=== PATIENT | female | born 1950 | race Caucasian/White ===

== ENCOUNTER 2022-10-31 12:45 | Outpatient (REF) | payer MEDICARE, SELFPAY ==
[2022-10-31 13:52] LABS: MANUAL DIFF FLAG NO
[2022-10-31 14:31] LABS: Basophils Percent Auto 1.4 % (0-2); Eosinophils Percent Auto 0.4 % (0-4); Hematocrit 42.2 % (37.0-47.0); Hemoglobin 13.9 g/dl (12.0-16.0); Imm Gran Abs Auto 0.02 X10*3/uL (0.00-0.03); Imm Gran Pct Auto 0.7 % (0.0-0.4); Lymphocytes Percent Auto 37.1 % (20-40); Mean Corpuscular HGB Conc 32.9 g/dl (31.0-35.0); Mean Corpuscular Hemoglobin 30.7 pg (27.0-33.0); Mean Corpuscular Volume 93.2 fL (80.0-98.0); Mean Platelet Volume 10.5 fL (9.4-12.3); Monocytes Absolute Auto 0.3 X10*3/uL (0.1-1.2); Monocytes Percent Auto 11.8 % (2-11); Neutrophils Absolute Auto 1.4 x10*3/uL (2.0-8.3); Neutrophils Percent Auto 48.6 % (45-73); Platelet Count 131 X10*3/uL (160-400); Red Blood Count 4.53 X10*6/uL (4.20-5.50); Red Cell Distribution Width 13.6 % (11.0-16.0); White Blood Count 2.8 X10*3/uL (4.8-10.8)
[2022-10-31 15:13] LABS: Erythrocyte Sedimentation Rate 7 MM/HR (0-20)
[2022-11-02 06:13] LABS: Immunoglobulin E <2 kU/L (<OR=114)
[2022-11-04 11:39] LABS: IgA 256 mg/dL (70-320); IgG 1055 mg/dL (600-1540); IgM 104 mg/dL (50-300)
[2022-11-04 12:58] LABS: Immunoglobulin G Subclass 1 560 mg/dL (382-929); Immunoglobulin G Subclass 2 279 mg/dL (241-700); Immunoglobulin G Subclass 3 73 mg/dL (22-178); Immunoglobulin G Subclass 4 11.7 mg/dL (4-86); Immunoglobulin G Total 1014 mg/dL (600-1540)
[2022-11-04 16:18] LABS: Cyclic Citrullinated Peptide <16 UNITS
[2022-11-05 07:43] LABS: Anti Nuclear Antibody Screen NEGATIVE (NEGATIVE)
[2022-11-07 13:53] LABS: Myeloperoxidase Antibody <1.0 AI; Proteinase 3 PR3 Antibodies <1.0 AI
[2022-11-08 14:12] LABS: Asperg fumigatus Precip Abs NEGATIVE (NEGATIVE); Micropoly faeni Abs NEGATIVE (NEGATIVE); Pigeon serum Abs NEGATIVE (NEGATIVE); Saccharo pora viridis Abs NEGATIVE (NEGATIVE); Thermo candidus Abs NEGATIVE (NEGATIVE); Thermoa vulgaris #1 NEGATIVE (NEGATIVE)
== END 2022-10-31 12:46 | disposition home or self-care (01) ==
LOC: HO.LAB 12:45
PROVIDERS: PCP Registered Nurse; Visit Provider Hospitalist
DX: R91.8 Other nonspecific abnormal finding of lung field (principal); J18.9 Pneumonia, unspecified organism; J40 Bronchitis, not specified as acute or chronic; J21.9 Acute bronchiolitis, unspecified
CPT/HCPCS: 36415; 82784; 82785; 85025; 85652; 86021; 86038; 86039; 86200; 86331; 86606; 86609; 99202

== ENCOUNTER 2022-11-22 14:42 | Outpatient (REF) | payer MEDICARE, SELFPAY ==
[2022-11-22 14:54] LABS: MANUAL DIFF FLAG NO
[2022-11-22 15:22] LABS: Eosinophils Percent Auto 0.6 % (0-4); Hematocrit 38.4 % (37.0-47.0); Hemoglobin 12.6 g/dl (12.0-16.0); Imm Gran Abs Auto 0.01 X10*3/uL (0.00-0.03); Imm Gran Pct Auto 0.3 % (0.0-0.4); Lymphocytes Absolute Auto 1.1 X10*3/uL (1.2-4.9); Lymphocytes Percent Auto 36.2 % (20-40); Mean Corpuscular HGB Conc 32.8 g/dl (31.0-35.0); Mean Corpuscular Hemoglobin 30.4 pg (27.0-33.0); Mean Corpuscular Volume 92.5 fL (80.0-98.0); Mean Platelet Volume 10.4 fL (9.4-12.3); Monocytes Absolute Auto 0.4 X10*3/uL (0.1-1.2); Monocytes Percent Auto 12.6 % (2-11); Neutrophils Absolute Auto 1.5 x10*3/uL (2.0-8.3); Neutrophils Percent Auto 49.3 % (45-73); Platelet Count 132 X10*3/uL (160-400); Red Blood Count 4.15 X10*6/uL (4.20-5.50); Red Cell Distribution Width 13.5 % (11.0-16.0); White Blood Count 3.1 X10*3/uL (4.8-10.8)
[2022-11-22 15:25] LABS: D Dimer High Sensitivity 291 NG/ML
[2022-11-22 15:45] LABS: Anion Gap 11 (12-20); Blood Urea Nitrogen 23 mg/dL (9-16); Calcium 9.7 mg/dL (8.4-10.2); Carbon Dioxide 28 mmol/L (22-29); Chloride 110 mmol/L (96-108); Estimated Glomerular Filt Rate 45; Glucose Random 84 mg/dL (60-115); Potassium 4.8 mmol/L (3.3-5.1); Sodium 144 mmol/L (135-145)
[2022-11-22 15:57] LABS: Erythrocyte Sedimentation Rate 9 MM/HR (0-20)
[2022-11-22 16:01] LABS: Troponin-I High Sensitivity < 2.7 ng/L (<3.5-17.0)
== END 2022-11-22 14:43 | disposition home or self-care (01) ==
LOC: HO.LAB 14:42
PROVIDERS: PCP Registered Nurse; Visit Provider Hospitalist
DX: R07.9 Chest pain, unspecified (principal)
CPT/HCPCS: 36415; 80048; 84484; 85025; 85379; 85652

== ENCOUNTER 2022-11-26 12:49 | Outpatient (REF) | payer MEDICARE, SELFPAY ==
--- NOTE | ~2022-11-26 | CT_ITS ---
EXAMINATION: CT ANGIOGRAM OF THE CHEST WITH AND WITHOUT CONTRAST (CT PULMONARY ANGIOGRAM FOR PE) CLINICAL INFORMATION: Reason for Exam R07.9 - Chest pain, unspecified COMPARISON: None available. TECHNIQUE: Prior to contrast administration, noncontrast localization images were obtained. Subsequently, multidetector volumetric imaging was performed from the thoracic inlet to below the diaphragms following the administration of 80 mL Omnipaque 350 intravenous contrast. No contrast reaction reported Sagittal, coronal, and MIP oblique sagittal reformatted images were obtained on the CT workstation, uploaded to PACS, and reviewed. This CT examination was performed using dose optimization techniques as appropriate, variously including the following: *Automated exposure control *Adjustment of mA and/or kV according to patient size (this includes techniques or standardized protocols for targeted exams where dose is matched to indication/reason for exam; i.e. extremities or head) *Use of iterative reconstruction technique Total exam dose-length product 117 mGy-cm FINDINGS: QUALITY OF STUDY/CONTRAST BOLUS: Satisfactory. PULMONARY ARTERIES: No pulmonary emboli. THORACIC AORTA: No aneurysm. LUNG: The lungs are well-expanded and clear of acute pneumonic process. There is right lower lobe and lingular atelectasis. PLEURA: No pleural effusion or pneumothorax. MEDIASTINUM: Heart size and great vessels are normal caliber. No evidence of septal bowing or right heart strain. CORONARY ARTERY CALCIFICATION: None visualized on this study. CHEST WALL/AXILLA: No axillary or internal mammary lymphadenopathy. OSSEOUS STRUCTURES: No acute or suspicious osseous abnormality. UPPER ABDOMEN: Visualized liver, spleen, pancreas and bilateral adrenal glands unremarkable. No reflux of contrast into the hepatic veins to suggest elevated right heart pressures. CT/CT angio chest PE protocol IMPRESSION: No evidence of PE. No evidence of aortic aneurysm or dissection. Right lower lobe and lingular atelectasis. VTE: negative
[2022-11-26] MEDS: iohexoL 350 MG/ML 100 ML INFUS..BTL IV (14:22)
== END 2022-11-26 12:50 | disposition home or self-care (01) ==
LOC: HO.CT 12:49
PROVIDERS: PCP Registered Nurse; Visit Provider Hospitalist
DX: R07.9 Chest pain, unspecified (principal); R79.89 Other specified abnormal findings of blood chemistry
CPT/HCPCS: 71275; Q9967

== ENCOUNTER 2022-12-05 07:36 | Day surgery (SDC) | payer MEDICARE, SELFPAY ==
--- NOTE | 2022-12-04 08:43 | P.CONAN_ITS ---
Documented by User: China Leon NP 12/04/22 08:47 HPI - Anesthesia Eval Consult details Narrative: 72yo F for Bronchoscopy Fiberoptic PMFSH Active Problems Active Problems: All Active Problems (Updated 11/19/22 @ 15:19 by Wayne Ng MD) Chest pain (Acute) Bronchiolitis (Acute) Bronchitis (Acute) Pneumonia (Acute) Past Medical History Medical History Anxiety Bronchiolitis Bronchitis Chest pain HLD (hyperlipidemia) HTN (hypertension) Hypothyroid Mitral valve prolapse Pneumonia Surgical History Surgical History H/O colonoscopy H/O endoscopy History of hysterectomy S/P transposition of nerve Social History Social History Patient Tobacco Use Status: Never used Tobacco Meds Allergies Allergy/AdvReac Type Severity Reaction Status Date / Time tetracycline Allergy Unknown Hives Verified 12/05/22 08:03 Erythromycin Allergy Unknown Hives Uncoded 12/05/22 08:03 msg AdvReac Severe Hives Uncoded 12/05/22 08:03 bee stings AdvReac Hives Uncoded 12/05/22 08:03 Home Medications Medication Instructions Recorded Confirmed Last Taken Type clobetasol 0.05 % topical foam 1 appl topical BID PRN SKIN 10/31/22 12/05/22 Unknown History furosemide 20 mg tablet 20 mg PO DAILY 10/31/22 12/05/22 12/04/22 History levothyroxine 112 mcg tablet 112 mcg PO QAM 10/31/22 12/05/22 12/04/22 History metoprolol succinate 100 mg 100 mg PO DAILY 10/31/22 12/05/22 12/04/22 History tablet,extended release 24 hr valacyclovir 1 gram tablet 2,000 mg PO Q12H PRN Breakthrough 10/31/22 12/05/22 Unknown History Pain Exam Exam Date and Time: December 04, 2022 0843 Pertinent Lab Results Pertinent Lab Results: Laboratory Tests 11/22/22 11/22/22 14:53 14:53 WBC 3.1 L Hgb 12.6 Hct 38.4 Plt Count 132 L Sodium 144 Potassium 4.8 Chloride 110 H Carbon Dioxide 28 BUN 23 H Creatinine 1.18 Assessment and Plan Assessment Anesthesia Assessment: Chart Reviewed Documented by User: Caesar Trejo MD 12/05/22 17:19 [facility] Past Medical History Medical History Anxiety Bronchiolitis Bronchitis Chest pain HLD (hyperlipidemia) HTN (hypertension) Hypothyroid Mitral valve prolapse Pneumonia Family History Family history of problems with anesthesia: No Surgical History Surgical History H/O colonoscopy H/O endoscopy History of hysterectomy S/P transposition of nerve History of Problems with Anesthesia: No Social History Social History Patient Tobacco Use Status: Never used Tobacco Meds Allergies Allergy/AdvReac Type Severity Reaction Status Date / Time tetracycline Allergy Unknown Hives Verified 12/05/22 08:03 Erythromycin Allergy Unknown Hives Uncoded 12/05/22 08:03 msg AdvReac Severe Hives Uncoded 12/05/22 08:03 bee stings AdvReac Hives Uncoded 12/05/22 08:03 Home Medications Medication Instructions Recorded Confirmed Last Taken Type clobetasol 0.05 % topical foam 1 appl topical BID PRN SKIN 10/31/22 12/05/22 Unknown History furosemide 20 mg tablet 20 mg PO DAILY 10/31/22 12/05/22 12/04/22 History levothyroxine 112 mcg tablet 112 mcg PO QAM 10/31/22 12/05/22 12/04/22 History metoprolol succinate 100 mg 100 mg PO DAILY 10/31/22 12/05/22 12/04/22 History tablet,extended release 24 hr valacyclovir 1 gram tablet 2,000 mg PO Q12H PRN Breakthrough 10/31/22 12/05/22 Unknown History Pain Exam Airway Mallampati Class: II TM Dist: >3cm Neck ROM: Full Assessment and Plan Assessment Anesthesia Assessment: Anesthesia Plan Discussed Final Anesthetic Review Family History of Problems with Anesthesia: No History of Problems with Anesthesia: No NPO: Yes ASA Class: III Final Preanesthetic Review: No Changes in Pt Med Stat, Meds/Allgs Chart Reviewed, Consent Obtained/Reviewed and Anes Risks/Benef Reviewed Patient Risk: Intermediate Procedure Risk: Low Anesthetic Plan Anesthetic Plan: MAC: Disposition: Standard PACU
--- NOTE | 2022-12-05 07:58 | MHC.SHP ---
Pre-Procedural Eval Section A Date of Service: 12/05/22 The patient is an INPATIENT: No Changes since office visit: No Cold of Flu in the past 2 weeks, No New Medical Problems, No Changes in Medication and No Patient answered all questions The History & Physical has been completed within 30 days and I have reviewed it.: Yes Section B Chief Complaint: Acute bronchiolitis, unspecified Allergies: Allergies Allergy/AdvReac Type Severity Reaction Status Date / Time tetracycline Allergy Unknown Hives Verified 10/31/22 13:01 Erythromycin Allergy Unknown Hives Uncoded 10/31/22 13:01 msg AdvReac Severe Hives Uncoded 10/31/22 13:01 bee stings AdvReac Hives Uncoded 10/31/22 13:01 Plan Diagnosis/Plan: Change (recurrent pneumonia and chest pain, plan for bronchoscopy) I have reviewed the history and physical and performed a pertinent physical examination on my patient. No changes have occurred unless specified. Time Spent With Patient Time: Total time managing care of this patient today ____ minutes.
[2022-12-05 08:06] VITALS: BMI 33.7
--- NOTE | 2022-12-05 08:14 | PC.NURSE ---
PATIENT STATES HER HEALTH CARE PROXY IS FOLLOWS- HER CHANDNI BOZENA [phone] AND SON BOOM BOZENA [phone].
[2022-12-05 08:16] VITALS: BP 131/66; PULSE 56; RESP 16; TEMP 36.6; O2SAT 96
[2022-12-05] MEDS: Lactated Ringers 1,000 ML 100 ML IVCONT (08:32)
--- NOTE | 2022-12-05 09:22 | PC.NURSE ---
PATIENT IN PREOP MENTIONED THAT SHE HAS RECENTLY STARTED TO SEE CARDIOLOGY, DR. RICHARDS [phone]. NO RECORDS ON FILE. RECORDS OBTAINED VIA FAX AND SHARED WITH ANESTHESIA DR. SIMS AND DR. GRANADO.
[2022-12-05 10:10] VITALS: BP 101/41; PULSE 64; RESP 18; TEMP 36.1; O2SAT 98
--- NOTE | 2022-12-05 10:10 | PM.OP ---
Brief Operative Note Date of Service: 12/05/22 Pre-op diagnosis: recurrent pneumonia Post-op diagnosis: other (errosive bronchitis, RUL endobronchial lesion, tracheal polyp) Procedure: bronchoscopy with biopsies, washings, brushings Implants: Surgeon: Wayne Ng MD Anesthesia: MAC Was an Russian Language Professor used for this Procedure?: No Estimated blood loss (mL): 3 Pathology: other (RUL, tracheal biopsies) Condition: stable Disposition: same day
[2022-12-05 10:25] VITALS: BP 96/56; PULSE 55; RESP 16; O2SAT 98
[2022-12-05 10:40] VITALS: BP 109/56; PULSE 51; RESP 18; TEMP 36.4; O2SAT 98
--- NOTE | 2022-12-05 13:11 | OP_ITS ---
DATE OF SERVICE: 12/05/2022 SURGEON: Wayne Ng MD PREOPERATIVE DIAGNOSIS: Recurrent pneumonia. POSTOPERATIVE DIAGNOSIS: PROCEDURE PERFORMED: ESTIMATED BLOOD LOSS: COMPLICATIONS: ANESTHESIA: MAC. ASSISTANTS: SPECIMENS: INDICATION: Recurrent pneumonia and chest discomfort. POSTOPERATIVE DIAGNOSES: Erosive bronchitis, right upper lobe endobronchial lesion and tracheal polyp. PASTE WORKER: None. DESCRIPTION OF PROCEDURE: After the patient was adequately sedated, the flexible digital bronchoscope was inserted in the oral airway to the level of the larynx and vocal cords symmetrically to the midline without any lesions or masses. After instilling lidocaine, the bronchoscope was then passed to vocal cords to the level of trachea. Tracheal mucosa appeared to be erosive, erythematous without any significant secretions. After instilling additional lidocaine, the bronchoscope was then navigated to entire tracheobronchial tree, it was noted that there was remarkable mild amount of erythema and friability to the mucosa throughout. The mucosa would bleed just with minimal manipulation. There was noted to be polypoid lesion in the distal trachea, in addition to that the patient also had an irregularity in the posterior segment of the right upper lobe and also the apical. It appeared to be more the same degree of inflammation, but was more demarcated. No other lesions noted. Bronchoscope navigated to the left lower lobe where she had the pneumonia before and micro brushes into that area that was sent for microbiology. Bronchial washings were collected bilaterally after that using forceps, we collected endobronchial biopsies of the right below the area of the apical and posterior segment, sent to pathology and also a biopsy of the polypoid area on the trachea also sent to pathology. The patient did have some minimal bleeding, although just lost of oozing just from the friability of the mucosa. Iced saline was used with good hemostasis. No evidence of any active bleeding at the end of the procedure. The total endoscopic time was approximately 12 minutes. The patient tolerated the procedure well with MAC. No apparent complications. No x-ray needed. INTERPRETATION: Successful brushings and washings and endobronchial biopsies of the right upper lobe and also distal trachea. MD NARENDRA Samuel/GLENNY / [phone]
== END 2022-12-05 11:28 | disposition home or self-care (01) ==
PROVIDERS: PCP Registered Nurse; Visit Provider Hospitalist
PROC: 0BJ08ZZ Inspection of Tracheobronchial Tree, Via Natural or Artificial Opening Endoscopic (ICD-10-PCS; CPT 31622; principal; 2022-12-05 09:00)
DX: J40 Bronchitis, not specified as acute or chronic (principal); J18.9 Pneumonia, unspecified organism; J38.1 Polyp of vocal cord and larynx; I10 Essential (primary) hypertension; E78.5 Hyperlipidemia, unspecified; E03.9 Hypothyroidism, unspecified; I34.1 Nonrheumatic mitral (valve) prolapse; F41.9 Anxiety disorder, unspecified; Z79.899 Other long term (current) drug therapy; Z88.1 Allergy status to other antibiotic agents
CPT/HCPCS: 31628; 31623; 36415; 87070; 87102; 87116; 87205; 87206; 87254; 88112; 88305; J0171; J2370; J3010

== ENCOUNTER → 2023-01-09 14:02 | Outpatient (BNVA) | payer MEDICARE, SELFPAY | PROVIDERS: PCP Registered Nurse; Visit Provider Hospitalist | DX: A31.0 Pulmonary mycobacterial infection (principal); J21.9 Acute bronchiolitis, unspecified; J40 Bronchitis, not specified as acute or chronic | CPT/HCPCS: 94640; 99212 ==

== ENCOUNTER 2023-02-24 14:43 | Outpatient (REF) | payer MEDICARE, SELFPAY ==
[2023-02-24 15:58] LABS: MANUAL DIFF FLAG NO
[2023-02-24 17:56] LABS: Basophils Percent Auto 1.3 % (0-2); Eosinophils Percent Auto 0.7 % (0-4); Hematocrit 44.7 % (37.0-47.0); Hemoglobin 14.6 g/dl (12.0-16.0); Imm Gran Abs Auto 0.01 X10*3/uL (0.00-0.03); Imm Gran Pct Auto 0.3 % (0.0-0.4); Lymphocytes Absolute Auto 1.6 X10*3/uL (1.2-4.9); Lymphocytes Percent Auto 51.1 % (20-40); Mean Corpuscular HGB Conc 32.7 g/dl (31.0-35.0); Mean Corpuscular Hemoglobin 29.4 pg (27.0-33.0); Mean Corpuscular Volume 89.9 fL (80.0-98.0); Mean Platelet Volume 11.3 fL (9.4-12.3); Monocytes Absolute Auto 0.4 X10*3/uL (0.1-1.2); Monocytes Percent Auto 12.1 % (2-11); Neutrophils Absolute Auto 1.1 x10*3/uL (2.0-8.3); Neutrophils Percent Auto 34.5 % (45-73); Platelet Count 167 X10*3/uL (160-400); Red Blood Count 4.97 X10*6/uL (4.20-5.50); Red Cell Distribution Width 12.1 % (11.0-16.0); White Blood Count 3.1 X10*3/uL (4.8-10.8)
[2023-02-24 18:29] LABS: Erythrocyte Sedimentation Rate 8 MM/HR (0-20)
[2023-02-24 18:38] LABS: Anion Gap 16 (12-20); Blood Urea Nitrogen 20 mg/dL (9-16); Calcium 10.5 mg/dL (8.4-10.2); Carbon Dioxide 26 mmol/L (22-29); Chloride 102 mmol/L (96-108); Estimated Glomerular Filt Rate > 60; Glucose Random 79 mg/dL (60-115); Potassium 3.5 mmol/L (3.3-5.1); Sodium 140 mmol/L (135-145)
[2023-02-27 12:03] LABS: Immunoglobulin E <2 kU/L (<OR=114)
[2023-03-03 12:08] LABS: Anti Nuclear Antibody Screen NEGATIVE (NEGATIVE)
[2023-03-04 07:00] LABS: IgA 217 mg/dL (70-320); IgG 992 mg/dL (600-1540); IgM 88 mg/dL (50-300)
== END 2023-02-24 14:44 | disposition home or self-care (01) ==
LOC: HO.LAB 14:43
PROVIDERS: PCP Registered Nurse; Visit Provider Hospitalist
DX: A31.0 Pulmonary mycobacterial infection (principal); I95.9 Hypotension, unspecified; R07.9 Chest pain, unspecified; J21.9 Acute bronchiolitis, unspecified; J40 Bronchitis, not specified as acute or chronic; U09.9 Post COVID-19 condition, unspecified
CPT/HCPCS: 36415; 80048; 82533; 82784; 82785; 85025; 85652; 86038; 99212

== ENCOUNTER 2023-02-24 14:43 | Outpatient (AMB) | payer MEDICARE, SELFPAY ==
[2023-02-24 14:48] VITALS: BP 130/78; PULSE 80; O2SAT 96; BMI 33.0
--- NOTE | 2023-02-24 14:48 | MHC.OFFVIS ---
Intake Vital Signs 02/24/23 14:48 Height 5 ft 7 in Weight 211 lb BMI 33.0 BP 130/78 Blood Pressure Location Lt brachial Position Standing Pulse 80 Pulse Source Pulse Oximeter Pulse Oximetry (%) 96 Oxygen Delivery Method Room Air Intake Visit Reasons: Pneumonia Follow Up Intake Note: pt is here for follow up and states she does have shortness of breath, coughing at night, feels like throat is closing in more and hoarseness, and extreme fatigue. Ore Puncher Required: No Allergies tetracycline Allergy (Unknown, Verified 01/09/23 14:15) Hives msg Adverse Reaction (Severe, Uncoded 01/09/23 14:15) Hives bee stings Adverse Reaction (Uncoded 01/09/23 14:15) Hives HPI HPI Comments History of Present Illness Details The patient is a 72 year woman who was in her usual state health until sometime in July when she started developing worsening cough. She was given a course of antibiotics. Ultimately her symptoms persisted. Moderate severity. Also complaining of shortness of breath. She had a chest x-ray demonstrating airspace disease Consistent with pneumonia. She was given another course of antibiotics. The patient continues to be symptomatic however. She had a repeat chest x-ray demonstrating interval worsening symptoms. Therefore she was referred for a CT scan of the chest which was personally by me. The patient had evidence of significant bronchitis in addition to evidence of bronchiolitis with tree-in-bud and some areas of alveolitis or pneumonia. She was then switched to Vantin for antibiotic. Seems to be responding a little better. in view of the findings on the CT scan will go ahead and request additional blood work. The patient also is to continue the Ventolin start small dose of prednisone. Hopefully with see improvements on her repeat chest x-ray in the coming weeks. However, the patient is no better she is to call the office for an earlier re-evaluation. 01/09/2023 the patient is here for a pulmonary follow-up visit. She is status post bronchoscopy. The bronchoscopy demonstrated significant erosive bronchitis very friable mucosa. 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 The patient continues to be symptomatic with cough dyspnea chest tightness. [id number]-[id number] severity. Explained to the patient that ideally more than 1 culture should be requested in order to make sure that we are dealing with a rate pathogenic infection versus colonization. In the office we did try to do is sputum culture after a hypertonic nebulized solution the therapy. However, the patient was not able to produce 1. She will try to produce 1 the coming days. She understand the treatment for mycobacterial disease can be pretty prolonged and difficult to tolerate at times. Required multiple antibiotics. The we will request sensitivities from her mycobacterial culture. The meantime will go ahead and try to start a partial treatment with azithromycin 3 times a week to see if her symptoms improve. I am hopeful that we can get another sputum culture. Depending on her response in the sensitivities and the repeat culture will decide on other additional antimicrobial therapies and also duration of therapy. Also to note, the patient did have a CTA after having a positive D-dimer. Ruled out for pulmonary emboli. She did have some degree of atelectasis. No evidence of any bronchiectasis or pulmonary nodules which is more of a typical presentation mycobacterial disease. [facility] Medical History (Updated 02/25/23 @ 00:20 by Wayne Ng MD) Anxiety Bronchiolitis Bronchitis Chest pain HLD (hyperlipidemia) HTN (hypertension) Hypotension Hypothyroid Mitral valve prolapse Mycobacterium avium complex Pneumonia Surgical History H/O colonoscopy H/O endoscopy History of hysterectomy S/P transposition of nerve Social History Patient Tobacco Use Status: Never used Tobacco Review of Systems Const Reports fatigue and Denies fever(s) Eyes Denies change in vision ENT Denies change in voice Card Denies chest pain and Reports dyspnea on exertion Resp Reports cough, Reports dyspnea on exertion and Reports wheezing GI Reports no additional complaints Musc Reports no additional complaints Skin/Breast Denies rash Neuro Reports no additional complaints Endo Reports fatigue Matty/Lymph Denies easy bleeding and Denies easy bruising Aller/Immun Reports wheezing Physical Exam Vital Signs: Last Vital Signs Pulse 80 02/24/23 14:48 BP 130/78 02/24/23 14:48 Pulse Ox 96 02/24/23 14:48 Oxygen Delivery Method Room Air 02/24/23 14:48 BMI result Body Mass Index 33.0 Const General: comfortable HEENT Head: Yes normocephalic Neck Neck: Yes supple Chest Chest palpation & inspection: normal inspection of the chest Resp Effort & Inspection: normal respiratory effort Auscultation: wheezes and diminished lung sounds Cardio Rate: regular rate Rhythm: regular rhythm Heart sounds: S1 normal heart sound present and S2 normal heart sound present GI Palpation (GI): Soft to palpation Skin General skin exam: no rashes or lesions noted Extrem General: Yes no clubbing, cyanosis or edema Assessment & Plan Assessment & Plan (1) Mycobacterium avium complex: Code(s): A31.0 - Pulmonary mycobacterial infection (2) Bronchiolitis: Code(s): J21.9 - Acute bronchiolitis, unspecified (3) Bronchitis: Code(s): J40 - Bronchitis, not specified as acute or chronic (4) 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, unspecified Plan stop Azithromycin after complete 8 weeks start pulmonary rehab start Symbicort Benzonates as needed for cough bloodwork additional imaging study in the near future Consider repeating bronchoscopy F/U 2-3 months Orders: Orders Cortisol Random 02/24/23 A31.0 - Pulmonary mycobacterial infection, I95.9 - Hypotension, unspecified, R07.9 - Chest pain, unspecified Complete Blood Count Auto Diff 02/24/23 A31.0 - Pulmonary mycobacterial infection, I95.9 - Hypotension, unspecified, R07.9 - Chest pain, unspecified Basic Metabolic Panel 02/24/23 A31.0 - Pulmonary mycobacterial infection, I95.9 - Hypotension, unspecified, R07.9 - Chest pain, unspecified LUIGI Reflex Titer and Pattern 02/24/23 A31.0 - Pulmonary mycobacterial infection, I95.9 - Hypotension, unspecified, R07.9 - Chest pain, unspecified Erythrocyte Sedimentation Rate 02/24/23 A31.0 - Pulmonary mycobacterial infection, I95.9 - Hypotension, unspecified, R07.9 - Chest pain, unspecified Immunoglobulin E 02/24/23 A31.0 - Pulmonary mycobacterial infection, I95.9 - Hypotension, unspecified, R07.9 - Chest pain, unspecified Immunoglobulins,IgG IgA IgM 02/24/23 A31.0 - Pulmonary mycobacterial infection, I95.9 - Hypotension, unspecified, R07.9 - Chest pain, unspecified Pulmonary Rehab Today U09.9 - Post COVID-19 condition, unspecified Medications: New benzonatate 200 mg PO BID 30 days PRN 60 caps 0RF cough budesonide-formoterol 160-4.5 mcg/actuation (Symbicort) 2 puffs inhalation BID 30 days 10.2 grams 11RF J44.9 - Chronic obstructive pulmonary disease, unspecified benzonatate 200 mg PO BID 30 days PRN 60 caps 0RF cough Coding Level of Care Code Est Pt Level 5 (41854) Diagnoses Mycobacterium avium complex A31.0 Bronchiolitis J21.9 Bronchitis J40 [id number] syndrome U09.9 Time Spent (min) 50
== END 2023-02-24 15:33 | disposition home or self-care (01) ==
PROVIDERS: PCP Registered Nurse; Visit Provider Hospitalist
DX: A31.0 Pulmonary mycobacterial infection (principal); J21.9 Acute bronchiolitis, unspecified; J40 Bronchitis, not specified as acute or chronic; U09.9 Post COVID-19 condition, unspecified
CPT/HCPCS: 99215

== ENCOUNTER 2023-03-10 10:02 | Outpatient (RCR) | payer MEDICARE, SELFPAY ==
[2023-03-10 10:20] VITALS: PULSE 63
--- NOTE | 2023-03-10 12:14 | MHC.PR.IN ---
[address] [phone] F: [phone] Pulmonary Rehabilitation Individual Treatment Plan Naomie Saba is a 72 year old (F) who was referred to the Pulmonary Rehabilitation program by Wayne Ng. This patient who has a primary diagnosis of Post Covid will begin pulmonary rehabilitation with monitored exercise and education to optimize both physical and social performance, autonomy, increase strength and endurance, and control dypsnea. The following information was gathered from the patient: Smoking History Current smoking status: Never Smoked Years smoked: Last time smoked: Quit Date: Assistance with quitting needed: Past Medical History Medical History: Cardiac Disorders Hypertension Chest Pain Pneumonia Bronchitis Depression Anxiety Vision Problems Hearing Problems Surgeries: Cataract surgery Past Pulmonary Hospitalizations # of hospitalizations in the past year: # of ER vists due to breathing troubles in the past year: Current Pulmonary Medications Symbacort inhaler 160/4.5 Metrprolol succ 100 mg daily Levethyroxine 112 mg daily Furosemide 20mg daily Benzonatate 200 mg daily Valacyclov-IR 1 gram Clobetasol Propianate 0.5 Diphenhydramine 25mg daily Allergy History Allergies: tetracycline/MSG/Bees Current Oxygen Use Supplemental Oxygen Device Used: Liter flow: How often: Pulmonary History Cough: Yes: at night mostly Sputum: No Sleep device: No Other pulmonary devices: Peak flow meter: Nebulizer: No Suction: Ventilator: Secretion clearance: PEP: Influenza vaccine: Yes Pneumonia vaccine: Yes Patient Questionaire Scores MRC Dyspnea Scale (mRC): 4 CAT Score: PHQ-9 Score: 13 Pulmonary Function Test and Vital Signs Pulmonary Function Test Date of PFT FVC Actual % FVC Predicted % FEV1 Actual % FEV1 Predicted % FEV1/FVC Actual % FEV1/FVC Predicted % DLCO Vital Signs Heart Rate 63 Blood Pressure SpO2 97% Respiratory Rate 18 Six Minute Walk Test Supplemental Oxygen O2 L/min: Room Air FiO2: Resting Vitals SpO2: 97% BP: 112/68mmHg HR: 67 bpm Total Distance 550 Number/ Time of Rests (sec) 0 ANGEL 2 METS 1.80 SpO2 94 HR (bpm) 78 MPH 1.04 Meters/Minute 28 Post-walk Vitals SpO2: 94 BP: 110/72 HR: 72 Performance Observations Pt walked slow pace unassisted for 6 minutes. NO breaks. Pt denies dizziness /chest pain. Pulmonary Rehabilitation Plan Topic Problem Goal Plan Comment Education Knowledge deficit of disease self management strategies Verbalize adequate disease self-management skills Effective control of dyspnea Advanced directives Exacerbation prevention and management Panic Control Respiratory medication Pt is DNR. Anatomy and Physiology of good lung vs bad lung discussed. Panic control and breathing techniques reviewed. Hypoxia No home oxygen SpO2 >90 Pt educated on using a pulse oximeter, and taught how to check spo2 and heart rate on own. Psychosocial Anxiety Depression Adequate treatment of depression Referral to MD for counseling Verbalizes improved psychosocial coping strategies & mechanisms Review screening results Benefits of exercise Relaxation techniques Coping techniques Stress management Discussed coping techniques and breathing techniques to help panic when short of breath. Activities of Daily Living Impaired ADL management Fear of severe dyspnea ADL management and control of dyspnea ADL performance with pacing and pursed lip breathing Educate on pursed lip breathing and pacing with stairs and activity Reviewed pursed lip and diaphragmatic breathing techniques. Will continue to educate throughout sessions. Nutrition & Weight Management Overweight Prevent further weight gain Education classes Education re ongoing weight monitoring Pt to fill out Rate my plate and discuss nutrition throughout program. Tobacco Managment NA Medication Patient has never smoked. Inhaled Medication Purpose, side effects and technique needs review Correct technique/timing and care of inhaled medications Demo of MDI with spacer device MDI with spacer device Review of medications, proper techniques, cleaning. Secretion Management Ineffective airway clearance Patient demonstrates effective cough and airway clearance Patient demonstrates effective cough and airway clearance patient to learn airway clearance techniques. Exercise & Fitness Decreased strength & endurance Knowledge deficit of exercise guidelines & safety No regular exercise Pulmonary Rehab 2-3x/week Weight or resistance training 2-3x/week Aerobic Exercise: 30-60mins x 9 weeks Review benefits & core components of exercise program Review how to measure and monitor dyspnea level Review exercise safety guidelines Review frequency and duration of exercise Review exercise intensity ANGEL RPD 3-4/10 Review home exercise guidelines Pt to participate in pulmonary rehab 2X weekly with 31 minutes total exercise to begin. Nustep 2X RPD 3-4/ UBE 2X weekly RPD 3-4/ Recumbent bike 2X weekly RPD 3-4 Diabetes Management Does patient have DM?: No Diabetes Type: Current Blood Glucose Level: Current A1C Level: Self Check: PT is not a diabetic Patient's Goals and Concerns In patients own words she would love to be able to go out with her friends on and enjoy a night out. She would like to breathe better and feel better and become more active. . Medical Insurance Clerk Review I have reviewed the outcome assessment, treatment plan, goals, and problem list. The treatment plan and goals support the patient's needs and abilities, and thereby recommend that the exercise plan be completed as documented. Special precautions or modifications to the treatment plan include:
--- NOTE | 2023-03-18 09:12 | MHC.PR.DC ---
[address] [phone] F: [phone] Pulmonary Rehabilitation Discharge Naomie Saba is a 72 year old (F) who was referred to the Pulmonary Rehabilitation program by Wyane Ng. This patient who has a primary diagnosis of Post Covid has completed sessions of the pulmonary rehabilitation program with monitored exercise and education to optimize both physical and social performance, autonomy, increase strength and endurance, and control dypsnea. They were evaluated on . Discharge summary and tests are below. Initial MRC Score: 4 Discharge MRC Score: Six Minute Walk Test Initial 6MWT Discharge 6MWT Supplemental Oxygen O2 L/min: Room Air FiO2: O2 L/min: FiO2: Resting Vitals SpO2: 97% BP: 112/68mmHg HR: 67 bpm SpO2: % BP: mmHg HR: bpm Total Distance (ft) 550 Number/ Time of Rests (sec) 0 ANGEL 2 Walk Vitals SpO2: 94 HR: 78 SpO2: HR: Post-Walk Vitals SpO2: 94 BP: 110/72 HR: 72 SpO2: BP: HR: Performance Observations Pt walked slow pace unassisted for 6 minutes. NO breaks. Pt denies dizziness /chest pain. Exercise Assessment on : Pre-exercise Post-exercise SpO2 Heart Rate ANGEL METS Exercise Assessment on : Pre-exercise Post-exercise SpO2 Heart Rate ANGEL METS Exercise Assessment on : Pre-exercise Post-exercise SpO2 Heart Rate ANGEL METS Topic Education/Progress Progress Comments Education Hypoxia Current oxygen Use: Psychosocial PHQ-9 Score: 13 Activities of Daily Living Nutrition and Weight Managment Current weight: 212 BMI: Weight change: Tobacco Stages of Change: Tobacco Use: Cigerettes/Day: Any nicotine replacement: Any cessation medication: Smoking quit date: Smokeless tobacco use and amount: Medications Inhaled Medications Patient verbalizes correct technique of: MDI: DPI: SMI: NEBULIZER: Secretion Management Patient provides adequate return demonstration of: Controlled cough: Santos cough: Acapella/ PEP Device: CPT: Sputum management: Exercise and Fitness Aerobic Exercise Frequency: Target heart range: Heart rate range: SpO2 Range: ANGEL RPD: Time (minutes): O2 use with exercise: Current HEP: Discharge Assessment: Discharge Reason: Pt had fallen prior to intake and has been recently seen by PT. Pt should not exercise until cleared. Pt would like to start program at a later time. Discharge Recommendation: :
== END 2023-03-18 09:13 | disposition home or self-care (01) ==
LOC: HO.PR 10:02
PROVIDERS: PCP Registered Nurse; Visit Provider Hospitalist
DX: U09.9 Post COVID-19 condition, unspecified (principal)
CPT/HCPCS: 94625

== ENCOUNTER 2023-04-29 14:18 | Outpatient (AMB) | payer MEDICARE, SELFPAY ==
[2023-04-29 14:32] VITALS: PULSE 68; O2SAT 95; BMI 28.6
--- NOTE | 2023-04-29 14:32 | MHC.OFFVIS ---
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 She was given a course of antibiotics. Ultimately her symptoms persisted. Moderate severity. Also complaining of shortness of breath. She had a chest x-ray demonstrating airspace disease Consistent with pneumonia. She was given another course of antibiotics. The patient continues to be symptomatic however. She had a repeat chest x-ray demonstrating interval worsening symptoms. Therefore she was referred for a CT scan of the chest which was personally by me. The patient had evidence of significant bronchitis in addition to evidence of bronchiolitis with tree-in-bud and some areas of alveolitis or pneumonia. She was then switched to Vantin for antibiotic. Seems to be responding a little better. in view of the findings on the CT scan will go ahead and request additional blood work. The patient also is to continue the Ventolin start small dose of prednisone. Hopefully with see improvements on her repeat chest x-ray in the coming weeks. However, the patient is no better she is to call the office for an earlier re-evaluation. 01/09/2023 the patient is here for a pulmonary follow-up visit. She is status post bronchoscopy. The bronchoscopy demonstrated significant erosive bronchitis very friable mucosa. 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 The patient continues to be symptomatic with cough dyspnea chest tightness. Rlsp-wg-evtjoxaz severity. Explained to the patient that ideally more than 1 culture should be requested in order to make sure that we are dealing with a rate pathogenic infection versus colonization. In the office we did try to do is sputum culture after a hypertonic nebulized solution the therapy. However, the patient was not able to produce 1. She will try to produce 1 the coming days. She understand the treatment for mycobacterial disease can be pretty prolonged and difficult to tolerate at times. Required multiple antibiotics. The we will request sensitivities from her mycobacterial culture. The meantime will go ahead and try to start a partial treatment with azithromycin 3 times a week to see if her symptoms improve. I am hopeful that we can get another sputum culture. Depending on her response in the sensitivities and the repeat culture will decide on other additional antimicrobial therapies and also duration of therapy. Also to note, the patient did have a CTA after having a positive D-dimer. Ruled out for pulmonary emboli. She did have some degree of atelectasis. No evidence of any bronchiectasis or pulmonary nodules which is more of a typical presentation mycobacterial disease. 04/28/2023 the patient is here for a pulmonary follow-up visit. Overall she is feeling better. The cough overall is better and her shortness of breath also has improved. Still intermittent cough though. Unfortunately does while she was started pulmonary rehabilitation the patient had a fall resulting in injury to both her knees and also her left shoulder. She has not been evaluated by orthopedic surgery. She is looking at nonsurgical approaches and therefore stem cell and also plasma therapy. The patient still waiting for MRI for her right shoulder. We did review her last CT scan demonstrating some changes primarily to the lingula and some bronchiectatic looking airways. She has completed a 2 month course of azithromycin and now the hope is that she maintains stable. She does have to work on chest PT. We do need to request an Acapella valve for her. I also provide her incentive spirometer since she is not able to move around as much. She should be using the incentive spirometer followed by the Acapella valve least twice a day. Will plan to repeat her CT scan in 2 months and then follow-up to see if there is any evolution of the lower respiratory infection. Overall currently the patient is doing a lot better from a respiratory status. therefore, if the patient does need to undergo any semi invasive or invasive procedures such as surgery with anesthesia the patient can proceed from a pulmonary standpoint. She does have mild risk for perioperative pulmonary complications which includes atelectasis, hypoxia, prolonged mechanical ventilation and pneumonia. [facility] Medical History (Updated 04/29/23 @ 23:33 by Wayne Ng MD) Atelectasis Hypotension Mycobacterium avium complex Mitral valve prolapse Hypothyroid Anxiety HLD (hyperlipidemia) HTN (hypertension) Chest pain Bronchiolitis Bronchitis Pneumonia Surgical History History of hysterectomy H/O endoscopy S/P transposition of nerve H/O colonoscopy Social History Household Members: Spouse Patient Tobacco Use Status: Never used Tobacco Review of Systems Const Reports fatigue and Denies fever(s) Eyes Denies change in vision ENT Denies change in voice Card Denies chest pain and Reports dyspnea on exertion Resp Reports cough, Reports dyspnea on exertion and Denies wheezing GI Reports no additional complaints Musc Reports as per HPI, Reports abnormal gait, Reports arthralgias, Reports joint swelling, Reports limited range of motion and Reports stiffness Skin/Breast Denies rash Neuro Reports no additional complaints and Reports abnormal gait Endo Reports fatigue Matty/Lymph Denies easy bleeding and Denies easy bruising Aller/Immun Denies wheezing Physical Exam Vital Signs: Last Vital Signs Pulse 68 04/29/23 14:32 Pulse Ox 95 04/29/23 14:32 Oxygen Delivery Method Room Air 04/29/23 14:32 BMI result Body Mass Index 28.6 Const General: comfortable HEENT Head: Yes normocephalic Neck Neck: Yes supple Chest Chest palpation & inspection: normal inspection of the chest Resp Effort & Inspection: normal respiratory effort Auscultation: no wheezes and diminished lung sounds Cardio Rate: regular rate Rhythm: regular rhythm Heart sounds: S1 normal heart sound present and S2 normal heart sound present GI Palpation (GI): Soft to palpation Skin General skin exam: no rashes or lesions noted Extrem General: Yes no clubbing, cyanosis or edema Assessment & Plan Assessment & Plan (1) Mycobacterium avium complex: Code(s): A31.0 - Pulmonary mycobacterial infection (2) [id number] syndrome: Code(s): U09.9 - Post COVID-19 condition, unspecified (3) Pre-op chest exam: Code(s): Z01.811 - Encounter for preprocedural respiratory examination (4) Atelectasis: Code(s): J98.11 - Atelectasis Plan stopped Azithromycin stop pulmonary rehab CPT with incentive spirometry and the acapella valve continue Symbicort Benzonates as needed for cough CT chest in 2 months F/U [address]: [address] chest wo IV con 10 Weeks J98.11 - Atelectasis Coding Level of Care Code Est Pt Level 4 (49247) Diagnoses Mycobacterium avium complex A31.0 [id number] syndrome U09.9 Pre-op chest exam Z01.811 Atelectasis J98.11 Time Spent (min) 18
== END 2023-04-29 15:03 | disposition home or self-care (01) ==
PROVIDERS: PCP Registered Nurse; Visit Provider Hospitalist
DX: A31.0 Pulmonary mycobacterial infection (principal); U09.9 Post COVID-19 condition, unspecified; Z01.811 Encounter for preprocedural respiratory examination; J98.11 Atelectasis
CPT/HCPCS: 99214

== ENCOUNTER → 2023-04-29 14:18 | Outpatient (BNVA) | payer MEDICARE, SELFPAY | PROVIDERS: PCP Registered Nurse; Visit Provider Hospitalist | DX: Z01.811 Encounter for preprocedural respiratory examination (principal); J98.11 Atelectasis; A31.0 Pulmonary mycobacterial infection; U09.9 Post COVID-19 condition, unspecified | CPT/HCPCS: 99212 ==

== ENCOUNTER 2023-07-14 16:02 | Outpatient (REF) | payer MEDICARE, SELFPAY ==
--- NOTE | ~2023-07-14 | CT_ITS ---
EXAMINATION: CT CHEST WITHOUT CONTRAST CLINICAL INFORMATION: Atelectasis COMPARISON: Previous chest CTA November 2022 TECHNIQUE: Multidetector volumetric CT imaging of the chest was done. Axial MIP volume rendering provided. Sagittal and coronal reformatted images were obtained. This CT examination was performed using dose optimization techniques as appropriate, variously including the following: *Automated exposure control *Adjustment of mA and/or kV according to patient size (this includes techniques or standardized protocols for targeted exams where dose is matched to indication/reason for exam; i.e. extremities or head) *Use of iterative reconstruction technique DLP: 164 mGy-cm FINDINGS: TAPE WEAVER: Slight elevation of the right hemidiaphragm LUNGS: There is borderline bilateral lower lobe bronchiectasis. There is chronic scarring or subsegmental atelectasis in the inferior segment of the lingula similar to November 2022. There is scarring or chronic subsegmental atelectasis in the right lower lobe adjacent to the diaphragm. This is minimally improved from November 2022. New 4 mm semisolid or heterogeneous right lower lobe nodule axial image 210 series 8. No endobronchial or endotracheal lesion. MEDIASTINUM: There are is increasing mediastinal lymphadenopathy compared to November 2022 exam. Largest lymph node is a subcarinal lymph node that is slightly enlarged measuring 1.3 cm in short axis. Other smaller mediastinal lymph nodes are normal in size. Normal heart size. No pericardial effusion. Normal caliber thoracic aorta. CORONARY ARTERY CALCIFICATION: None visualized on this study. PLEURA: There is no pleural effusion. No pleural mass or thickening. AXILLA: No lymphadenopathy. UPPER ABDOMEN: Partially visualized linear radiopaque density adjacent to the common bile duct. This is not appreciated on previous exam. OSSEOUS STRUCTURES: Unremarkable. CT/CT chest wo IV con IMPRESSION: New 4 mm semisolid right lower lobe nodule. Improving scarring or subsegmental atelectasis in the right lower lobe. Stable scarring or chronic subsegmental atelectasis in the lingula. Slightly elevated right hemidiaphragm and overlying bilateral lower lobe bronchiectasis, stable. Increasing mediastinal lymphadenopathy. Linear radiopaque density adjacent to the common bile duct uncertain etiology. Correlation with surgical history recommended. Fleischner guidelines were followed.
== END 2023-07-14 16:03 | disposition home or self-care (01) ==
LOC: HO.CT 16:02
PROVIDERS: PCP Registered Nurse; Visit Provider Hospitalist
DX: J98.11 Atelectasis (principal)
CPT/HCPCS: 71250

== ENCOUNTER 2023-07-22 14:04 | Outpatient (AMB) | payer MEDICARE, SELFPAY ==
[2023-07-22 14:31] VITALS: PULSE 72; O2SAT 98; BMI 33.0
--- NOTE | 2023-07-22 14:31 | MHC.OFFVIS ---
Intake Vital Signs 07/22/23 14:31 Height 5 ft 7 in Weight 210 lb 15.718 oz BMI 33.0 Pulse 72 Pulse Source Pulse Oximeter Pulse Oximetry (%) 98 Oxygen Delivery Method Room Air Intake Visit Reasons: Pneumonia Follow Up Allergies tetracycline Allergy (Unknown, Verified 04/29/23 14:33) Hives msg Adverse Reaction (Severe, Uncoded 04/29/23 14:33) Hives bee stings Adverse Reaction (Uncoded 04/29/23 14:33) Hives HPI HPI Comments History of Present Illness Details The patient is a 73 year woman who was in her usual state health until sometime in July when she started developing worsening cough. She was given a course of antibiotics. Ultimately her symptoms persisted. Moderate severity. Also complaining of shortness of breath. She had a chest x-ray demonstrating airspace disease Consistent with pneumonia. She was given another course of antibiotics. The patient continues to be symptomatic however. She had a repeat chest x-ray demonstrating interval worsening symptoms. Therefore she was referred for a CT scan of the chest which was personally by me. The patient had evidence of significant bronchitis in addition to evidence of bronchiolitis with tree-in-bud and some areas of alveolitis or pneumonia. She was then switched to Vantin for antibiotic. Seems to be responding a little better. in view of the findings on the CT scan will go ahead and request additional blood work. The patient also is to continue the Ventolin start small dose of prednisone. Hopefully with see improvements on her repeat chest x-ray in the coming weeks. However, the patient is no better she is to call the office for an earlier re-evaluation. 01/09/2023 the patient is here for a pulmonary follow-up visit. She is status post bronchoscopy. The bronchoscopy demonstrated significant erosive bronchitis very friable mucosa. 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 The patient continues to be symptomatic with cough dyspnea chest tightness. Eogm-xm-nqbxbcip severity. Explained to the patient that ideally more than 1 culture should be requested in order to make sure that we are dealing with a rate pathogenic infection versus colonization. In the office we did try to do is sputum culture after a hypertonic nebulized solution the therapy. However, the patient was not able to produce 1. She will try to produce 1 the coming days. She understand the treatment for mycobacterial disease can be pretty prolonged and difficult to tolerate at times. Required multiple antibiotics. The we will request sensitivities from her mycobacterial culture. The meantime will go ahead and try to start a partial treatment with azithromycin 3 times a week to see if her symptoms improve. I am hopeful that we can get another sputum culture. Depending on her response in the sensitivities and the repeat culture will decide on other additional antimicrobial therapies and also duration of therapy. Also to note, the patient did have a CTA after having a positive D-dimer. Ruled out for pulmonary emboli. She did have some degree of atelectasis. No evidence of any bronchiectasis or pulmonary nodules which is more of a typical presentation mycobacterial disease. 04/28/2023 the patient is here for a pulmonary follow-up visit. Overall she is feeling better. The cough overall is better and her shortness of breath also has improved. Still intermittent cough though. Unfortunately does while she was started pulmonary rehabilitation the patient had a fall resulting in injury to both her knees and also her left shoulder. She has not been evaluated by orthopedic surgery. She is looking at nonsurgical approaches and therefore stem cell and also plasma therapy. The patient still waiting for MRI for her right shoulder. We did review her last CT scan demonstrating some changes primarily to the lingula and some bronchiectatic looking airways. She has completed a 2 month course of azithromycin and now the hope is that she maintains stable. She does have to work on chest PT. We do need to request an Acapella valve for her. I also provide her incentive spirometer since she is not able to move around as much. She should be using the incentive spirometer followed by the Acapella valve least twice a day. Will plan to repeat her CT scan in 2 months and then follow-up to see if there is any evolution of the lower respiratory infection. Overall currently the patient is doing a lot better from a respiratory status. therefore, if the patient does need to undergo any semi invasive or invasive procedures such as surgery with anesthesia the patient can proceed from a pulmonary standpoint. She does have mild risk for perioperative pulmonary complications which includes atelectasis, hypoxia, prolonged mechanical ventilation and pneumonia. 07/22/2023 the patient is here for a pulmonary follow-up visit. The patient still complaining of multiple complaints including shortness of breath and chest tightness. Moderate severity. She also has significant musculoskeletal discomfort. This makes it very hard for her to function. She has a hard time sleeping because she is coughing so much. She has been getting increasing lower extremity edema so she has been sleeping with the head of bed down and her legs elevated to try to help with that swelling but this only making her cough worse. She has a hard time sleeping because of it. The patient is willing to try some cough syrup at nighttime possibly some codeine can help. In the office we also gave her a treatment with albuterol which seemed to help and take away some of that chest tightness feeling that she had. We did provide her with a nebulizer in order for her to use albuterol at home. She will continue using the nebulizer once or twice a day. The patient will follow-up it in the springtime. If she has any worsening symptoms she was will call for earlier assessment. [facility] Medical History (Updated 07/22/23 @ 19:20 by Wayne Ng MD) Chronic cough Asthma Atelectasis Hypotension Mycobacterium avium complex Mitral valve prolapse Hypothyroid Anxiety HLD (hyperlipidemia) HTN (hypertension) Chest pain Bronchiolitis Bronchitis Pneumonia Surgical History History of hysterectomy H/O endoscopy S/P transposition of nerve H/O colonoscopy Social History Household Members: Spouse Patient Tobacco Use Status: Never used Tobacco Review of Systems Const Reports daytime sleepiness, Reports fatigue and Denies fever(s) Eyes Denies change in vision ENT Denies change in voice Card Denies chest pain, Reports leg edema and Reports dyspnea on exertion Resp Reports chest congestion, Reports cough, Reports dyspnea on exertion and Denies wheezing GI Reports no additional complaints Musc Reports as per HPI, Reports abnormal gait, Reports myalgias, Reports arthralgias, Reports joint swelling, Reports limited range of motion and Reports stiffness Skin/Breast Denies rash Neuro Reports no additional complaints and Reports abnormal gait Endo Reports fatigue Matty/Lymph Denies easy bleeding and Denies easy bruising Aller/Immun Denies wheezing Physical Exam Vital Signs: Last Vital Signs Pulse 72 07/22/23 14:31 Pulse Ox 98 07/22/23 14:31 Oxygen Delivery Method Room Air 07/22/23 14:31 BMI result Body Mass Index 33.0 Const General: comfortable HEENT Head: Yes normocephalic Neck Neck: Yes supple Chest Chest palpation & inspection: normal inspection of the chest Resp Effort & Inspection: normal respiratory effort and prolonged expiratory phase Auscultation: no wheezes and diminished lung sounds Cardio Rate: regular rate Rhythm: regular rhythm Heart sounds: S1 normal heart sound present and S2 normal heart sound present GI Palpation (GI): Soft to palpation Skin General skin exam: no rashes or lesions noted Extrem General: Yes no clubbing, cyanosis or edema Office Procedures Nebulizer Treatment Nebulizer Treatment [id number]/MDI RX initial, or Nebulizer Subsequent Treatment Office Meds albuterol sulfate 2.5 mg/3 mL (0.083 %) solution for nebulization Performing Provider: Wayne Ng MD Performing Location: [facility] Administered by: Flores Bush LPN on 07/22/23 15:07 Dose Route Admin Location Dispensed Lot Number Expiration Date NDC Deputy Program Manager 2.5 mg inhalation 3 mL [id number] 07/10/24 5082-6704-41 [facility] Assessment & Plan Assessment & Plan (1) Mycobacterium avium complex: Code(s): A31.0 - Pulmonary mycobacterial infection (2) Szaa-[id number]-92 syndrome: Code(s): U09.9 - Post COVID-19 condition, unspecified (3) Atelectasis: Code(s): J98.11 - Atelectasis (4) Asthma: Code(s): J45.909 - Unspecified asthma, uncomplicated Qualifiers: Asthma severity: moderate Asthma persistence: persistent Asthma complication type: uncomplicated Qualified Code(s): J45.40 - Moderate persistent asthma, uncomplicated (5) Chronic cough: Code(s): R05.3 - Chronic cough Plan start Nebulizer with albuterol BID (Nebulizer provided) CPT with incentive spirometry and the acapella valve continue Symbicort Benzonates as needed for cough start Robitussin AC for cough F/U 3 months Orders: Orders AMB Nebulizer Treatment Today U09.9 - Post COVID-19 condition, unspecified Medications: New albuterol sulfate 2.5 mg (3 mL) inhalation BID 30 days 180 mL 11RF J45.909 - Unspecified asthma, uncomplicated codeine-guaifenesin 10-100 mg/5 mL 10 mL PO Q6H 10 days PRN 300 mL 0RF cough Coding Level of Care Code Est Pt Level 5 (21144) Diagnoses Mycobacterium avium complex A31.0 Togr-EULAK-88 syndrome U09.9 Atelectasis J98.11 Moderate persistent asthma without complication J45.40 Asthma severity: moderate Asthma persistence: persistent Asthma complication type: uncomplicated Chronic cough R05.3 CPT Codes Nebulizer Treatment - Nebulizer Treatment, initial or subsequent: [id number]-Rigvtdoxk/MDI RX initial, or Nebulizer Subsequent Treatment ([id number]) Time Spent (min) 35
== END 2023-07-22 15:26 | disposition home or self-care (01) ==
PROVIDERS: PCP Registered Nurse; Visit Provider Hospitalist
DX: A31.0 Pulmonary mycobacterial infection (principal); U09.9 Post COVID-19 condition, unspecified; J98.11 Atelectasis; J45.40 Moderate persistent asthma, uncomplicated; R05.3 Chronic cough
CPT/HCPCS: 99215

== ENCOUNTER → 2023-07-22 14:04 | Outpatient (BNVA) | payer MEDICARE, SELFPAY | PROVIDERS: PCP Registered Nurse; Visit Provider Hospitalist | DX: J45.40 Moderate persistent asthma, uncomplicated (principal); J98.11 Atelectasis; A31.0 Pulmonary mycobacterial infection; U09.9 Post COVID-19 condition, unspecified; R05.3 Chronic cough | CPT/HCPCS: 94640; 99212 ==

== ENCOUNTER 2023-10-16 10:41 | Outpatient (AMB) | payer MEDICARE, SELFPAY ==
--- NOTE | 2023-10-16 10:51 | MHC.OFFVIS ---
Intake Intake Visit Reasons: urinary incontinence N39.498 Intake Note: New Patient presents for initial visit for incontinence Urology Medications: none Blood Thinner: none PVR: 24ml's [facility] Psychiatrist Required: No Accompanied by: Self / Same As Patient Allergies tetracycline Allergy (Unknown, Verified 10/16/23 11:17) Hives msg Adverse Reaction (Severe, Uncoded 10/16/23 11:17) Hives bee stings Adverse Reaction (Uncoded 10/16/23 11:17) Hives Medication List - Last Reconciled 10/16/23 by FABIANA Hui- albuterol sulfate 2.5 mg (3 mL) inhalation BID 30 days azithromycin 500 mg PO 3XW 28 days benzonatate 200 mg PO BID PRN 30 days budesonide-formoterol 160-4.5 mcg/actuation (Symbicort) 2 puffs inhalation BID 30 days clobetasol 0.05% 1 appl topical BID PRN codeine-guaifenesin 10-100 mg/5 mL 10 mL PO Q6H PRN 10 days furosemide 20 mg PO DAILY levothyroxine 112 mcg PO QAM metoprolol succinate ER 100 mg PO DAILY valacyclovir 2,000 mg PO Q12H PRN HPI HPI Comments History of Present Illness Details Naomie is a very pleasant 73-year-old female patient of Dr. Ortiz. She has a past medical history of asthma, hypotension, mitral valve prolapse, hypothyroidism, anxiety, hyperlipidemia, hypertension, bronchitis, and pneumonia. She presents to the office today as a new patient for ongoing lower urinary tract symptoms. In discussion with the patient today she reports having had pneumonia in 2021 and again in 2022 at which time she noted progressive issues with her urination. She reports she had been experiencing urinary frequency with episodes of incontinence however the last 2 months she has been doing and feeling well. She reports having [place] up with [place] [facility] [place] and discussing these issues with him at which time recommendations were made for urology referral. She currently denies any bothersome urinary issues or concerns. In office urinalysis results reviewed with the patient today. PVR24 mL. When asked she denies urinary urgency, urinary frequency, incontinence, nocturia, hematuria, dysuria, foul smelling urine, changes to urinary stream, flank pain, fever, and or chills. She is happy with her current voiding parameters. [facility] Medical History Chronic cough Asthma Atelectasis Hypotension Mycobacterium avium complex Mitral valve prolapse Hypothyroid Anxiety HLD (hyperlipidemia) HTN (hypertension) Chest pain Bronchiolitis Bronchitis Pneumonia Surgical History History of hysterectomy H/O endoscopy S/P transposition of nerve H/O colonoscopy Social History Household Members: Spouse Patient Tobacco Use Status: Never used Tobacco Review of Systems Eyes Reports no additional complaints ENT Reports no additional complaints Card Reports as per HPI Resp Reports as per HPI GI Reports no additional complaints Reports as per HPI Musc Details: She discusses having 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 and her right shoulder in this has been helpful for her Neuro Reports no additional complaints Psych Reports no additional complaints Endo Reports no additional complaints Matty/Lymph Reports no additional complaints Aller/Immun Reports no additional complaints Physical Exam Const General: cooperative, healthy appearing, comfortable, no acute distress, well developed, alert and awake Nutritional Appearance: overweight Orientation/consciousness: patient oriented x3 Limitations: no limitations HEENT Head: Yes normal to inspection, Yes normocephalic and Yes atraumatic Ears: hearing grossly normal bilaterally Eyes General: appearance normal, both eyes and all related structures Neck Neck: Yes normal visual inspection and Yes trachea midline Chest Chest palpation & inspection: normal inspection of the chest Resp Effort & Inspection: normal respiratory effort and able to speak in complete sentences Cardio Rate: regular rate GI Inspection: Yes normal to inspection General: Yes no CVA tenderness Back/Spine/Pelvis Back: no CVA tenderness Skin General skin exam: no rashes or lesions noted Neuro General: patient oriented x3 Extrem General: Yes normal to inspection Psych Appearance: grossly normal and well kempt Mental Status: mental status grossly normal Speech and movement: Normal speech and movement present and Clear speech present Affect: normal affect Attitude: cooperative Thought process: Normal thought process present Thought content: Normal thought content present Insight: Fair insight present (Psych) Judgement: Fair judgement present (Psych) Office Procedures Post Void Residual Post Residual Void Post Void Residual (PVR): 24 [id number] Void Residual by ultrasound Results AMB Urinalysis, Automated UA Leukoctes 15 Javier/uL Last Edit by Rossy Bress on 10/16/23 11:40 UA Nitrite Negative Last Edit by [employer] on 10/16/23 11:40 UA Urobilinogen 0.2 mg/dL Last Edit by Brandyce [employer] on 10/16/23 11:40 UA Protein 30 mg/dL Last Edit by Brandyce Buz on 10/16/23 11:40 UA pH 5.5 Last Edit by [employer] on 10/16/23 11:40 UA Blood 0 Noel/uL Last Edit by [employer] on 10/16/23 11:40 UA Specific [place] 1.030 Last Edit by [employer] on 10/16/23 11:40 UA Ketone Positive Last Edit by [employer] on 10/16/23 11:40 UA Bilirubin 1 mg/dL Last Edit by [employer] on 10/16/23 11:40 UA Glucose 0 mg/dL Last Edit by [employer] on 10/16/23 11:40 Results Reviewed Results Reviewed: Laboratory Last Values Urine pH (Auto) 5.5 10/16/23 11:39 Specific [place] (Auto) 1.030 10/16/23 11:39 Urine Protein (Auto) 30 mg/dL 10/16/23 11:39 Glucose (UA)(Auto) 0 mg/dL 10/16/23 11:39 Urine Ketones (Auto) Positive 10/16/23 11:39 Urine Blood (Auto) 0 Noel/uL 10/16/23 11:39 Urine Nitrite (Auto) Negative 10/16/23 11:39 Urine Bilirubin (Auto) 1 mg/dL 10/16/23 11:39 Urine Urobilinogen (Auto) 0.2 mg/dL 10/16/23 11:39 Leukocyte Esterase (Auto) 15 Javier/uL 10/16/23 11:39 Assessment & Plan Assessment & Plan (1) Lower urinary tract symptoms: Code(s): R39.9 - Unspecified symptoms and signs involving the genitourinary system Plan In office urinalysis results reviewed with the patient today; as noted above. PVR 24 mL. Discussed at length potential causes for lower urinary tract symptoms patient had been experiencing. Patient reports symptoms have since subsided will continue with surveillance monitoring. She is currently happy with her current voiding parameters. Discussed bladder triggers/irritants. Discussed obtaining retroperitoneal ultrasound in the near future if symptoms reoccur. Follow-up in 3 months with PVR; or sooner with any issues, concerns, and or questions. Orders: Orders AMB Urinalysis Automated Today Z13.9 - Encounter for screening, unspecified AMB Post Void Residual by ultrasound Today Z13.9 - Encounter for screening, unspecified Patient Instructions: The patient had an opportunity to ask questions regarding the treatment plan. All questions were answered. Physical exam, labs, and imaging were discussed and reviewed in detail. As well as risks, benefits, and discussion of treatment choices. No major barriers to understanding were identified. The patient expressed understanding and agreement with the above treatment plan. The patient was made aware they should contact our office by phone for worsening of their current condition, the appearance of new symptoms, or with any questions or concerns. Compliance is encouraged with any medications and follow up testing that is ordered. It is a privilege to be allowed the opportunity to participate in? your urological care.? Again, if you have any questions or concerns If you have any questions or concerns please do not hesitate to contact me. The office is [phone]. This note is constructed using voice recognition software. While every effort has been made to ensure accuracy map drafter errors may have been included. Yours sincerely, MAYTE Hui Coding Level of Care Code New Pt Level 3 (29808) Diagnoses Lower urinary tract symptoms R39.9 CPT Codes Post Residual Void - PVR CPT Code: 90757-Qfia Void Residual by ultrasound ([id number])
== END 2023-10-16 11:20 | disposition home or self-care (01) ==
PROVIDERS: PCP Registered Nurse; Visit Provider Nurse Practitioner Family
DX: Z13.9 Encounter for screening, unspecified (principal); R39.9 Unspecified symptoms and signs involving the genitourinary system
CPT/HCPCS: 99203

== ENCOUNTER → 2023-10-16 10:41 | Outpatient (BNVA) | payer MEDICARE, SELFPAY | PROVIDERS: PCP Registered Nurse; Visit Provider Nurse Practitioner Family | DX: R39.9 Unspecified symptoms and signs involving the genitourinary system (principal) | CPT/HCPCS: 51798; 81003; 99202 ==

== ENCOUNTER 2023-10-23 14:27 | Outpatient (AMB) | payer MEDICARE, SELFPAY ==
[2023-10-23 14:33] VITALS: BP 110/70; PULSE 83; O2SAT 98; BMI 33.0
--- NOTE | 2023-10-23 14:33 | MHC.OFFVIS ---
Intake Vital Signs 10/23/23 14:33 Height 5 ft 7 in Weight 210 lb 15.718 oz BMI 33.0 BP 110/70 Blood Pressure Location Lt brachial Position Sitting Pulse 83 Pulse Source Pulse Oximeter Pulse Oximetry (%) 98 Oxygen Delivery Method Room Air Intake Visit Reasons: Pneumonia Follow Up Allergies tetracycline Allergy (Unknown, Verified 10/23/23 14:36) Hives msg Adverse Reaction (Severe, Uncoded 10/23/23 14:36) Hives bee stings Adverse Reaction (Uncoded 10/23/23 14:36) Hives HPI HPI Comments History of Present Illness Details The patient is a 73 year woman who was in her usual state health until sometime in July when she started developing worsening cough. She was given a course of antibiotics. Ultimately her symptoms persisted. Moderate severity. Also complaining of shortness of breath. She had a chest x-ray demonstrating airspace disease Consistent with pneumonia. She was given another course of antibiotics. The patient continues to be symptomatic however. She had a repeat chest x-ray demonstrating interval worsening symptoms. Therefore she was referred for a CT scan of the chest which was personally by me. The patient had evidence of significant bronchitis in addition to evidence of bronchiolitis with tree-in-bud and some areas of alveolitis or pneumonia. She was then switched to Vantin for antibiotic. Seems to be responding a little better. in view of the findings on the CT scan will go ahead and request additional blood work. The patient also is to continue the Ventolin start small dose of prednisone. Hopefully with see improvements on her repeat chest x-ray in the coming weeks. However, the patient is no better she is to call the office for an earlier re-evaluation. 01/09/2023 the patient is here for a pulmonary follow-up visit. She is status post bronchoscopy. The bronchoscopy demonstrated significant erosive bronchitis very friable mucosa. 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 The patient continues to be symptomatic with cough dyspnea chest tightness. Srac-bh-pxsacoiv severity. Explained to the patient that ideally more than 1 culture should be requested in order to make sure that we are dealing with a rate pathogenic infection versus colonization. In the office we did try to do is sputum culture after a hypertonic nebulized solution the therapy. However, the patient was not able to produce 1. She will try to produce 1 the coming days. She understand the treatment for mycobacterial disease can be pretty prolonged and difficult to tolerate at times. Required multiple antibiotics. The we will request sensitivities from her mycobacterial culture. The meantime will go ahead and try to start a partial treatment with azithromycin 3 times a week to see if her symptoms improve. I am hopeful that we can get another sputum culture. Depending on her response in the sensitivities and the repeat culture will decide on other additional antimicrobial therapies and also duration of therapy. Also to note, the patient did have a CTA after having a positive D-dimer. Ruled out for pulmonary emboli. She did have some degree of atelectasis. No evidence of any bronchiectasis or pulmonary nodules which is more of a typical presentation mycobacterial disease. 04/28/2023 the patient is here for a pulmonary follow-up visit. Overall she is feeling better. The cough overall is better and her shortness of breath also has improved. Still intermittent cough though. Unfortunately does while she was started pulmonary rehabilitation the patient had a fall resulting in injury to both her knees and also her left shoulder. She has not been evaluated by orthopedic surgery. She is looking at nonsurgical approaches and therefore stem cell and also plasma therapy. The patient still waiting for MRI for her right shoulder. We did review her last CT scan demonstrating some changes primarily to the lingula and some bronchiectatic looking airways. She has completed a 2 month course of azithromycin and now the hope is that she maintains stable. She does have to work on chest PT. We do need to request an Acapella valve for her. I also provide her incentive spirometer since she is not able to move around as much. She should be using the incentive spirometer followed by the Acapella valve least twice a day. Will plan to repeat her CT scan in 2 months and then follow-up to see if there is any evolution of the lower respiratory infection. Overall currently the patient is doing a lot better from a respiratory status. therefore, if the patient does need to undergo any semi invasive or invasive procedures such as surgery with anesthesia the patient can proceed from a pulmonary standpoint. She does have mild risk for perioperative pulmonary complications which includes atelectasis, hypoxia, prolonged mechanical ventilation and pneumonia. 07/22/2023 the patient is here for a pulmonary follow-up visit. The patient still complaining of multiple complaints including shortness of breath and chest tightness. Moderate severity. She also has significant musculoskeletal discomfort. This makes it very hard for her to function. She has a hard time sleeping because she is coughing so much. She has been getting increasing lower extremity edema so she has been sleeping with the head of bed down and her legs elevated to try to help with that swelling but this only making her cough worse. She has a hard time sleeping because of it. The patient is willing to try some cough syrup at nighttime possibly some codeine can help. In the office we also gave her a treatment with albuterol which seemed to help and take away some of that chest tightness feeling that she had. We did provide her with a nebulizer in order for her to use albuterol at home. She will continue using the nebulizer once or twice a day. The patient will follow-up it in the springtime. If she has any worsening symptoms she was will call for earlier assessment. 10/23/2023 the patient is here for a pulmonary follow-up visit. The patient has been doing a lot better. Her respiratory symptoms have improved. She has no longer requiring her Symbicort or rescue inhaler. Denies any significant shortness of breath. She still has musculoskeletal issues but also improved. The patient did have a CT scan of the chest that we personally reviewed. It was done back in July 2023. appears that she does have a new pulmonary nodule measuring 4 mm in size. Also has some areas of atelectasis likely from a previous infection. Based on the fact that the new pulmonary nodule she will need a repeat CT scan in a year's time. the patient does still have a intermittent cough. It is a lot better. Nonproductive in nature. Sometimes she does get of component of a postnasal drip primarily going to the allergy season spring. I did recommend she can start taking benzodiazepines. She is already using nasal sprays. She can also use antihistamine [id number] as needed. Will follow-up after her CT scan. [facility] Medical History (Updated 10/26/23 @ 22:24 by Wayne Ng MD) Pulmonary nodule Chronic cough Asthma Atelectasis Hypotension Mycobacterium avium complex Mitral valve prolapse Hypothyroid Anxiety HLD (hyperlipidemia) HTN (hypertension) Chest pain Bronchiolitis Bronchitis Pneumonia Surgical History History of hysterectomy H/O endoscopy S/P transposition of nerve H/O colonoscopy Social History Household Members: Spouse Patient Tobacco Use Status: Never used Tobacco Review of Systems Const Denies daytime sleepiness, Denies fatigue and Denies fever(s) Eyes Denies change in vision ENT Denies change in voice Card Denies chest pain, Reports leg edema and Denies dyspnea on exertion Resp Denies chest congestion, Reports cough, Denies dyspnea on exertion and Denies wheezing GI Reports no additional complaints Musc Reports as per HPI, Reports myalgias, Reports arthralgias and Reports limited range of motion Skin/Breast Denies rash Neuro Reports no additional complaints Endo Denies fatigue Matty/Lymph Denies easy bleeding and Denies easy bruising Aller/Immun Denies wheezing Physical Exam Vital Signs: Last Vital Signs Pulse 83 10/23/23 14:33 BP 110/70 10/23/23 14:33 Pulse Ox 98 10/23/23 14:33 Oxygen Delivery Method Room Air 10/23/23 14:33 BMI result Body Mass Index 33.0 Const General: comfortable HEENT Head: Yes normocephalic Neck Neck: Yes supple Chest Chest palpation & inspection: normal inspection of the chest Resp Effort & Inspection: normal respiratory effort and No prolonged expiratory phase Auscultation: clear to auscultation bilaterally and no wheezes Cardio Rate: regular rate Rhythm: regular rhythm Heart sounds: S1 normal heart sound present and S2 normal heart sound present GI Palpation (GI): Soft to palpation Skin General skin exam: no rashes or lesions noted Extrem General: Yes no clubbing, cyanosis or edema Results Reviewed Results Reviewed: [address] [address] [address] Scan Report Signed Patient: Naomie Saba MR#: [id number] : 1950 Acct:[id number] Age/Sex: 73 / F ADM Date: 07/14/23 Loc: HO.CT Attending Dr: Wayne Ng MD Ordering Physician: Wayne Ng MD Date of Service: 07/14/23 Procedure(s): CT chest wo IV con Accession Number(s): [id number] cc: Wayne Ng MD; TRINI CALI PA-C~ EXAMINATION: CT CHEST WITHOUT CONTRAST CLINICAL INFORMATION: Atelectasis COMPARISON: Previous chest CTA November 2022 TECHNIQUE: Multidetector volumetric CT imaging of the chest was done. Axial MIP volume rendering provided. Sagittal and coronal reformatted images were obtained. This CT examination was performed using dose optimization techniques as appropriate, variously including the following: *Automated exposure control *Adjustment of mA and/or kV according to patient size (this includes techniques or standardized protocols for targeted exams where dose is matched to indication/reason for exam; i.e. extremities or head) *Use of iterative reconstruction technique DLP: 164 mGy-cm FINDINGS: [employer]KER: Slight elevation of the right hemidiaphragm LUNGS: There is borderline bilateral lower lobe bronchiectasis. There is chronic scarring or subsegmental atelectasis in the inferior segment of the lingula similar to November 2022. There is scarring or chronic subsegmental atelectasis in the right lower lobe adjacent to the diaphragm. This is minimally improved from November 2022. New 4 mm semisolid or heterogeneous right lower lobe nodule axial image 210 series 8. No endobronchial or endotracheal lesion. MEDIASTINUM: There are is increasing mediastinal lymphadenopathy compared to November 2022 exam. Largest lymph node is a subcarinal lymph node that is slightly enlarged measuring 1.3 cm in short axis. Other smaller mediastinal lymph nodes are normal in size. Normal heart size. No pericardial effusion. Normal caliber thoracic aorta. CORONARY ARTERY CALCIFICATION: None visualized on this study. PLEURA: There is no pleural effusion. No pleural mass or thickening. AXILLA: No lymphadenopathy. UPPER ABDOMEN: Partially visualized linear radiopaque density adjacent to the common bile duct. This is not appreciated on previous exam. OSSEOUS STRUCTURES: Unremarkable. CT/CT chest wo IV con IMPRESSION: New 4 mm semisolid right lower lobe nodule. Improving scarring or subsegmental atelectasis in the right lower lobe. Stable scarring or chronic subsegmental atelectasis in the lingula. Slightly elevated right hemidiaphragm and overlying bilateral lower lobe bronchiectasis, stable. Increasing mediastinal lymphadenopathy. Linear radiopaque density adjacent to the common bile duct uncertain etiology. Correlation with surgical history recommended. Fleischner guidelines were followed. 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, unspecified (2) Atelectasis: Code(s): J98.11 - Atelectasis (3) Asthma: Code(s): J45.909 - Unspecified asthma, uncomplicated Qualifiers: Asthma complication type: uncomplicated Asthma persistence: persistent Asthma severity: moderate Qualified Code(s): J45.40 - Moderate persistent asthma, uncomplicated (4) Chronic cough: Code(s): R05.3 - Chronic cough (5) Pulmonary nodule: Code(s): R91.1 - Solitary pulmonary nodule Plan continue Nebulizer with albuterol BID (Nebulizer provided) as needed CPT with incentive spirometry and the acapella valve continue Symbicort as needed Benzonates as needed for cough repeat CT chest 08/2024 F/U August 2024 Orders: Orders CT chest wo IV con 08/16/24 R91.1 - Solitary pulmonary nodule Medications: Refilled benzonatate 200 mg PO BID 30 days PRN 60 caps 3RF cough Coding Level of Care Code Est Pt Level 4 (09546) Diagnoses 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
== END 2023-10-23 14:51 | disposition home or self-care (01) ==
PROVIDERS: PCP Registered Nurse; Visit Provider Hospitalist
DX: U09.9 Post COVID-19 condition, unspecified (principal); J98.11 Atelectasis; J45.40 Moderate persistent asthma, uncomplicated; R05.3 Chronic cough; R91.1 Solitary pulmonary nodule
CPT/HCPCS: 99214

== ENCOUNTER → 2023-10-23 14:27 | Outpatient (BNVA) | payer MEDICARE, SELFPAY | PROVIDERS: PCP Registered Nurse; Visit Provider Hospitalist | DX: J44.9 Chronic obstructive pulmonary disease, unspecified (principal); J45.40 Moderate persistent asthma, uncomplicated; J98.11 Atelectasis; R06.02 Shortness of breath; R91.1 Solitary pulmonary nodule; U09.9 Post COVID-19 condition, unspecified; R05.3 Chronic cough | CPT/HCPCS: 99212 ==

== ENCOUNTER 2024-03-04 15:24 | Outpatient (AMB) | payer MEDICARE, SELFPAY ==
--- NOTE | 2024-03-04 15:44 | MHC.OFFVIS ---
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 Allergies tetracycline Allergy (Unknown, Verified 03/04/24 20:16) Hives msg Adverse Reaction (Severe, Uncoded 03/04/24 20:16) Hives bee stings Adverse Reaction (Uncoded 03/04/24 20:16) Hives Medication List - Last Reconciled 03/04/24 by FABIANA Hui-EMILIE albuterol sulfate 2.5 mg (3 mL) inhalation BID 30 days azithromycin 500 mg PO 3XW 28 days benzonatate 200 mg PO BID PRN 30 days budesonide-formoterol 160-4.5 mcg/actuation (Symbicort) 2 puffs inhalation BID 30 days clobetasol 0.05% 1 appl topical BID PRN codeine-guaifenesin 10-100 mg/5 mL 10 mL PO Q6H PRN 10 days furosemide 20 mg PO DAILY levothyroxine 112 mcg PO QAM metoprolol succinate ER 100 mg PO DAILY nebulizers As directed valacyclovir 2,000 mg PO Q12H PRN HPI Comments Details: Naomie is a very pleasant 73-year-old female patient of Dr. Ortiz. She has a past medical history of asthma, hypotension, mitral valve prolapse, hypothyroidism, anxiety, hyperlipidemia, hypertension, bronchitis, and pneumonia. She presents to the office today for follow-up of her lower urinary tract symptoms. In discussion with the patient today she reports to be doing and feeling well. She reports since her last office visit here approximately 3 months ago she has had no bothersome urinary issues or concerns. She reports lower urinary tract symptoms she had been experiencing had since subsided these include urinary frequency with episodes of incontinence. She does report continuing to wear incontinent pads for urinary leakage at times however she does not find this bothersome. She reports recently following up with pulmonology here at [facility] for ongoing Mycobaterium avium complex. She currently denies any bothersome urinary issues or concerns. In office urinalysis results reviewed with the patient today. PVR 0 mL. When asked she denies urinary urgency, urinary frequency, nocturia, hematuria, dysuria, foul smelling urine, changes to urinary stream, flank pain, fever, and or chills. She is happy with her current voiding parameters. [facility] Medical History Pulmonary nodule Chronic cough Asthma Atelectasis Hypotension Mycobacterium avium complex Mitral valve prolapse Hypothyroid Anxiety HLD (hyperlipidemia) HTN (hypertension) Chest pain Bronchiolitis Bronchitis Pneumonia Surgical History History of hysterectomy H/O endoscopy S/P transposition of nerve H/O colonoscopy Social History Household Members: Spouse Patient Tobacco Use Status: Never used Tobacco Review of Systems Eyes Reports no additional complaints ENT Reports no additional complaints Card Reports as per HPI Resp Reports as per HPI GI Reports no additional complaints Reports as per HPI Musc Details: She discusses having 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 and her right shoulder in this has been helpful for her Neuro Reports no additional complaints Psych Reports no additional complaints Endo Reports no additional complaints Matty/Lymph Reports no additional complaints Aller/Immun Reports no additional complaints Physical Exam Const General: cooperative, healthy appearing, comfortable, no acute distress, well developed, alert and awake Nutritional Appearance: overweight Orientation/consciousness: patient oriented x3 Limitations: no limitations HEENT Head: Yes normal to inspection, Yes normocephalic and Yes atraumatic Ears: hearing grossly normal bilaterally Eyes General: appearance normal, both eyes and all related structures Neck Neck: Yes normal visual inspection and Yes trachea midline Chest Chest palpation & inspection: normal inspection of the chest Resp Effort & Inspection: normal respiratory effort and able to speak in complete sentences Cardio Rate: regular rate GI Inspection: Yes normal to inspection General: Yes no CVA tenderness Back/Spine/Pelvis Back: no CVA tenderness Skin General skin exam: no rashes or lesions noted Neuro General: patient oriented x3 Extrem General: Yes normal to inspection Psych Appearance: grossly normal and well kempt Mental Status: mental status grossly normal Speech and movement: Normal speech and movement present and Clear speech present Affect: normal affect Attitude: cooperative Thought process: Normal thought process present Thought content: Normal thought content present Insight: Fair insight present (Psych) Judgement: Fair judgement present (Psych) Office Procedures Post Void Residual Post Residual Void Post Void Residual (PVR): 0 [id number] Void Residual by ultrasound Results AMB Urinalysis, Automated UA Leukoctes 0 Javier/uL Last Edit by May Em, A on 03/04/24 16:06 UA Nitrite Negative Last Edit by May Em, A on 03/04/24 16:06 UA Urobilinogen 0.2 mg/dL Last Edit by May Em, RMA on 03/04/24 16:06 UA Protein 0 mg/dL Last Edit by May Em, RMA on 03/04/24 16:06 UA pH 6.0 Last Edit by May Em, RMA on 03/04/24 16:06 UA Blood 0 Noel/uL Last Edit by May Em, A on 03/04/24 16:06 UA Specific Morrison 1.010 Last Edit by Mya Em, A on 03/04/24 16:06 UA Ketone Negative Last Edit by May Em, A on 03/04/24 16:06 UA Bilirubin 0 mg/dL Last Edit by May Em, A on 03/04/24 16:06 UA Glucose 0 mg/dL Last Edit by May Em, A on 03/04/24 16:06 Results Reviewed Results Reviewed: Laboratory Last Values Urine pH (Auto) 6.0 03/04/24 15:55 Specific Morrison (Auto) 1.010 03/04/24 15:55 Urine Protein (Auto) 0 mg/dL 03/04/24 15:55 Glucose (UA)(Auto) 0 mg/dL 03/04/24 15:55 Urine Ketones (Auto) Negative 03/04/24 15:55 Urine Blood (Auto) 0 Noel/uL 03/04/24 15:55 Urine Nitrite (Auto) Negative 03/04/24 15:55 Urine Bilirubin (Auto) 0 mg/dL 03/04/24 15:55 Urine Urobilinogen (Auto) 0.2 mg/dL 03/04/24 15:55 Leukocyte Esterase (Auto) 0 Javier/uL 03/04/24 15:55 Assessment & Plan Assessment & Plan (1) Lower urinary tract symptoms: Code(s): R39.9 - Unspecified symptoms and signs involving the genitourinary system Category: Medical Plan In office urinalysis results reviewed with the patient today; as noted above. PVR 0 mL. Discussed at length potential causes for lower urinary tract symptoms patient had been experiencing. Patient reports symptoms have since subsided will continue with surveillance monitoring. She is currently happy with her current voiding parameters. Discussed bladder triggers/irritants. Discussed obtaining retroperitoneal ultrasound in the near future if symptoms reoccur. Follow-up in 6 months with PVR; or sooner with any issues, concerns, and or questions. Orders: Orders AMB Urinalysis Automated Today Z13.9 - Encounter for screening, unspecified AMB Post Void Residual by ultrasound Today R39.9 - Unspecified symptoms and signs involving the genitourinary system Coding Level of Care Code Est Pt Level 3 (05167) Diagnoses Lower urinary tract symptoms R39.9 CPT Codes Post Residual Void - PVR CPT Code: 34489-Nfav Void Residual by ultrasound ([id number])
== END 2024-03-04 16:20 | disposition home or self-care (01) ==
PROVIDERS: PCP Registered Nurse; Visit Provider Nurse Practitioner Family
DX: R39.9 Unspecified symptoms and signs involving the genitourinary system (principal); Z13.9 Encounter for screening, unspecified
CPT/HCPCS: 99213

== ENCOUNTER → 2024-03-04 15:24 | Outpatient (BNVA) | payer MEDICARE, SELFPAY | PROVIDERS: PCP Registered Nurse; Visit Provider Nurse Practitioner Family | DX: R39.9 Unspecified symptoms and signs involving the genitourinary system (principal) | CPT/HCPCS: 51798; 81003; 99212 ==

== ENCOUNTER 2024-08-06 16:25 | Outpatient (REF) | payer MEDICARE, SELFPAY ==
--- NOTE | ~2024-08-06 | CT_ITS ---
CLINICAL HISTORY: R91.1 - Solitary pulmonary nodule CT chest without IV contrast. COMPARISON: CT chest dated 07/14/23 at 16:16 EST FINDINGS: No supraclavicular or axillary lymphadenopathy. Normal chest wall. Ascending aorta and main pulmonary artery are normal in caliber. No pericardial effusion. Normal esophagus. No mediastinal lymphadenopathy. Previously seen prominent mediastinal lymph nodes have resolved. Linear radiopaque opacity along the expected course of the common bile duct, similar to prior imaging. No pleural effusion. Minimal linear atelectasis versus scarring within the lingula, stable. Minimal secretions present within the distal trachea. Central airways are clear. No significant bronchial wall thickening. No bronchiectasis. Interval resolution of previously seen right lower lobe pulmonary nodule. Right middle lobe fissural 3 mm pulmonary nodule (series 5, image 409), stable. Right upper lobe 2 mm pulmonary micronodule (series 5, image 185), stable. Left upper lobe 2 mm pulmonary micronodule (series 5, image 183), stable. Left upper lobe 3 mm pulmonary nodule (series 5, image 125), new from prior imaging. Left upper lobe fissural 2 mm pulmonary micronodule (series 5, image 37), stable. No acute fracture or suspicious osseous abnormality. Mild spondylosis. IMPRESSION: 1. Small bilateral 2-3 mm pulmonary nodules. Majority of these appear stable. There is a new 3 mm pulmonary nodule within the left upper lobe. Consider follow-up imaging in 12 months if patient has risk factors for malignancy. 2. Stable appearance of linear radiopaque opacity along the expected course of the common bile duct. This is of unclear etiology. Recommend correlation with clinical/surgical history. This document has been electronically signed by: Marco Zacarias MD on 08/09/2024 15:35:21
--- OUTSIDE RECORDS SUMMARY | 2024-08-06 16:28 | XMS_ITS | Data Portability ---
Author Organization [facility] Office Address [address] [place] [address] Care Team Providers Care Industrial Pharmacist Name Role Phone JAMESTRINI ROLDAN Primary Care Provider [phone] Assessment Encounter Date Assessment Date Assessment LastModified by Organization Details LastModified Time 03/26/2022 03/26/2022 Independent interpretation of the xrays from today and the clinical exam of the right knee shows some mild OA but reasonably well maintained joint spaces -- but on the left she has bone on bone OA in the left knee. We? ve discussed the many forms of conservative care for the treatment of the pain and the disability of knee arthritis. Prescription or over the counter NSAIDs have been discussed. These are offered to patients to be taken as directed only in those patients who can tolerate the medications and have no contraindication. She is failing the diclofenac . Next, we have discussed injection in the knee and the many types of injection techniques. We have discussed cortisone, hyaluronic or gel injections, plasma rich protein ( PRP) and even stem cell. These can be made available here in the office. Pros and the cons discussed and if these are helpful they can even be repeated. She is failing the cortisone and the gel injections. Moderation of activities and even the use of bracing for the knee was discussed. For more extensive pain and disability possibly cane, crutch or walker. Physical therapy was discussed and can be prescribed in the more disabled patients. Finally, we have discussed the potential for total knee arthroplasty for the treatment of intractable knee arthritis. She is very frustrated with the left knee and the pain and the limitations. We have now discussed the potential for a left TKA. We talked about the pros and cons of left TKA potential complications. These complications include, but are not limited to, infection, bleeding, stiffness, limitation of motion, limitation of recovery, the risks of limited knee motion, the need for closed manipulation in the short term. I talked about the extraordinary difficulty of gaining back the ROM, including the need for use of physical therapy modalities and even the need for extensive therapeutic modalities, maybe even bracing and potentially long rehab that could last even up to one year. We have discussed the potential for closed manipulation at the end of the initial rehabilitation if the flexion has not been gained adequately. We discussed the use of a splint or DynaSplint if flexion and extension, or if extension is the primary issue. We also talked about the potential for ligamentous injury, fracture of the femur, tibia or patella. We talked about the risks of problems with malalignment and persistent pain and swelling and the need for further operation or surgery. We also discussed the potential for wear, wear of the plastic and potential osteolysis. We talked about potential loosening of the components and the potential need for further surgical intervention over time. We have discussed the potential for loosening of the interfaces. We talked about the risks of potential peroneal nerve injury in those valgus patients with the need for realignment and the potential for ligamentous injury to the varus patients that are in need of realignment. We discussed the pros, cons, indications, risks, benefits and potential complications in a lengthy detailed discussion. The patient appears to understand and would like to consider that left TKA surgery. Patient has end stage OA, and over the past year has failed conservative treatments including activity modification, NSAIDS, and physical therapy. She will move ahead with the left TKA . [email or web address] Not available 03/26/2022 17:56:37 Plan of Treatment Reminders Order Date Submit Date Provider Last Modified By Organization Details Last Modified Time Details Appointments None recorded. Lab None recorded. Referral None recorded. Procedures None recorded. Surgeries orthopaedic surgery (SURG) 2021 022 [email or web address] Not available 18:40:39 Imaging None recorded. Medication Orders None recorded. Patient TargetsNo targets recorded. Patient InstructionsNo instructions recorded. Reason for Referral None Reported. Results Created Date Observation Date Name Description Value Unit Range Abnormal Flag Note LastModifiedBy Organization Detail LastModifiedTime 03/26/20 22 03/26/2022 XR, knee http:/ /[email or web address]. 44/opa lweb/I ntegra tionPr ocesso r.aspx ?CMD=O CHRISTIChris HENAO&ACC ESSION [id number] [facility] [address], [address], 04/04/2022 14:54:12 Result Notes None recorded. Procedures Surgical History Date Name Laterality Status Provider Name and Address Organization Details Recorded Time 2 Orthopaedic Surgery completed Jose Angel Abdul MA [facility] 03/26/2022 17:23:01 0 Other completed Jose Angel Abdul MA [facility] 03/26/2022 17:23:15 Imaging Results Imaging Date Name Status LastModified by Organiz ation Details LastModified Time 03/26/2022 XR, knee completed [address], [address], 04/04/2022 14:54:12 Procedure Notes None recorded. Medical Equipment None Reported. Allergies Allergen ID Allergen Name Allergen Category Reaction Reaction Severity Criticality Documentation Date Start Date Code Code System Note Provider Name and Address Organization Details Recorded Time 312804 tetracycl ine medicatio n Not available Not available Not available 03/26/2022 97298 RxNorm Jose Angel fraser, [facility] 2 17:21:15 159781 pholcodin e Not available Not available Not available Not available 03/26/2022 34055 RxNorm Jose Angel fraser, [facility] 2 17:21:19 317773 bee pollen environme nt,medica tion Not available Not available Not available 03/26/2022 91542 7 RxNorm Jose Angel fraser, [facility] 2 17:21:22 [id number] ethamsyla te Not available Not available Not available Not available 03/26/2022 4112 RxNorm Jose Angel fraser, [facility] 2 17:21:43 Medications Name Sig Start Date Stop Date Status Note LastModified by Organization Details LastModified Time cyclobenzap rine 10 mg tablet TAKE 1 TABLET BY MOUTH THREE TIMES A DAY NEEDED FOR 10 DAYS 03/25 completed Not Available Not Available Not Available clotrimazol e 10 mg laurita DISSOLVE 1 TABLET BY MOUTH 3 TIMES A DAY 03/25 completed Not Available Not Available Not Available valacyclovi r 1 gram tablet TAKE 2 TABLETS BY MOUTH EVERY 12 HRS FOR 1 DAY NEEDED FOR COLD SORE active Not Available Not Available No t Available metoprolol succinate ER 100 mg tablet,exte nded release 24 hr TAKE 1 TABLET BY MOUTH EVERY DAY DIRECTED active Not Available Not Available No t Available tramadol 50 mg tablet TAKE 1 TABLET BY MOUTH EVERY 6 HOURS NEEDED 03/25 completed Not Available Not Available Not Available hydromorpho ne 2 mg tablet TAKE 1-2 TABLETS EVERY 4-6 HOURS NEEDED FOR [address] WHILE TAKING THIS MEDICATIO N 03/25 completed Not Available Not Available Not Available amitriptyli ne 25 mg tablet TAKE 1 TABLET BY MOUTH EVERY DAY DIRECTED active Not Available Not Available No t Available levothyroxi ne 125 mcg tablet TAKE 1 TABLET BY MOUTH EVERY DAY 03/25 completed Not Available Not Available Not Available clobetasol 0.05 % topical foam APPLY TOPICALLY TWICE A DAY TO SCALP NEEDED FOR PSORIASIS active Not Available Not Available No t Available diclofenac sodium 75 mg tablet,keeley yed release TAKE 1 TABLET BY MOUTH EVERY DAY NEEDED active Not Available Not Available No t Available naproxen 500 mg tablet TAKE 1 TABLET BY MOUTH TWICE A DAY WITH FOOD 03/25 completed Not Available Not Available Not Available levothyroxi ne 112 mcg tablet TAKE 1 TABLET BY MOUTH EVERY DAY IN THE MORNING, 30 MINUTES BEFORE MEAL active Not Available Not Available No t Available bupropion HCl XL 300 mg 24 hr tablet, extended release TAKE 1 TABLET BY MOUTH EVERY DAY 03/25 completed Not Available Not Available Not Available diclofenac 1 % topical gel APPLY TO AFFECTED AREA TWICE DAILY TOPICALLY . active Not Available Not Available No t Available Myrbetriq 25 mg tablet,exte nded release TAKE 1 TABLET BY MOUTH EVERY DAY DO NOT CRUSH OR CHEW 03/25 completed Not Available Not Available Not Available ID NOW COVID-19 Test Kit TEST DIRECTED TODAY 08/15 /2022 completed Not Available Not Available Not Available Paxlovid 300 mg (150 mg x 2)-100 mg tablets in a dose pack TAKE 3 TABLETS BY MOUTH TWICE A DAY FOR 5 DAYS DO NOT TAKE TRAMADOL* * 03/25 completed Not Available Not Available Not Available Vitals Date Recorded Body height Body mass index (BMI) Body weight Provider Name and Address Organization Details Last Updated DateTime 03/26/2022 168.91 cm 31.8 kg/m2 33442.47 g Jose Angel Abelus [facility] 03/26/2022 17:20:38 Social History Question Answer Notes LastModified by Organizat ion Details LastModified Time Tobacco Smoking Status Never Smoker Jose Angel Franko fraser [facility] 03/26/2022 17:20:50 What Is Your Level Of Alcohol Consumption? Occasional Information not available 03/26/2022 What Is Your Level Of Caffeine Consumption? None Information not available 03/26/2022 Do You Or Have You Ever Used E-cigarettes Or Vape? 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 Yes Information not available 03/26/2022 Do You Or Have You Ever Used Smokeless Tobacco? Never Used Smokeless Tobacco Information not available 03/26/2022 How Much Tobacco Do You Smoke? No Information not available 03/26/2022 What Types Of Sporting Activities Do You Participate In? NONE Information not available 03/26/2022 Sex: Unknown Functional Status Question Answer Note LastModified by Organization D etails LastModified Time What is your exercise level? None Information not available 03/26/2022 Mental Status None recorded. Family History Relationship Description Onset Age of this Age Resolved Age Notes LastModified by Organization Details LastModified Time Paternal Aunt Acute stroke No t available 03/26/2022 17:22:15 Father Myocardial infarction Not available 03/26 17:22:33 Medical History Condition Response Blood Clots / Phlebitis N Heart Problems N HIV or AIDS N Depression or Anxiety N High Blood Pressure N Irregular Heartbeat N MRSA N Emphysema / Chronic Bronchitis N Any Other Significant Medical Issues N Reaction to General/Local Anesthesia N Weight Gain / Loss Y Hepatitis / Jaundice N Kidney / Bladder Infections N Diabetes N Bleeding Disorder N Hearing Loss N Angina, Heart Failure or Attack N Night Sweats Y Seizures / Epilepsy N Osteoarthritis / Rheumatoid arthritis / Other N Cancer N Stroke N Chemical Dependency / Alcoholism N Ulcer / Stomach Bleeding / Indigestion N Visual Loss or Glaucoma N Psoriasis / Skin Rash Y Thyroid Disorder Y Heart Disease N Asthma / Shortness of Breath / 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 Obstetrics History GPAL:G 0 P 0 0 0 0 Past Encounters Encounter ID Performer Location Encounter Start Date Encounter Closed Date Diagnosis/Indication Diagnosis SNOMED-CT Code Diagnosis ICD10 Code [id number] SHANELL SCHAFFER MD [address] [address] 03/26/2022 15:02:44 03/26/2022 18:11:46 Osteoarthritis of left knee joint 9904065633 33866 M17.12 Health Concerns Section Related Observation LastModified by Organization Detai ls LastModified Time None Recorded Concern Status LastModified by Organization Details LastModified Time None Recorded Advance Directives Directive None Recorded Payers Encounter Date Sequence Insurance Name Policy Number Policy Carbajal Covered Member ID Carbajal Member ID Guarantor Name 03/26/2022 1 MEDICARE [place]: [employer] Naomie Hernandez Disanti [id number] Naomie Cullenanti 03/26/2022 2 [facility] [id number] Naomie Hernandez Disanti [id number] Naomie Saba Notes Date Note Type Note Provider Name and Address Organization Details Recorded Time 03/26/2022 text/html Left knee pain - increasing over the last several months. She has had an injury to the right knee and a meniscus tear. She was due to have the scope on the right knee - and then she injured the left knee as well.She has been told that the left knee is bone on bone - and now the left knee is very limiting and painful. She has had the right knee arthroscopy 4 weeks ago. She is doing fine on the right. NO fevers or chills - no falls or trauma.The left knee is still very very painful. She has had a left knee scope a number of years ago. She is taking the diclofenac for the knee. She has had cortisone and then gel and then a cortisone 2 weeks ago. She is limping on the left knee and feeling very limited. SHANELL SCHAFFER MD [address] [place] [address], [id number], [facility] 03/26/2022 17:58:01 OBGyn Episode No OBEpisode recorded.
--- OUTSIDE RECORDS SUMMARY | 2024-08-06 16:28 | XMS_ITS | Continuity of Care Document ---
Author Organization [facility], Main Office Address [address] [place] [address] Care Team Providers Care Chief Deputy Name Role Phone FADI MALLOY Java Technical Architect GARRET BAKER Iron Pellet Tester DUY LOFTON Mortgage Loan Computation Clerk TRINI ORTIZ Primary Care Provider JR TOBAR Orthopedic Surgeon TAE BERMUDEZ Assistant Controller LUÍS OLSON Metal Dealer Assessment No assessment recorded. Plan of Treatment Reminders Order Date Submit Date Provider Last Modified By Organization Details Last Modified Time Details Appointments None recorde d. Lab None recorde d. Referral None recorde d. Procedures None recorde d. Surgeries None recorde d. Imaging US, elbow - left medial elbow palpabl e lump, tender to palpati on, r/o lipoma vs joint effusio n 2023 024 [email or web address] [facility], [address] , [place], [address], 4 11:58:29 MAMMO, diagnos tic, digital , bilater al - 3 weeks ago develop ed pea sized lump right breast6 o'clock positio n and lump under axilla, left breast pain/ tendern ess, lump upper outer quadran t, left axillar y tendern ess and lump. 2023 024 [email or web address] [facility] Orders, [address], [address], [place], [address], 4 10:20:59 US, breast, unilate ral - 3 weeks ago develop ed pea sized lump right breast6 o'clock positio n and lump under axilla, left breast pain/ tendern ess, lump upper outer quadran t, left axillar y tendern ess and lump. 2023 024 [email or web address] [facility] Orders, [address], [address], [place], [address], 4 10:20:59 Medication Orders None recorde d. Patient TargetsNo targets recorded. Patient Instructions Encounter Date Encounter Id Patient Instructions Last Modified By Organization Details Last Modified Time 05/07/2024 [id number] elbow: exercises [email or web address] Not availabl e 05/07/2024 15:06:31 breast lumps (noncancerous): care instructions [email or web address] Not available 05/07/2024 15:06:31 To call or retur n for worsening or concerns [email or web address] Not available 05/07/2024 12:36:37 Reason for Referral None Reported. Results Created Date Observation Date Name Description Value Unit Range Abnormal Flag Note LastModifiedBy Organization Detail LastModifiedTime 05/28/20 24 05/28/2024 US, breas t, limit ed PROCED URE: MM Digita l Mammo Bilate ral, US Breast Bilate ral Limite d INDICA TION: Palpab le lumps in bilate ral breast s and bilate ral axilla COMPAR ROMEL: Multip le prior screen ing mammog justine, most recent 2022 TECHNI QUE: Digita l diagno stic mammog freddy consis ting of CC and MLO tomogr aphic views of bilate ral breast s. Comput er-aid ed detect ion (CAD) was utiliz ed in the interp retati on of this study. In additi on, target ed high-r esolut ion ultras ound of areas of palpab le concer n in bilate ral breast s. DENSIT Y: There are scatte red areas of fibrog landul ar densit y. FINDIN GS: No suspic ious masses , suspic ious microc alcifi cation s, or areas of oriana ectura l distor tion seen in either breast to sugges t malign montse on mammog freddy. Target ed ultras ound was perfor med in the right axilla . No abnorm ality seen. Target ed ultras ound was perfor med in the left axilla . No abnorm ality seen. Target ed ultras ound was perfor med in the right breast at the area of the patien t's palpab le concer n, at the 5 to 8:00 positi on 3 to 9 cm from the nipple . No abnorm ality seen. Target ed ultras ound was perfor med in the left breast at the area of the patien t's palpab le concer n, at the 12 to 3:00 positi on 1 to 6 cm from the nipple . No abnorm ality seen. IMPRES JANET: No mammog raphic or sonogr aphic eviden ce of malign montse. RECOMM ENDATI ON: Annual mammog raphic screen ing BI-RAD S: 1 (Negat napoleon) Lay letter mailed to frankie t I have person ally review ed the images and I agree with this report . WSN: [id number] Orderi ng Physic kenny: Diana CHRISTIAN, Timbo Crocker Dictat ed By: Juanita Ramirez DO Dictat ed Date/T tom: 12:03 p Review ed By: Jamie Heaton MD Signed By: Jamie Heaton MD Signed Date/T tom: 12:08 pm Transc ribed By: VENUSB Transc ribed Date/T tom: 11:44 am Frankie t Class: Outpat ient [facility] (Outpt Imaging) [address] , [place], [address], 05/28/2024 12:19:12 05/28/20 24 05/28/2024 mm digit al mammo bilat eral PROCED URE: MM Digita l Mammo Bilate ral, US Breast Bilate ral Limite d INDICA TION: Palpab le lumps in bilate ral breast s and bilate ral axilla COMPAR ROMEL: Multip le prior screen ing mammog justine, most recent 2022 TECHNI QUE: Digita l diagno stic mammog freddy consis ting of CC and MLO tomogr aphic views of bilate ral breast s. Comput er-aid ed detect ion (CAD) was utiliz ed in the interp retati on of this study. In additi on, target ed high-r esolut ion ultras ound of areas of palpab le concer n in bilate ral breast s. DENSIT Y: There are scatte red areas of fibrog landul ar densit y. FINDIN GS: No suspic ious masses , suspic ious microc alcifi cation s, or areas of oriana ectura l distor tion seen in either breast to sugges t malign montse on mammog freddy. Target ed ultras ound was perfor med in the right axilla . No abnorm ality seen. Target ed ultras ound was perfor med in the left axilla . No abnorm ality seen. Target ed ultras ound was perfor med in the right breast at the area of the patien t's palpab le concer n, at the 5 to 8:00 positi on 3 to 9 cm from the nipple . No abnorm ality seen. Target ed ultras ound was perfor med in the left breast at the area of the patien t's palpab le concer n, at the 12 to 3:00 positi on 1 to 6 cm from the nipple . No abnorm ality seen. IMPRES JANET: No mammog raphic or sonogr aphic eviden ce of malign montse. RECOMM ENDATI ON: Annual mammog raphic screen ing BI-RAD S: 1 (Negat napoleon) Lay letter mailed to patijose m t I have person ally review ed the images and I agree with this report . WSN: [id number] Orderi ng Physic kenny: Timbo Mae Dictat ed By: Juanita Ramirez DO Dictat ed Date/T tom: 12:03 pm Review ed By: Jamie Heaton MD Signed By: Jamie Heaton MD Signed Date/T tom: 12:08 pm Transc ribed By: CSDebbie Transc riptio n Date/T tom: 11:44 am Birads : Patien t Class: Outpat ient [email or web address] [facility] (Outpt Imaging) [address] [place], [address], 05/28/2024 12:19:12 07/14/20 24 07/13/2024 XR, hip + pelvi s, bilat eral AP pelvis and bilate ral hips 5 views total dated Dece er 2023. Compar romel films are from December 21, 2021 and Januar y 2016. HISTOR Y: Pain. FINDIN GS: This examin ation shows no eviden ce of fractu re or disloc ation. Joint spaces are fairly well-p reserv ed. There is some hetero topic new bone associ ated with superi or aspect of the right hip joint. IMPRES JANET: No eviden ce of acute osseou s abnorm ality. Minima l hetero topic new bone format ion in the right hip. Thank you for audi mann me to partic ipate in the care of this patien t. WSN: [id number] Orderi ng Physic kenny: Timbo Ortiz Dictat ed By: Jamie Heaton MD Dictat ed Date/T tom: 9:55 am Review ed By: Jamie Heaton MD Signed By: Jamie Heaton MD Signed Date/T tom: 9:55 am Transc ribed By: ISAURA Transc ribed Date/T tom: 9:55 am Patien t Class: Outpat ient ALEXIA [facility] (Outpt Imaging) [address] [place], [address], 07/14/2024 10:22:01 07/29/20 24 07/29/2024 US msk extre mity left US MSK Extrem ity Left Reason : M25.52 2 M25.82 2 PAIN LEFT ELBOW MASS LEFT ELBOW COMPAR ROMEL: None. FINDIN GS: High-r esolut ion, linear array imagin g of the superf icial soft tissue s of the left elbow was perfor med with attent ion to the area of the patien t's sympto ms, MUSCUL OSKELE TIERRA PROTOC OL. Real-t tom scanni ng was also perfor med by the interp reting radiol ogist. There is no sonogr aphica lly appare nt mass or fluid collec tion. ANTERI OR: The distal biceps brachi i tendon appear s intact and is visual ized to the radial tubero sity insert ion. The anteri or aspect s of the radioc apitel lar and ulnotr ochlea r joints appear normal . No anteri or elbow joint effusi on identi fied at the annula r fossa, radial fossa and corono id fossa. No anteri or joint synovi al hypert rophy or intra- articu lar bodies . MEDIAL : The common flexor tendon at the medial epicon dyle is intact . The anteri or band of the ulnar collat eral ligame nt is intact and mainta ins integr ity with dynami c valgus stress imagin g. The ulnar nerve is visual ized within the cubita l tunnel and appear s bifid but otherw ise normal . The ulnar nerve area proxim al to the cubita l tunnel is 11 mm2, with the combin ed ulnar nerve area 6-8 mm2 at the medial epicon dyle. There is no sublux ation or disloc ation of the ulnar nerve with dynami c elbow flexio n and extens ion imagin g. LATERA L: The visual ized aspect of the radioc apitel lar joint and latera l synovi al fringe appear normal . The common extens or tendon attach ment at the latera l epicon dyle is intact . The radial collat eral ligame nt is intact . The radial nerve betwee n the brachi oradia lis and brachi annemarie muscle s appear s normal , includ ing its deep branch enteri ng the supina tor muscle and contin uing as the partia lly-vi sualiz ed hospice aide ior intero sseous nerve. SITE OPERATIONS MANAGER IOR: There is no hospice aide ior elbow joint effusi on or intra- articu lar body. No olecra non bursal fluid collec tion is identi fied. The tricep s brachi i combin ed latera l and long head tendon , as well as the medial head tendon are intact at the olecra non insert ion. The olecra non demons trates normal hospice aide ior contou r. IMPRES JANET: 1. No elbow mass or fluid collec tion. 2. Incide ntal bifid ulnar nerve, otherw ise normal in appear ance. WSN: [id number] Orderi ng Physic kenny: Diana CHRISTIAN, Timbo Crocker Dictat ed By: Colin Jaquez MD Dictat ed Date/T tom: 4:06 pm Review ed By: Colin Jaquez MD Signed By: Colin Jaquez MD Signed Date/T tom: 4:06 pm Transc ribed By: CSB Transc ribed Date/T tom: 1:32 pm Patien t Class: Outpat ient [facility] (Outpt Imaging) [address] [place] [address], [address], 07/29/2024 17:55:12 Result Notes None recorded. Problems Name Problem SNOMED Code Status Onset Date Resolution Date Notes Provider Name and Address Organization Details Recorded Time Abdomina l pain 12838408 Completed 201303/17/2014 RECORDED 02/02/20 14 8:32AM BY HELEN GRAYSON I, EDOUARDATI ON/ADDEN DUM Trini Ortiz, [facility] [address], [facility] [place], [address] , [facility] 3 14:37:10 Acute sinusiti s [id number] Completed 201103/17/2014 RECORDED 02/20/20 12 2:39PM BY MIRIAM HENDRIX MA, EDOUARDATI ON/ADDEN DUM Not Available [facility] 4 12:45:23 Acute upper respirat ory infectio n of multiple sites Completed 201103/17/2014 RECORDED 02/20/20 12 2:41PM BY MIRIAM HENDRIX MA, ANNOTATI ON/ADDEN DUM Not Available [facility] 4 12:45:23 Patient status finding [id number] Completed 201103/17/2014 RECORDED 08/05/20 12 11:47AM BY MIRIAM HENDRIX MA, ANNOTATI ON/ADDEN DUM Yumiko Smith MA null, [facility] 7 12:54:17 Chest pain 42558044 Completed 201303/17/2014 STORY: [place] RULED OUT / / CONT CURRENT RISK REDUCTIO N PLAN.; RECORDED 01/27/20 14 7:39AM BY HELEN GRAYSON I, ANNOTATI ON/ADDEN DUM Trini Ortiz, [facility] [address], [place], [address] , [facility] 2 09:23:46 Screenin g for malignan t neoplasm of breast Completed 201103/17/2014 RECORDED 02/20/20 12 2:38PM BY MIRIAM HENDRIX MA, ANNOTATI ON/ADDEN DUM Not Available [facility] 4 12:45:23 Disorder of breast 27954880 Completed 201103/17/2014 RECORDED 02/20/20 12 2:41PM BY MIRIAM HENDRIX MA, ANNOTATI ON/ADDEN DUM Not Available [facility] 4 12:45:23 Screenin g for malignan t neoplasm of cervix Completed 201103/17/2014 RECORDED 02/20/20 12 2:39PM BY MIRIAM HENDRIX MA, ANNOTATI ON/ADDEN DUM Not Available [facility] 4 12:45:23 Chronic sinusiti s 06993746 Completed 201103/17/2014 RECORDED 02/20/20 12 2:39PM BY MIRIAM HENDRIX MA, ANNOTATI ON/ADDEN DUM Not Available [facility] 4 12:45:24 Herpes simplex 40345016 Completed 201103/17/2014 RECORDED 07/23/20 12 10:39AM BY MIRIAM HENDRIX MA, ANNOTATI ON/ADDEN DUM Not Available [facility] 4 12:45:24 Cough 14053992 Completed 201103/17/2014 RECORDED 02/20/20 12 2:37PM BY MIRIAM HENDRIX MA, ANNOTATI ON/ADDEN DUM Trini Ortiz, [facility] [address], [place], [address] , [facility] 3 14:41:04 Divertic ulitis of colon 192362034 Active 2013 Not Available [facility] 3 09:20:30 Divertic ulitis of colon 782954809 Completed 201303/17/2014 RECORDED 02/02/20 14 8:32AM BY HELEN GRAYSON I, ANNOTATI ON/ADDEN DUM Yumiko fraser, [facility] 7 12:54:25 Dysfunct ion of eustachi an tube 41918496 Completed 201303/17/2014 RECORDED 02/02/20 14 8:31AM BY EDOUARD CLEMENTEATI ON/ADDEN DUM Yumiko fraser, [facility] 7 12:56:38 Dysphagi a 60326360 Completed 201103/17/2014 RECORDED 02/20/20 12 2:39PM BY MIRIAM HENDRIX MA, ANNOTATI ON/ADDEN DUM Not Available [facility] 4 12:45:24 Enthesop athy of knee 20874166 Completed 201103/17/2014 RECORDED 02/20/20 12 2:39PM BY MIRIAM HENDRIX MA, ANNOTATI ON/ADDEN DUM Not Available [facility] 4 12:45:24 Follow-u p encounte r Completed 201303/17/2014 RECORDED 01/27/20 14 7:39AM BY EDOUARD CLEMENTEATI ON/ADDEN DUM Not Available [facility] 4 12:45:24 Ill-defi inez disorder of eye Completed 201203/17/2014 RECORDED 06/14/20 13 11:23AM BY MIRIAM HENDRIX MA, ANNOTATI ON/ADDEN DUM Not Available [facility] 4 12:45:24 Influenz a vaccine needed [id number] 06 Completed 200903/17/2014 RECORDED 08/14/19 10 1:37PM BY CONNIE HENRIQUEZ MD, OFFICE VISIT Not Available [facility] 4 12:45:24 Adult health examinat ion Completed 201203/17/2014 RECORDED 06/14/20 13 11:24AM BY MIRIAM HENDRIX MA, ANNOTATI ON/ADDEN DUM Not Available [facility] 4 12:45:24 Disorder of skin pigmenta tion 89235268 Completed 201103/17/2014 RECORDED 02/20/20 12 2:42PM BY MIRIAM HENDRIX MA, ANNOTATI ON/ADDEN DUM Not Available [facility] 4 12:45:24 Insomnia 549744698 Completed 201103/17/2014 RECORDED 02/20/20 12 2:38PM BY MIRIAM HENDRIX MA, ANNOTATI ON/ADDEN DUM Trini Ortiz, [facility] [address] [place] [address], [place], [address] , [facility] 3 11:10:55 Laborato ry procedur e performe d 859284378 Completed 201203/17/2014 RECORDED 01/16/20 13 8:19AM BY VIVIEN AREVALO MA, ANNOTATI ON/ADDEN DUM Not Available [facility] 4 12:45:25 Low back pain 843074510 Completed 201303/17/2014 RECORDED 02/02/20 14 8:31AM BY EDOUARD CLEMENTEATI ON/ADDEN DUM Yumiko fraser, [facility] 7 12:54:53 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 24877829 Completed 201303/17/2014 RECORDED 01/27/20 14 7:39AM BY EDOUARD CLEMENTEATI ON/ADDEN DUM Yumiko fraser, [facility] 7 12:54:39 Mitral valve disorder 45113158 Completed 201103/17/2014 RECORDED 02/20/20 12 2:39PM BY MIRIAM HENDRIX MA, ANNOTATI ON/ADDEN DUM Yumiko fraser [facility] 7 12:54:29 Neck pain 00177968 Completed 201103/17/2014 RECORDED 07/23/20 12 10:39AM BY MIRIAM HENDRIX MA, ANNOTATI ON/ADDEN DUM Not Available [facility] 4 12:45:25 Active or passive immuniza tion Completed 200703/17/2014 RECORDED 11/16/19 08 3:08PM BY CONNIE HENRIQUEZ MD, OFFICE VISIT Not Available [facility] 4 12:45:25 Administ ration of viral vaccine Completed 200803/17/2014 RECORDED 02/14/20 09 11:55AM BY ALEXANDRIA AREVALO, OFFICE VISIT Not Available [facility] 4 12:45:25 Administ ration of bacteria l and viral vaccine Completed 200703/17/2014 RECORDED 11/16/19 08 3:18PM BY CONNIE HENRIQUEZ MD, OFFICE VISIT Not Available [facility] 4 12:45:25 Degenera tive joint disease of hand 18521981 Completed 201103/17/2014 RECORDED 02/20/20 12 2:41PM BY MIRIAM HENDRIX MA, ANNOTATI ON/ADDEN DUM Not Available [facility] 4 12:45:25 Infectiv e otitis externa 65113797 Completed 201103/17/2014 RECORDED 02/20/20 12 2:36PM BY MIRIAM HENDRIX MA, ANNOTATI ON/ADDEN DUM Not Available [facility] 4 12:45:26 Shoulder joint pain 117712563 Completed 201303/17/2014 RECORDED 02/02/20 14 8:31AM BY HELEN GRAYSON I, ANNOTATI ON/ADDEN DUM Yumiko fraser [facility] 7 12:54:49 Eruption 121509809 Completed 201103/17/2014 RECORDED 02/20/20 12 2:37PM BY MIRIAM HENDRIX MA, ANNOTATI ON/ADDEN DUM Not Available [facility] 4 12:45:26 Chronic rhinitis 90309001 Completed 201303/17/2014 RECORDED 01/27/20 14 10:30AM BY VIVIEN AREVALO MA, ANNOTATI ON/ADDEN DUM Yumkio fraser, [facility] 7 12:56:09 Herpes zoster 6196757 Completed 201303/17/2014 RECORDED 01/27/20 14 7:39AM BY HELEN GRAYSON I ANNOTATI ON/ADDEN DUM Not Available [facility] 4 12:45:26 Screenin g for malignan t neoplasm of colon Completed 201103/17/2014 RECORDED 02/20/20 12 2:36PM BY MIRIAM HENDRIX MA, ANNOTATI ON/ADDEN DUM Not Available [facility] 4 12:45:26 Stress 13864252 Completed 201311/26/2016 Yumiko fraser, [facility] 7 12:55:57 Spasm 35648849 Completed 201103/17/2014 RECORDED 07/23/20 12 10:38AM BY MIRIAM HENDRIX MA, EDOUARDATI ON/ADDEN DUM Not Available [facility] 4 12:45:26 Abdomina l pain 03183306 Completed 201303/18/2014 RECORDED 02/02/20 14 8:32AM BY HELEN GRAYSON I ANNOTATI ON/ADDEN DUM Trini Ortiz, [facility] [address] [place] [address], [place], [address] , [facility] 3 14:37:10 Acute sinusiti s 03772424 Completed 201103/18/2014 RECORDED 02/20/20 12 2:39PM BY MIRIAM HENDRIX MA, ANNOTATI ON/ADDEN DUM Not Available [facility] 4 03:45:38 Acute upper respirat ory infectio n of multiple sites Completed 201103/18/2014 RECORDED 02/20/20 12 2:41PM BY MIRIAM HENDRIX MA, ANNOTATI ON/ADDEN DUM Not Available [facility] 4 03:45:38 Patient status finding [id number] Completed 201103/18/2014 RECORDED 08/05/20 12 11:47AM BY MIRIAM HENDRIX MA, ANNOTATI ON/ADDEN DUM Yumiko fraser, [facility] 7 12:54:17 Chest pain 01885609 Completed 201303/18/2014 STORY: [place] RULED OUT / / CONT CURRENT RISK REDUCTIO N PLAN.; RECORDED 01/27/20 14 7:39AM BY HELEN GRAYSON I, ANNOTATI ON/ADDEN DUM [address] [address], [place], [address] , [facility] 2 09:23:46 Screenin g for malignan t neoplasm of breast Completed 201103/18/2014 RECORDED 02/20/20 12 2:38PM BY MIRIAM HENDRIX MA, ANNOTATI ON/ADDEN DUM Not Available [facility] 4 03:45:38 Disorder of breast 63437172 Completed 201103/18/2014 RECORDED 02/20/20 12 2:41PM BY MIRIAM HENDRIX MA, ANNOTATI ON/ADDEN DUM Not Available [facility] 4 03:45:38 Screenin g for malignan t neoplasm of cervix Completed 201103/18/2014 RECORDED 02/20/20 12 2:39PM BY MIRIAM HENDRIX MA, ANNOTATI ON/ADDEN DUM Not Available [facility] 4 03:45:38 Chronic sinusiti s 86119483 Completed 201103/18/2014 RECORDED 02/20/20 12 2:39PM BY MIRIAM HENDRIX MA, ANNOTATI ON/ADDEN DUM Not Available [facility] 4 03:45:38 Herpes simplex 67453125 Completed 201103/18/2014 RECORDED 07/23/20 12 10:39AM BY MIRIAM HENDRIX MA, ANNOTATI ON/ADDEN DUM Not Available [facility] 4 03:45:38 Cough 71239337 Completed 201103/18/2014 RECORDED 02/20/20 12 2:37PM BY MIRIAM HENDRIX MA, ANNOTATI ON/ADDEN DUM Trini Ortiz, [facility] [address], [place], [address] , [facility] 3 14:41:04 Divertic ulitis of colon 737085023 Completed 201303/18/2014 RECORDED 02/02/20 14 8:32AM BY EDOUARD CLEMENTEATI ON/ADDEN DUM Yumiko fraser, [facility] 7 12:54:25 Dysfunct ion of eustachi an tube 44395134 Completed 201303/18/2014 RECORDED 02/02/20 14 8:31AM BY EDOUARD CLEMENTEATI ON/ADDEN DUM Yumiko fraser, [facility] 7 12:56:38 Dysphagi a 40053477 Completed 201103/18/2014 RECORDED 02/20/20 12 2:39PM BY IMRIAM HENDRIX MA, NEDA ON/ADDEN DUM Not Available [facility] 4 03:45:38 Enthesop athy of knee 38799683 Completed 201103/18/2014 RECORDED 02/20/20 12 2:39PM BY MIRIAM HENDRIX MA, NEDA ON/ADDEN DUM Not Available [facility] 4 03:45:38 Follow-u p encounte r Completed 201303/18/2014 RECORDED 01/27/20 14 7:39AM BY NEDA CLEMENTE ON/ADDEN DUM Not Available [facility] 4 03:45:38 Ill-defi inez disorder of eye Completed 201203/18/2014 RECORDED 06/14/20 13 11:23AM BY MIRIAM HENDRIX MA, ANNOTATI ON/ADDEN DUM Not Available [facility] 4 03:45:38 Influenz a vaccine needed 91367263450 06 Completed 200903/18/2014 RECORDED 08/14/19 10 1:37PM BY CONNIE HENRIQUEZ MD, OFFICE VISIT Not Available [facility] 4 03:45:38 Adult health examinat ion Completed 201203/18/2014 RECORDED 06/14/20 13 11:24AM BY MIRIAM HENDRIX MA, EDOUARDATI ON/ADDEN DUM Not Available [facility] 4 03:45:38 Disorder of skin pigmenta tion 18950413 Completed 201103/18/2014 RECORDED 02/20/20 12 2:42PM BY MIRIAM HENDRIX MA, ANNOTATI ON/ADDEN DUM Not Available [facility] 4 03:45:38 Insomnia 529878161 Completed 201103/18/2014 RECORDED 02/20/20 12 2:38PM BY MIRIAM HENDRIX MA, ANNOTATI ON/ADDEN DUM [facility] [address] [place] [address], [place], [address] , [facility] 3 11:10:55 Laborato ry procedur e performe d 151927800 Completed 201203/18/2014 RECORDED 01/16/20 13 8:19AM BY VIVIEN AREVALO MA, ANNOTATI ON/ADDEN DUM Not Available [facility] 4 03:45:39 Low back pain 475456869 Completed 201303/18/2014 RECORDED 02/02/20 14 8:31AM BY HELEN GRAYSON I, ANNOTATI ON/ADDEN DUM Yumiko fraser [facility] 7 12:54:53 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 40800806 Completed 201303/18/2014 RECORDED 01/27/20 14 7:39AM BY HELEN GRAYSON I ANNOTATI ON/ADDEN DUM Yumiko fraser, [facility] 7 12:54:39 Mitral valve disorder 61443071 Completed 201103/18/2014 RECORDED 02/20/20 12 2:39PM BY MIRIAM HENDRIX MA, ANNOTATI ON/ADDEN DUM Yumiko Smith MA null, [facility] 7 12:54:29 Neck pain 16386968 Completed 201103/18/2014 RECORDED 07/23/20 12 10:39AM BY MIRIAM HENDRIX MA, ANNOTATI ON/ADDEN DUM Not Available [facility] 4 03:45:39 Active or passive immuniza tion Completed 200703/18/2014 RECORDED 11/16/19 08 3:08PM BY CONNIE HENRIQUEZ MD, OFFICE VISIT Not Available [facility] 4 03:45:39 Administ ration of viral vaccine Completed 200803/18/2014 RECORDED 02/14/20 09 11:55AM BY ALEXANDRIA AREVALO, OFFICE VISIT Not Available [facility] 4 03:45:39 Administ ration of bacteria l and viral vaccine Completed 200703/18/2014 RECORDED 11/16/19 08 3:18PM BY CONNIE HENRIQUEZ MD, OFFICE VISIT Not Available [facility] 4 03:45:39 Degenera tive joint disease of hand 38664596 Completed 201103/18/2014 RECORDED 02/20/20 12 2:41PM BY MIRIAM HENDRIX MA, EDOUARDATI ON/ADDEN DUM Not Available [facility] 4 03:45:39 Infectiv e otitis externa 59367402 Completed 201103/18/2014 RECORDED 02/20/20 12 2:36PM BY MIRIAM HENDRIX MA, EDOUARDATI ON/ADDEN DUM Not Available [facility] 4 03:45:39 Shoulder joint pain 762113252 Completed 201303/18/2014 RECORDED 02/02/20 14 8:31AM BY HELEN GRAYSON I, ANNOTATI ON/ADDEN DUM Yumiko fraser, [facility] 7 12:54:49 Eruption 673704839 Completed 201103/18/2014 RECORDED 02/20/20 12 2:37PM BY MIRIAM HENDRIX MA, ANNOTATI ON/ADDEN DUM Not Available [facility] 4 03:45:39 Chronic rhinitis 13570168 Completed 201303/18/2014 RECORDED 01/27/20 14 10:30AM BY VIVIEN AREVALO MA, ANNOTATI ON/ADDEN DUM Yumiko fraser, [facility] 7 12:56:09 Herpes zoster 8517174 Completed 201303/18/2014 RECORDED 01/27/20 14 7:39AM BY HELEN GRAYSON I, ANNOTATI ON/ADDEN DUM Not Available [facility] 4 03:45:39 Screenin g for malignan t neoplasm of colon Completed 201103/18/2014 RECORDED 02/20/20 12 2:36PM BY MIRIAM HENDRIX MA, ANNOTATI ON/ADDEN DUM Not Available [facility] 4 03:45:39 Spasm 72489303 Completed 201103/18/2014 RECORDED 07/23/20 12 10:38AM BY MIRIAM HENDRIX MA, ANNOTATI ON/ADDEN DUM Not Available [facility] 4 03:45:39 Hyperlip idemia 68002656 Active Not Available [facility] 3 09:20:31 Anxiety 35322681 Active Not Available [facility] 3 09:20:30 Abdomina l pain 22489270 Completed 11/26/2016 Trini Ortiz, [facility] [address] [address], [place], [address] , [facility] 3 14:37:10 Liver enzymes outside referenc e range 666103134 Completed 11/26/2016 Yumiko fraser, [facility] 7 12:54:35 Knee pain Completed 11/26/2016 Yumiko fraser, [facility] 8 14:02:45 Herpes labialis 8902529 Completed 11/26/2016 Yumiko frasre, [facility] 7 12:54:31 Seasonal allergic conjunct ivitis 113926562 Active Not Available [facility] 3 09:20:30 Carotid bruit 663513533 Active Not Available [facility] 3 09:20:30 Allergic conjunct ivitis 231807765 Completed 11/26/2016 Yumiko fraser, [facility] 7 12:58:12 Sciatica 02915865 Completed 11/26/2016 Yumiko fraser, [facility] 7 12:54:46 Knee pain Active 2017 Not Available [facility] 3 09:20:30 Major depressi on single episode, in partial remissio n 83364525 Active 2018 Not Available [facility] 3 09:20:31 Hyperten sive disorder 05982622 Completed 201601/13/2020 JESSENIA Gómez, [facility] 0 13:46:29 Total hysterec hector Active Not Available [facility] 3 09:20:30 COVID-19 492975994 Completed 202011/15/2020 Removal Reason: Problem marked historic al by user pmadden from the COVID-19 watch flag Jewel Gilbert PA-C [address] [facility] [address], [place], [address] , [facility] 1 12:39:42 Total hysterec hector with removal of both tubes and ovaries Active around age 30 Not Available [facility] 3 09:20:31 Pain of right knee joint 40847322180 4100 Active 2021 Not Available [facility] 3 09:20:30 Neutrope ayesha 032429152 Active 2021 Not Available [facility] 3 09:20:30 Tear of meniscus of knee 362730377 Active 2021 Not Available [facility] 3 09:20:30 Pain in coccyx 80591732 Active 2021 Not Available [facility] 3 09:20:30 Pain of left hip joint 12511782594 9100 Active 2021 Not Available [facility] 3 09:20:30 Pain of left knee joint 73430667351 4107 Active 2021 Not Available [facility] 3 09:20:30 Hyperten janet monitori ng declined 698265314 Active 2021 accuheal th Not Available [facility] 3 09:20:31 Fracture of femoral condyle 341457691 Active 2021 Not Available [facility] 3 09:20:30 Nocturia 979860115 Active 2021 Not Available [facility] 3 09:20:30 Hearing loss 64389013 Active 2021 Not Available [facility] 3 09:20:30 Leukopen ia 91618738 Active 2021 Not Available [facility] 3 09:20:31 Thromboc ytopenic disorder 939040866 Active 2021 Not Available [facility] 3 09:20:30 Chest pain 85512314 Active 2021 STORY: [place] RULED [place] / / CONT CURRENT RISK REDUCTIO N PLAN.; RECORDED 01/27/20 14 7:39AM BY NEDA CLEMENTE ON/KARISHMA DUM Not Available [facility] 3 09:20:30 Serum creatini ne above referenc e range 380200367 Active 2021 Not Available [facility] 3 09:20:30 Pneumoni a 832870206 Active 2021 Not Available [facility] 3 09:20:30 Cough 54970282 Active 2022 RECORDED 02/20/20 12 2:37PM BY MIRIAM HENDRIX MA, NEDA ON/ADDEN DUM Not Available [facility] 3 09:20:30 Edema of lower extremit y 401889616 Active 2022 Not Available [facility] 3 09:20:29 Serum thyroid stimulat ing hormone level outside referenc e range 042025391 Active 2022 Not Available [facility] 3 09:20:30 Edema 517826444 Active 2022 Not Available [facility] 3 09:20:30 Nausea 855830264 Active 2022 Not Available [facility] 3 09:20:30 Posterio r rhinorrh ea 56263588 Active 2022 Not Available [facility] 3 09:20:31 Chronic pneumoni a 10756137052 9104 Active 2022 Not Available [facility] 3 09:20:29 Pain of left shoulder joint 99035138512 385598 Active 2022 Not Available [facility] 3 09:20:30 Insomnia 022162704 Active 2022 RECORDED 02/20/20 12 2:38PM BY MIRIAM HENDRIX MA, NEDA ON/ADDEN DUM Not Available [facility] 3 09:20:30 Muscle spasm of cervical muscle of neck 44444232506 4 Active 2022 Not Available [facility] 3 09:20:30 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 446734397 Active 2022 Not Available [facility] 3 09:20:30 Urinary incontin ence 228681212 Active 2022 Trini Ortiz, [facility] [address] [address], [place], [address] , [facility] 3 14:32:14 Abdomina l pain 27340241 Active 2022 EDGAR James [facility] [address], [place], [address] , [facility] 3 14:37:10 Body mass index 30+ - obesity 612671294 Active 2022 EDGAR James [address] [place] [address], [place], [address] , [facility] 3 14:54:16 Excessiv e thirst 03890253 Active 2022 EDGAR James [address] [place] [address], [place], [address] , [facility] 3 14:57:02 Multiple joint pain 09124704 Active 2022 EDGAR James [address] [place] [address], [place], [address] , [facility] 3 14:59:45 Moderate persiste nt asthma 630038920 Active 2022 EDGAR James [address] [place] [address], [place], [address] , [facility] 3 15:04:00 Obesity 638600984 Active 2022 EGDAR James [address] [place] [address], [place], [address] , [facility] 3 14:47:34 Lump in upper outer quadrant of left breast 13538184972 4103 Active 2023 EDGAR James [address] [place] [address], [place], [address] , [facility] 4 15:01:52 Mass of joint of left elbow 76690961559 991337 Active 2023 Janitza C. Thabet, [facility] [address], [place], [address] , [facility] 4 15:04:08 Bone density finding 472062121 Active 2023 Trini Ortiz, [facility] [address], [place], [address] , [facility] 4 09:57:53 Inguinal pain 747532389 Active 2023 Trini Ortiz, [facility] [address], [place], [address] , [facility] 4 10:10:41 Strain of muscle of right groin region 13519408608 038697 Active 2023 Trini Ortiz, [facility] [address], [place], [address] , [facility] 4 10:11:20 Acute sinusiti s 92960001 Completed 201102/22/2014 RECORDED 02/20/20 12 2:39PM BY MIRIAM HENDRIX MA, ANNOTATI ON/ADDEN DUM Not Available [facility] 4 14:27:37 Acute upper respirat ory infectio n of multiple sites Completed 201102/22/2014 RECORDED 02/20/20 12 2:41PM BY MIRIAM HENDRIX MA, ANNOTATI ON/ADDEN DUM Not Available [facility] 4 14:27:37 Allergic rhinitis 96939299 Completed 201311/26/2016 RECORDED 02/22/20 14 8:27AM BY MALIK VARGAS, [facility] 12[facility] Anemia 610524201 Active 2013 Not Available [facility] 3 09:20:30 Patient status finding 263489116 Completed 201102/22/2014 RECORDED 08/05/20 12 11:47AM BY MIRIAM HENDRIX MA, ANNOTATI ON/ADDEN DUM Yumiko Smith MA null, [facility] 7 12:54:17 Chest pain 88421177 Completed 201202/22/2014 STORY: [place] RUL[place] / / CONT CURRENT RISK REDUCTIO N PLAN.; RECORDED 01/16/20 13 8:19AM BY VIVIEN AREVALO MA, ANNOTATI ON/ADDEN DUM Trini Ortiz, [facility] [address] [facility] [address], [facility] [place], [address] , [facility] 2 09:23:46 Screenin g for malignan t neoplasm of breast Completed 201102/22/2014 RECORDED 02/20/20 12 2:38PM BY MIRIAM HENDRIX MA, ANNOTATI ON/ADDEN DUM Not Available [facility] 4 14:27:37 Disorder of breast 05910943 Completed 201102/22/2014 RECORDED 02/20/20 12 2:41PM BY MIRIAM HENDRIX MA, ANNOTATI ON/ADDEN DUM Not Available [facility] 4 14:27:37 Cardiova scular system problem 934881983 Active 2013 Not Available [facility] 3 09:20:30 Screenin g for malignan t neoplasm of cervix Completed 201102/22/2014 RECORDED 02/20/20 12 2:39PM BY MIRIAM HENDRIX MA, ANNOTATI ON/ADDEN DUM Not Available [facility] 4 14:27:38 Brachial neuritis 31243346 Active 2013 Not Available [facility] 3 09:20:31 Chronic sinusiti s 13640702 Completed 201102/22/2014 RECORDED 02/20/20 12 2:39PM BY MIRIAM HENDRIX MA, ANNOTATI ON/ADDEN DUM Not Available [facility] 4 14:27:38 Herpes simplex 88956899 Completed 201102/22/2014 RECORDED 07/23/20 12 10:39AM BY MIRIAM HENDRIX MA, ANNOTATI ON/ADDEN DUM Not Available [facility] 4 14:27:38 Cough 02651127 Completed 201102/22/2014 RECORDED 02/20/20 12 2:37PM BY MIRIAM HENDRIX MA, ANNOTATI ON/ADDEN DUM [facility] Ortiz, [facility] [address] [facility] [address], [place], [address] , [facility] 3 14:41:04 Dysfunct ion of eustachi an tube 32492525 Active 2012 Not Available [facility] 3 09:20:31 Dysphagi a 30674554 Completed 201102/22/2014 RECORDED 02/20/20 12 2:39PM BY MIRIAM HENDRIX MA, ANNOTATI ON/ADDEN DUM Not Available [facility] 4 14:27:38 Enthesop athy of knee 77441463 Completed 201102/22/2014 RECORDED 02/20/20 12 2:39PM BY MIRIAM HENDRIX MA, ANNOTATI ON/ADDEN DUM Not Available [facility] 4 14:27:38 Ill-defi inez disorder of eye Completed 201202/22/2014 RECORDED 06/14/20 13 11:23AM BY MIRIAM HENDRIX MA, ANNOTATI ON/ADDEN DUM Not Available [facility] 4 14:27:38 Influenz a vaccine needed 12078860544 06 Completed 200902/22/2014 RECORDED 08/14/19 10 1:37PM BY CONNIE HENRIQUEZ MD, OFFICE VISIT Not Available [facility] 4 14:27:38 Adult health examinat ion Completed 201202/22/2014 RECORDED 06/14/20 13 11:24AM BY MIRIAM HENDRIX MA, ANNOTATI ON/ADDEN DUM Not Available [facility] 4 14:27:38 Gastroes ophageal reflux disease 522678416 Active 2013 Not Available [facility] 3 09:20:30 Follow-u p encounte r Completed 201102/22/2014 RECORDED 08/05/20 12 11:47AM BY MIRIAM HENDRIX MA, ANNOTATI ON/ADDEN DUM Not Available [facility] 4 14:27:38 Essentia l hyperten janet 42795511 Active 2013 Not Available [facility] 3 09:20:31 Thyrotox icosis 27350744 Active 2013 Not Available [facility] 3 09:20:31 Disorder of skin pigmenta tion 65316494 Completed 201102/22/2014 RECORDED 02/20/20 12 2:42PM BY MIRIAM HENDRIX MA, ANNOTATI ON/ADDEN DUM Not Available [facility] 4 14:27:39 Hypothyr oidism 89166937 Active 2016 Not Available [facility] 3 09:20:30 Insomnia 301025083 Completed 201102/22/2014 RECORDED 02/20/20 12 2:38PM BY MIRIAM HENDRIX MA, ANNOTATI ON/ADDEN DUM [facility] Ortiz, [facility] [address] [facility] [address], [place], [address] , [facility] 3 11:10:55 Irritabl e bowel syndrome 10758244 Active 2013 Not Available [facility] 3 09:20:30 Laborato ry procedur e performe d 198396514 Completed 201202/22/2014 RECORDED 01/16/20 13 8:19AM BY VIVIEN AREVALO MA, ANNOTATI ON/ADDEN DUM Not Available [facility] 4 14:27:39 Low back pain 822347285 Completed 201211/26/2016 RECORDED 06/14/20 13 11:24AM BY MIRIAM HENDRIX MA, OFFICE VISIT Yumiko fraser, [facility] 7 12:54:53 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 50690962 Active 2012 Not Available [facility] 3 09:20:30 Mitral valve disorder 93530513 Completed 201102/22/2014 RECORDED 02/20/20 12 2:39PM BY MIRIAM HENDRIX MA, ANNOTATI ON/ADDEN DUM Yumiko fraser, [facility] 7 12:54:29 Mitral valve disorder 94906074 Active 2013 Not Available [facility] 3 09:20:30 Neck pain 06992514 Completed 201102/22/2014 RECORDED 07/23/20 12 10:39AM BY MIRIAM HENDRIX MA, ANNOTATI ON/ADDEN DUM Not Available [facility] 4 14:27:39 Active or passive immuniza tion Completed 200702/22/2014 RECORDED 11/16/19 08 3:08PM BY CONNIE HENRIQUEZ MD, OFFICE VISIT Not Available [facility] 4 14:27:39 Administ ration of viral vaccine Completed 200802/22/2014 RECORDED 02/14/20 09 11:55AM BY ALEXANDRIA AREVALO, OFFICE VISIT Not Available [facility] 4 14:27:39 Administ ration of bacteria l and viral vaccine Completed 200702/22/2014 RECORDED 11/16/19 08 3:18PM BY CONNIE HENRIQUEZ MD, OFFICE VISIT Not Available [facility] 4 14:27:40 Neutrope nathen disorder 026683291 Active 2013 Not Available [facility] 3 09:20:30 Patient status finding 366713960 Completed 201311/26/2016 RECORDED 02/22/20 14 8:39AM BY MALIK VARGAS, OFFICE VISIT Yumiko farser, [facility] 7 12:54:17 Degenera tive joint disease of hand 17424847 Completed 201102/22/2014 RECORDED 02/20/20 12 2:41PM BY MIRIAM HENDRIX MA, ANNOTATI ON/ADDEN DUM Not Available [facility] 4 14:27:40 Disorder of bone and articula r cartilag e 760368508 Active 2013 Not Available [facility] 3 09:20:30 Infectiv e otitis externa 13004838 Completed 201102/22/2014 RECORDED 02/20/20 12 2:36PM BY MIRIAM HENDRIX MA, ANNOTATI ON/ADDEN DUM Not Available [facility] 4 14:27:40 Shoulder joint pain 036949346 Completed 201211/26/2016 RECORDED 06/14/20 13 11:24AM BY MIRIAM HENDRIX MA, OFFICE VISIT Yumiko fraser [facility] 7 12:54:49 Palpitat ions 54753506 Completed 201311/26/2016 Yumiko fraser [facility] 7 12:57:10 Eruption 893717266 Completed 201102/22/2014 RECORDED 02/20/20 12 2:37PM BY MIRIAM HENDRIX MA, NEDA ON/ADDEN DUM Not Available [facility] 4 14:27:40 Chronic rhinitis 93113707 Completed 201211/26/2016 Yumiko fraser, [facility] 7 12:56:09 Herpes zoster 7431631 Completed 201202/22/2014 RECORDED 01/16/20 13 8:19AM BY VIVIEN AREVALO MA, NEDA ON/ADDEN DUM Not Available [facility] 4 14:27:40 Screenin g for malignan t neoplasm of colon Completed 201102/22/2014 RECORDED 02/20/20 12 2:36PM BY MIRIAM HENDRIX MA, NEDA ON/ADDEN DUM Not Available [facility] 4 14:27:40 Spasm 40083925 Completed 201102/22/2014 RECORDED 07/23/20 12 10:38AM BY MIRIAM HENDRIX MA, ANNOTATI ON/ADDEN DUM Not Available [facility] 4 14:27:41 Vitamin D deficien 96100523 Active 2013 Not Available [facility] 3 09:20:30 Problem Notes None recorded. Procedures Surgical History Date Name Laterality Status Provider Name and Address Organization Details Recorded Time 06/20/20 23 Most Recent Mammogram completed Suzie Jaffe [facility] 06/20/2023 14:17:00 12/06/19 23 Bronchoscopy completed Suzie Jaffe [facility] 12/11/2022 09:47:35 06/19/20 22 Mammogram screening completed Vivien singh MA [facility] 10/03/2022 09:31:00 02/26/20 22 repair of meniscus completed Connie Miller MA [facility] 04/02/2022 08:44:31 01/13/20 20 Six-Item Cognitive Test completed Vivien singh MA [facility] 01/13/2020 14:08:24 12/28/19 20 Endoscopic us exam esoph completed Qiana Vieyra [facility] 12/28/2019 10:57:24 12/28/19 20 balloon dilation of esophagus completed Vivien singh MA [facility] 01/13/2020 14:02:40 11/28/19 19 Mini-Cog Test completed Yumiko Smith MA [facility] 11/27/2018 11:12:43 10/07/19 18 Mini-Cog Test completed Yumiko Smith MA [facility] 10/07/2017 13:56:19 04/11/20 17 Mammogram one breast completed Vivien singh MA [facility] 04/30/2017 16:04:21 05/23/20 16 Fall Risk Assessment completed Yumiko Smith MA [facility] 05/23/2016 13:03:08 05/23/20 16 Mini-Cog Test completed Yumiko Smith MA [facility] 05/23/2016 13:04:33 05/04/20 14 Date of Last Colonoscopy completed Swapna Brigido [facility] 06/06/2016 11:19:53 05/04/20 14 Colonoscopy completed Swapna Fofana [facility] 06/06/2016 11:19:39 04/21/20 12 Most Recent Bone Density completed Yumiko Smith MA [facility] 10/07/2017 14:02:13 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 [facility] 03/30/2015 08:46:47 Appendectomy completed [facility] 03/30/2015 08:46:47 Breast Biopsy completed [facility] 03/30/2015 08:46:47 Dilation and Curettage completed [facility] 03/30/2015 08:46:47 Tonsillectomy completed [facility] 03/30/2015 08:46:47 Endometrial Biopsy completed [facility] 03/30/2015 08:46:47 Neurosurgery completed [facility] 03/30/2015 08:46:47 Total hysterectomy completed Vivien singh MA [facility] 01/13/2020 13:47:09 Hysterectomy completed Vivien singh MA [facility] 05/07/2024 14:35:12 Imaging Results None recorded. Procedure Notes None recorded. Medical Equipment None Reported. Allergies Allergen ID Allergen Name Allergen Category Reaction Reaction Severity Criticality Documentation Date Start Date Code Code System Note Provider Name and Address Organization Details Recorded Time 2330 honey bee venom medicatio n Not available Not available Not available 02/22/20142013 78983 7 RxNorm Yumiko fraser [facility] 7 12:53:58 41440 tetracycl ine medicatio n hives Not available Not available 01/13/20202021 58074 RxNorm JESSENIA Franklin [facility] 2 14:23:43 65837 erythromy ivan medicatio n hives Not available Not available 02/15/20222021 4053 RxNorm Kathy Serrano MA null, [facility] 2 14:23:43 66782 codeine medicatio n hives Not available Not available 07/31/20232021 [address] [facility] [address] [facility] [address], [facility] [address], [facility] 4 09:26:07 Medications Name Sig Start Date Stop Date Status Note LastModified by Organization Details LastModified Time estradiol 1 mg tabs 05/23 completed Not Available Not Available Not Available levothyro xine sodium 112 mcg tabs active Not Available Not Available Not Available afluria pf 8565-5700 .5 ml gracie 05/23 completed Not Available Not Available Not Available cyclobenz aprine hcl 10 mg tabs 05/23 completed Not Available Not Available Not Available premarin 0.625 mg tabs 1 tablet dialy by mouth 03/31 completed Not Available Not Available Not Available ketotifen fumarate 0.025 % soln 11/26 completed Not Available Not Available Not Available sertralin e hcl 50 mg tabs 05/23 completed Not Available Not Available Not Available metoprolo l succinate er 100 mg tb24 05/23 completed Not Available Not Available Not Available valacyclo vir hcl 1 gm tabs active Not Available Not Available Not Available multivita min tablet Take 1 tablet every day by oral route. 09/28 completed Not Available Not Available Not Available cyclobenz aprine 10 mg tablet Take 1 tablet every day by oral route for 10 days. 04/02 completed Not Available Not Available Not Available clotrimaz ole 10 mg laurita DISSOLVE 1 TABLET BY MOUTH 3 TIMES A DAY 09/28 completed Not Available Not Available Not Available Aspirin Child 81 mg chewable tablet QD active RECORDED 06/14/20 13 11:25AM BY MIRIAM HENDRIX MA, OFFICE VISIT; Not Available Not Available Not Available levothyro xine 137 mcg tablet TAKE 1 TABLET BY MOUTH EVERY DAY active Not Available Not Available No t Available diclofena c 3 % topical gel APPLY TO LESION AREAS BY TOPICAL ROUTE 2 TIMES PER DAY 2021 active Not Available Not Available Not Avai lable potassium chloride ER 10 mEq capsule,e xtended release DAILY 03/05 completed RECORDED 03/05/20 13 10:15AM BY MIRIAM HENDRIX MA, OFFICE VISIT; Not Available Not Available Not Available prednison e 10 mg tablet TAKE 22 TABS DAILY X 7 DAYS, THEN 1 TAB DAILY X 7 DAYS 04/04 completed Not Available Not Available Not Available Saline Mist 0.65 % nasal spray aerosol SPRAY 1 SPRAY EVERY DAY BY NASAL ROUTE FOR 30 DAYS. 10/30 completed Not Available Not Available Not Available albuterol sulfate 2.5 mg/3 mL (0.083 %) solution for nebulizat ion INHALE 1 AMP VIA NEBULIZE R 3 TIMES A DAY DIRECTED FOR 10 DAYS. active Not Available Not Available No t Available cefpodoxi me 200 mg tablet Take 1 tablet every 12 hours by oral route as directed for 3 days. 04/04 completed Not Available Not Available Not Available azithromy ivan 250 mg tablet TAKE 2 TABLETS BY MOUTH TODAY, THEN TAKE 1 TABLET DAILY FOR 4 DAYS 04/04 completed Not Available Not Available Not Available ibuprofen 800 mg tablet THREE TIMES DAILY, NEEDED/ W/ FOOD 11/27 completed Not Available Not Available Not Available benzonata te 200 mg capsule TAKE 1 CAPSULE BY MOUTH TWICE A DAY NEEDED FOR COUGH X 30 DAYS 05/07 completed Not Available Not Available Not Available valacyclo vir 1 gram tablet TAKE 2 TABLETS BY MOUTH EVERY 12 HRS FOR 1 DAY NEEDED FOR COLD SORE active Not Available Not Available No t Available hydrocodo ne 5 mg-acetam inophen 325 mg tablet 10/07 completed Not Available Not Available Not Available tretinoin 0.025 % topical cream APPLY A PEA-SIZE AMOUNT DAILY AT BEDTIME, THEN MOISTURI ZE active Not Available Not Available No t Available sucralfat e 100 mg/mL oral suspensio n FOUR TIMES DAILY 11/03 completed RECORDED 11/04/19 13 8:33AM BY MALIK VARGAS, OFFICE VISIT; Not Available Not Available Not Available meloxicam 15 mg tablet Take every day by oral route for 30 days. 10/07 completed Not Available Not Available Not Available ondansetr on HCl 4 mg tablet Take 1 tablet 3 times a day by oral route as needed for 5 days. 11/08 completed Not Available Not Available Not Available prednison e 20 mg tablet TAKE 2 TABLETS BY MOUTH EVERY DAY DIRECTED FOR 5 DAYS 05/07 completed Not Available Not Available Not Available dexametha sone 6 mg tablet Take 1 tablet every day by oral route as directed for 7 days. 11/08 completed Not Available Not Available Not Available metoprolo l succinate ER 100 mg tablet,ex tended release 24 hr TAKE 1 TABLET BY MOUTH EVERY DAY DIRECTED active Not Available Not Available No t Available metronida zole 500 mg tablet THREE TIMES DAILY 02/11 completed RECORDED 02/18/20 14 1:43PM BY HELEN GRAYSON I, MEDICATI ON AUTO-NAVARRO CTIVATIO N; Not Available Not Available Not Available acetamino phen 300 mg-codein e 30 mg tablet TAKE 1 TABLET BY MOUTH EVERY 6 HOURS DIRECTED FOR 5 DAYS 10/30 completed Not Available Not Available Not Available ciproflox acin 500 mg tablet TWO TIMES DAILY 02/11 completed RECORDED 02/18/20 14 1:43PM BY HELEN GRAYSON I, MEDICATI ON AUTO-NAVARRO CTIVATIO N; Not Available Not Available Not Available omeprazol e 40 mg capsule,d elayed release Take 1 capsule every day by oral route for 90 days. 01/12 completed Not Available Not Available Not Available tramadol 50 mg tablet Take 1 tablet every 6 hours by oral route. 04/02 completed Not Available Not Available Not Available levothyro xine 25 mcg tablet take 125mcg (one 100mcg, one 25mcg tab) by mouth daily as directed x 30 days. 07/08 completed Not Available Not Available Not Available levothyro xine 100 mcg tablet TAKE 1 TABLET BY MOUTH EVERY DAY 12/04 completed reduced to 88 mch for low TSH Not Available Not Available Not Available oxycodone -acetamin ophen 5 mg-325 mg tablet EVERY FOUR HOURS 07/08 completed Not Available Not Available Not Available levothyro xine 88 mcg tablet TAKE 1 TABLET BY MOUTH EVERY DAY BEFORE A MEAL active Not Available Not Available No t Available Fluticaso ne Propionat e (Inhal) 50 mcg/BLIST inhl powd DAILY 02/15 completed RECORDED 02/16/20 10 1:10PM BY VIVIEN AREVALO MA, OFFICE VISIT; Not Available Not Available Not Available amoxicill in 875 mg tablet TWO TIMES DAILY 07/28 completed RECORDED 07/28/20 09 8:15AM BY JESSENIA HUTCHINS, OFFICE VISIT; Not Available Not Available Not Available hydromorp sherita 2 mg tablet 02/15 completed Not Available Not Available Not Available amitripty line 25 mg tablet TAKE 1 TABLET BY MOUTH EVERY DAY DIRECTED 06/14 completed Not Available Not Available Not Available lorazepam 0.5 mg tablet TAKE 1 TABLET BY MOUTH TWICE A DAY 08/31 completed Not Available Not Available Not Available estradiol 1 mg tablet Take by oral route for 30 days. 05/23 completed Not Available Not Available Not Available benzonata te 100 mg capsule TAKE 1 CAPSULE BY MOUTH THREE TIMES A DAY FOR 5 DAYS 07/02 completed Not Available Not Available Not Available levothyro xine 50 mcg tablet TAKE 2 TABLETS BY MOUTH DAILY. TAKE WITH 25MCG FOR TOTAL OF 125MCG DAILY. 04/16 completed Not Available Not Available Not Available levothyro xine 125 mcg tablet TAKE 1 TABLET BY MOUTH EVERY DAY active Not Available Not Available No t Available triamcino lone acetonide 55 mcg nasal spray aerosol USE 2 SPRAYS IN EACH NOSTRIL DAILY DIRECTED 04/04 completed Not Available Not Available Not Available clobetaso l 0.05 % topical foam APPLY TWICE DAILY TO SCALP NEEDED FOR PSORIASI S active Not Available Not Available No t Available oxycodone 5 mg capsule THREE TIMES DAILY, NEEDED 02/11 completed RECORDED 02/18/20 13 10:43AM BY CONNIE HENRIQUEZ MD, MEDICATI ON AUTO-NAVARRO CTIVATIO N; Not Available Not Available Not Available gabapenti n 300 mg capsule Take 1 capsule 3 times a day by oral route. 11/27 completed Not Available Not Available Not Available sertralin e 25 mg tablet take 25mg daily for 1 week, then take 12.5mg daily for 1 week, then 12.5 mg every other day for 7 days then stop med. 04/16 completed Not Available Not Available Not Available omeprazol e 20 mg capsule,d elayed release TAKE 1 CAPSULE BY MOUTH EVERY DAY DIRECTED 06/14 completed Not Available Not Available Not Available diclofena c sodium 75 mg tablet,de layed release Take 1 tablet twice a day by oral route. 06/14 completed Not Available Not Available Not Available codeine 10 mg-guaife nesin 100 mg/5 mL oral liquid TAKE 2 TEASPOON SFUL (10 ML) BY MOUTH EVERY 4 HOURS DIRECTED FOR 7 DAYS. NOT COVERED* * 05/07 completed Not Available Not Available Not Available furosemid e 20 mg tablet TAKE 1 TABLET BY MOUTH EVERY DAY DIRECTED active Not Available Not Available No t Available levofloxa ivan 500 mg tablet TAKE 1 TABLET EVERY 24 HOURS BY ORAL ROUTE DIRECTED FOR 7 DAYS. 10/04 completed Not Available Not Available Not Available estradiol 0.01% (0.1 mg/gram) vaginal cream INSERT 1 GRAM VAGINALL Y EVERY FRIDAY AND 09/28 completed Not Available Not Available Not Available methylpre dnisolone 4 mg tablets in a dose pack Take 1 package by oral route. 10/07 completed Not Available Not Available Not Available albuterol sulfate HFA 90 mcg/actua tion aerosol inhaler INHALE 2 PUFFS BY MOUTH EVERY 4 HOURS DIRECTED FOR 30 DAYS 04/04 completed Not Available Not Available Not Available Cortispor in-TC 3.3 mg-3 mg-10 mg-0.5 mg/mL ear drops,donita pension FOUR TIMES DAILY 11/03 completed RECORDED 11/04/19 13 8:33AM BY MALIK VARGAS, OFFICE VISIT; Not Available Not Available Not Available hydroxyzi ne HCl 10 mg tablet TAKE 1 TABLET BY MOUTH EVERYDAY AT BEDTIME 09/28 completed Not Available Not Available Not Available clobetaso l 0.05 % scalp solution APPLY TO SCALP 2-3X/WK NEEDED FOR MAINTENA NCE active Not Available Not Available No t Available ondansetr on 4 mg disintegr ating tablet PLACE 1 TABLET BY TRANSLIN GUAL ROUTE 3 TIMES A DAY NEEDED FOR 5 DAYS 11/06 completed Not Available Not Available Not Available sertralin e 50 mg tablet TAKE 1 TABLET BY MOUTH EVERY DAY 06/17 completed Not Available Not Available Not Available doxycycli ne hyclate 100 mg tablet TAKE 1 TABLET BY MOUTH TWICE A DAY DIRECTED FOR 7 DAYS 11/06 completed Not Available Not Available Not Available naproxen 500 mg tablet TAKE 1 TABLET BY MOUTH 2 TIMES A DAY FOR 7 DAYS NEEDED FOR PAIN 04/02 completed Not Available Not Available Not Available diazepam 5 mg tablet TAKE 1 TABLET BY MOUTH EVERYDAY AT BEDTIME active Not Available Not Available No t Available levothyro xine 112 mcg tablet Take 112 ugs by oral route. 08/06 completed Not Available Not Available Not Available amoxicill in 875 mg-potass ium clavulana te 125 mg tablet BID 08/11 completed RECORDED 08/14/19 10 8:08AM BY CONNIE HENRIQUEZ MD, MEDICATI ON AUTO-NAVARRO CTIVATIO N; Not Available Not Available Not Available tobramyci n 0.3 %-dexamet hasone 0.1 % [facility] drops[facility] 10/07 completed Not Available Not Available Not Available prednisol one sodium phosphate 5 mg base/5 mL (6.7 mg/5 mL) oral soln 01/12 completed Not Available Not Available Not Available azithromy ivan 500 mg tablet TAKE 1 TABLET BY MOUTH EVERY DAY DIRECTED FOR 10 DAYS 05/07 completed Not Available Not Available Not Available Vitamin D3 25 mcg (1,000 unit) capsule Take 1 capsule every day by oral route. 11/27 completed Not Available Not Available Not Available codeine-g uaifenesi n oral syrup Q 4 HOURS PRN 08/05 completed RECORDED 08/07/20 09 1:46PM BY CONNIE HENRIQUEZ MD, MEDICATI ON AUTO-NAVARRO CTIVATIO N; Not Available Not Available Not Available Premarin 0.625 mg tablet QD 10/07 completed Not Available Not Available Not Available clobetaso l 0.05 % lotion twice a day by topical route. active Not Available Not Available No t Available bupropion HCl XL 300 mg 24 hr tablet, extended release TAKE 1 TABLET BY MOUTH EVERY DAY 07/25 completed Not Available Not Available Not Available bupropion HCl XL 150 mg 24 hr tablet, extended release TAKE 1 TABLET BY MOUTH EVERY DAY 07/25 completed Not Available Not Available Not Available Flovent HFA 220 mcg/actua tion aerosol inhaler Inhale 1 puff twice a day by inhalati on route as directed for 30 days. 2022 active Not Available Not Available Not Avai lable cod liver oil TWO TIMES DAILY 02/26 completed RECORDED 02/27/20 13 12:13PM BY CONNIE HENRIQUEZ MD, ANNOTATI ON/ADDEN DUM;IN PLACE OF FISH OIL Not Available Not Available Not Available Fish Oil DAILY 04/21 completed RECORDED 04/21/20 12 3:39PM BY MALIK VARGAS, OFFICE VISIT; Not Available Not Available Not Available omega-3 fatty acids QD 04/21 completed RECORDED 04/21/20 12 3:38PM BY MALIK VARGAS, OFFICE VISIT; Not Available Not Available Not Available naproxen TWO TIMES DAILY 05/26 completed RECORDED 05/27/20 12 2:45PM BY CONNIE HENRIQUEZ MD, MEDICATI ON AUTO-NAVARRO CTIVATIO N; Not Available Not Available Not Available Zostavax (PF) 19,400 unit/0.65 mL subcutane ous suspensio n ONE TIME DOSE 12/10 completed RECORDED 12/16/19 09 10:16AM BY CONNIE HENRIQUEZ MD, MEDICATI ON AUTO-NAVARRO CTIVATIO N; Not Available Not Available Not Available calcium 600 mg (as carbonate )-vitamin D3 10 mcg (400 unit) tablet DAILY 11/27 completed Not Available Not Available Not Available Symbicort 160 mcg-4.5 mcg/actua tion HFA aerosol inhaler INHALE 2 PUFFS BY MOUTH TWICE A DAY 07/31 completed Not Available Not Available Not Available diclofena c 1 % topical gel Apply 1 g twice a day by topical route for 30 days. 06/14 completed Not Available Not Available Not Available Gavilyte- C 240 gram-22.7 2 gram-6.72 gram-5.84 gram oral solution active Not Available Not Available Not Available alpha lipoic acid 600 mg capsule Take 1 capsule twice a day by oral route as directed for 30 days. 03/31 completed Not Available Not Available Not Available Allergy Eye (ketotife n) 0.025 % (0.035 %) drops INSTILL 1 DROP INTO AFFECTED EYE(S) BY OPHTHALM IC ROUTE 2 TIMES PER DAY 10/07 completed Not Available Not Available Not Available Myrbetriq 25 mg tablet,ex tended release TAKE 1 TABLET BY MOUTH EVERY DAY DO NOT CRUSH OR CHEW 09/28 completed Not Available Not Available Not Available bupropion HCl XL 450 mg 24 hr tablet, extended release Take 1 tablet every day by oral route as directed for 30 days. 08/31 completed Not Available Not Available Not Available Garcinia Cambogia TWO TIMES DAILY 03/05 completed RECORDED 03/05/20 13 10:15AM BY MIRIAM HENDRIX MA, OFFICE VISIT; Not Available Not Available Not Available Arnuity Ellipta 200 mcg/actua tion powder for inhalatio n 1 puff inhaled daily 07/13 completed Not Available Not Available Not Available Breo Ellipta 200 mcg-25 mcg/dose powder for inhalatio n active Not Available Not Available Not Available Flonase Sensimist 27.5 mcg/actua tion nasal spray,donita pension SPRAY 2 SPRAYS EVERY DAY BY NASAL ROUTE FOR 30 DAYS. 07/02 completed Not Available Not Available Not Available Dialyvite Chewable Probiotic 1 gummypo daily 09/28 completed Not Available Not Available Not Available Shingrix (PF) 50 mcg/0.5 mL intramusc ular suspensio n, kit 07/13 completed Not Available Not Available Not Available ID NOW COVID-19 Test Kit TEST DIRECTED TODAY 02/15 completed Not Available Not Available Not Available clobetaso l 0.05 % topical lotion in pump Apply 1 applicat ion twice a day by topical route. 04/02 completed Not Available Not Available Not Available Fluad Quad (65yr up)(PF) 60 mcg (15 mcg x 4)/0.5mL IM syringe PHARMACY ADMINIST ERED 07/13 completed Not Available Not Available Not Available Wegovy 0.25 mg/0.5 mL subcutane ous pen injector Inject 0.5 mL every week by subcutan eous route as directed for 30 days. 07/13 completed Not Available Not Available Not Available semagluti de (weight loss) weekly- compound ed active Not Available Not Available No t Available Paxlovid 300 mg (150 mg x 2)-100 mg tablets in a dose pack TAKE 3 TABLETS BY MOUTH TWICE A DAY FOR 5 DAYS DO NOT TAKE TRAMADOL 04/02 completed Not Available Not Available Not Available Alive Calcium-V itamin D3 active Not Available Not Available No t Available Vitals Date Recorded Body height Body mass index (BMI) Body weight Heart rate Oxygen saturation Oxygen saturation in Arterial blood by Pulse oximetry Body temperature Systolic blood pressure Diastolic blood pressure Provider Name and Address Organization Details Last Updated DateTime 4 170.18 cm 29.3 kg/m2 39121.7 7 g 75 /min 100 % 100 % 97.2 [degF] 155 mm[Hg] 75 mm[Hg] Vivien lao MA [facility] 4 14:43:29 Social History Question Answer Notes LastModified by Organizat ion Details LastModified Time Tobacco Smoking Status [facility] 10:[facility] Do You Have An Advance Directive? Yes Information not available 07/02/2022 What Is Your Level Of Alcohol Consumption? None Information not available 05/07/2024 Is Blood Transfusion Acceptable In An Emergency? Yes Information not available 03/30/2015 What Is Your Level Of Caffeine Consumption? None Information not available 04/02/2022 How Much Tobacco Do You Chew? None Information not available 03/30/2015 Are You Currently Employed? Yes [email or web address] Information not available 03/21/2014 What Type Of Diet Are You Following? REGULAR Information not available 02/15/2021 Do You Or Have You Ever Used E-cigarettes Or Vape? 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 No Information not available 07/02/2022 Hard Of Hearing Or Deaf In One Or Both Ears? No Information not available 07/02/2022 Legally Blind In One Or Both Eyes? No Information not available 07/02/2022 Live Alone Or With Others? With Others (Antonino); Has Prostate Cancer Information not available 07/02/2022 Do You Take Precautions To Prevent Distracted Driving? Yes Information not available 03/30/2015 How Often Do You Need To Have Someone Help You When You Read Instructions, Pamphlets, Or Other Written Material From Your Doctor Or Pharmacy? Never Information not available 03/30/2015 Have You Served In The ? No [email or web address] Information not available 05/23/2016 Have You Or Anyone In Your Household Had Any Of The Following Symptoms In The Last 14 Days: Sore Throat, Cough, Chills, Body Aches For Unknown Reasons, Shortness Of Breath For Unknown Reasons, Loss Of Smell, Loss Of Taste, Fever At Or Greater Than 100 Degrees Fahrenheit? No Information not available 07/13/2020 Are You Or Anyone In Your Household A Health Care Provider Or Emergency Responder? No Information not available 07/13/2020 To The Best Of Your Knowledge Have You Been In Close Proximity To Any Individual Who Tested Positive For COVID-19? No Information not available 07/13/2020 *AWV ONLY* Are You Presently Prescribed Opioid Medication By PCP Or Specialist? If YES -Provider Assess The Benefit For Other, Non-opioid Pain Therapies Instead, Even If The Patient Does Not Have OUD But Is Possibly At Risk. No Information not available 02/15/2021 Have You Recently Traveled To A COVID-19 High Risk Area Or Gathering In The Last 10 Days? No [email or web address] Information not available 12/26/2020 What Was The Date Of Your Most Recent Tobacco Screening? 07/13/2024 [email or web address] Information not available 07/13/2024 How Many Children Do You Have? 1 Sanket [email or web address] Information not available 03/21/2014 Do You Use Your Seat Belt Or Car Seat Routinely? Yes Information not available 04/02/2022 Seat Belts Used Routinely Yes Information not available 07/02/2022 Are You Sexually Active? No Information not available 04/02/2022 Smoke Alarm In Home Yes Information not available 07/02/2022 Do You Have Smoke And Carbon Monoxide Detectors In Your Home? Yes Information not available 04/02/2022 At What Age Did You Start Smoking Tobacco? 0 Information not available 03/30/2015 Are You Passively Exposed To Smoke? No Information not available 03/30/2015 Do You Or Have You Ever Used Smokeless Tobacco? Never Used Smokeless Tobacco Information not available 04/16/2019 How Much Tobacco Do You Smoke? No Information not available 03/21/2014 General Stress Level High Information not available 07/02/2022 Do You Use Any Illicit Or Recreational Drugs? No Information not available 07/02/2022 Do You Use Sunscreen Routinely? Yes Information not available 03/21/2014 How Many Years Have You Smoked Tobacco? 0 Information not available 03/30/2015 Do You Or Have You Ever Used Any Other Forms Of Tobacco Or Nicotine? No Information not available 07/02/2022 Sex: Unknown Functional Status Question Answer Note LastModified by Organizat ion Details LastModified Time Are you able to walk? YESWOREST Information not available 07/02/2022 Are you able to care for yourself? Yes [email or web address] Information not available 03/21/2014 What is your exercise level? Occasional Exercise bike Information not available 04/02/2022 Mental Status None recorded. Family History Relationship Description Onset Age of this Age Resolved Age Notes LastModified by Organization Details LastModified Time Mother Malignant neoplasm of skin [email or web address] Not available 10/2023 09:29:18 Father Heart disease [email or web address] Not available 09:44:07 Father Diabetes mellitus [email or web address] Not available 09:44:07 Father Hypertensive disorder [email or web address] Not available 09:44:07 Father Obesity 40 62 Not available 03/30/2015 08:45:34 Father Sleep disorder 40 62 Not available 2014 08:45:34 Unspecified Relation Disorder of thyroid gland [email or web address] Not available 09:44:07 Sister Asthma 20 [email or web address] Not available 08:30:07 Sister Anxiety disorder 63 [email or web address] Not available 2021 08:30:07 Sister Disorder of thyroid gland [email or web address] Not available 2021 08:30:07 Sister Sleep disorder 45 [email or web address] Not available 2021 08:30:07 Notes:no FH of colon cancer Medical History Condition Response Coronary Artery Disease N Gout N Other N Blood Diseases Y Kidney Stones N Hyperthyroidism N COPD N Depression N Headaches/Migraines N Anxiety Disorder Y Muscle, Joint, or Bone Problems N Obesity Y Vision or Eye Problems Y Arthritis N Polyps N Infertility N Mental Disorder N Acid Reflux (GERD) Y Cancer N Stroke N Fibromyalgia N Headaches N Kidney Disease N Heart Problems Y Ear or Hearing Problems N Hospitalizations Y Acne N Eating Disorder N Skin Problems Y Constipation N Bladder Problems N Tuberculosis N AIDS/HIV N Asthma N Allergies Y Hepatitis N Pulmonary Embolism N Chicken Pox N Autism Spectrum Disorder (ASD) N Breast Cancer N mrsa exposure N Lung Disease N Hypothyroidism Y Defects or Inherited Disease N Developmental or Behavioral Disorders N Breast Problem N Anesthesia Complications N Varicose Veins N Head Injury/Concussion N Congenital Anomalies N ADHD N Endometriosis N High Cholesterol N Liver Disease N Thyroid Problems Y GI Problems Y Developmental Delay N Anemia N Mental Illness N Diabetes N Ovarian Cancer N Bedwetting N Blood Transfusions N Heart Problems/Murmur N Seizures/Epilepsy N Congestive Heart Failure (CHF) N Eczema N Abuse/Domestic Violence N Diverticulitis Y Reflux/GERD N Heart Disease N Hypertension N Osteoporosis N Gynecological History Statement/Question Response STIs/STDs N HPV Vaccine N Age at Menarche 17 Current Control Method None Most Recent Mammogram 06/20/2023 Age at First Child 23 If Post Menopausal, Age at Menopause 30 Date of Last Colonoscopy 05/04/2014 Most Recent Bone Density 04/21/2012 Sexually Active? N Date of Last Pap Smear Sexual Problems? N Desired Control Method Hysterectom y Y Obstetrics History GPAL:G 0 P 0 0 0 0 Immunizations Vaccine Type Date Status Note Provider Nam e and Address Organization Details Recorded Time Influenza, split virus, trivalent, preservative 4 completed Not Available [facility] 07/01/2023 09:20:32 Pneumococcal conjugate PCV 13 5 completed Not Available [facility] 07/01/2023 09:20:32 Influenza, high-dose, trivalent, PF 7 completed Not Available [facility] 07/01/2023 09:20:32 pneumococcal polysaccharide PPV23 7 completed Not Available [facility] 07/01/2023 09:20:31 Pneumococcal conjugate PCV 13 9 completed Not Available [facility] 07/01/2023 09:20:32 Influenza, high-dose, trivalent, PF 9 completed Not Available [facility] 07/01/2023 09:20:32 zoster live 9 completed Not Available [facility] 07/01/2023 09:20:32 Tdap 3 completed Not Available [facility] 07/01/2023 09:20:31 Influenza, high-dose, trivalent, PF 6 completed Not Available [facility] 07/01/2023 09:20:32 zoster recombinant 0 completed JESSENIA Espana, [facility] 07/31/2023 14:12:32 Influenza, high-dose, trivalent, PF 0 completed JESSENIA Espana, [facility] 07/31/2023 14:12:32 zoster recombinant 0 completed Not Available [facility] 07/01/2023 09:20:31 Influenza, adjuvanted, quadrivalent, PF 0 completed Not Available [facility] 07/01/2023 09:20:31 Influenza, high-dose, quadrivalent, PF 1 completed Not Available [facility] 07/01/2023 09:20:31 Influenza, split virus, quadrivalent, PF 5 completed Not Available [facility] 07/01/2023 09:20:32 COVID-19, mRNA, LNP-S, PF, 30 mcg/0.3 mL dose 2 completed Not Available [facility] 07/01/2023 09:20:31 COVID-19, mRNA, LNP-S, PF, 30 mcg/0.3 mL dose 1 completed Not Available [facility] 07/01/2023 09:20:31 COVID-19, mRNA, LNP-S, PF, 30 mcg/0.3 mL dose 1 completed Not Available [facility] 07/01/2023 09:20:31 Influenza, split virus, trivalent, preservative 0 completed Not Available [facility] 07/01/2023 09:20:32 Influenza, high-dose, trivalent, PF 6 completed Not Available [facility] 07/01/2023 09:20:32 Tdap 8 completed Not Available [facility] 07/01/2023 09:20:31 Influenza, high-dose, trivalent, PF 8 completed Not Available [facility] 07/01/2023 09:20:32 Influenza, high-dose, quadrivalent, PF 2 completed Not Available [facility] 07/01/2023 09:20:31 Pneumococcal conjugate PCV20, polysaccharide [id number] conjugate, adjuvant, PF 2 completed Not Available [facility] 07/01/2023 09:20:31 Influenza, high-dose, quadrivalent, PF 3 completed JESSENIA Espana, [facility] 07/31/2023 14:12:32 COVID-19, mRNA, LNP-S, PF, jeremi-sucrose, 30 mcg/0.3 mL 3 completed JESSENIA Espana, [facility] 07/31/2023 14:12:32 RSV, recombinant, protein subunit RSVpreF, adjuvant reconstituted, 0.5 mL, PF 4 completed JESSENIA Springer, [facility] 07/13/2024 09:31:47 COVID-19, mRNA, LNP-S, PF, jeremi-sucrose, 30 mcg/0.3 mL 4 completed JESSENIA Springer, [facility] 07/13/2024 09:31:47 Influenza, high-dose, trivalent, PF 4 completed Swapna fraser [facility] 05/18/2024 08:54:12 pneumococcal polysaccharide PPV23 8 completed Not Available [facility] 07/01/2023 09:20:31 Tdap 8 completed Not Available [facility] 07/01/2023 09:20:31 Novel [id number], all formulations 0 completed Not Available [facility] 07/01/2023 09:20:31 Influenza, split virus, trivalent, preservative 1 completed Not Available [facility] 07/01/2023 09:20:32 Influenza, split virus, trivalent, preservative 2 completed Not Available [facility] 07/01/2023 09:20:32 Influenza, split virus, trivalent, preservative 3 completed Not Available [facility] 07/01/2023 09:20:32 pneumococcal polysaccharide PPV23 3 completed Not Available [facility] 07/01/2023 09:20:31 Past Encounters Encounter ID Performer Location Encounter Start Date Encounter Closed Date Diagnosis/Indication Diagnosis SNOMED-CT Code Diagnosis ICD10 Code [id number] EDGAR [facility] [address] [facility] [address] [place] [address] 05/07/2024 14:21:54 05/07/2024 15:09:53 Lump in upper outer quadrant of left breast [id number] 64968 N63.21 Mass of frank int of left elbow [id number] 1150966 M25.822 M25.422 Health Concerns Section Related Observation LastModified by Organization Detai ls LastModified Time None Recorded Concern Status LastModified by Organization Details LastModified Time None Recorded Payers Encounter Date Sequence Insurance Name Policy Number Policy Carbajal Covered Member ID Carbajal Member ID Guarantor Name 05/07/2024 1 [place] [employer] Naomie Hernandez Disanti [id number] Naomie David Disanti 05/07/2024 2 [place] [id number] Naomie Hernandez Wandy [id number] Naomie Saba Notes Date Note Type Note Provider Name and Address Organization Details Recorded Time 05/07/2024 text/html Generic HPI TemplateReported bypatient.Notes:3 weeks ago noticed lumps under both axilla at the same time as a lump to medial left elbow.Also noticed a pea sized lump to right breast, axillary and lump to breast have resolved but elbow persists and is tender. Last mammo in June- normal, has had normal exams since 2017 The only change is weight loss recently 34lbs due to wegovy. Trini Ortiz, [facility] [address] [facility] [address], [place], [address], [facility] 05/07/2024 15:13:14 OBGyn Episode No OBEpisode recorded.
--- OUTSIDE RECORDS SUMMARY | 2024-08-06 16:28 | XMS_ITS | Continuity of Care Document ---
Author Organization [facility], Main Office Address [address] [place] [address] Care Team Providers Care Plastic Card Grader Cardroom Name Role Phone FADI MALLOY Kennel Helper [phone] GARRET BAKER Head Holder DUY LOFTON Materials Management Supervisor TRINI ORTIZ Primary Care Provider JR TOBAR Orthopedic Surgeon TAE BERMUDEZ Box Car Bracer LUÍS OLSON Dog Beautician Assessment No assessment recorded. Plan of Treatment Reminders Order Date Submit Date Provider Last Modified By Organization Details Last Modified Time Details Appointments None recorded. Lab None recorded. Referral None recorded. Procedures None recorded. Surgeries None recorded. Imaging bone density - due for bine density- hx osteopenia 2023 024 [facility], [address], [address], [place], [address], 4 10:17:14 XR, hip + pelvis, bilateral - right groin pain, r/o fracture 2023 024 [facility], [address], [place], [address], 4 10:02:35 Medication Orders None recorded. Patient TargetsNo targets recorded. Patient Instructions Encounter Date Encounter Id Patient Instructions Last Modified By Organization Details Last Modified Time 07/13/2024 [id number] hip flexor strain: rehab exercises [email or web address] Not available 07/13/2024 10:11:35 groin strain: care instructions [email or web address] Not available 07/13/2024 10:11:49 high cholesterol : care instructions [email or web address] Not available 07/13/2024 10:02:54 preventing falls : care instructions [email or web address] Not available 07/13/2024 09:58:13 well visit, over 65: care instructions jthabet Not available 07/13/2024 09:58:13 medicare preventive services guide (female 74yrs and under) [email or web address] Not available 07/13/2024 10:02:54 To call or retur n for worsening or concerns [email or web address] Not available 07/13/2024 10:12:04 Reason for Referral None Reported. Results Created Date Observation Date Name Description Value Unit Range Abnormal Flag Note LastModifiedBy Organization Detail LastModifiedTime 07/14/20 24 07/13/2024 XR, hip + pelvi s, bilat eral AP pelvis and bilate ral hips 5 views total dated [facility] er 2023. Compar mala films are from December 21, 2021 and Januar y 2016. HISTOR Y: Pain. FINDIN GS: This examin ation shows no eviden ce of fractu re or disloc ation. Joint spaces are fairly well-p reserv ed. There is some hetero topic new bone associ ated with superi or aspect of the right hip joint. IMPRES CARLOS: No eviden ce of acute osseou s abnorm ality. Minima l hetero topic new bone format ion in the right hip. Thank you for allowi ng me to partic ipate in the care of this sumi koenig. WSN: [id number] Orderi ng Physic kenny: Timbo Ortiz Dictat ed By: Jamie Heaton MD Dictat ed Date/T tom: 9:55 am Review ed By: Jamie Heaton MD Signed By: Jamie Heaton MD Signed Date/T tom: 9:55 am Transc ribed By: ISAURA Transc ribed Date/T tom: 9:55 am Patijose m t Class: Outpat ient [facility] (Outpt Imaging) [address], [place], [address], 07/14/2024 10:22:01 07/29/20 24 07/29/2024 US msk extre mity left US MSK Extrem ity Left Reason : M25.52 2 M25.82 2 PAIN LEFT ELBOW MASS LEFT ELBOW COMPAR MALA: None. FINDIN GS: High-r esolut ion, linear [...] uing as the partia lly-vi sualiz ed tracing lathe set up operator ior intero sseous nerve. GRIDCAP MACHINE OPERATOR IOR: There is no tracing lathe set up operator ior elbow joint effusi on or intra- articu lar body. No olecra non bursal fluid collec tion is identi fied. The tricep s brachi i combin ed latera l and long head tendon , as well as the medial head tendon are intact at the olecra non insert ion. The olecra non demons trates normal tracing lathe set up operator ior contou r. IMPRES CARLOS: 1. No elbow mass or fluid collec tion. 2. Incide ntal bifid ulnar nerve, otherw ise normal in appear ance. WSN: [id number] Orderi ng Physic kenny: iDana CHRISTIAN, Timbo Crocker Dictat ed By: Colin Jaquez MD Dictat ed Date/T tom: 4:06 pm Review ed By: Colin Jaquez MD Signed By: Colin Jaquez MD Signed Date/T tom: 4:06 pm Transc ribed By: ISAURA Transc ribed Date/T tom: 1:32 pm Patien t Class: Outpat ient [facility] (Outpt Imaging) [address] [place], [address], 07/29/2024 17:55:12 Result Notes None recorded. Problems Name Problem SNOMED Code Status Onset Date Resolution Date Notes Provider Name and Address Organization Details Recorded Time Abdomina l pain 61825512 Completed 201303/17/2014 RECORDED 02/02/20 14 8:32AM BY HELEN GRAYSON I ANNOTATI ON/ADDEN DUM EDGAR James [address], [facility] [place], [address] , [facility] 3 14:37:10 Acute sinusiti s 58016303 Completed 201103/17/2014 RECORDED 02/20/20 12 2:39PM BY MIRIAM HENDRIX MA, ANNOTATI ON/ADDEN DUM Not Available [facility] 4 12:45:23 Acute upper respirat ory infectio n of multiple sites Completed 201103/17/2014 RECORDED 02/20/20 12 2:41PM BY MIRIAM HENDRIX MA, ANNOTATI ON/ADDEN DUM Not Available [facility] 4 12:45:23 Patient status finding [id number] Completed 201103/17/2014 RECORDED 08/05/20 12 11:47AM BY MIRIAM HENDRIX MA, ANNOTATI ON/ADDEN DUM Yumiko fraser, [facility] 7 12:54:17 Chest pain 03906739 Completed 201303/17/2014 STORY: AL RULED OUT / / CONT CURRENT RISK REDUCTIO N PLAN.; RECORDED 01/27/20 14 7:39AM BY HELEN GRAYSON I, ANNOTATI ON/ADDEN DUM [facility] [address], [facility] [place], [address] , [facility] 2 09:23:46 Screenin g for malignan t neoplasm of breast Completed 201103/17/2014 RECORDED 02/20/20 12 2:38PM BY MIRIAM HENDRIX MA, ANNOTATI ON/ADDEN DUM Not Available [facility] 4 12:45:23 Disorder of breast 70035225 Completed 201103/17/2014 RECORDED 02/20/20 12 2:41PM BY MIRIAM HENDRIX MA, ANNOTATI ON/ADDEN DUM Not Available [facility] 4 12:45:23 Screenin g for malignan t neoplasm of cervix Completed 201103/17/2014 RECORDED 02/20/20 12 2:39PM BY MIRIAM HENDRIX MA, ANNOTATI ON/ADDEN DUM Not Available [facility] 4 12:45:23 Chronic sinusiti s 70721591 Completed 201103/17/2014 RECORDED 02/20/20 12 2:39PM BY MIRIAM HENDRIX MA, ANNOTATI ON/ADDEN DUM Not Available [facility] 4 12:45:24 Herpes simplex 55996234 Completed 201103/17/2014 RECORDED 07/23/20 12 10:39AM BY MIRIAM HENDRIX MA, ANNOTATI ON/ADDEN DUM Not Available [facility] 4 12:45:24 Cough 31742415 Completed 201103/17/2014 RECORDED 02/20/20 12 2:37PM BY MIRIAM HENDRIX MA, ANNOTATI ON/ADDEN DUM Trini Ortiz, [facility] [address], [place], [address] , [facility] 3 14:41:04 Divertic ulitis of colon 958036927 Active 2013 Not Available [facility] 3 09:20:30 Divertic ulitis of colon 945994947 Completed 201303/17/2014 RECORDED 02/02/20 14 8:32AM BY NEDA CLEMENTE ON/ADDEN DUM Yumiko fraser [facility] 7 12:54:25 Dysfunct ion of eustachi an tube 84634386 Completed 201303/17/2014 RECORDED 02/02/20 14 8:31AM BY EDOUARD CLEMENTEATI ON/ADDEN DUM Yumiko fraser [facility] 7 12:56:38 Dysphagi a 32366869 Completed 201103/17/2014 RECORDED 02/20/20 12 2:39PM BY MIRIAM HENDRIX MA, ANNOTATI ON/ADDEN DUM Not Available [facility] 4 12:45:24 Enthesop athy of knee 75145115 Completed 201103/17/2014 RECORDED 02/20/20 12 2:39PM BY MIRIAM HENDRIX MA, ANNOTATI ON/ADDEN DUM Not Available [facility] 4 12:45:24 Follow-u p encounte r Completed 201303/17/2014 RECORDED 01/27/20 14 7:39AM BY HELEN GRAYSON I, ANNOTATI ON/ADDEN DUM Not Available [facility] 4 12:45:24 Ill-defi inez disorder of eye Completed 201203/17/2014 RECORDED 06/14/20 13 11:23AM BY MIRIAM HENDRIX MA, ANNOTATI ON/ADDEN DUM Not Available [facility] 4 12:45:24 Influenz a vaccine needed 15931650606 06 Completed 200903/17/2014 RECORDED 08/14/19 10 1:37PM BY CONNIE HENRIQUEZ MD, OFFICE VISIT Not Available [facility] 4 12:45:24 Adult health examinat ion Completed 201203/17/2014 RECORDED 06/14/20 13 11:24AM BY MIRIAM HENDRIX MA, ANNOTATI ON/ADDEN DUM Not Available [facility] 4 12:45:24 Disorder of skin pigmenta tion 39293106 Completed 201103/17/2014 RECORDED 02/20/20 12 2:42PM BY MIRIAM HENDRIX MA, ANNOTATI ON/ADDEN DUM Not Available [facility] 4 12:45:24 Insomnia 952292486 Completed 201103/17/2014 RECORDED 02/20/20 12 2:38PM BY MIRIAM HENDRIX MA, ANNOTATI ON/ADDEN DUM Trini Ortiz, [facility] [address], [place], [address] , [facility] 3 11:10:55 Laborato ry procedur e performe d 965137087 Completed 201203/17/2014 RECORDED 01/16/20 13 8:19AM BY ALESHA AREVALO MA, ANNOTATI ON/ADDEN DUM Not Available [facility] 4 12:45:25 Low back pain 637134066 Completed 201303/17/2014 RECORDED 02/02/20 14 8:31AM BY HELEN GRAYSON I, ANNOTATI ON/ADDEN DUM Yumiko Smith MA null, [facility] 7 12:54:53 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 45203494 Completed 201303/17/2014 RECORDED 01/27/20 14 7:39AM BY HELEN GRAYSON I ANNOTATI ON/ADDEN DUM Yumiko Smith MA null, [facility] 7 12:54:39 Mitral valve disorder 55733682 Completed 201103/17/2014 RECORDED 02/20/20 12 2:39PM BY MIRIAM HENDRIX MA, ANNOTATI ON/ADDEN DUM Yumiko Romerobraydon [place] null, [facility] 7 12:54:29 Neck pain 10620297 Completed 201103/17/2014 RECORDED 07/23/20 12 10:39AM BY MIRIAM HENDRIX MA, ANNOTATI ON/ADDEN DUM Not Available [facility] 4 12:45:25 Active or passive immuniza tion Completed 200703/17/2014 RECORDED 11/16/19 08 3:08PM BY CONNIE HENRIQUEZ MD, OFFICE VISIT Not Available [facility] 4 12:45:25 Administ ration of viral vaccine Completed 200803/17/2014 RECORDED 02/14/20 09 11:55AM BY ALEXANDRIA AREVALO, OFFICE VISIT Not Available [facility] 4 12:45:25 Administ ration of bacteria l and viral vaccine Completed 200703/17/2014 RECORDED 11/16/19 08 3:18PM BY CONNIE HENRIQUEZ MD, OFFICE VISIT Not Available [facility] 4 12:45:25 Degenera tive joint disease of hand 46801703 Completed 201103/17/2014 RECORDED 02/20/20 12 2:41PM BY MIRIAM HENDRIX MA, ANNOTATI ON/ADDEN DUM Not Available [facility] 4 12:45:25 Infectiv e otitis externa 13968266 Completed 201103/17/2014 RECORDED 02/20/20 12 2:36PM BY MIRIAM HENDRIX MA, ANNOTATI ON/ADDEN DUM Not Available [facility] 4 12:45:26 Shoulder joint pain 607281336 Completed 201303/17/2014 RECORDED 02/02/20 14 8:31AM BY HELEN GRAYSON I, ANNOTATI ON/ADDEN DUM Yumiko fraser, [facility] 7 12:54:49 Eruption 130168167 Completed 201103/17/2014 RECORDED 02/20/20 12 2:37PM BY MIRIAM HENDRIX MA, ANNOTATI ON/ADDEN DUM Not Available [facility] 4 12:45:26 Chronic rhinitis 40719490 Completed 201303/17/2014 RECORDED 01/27/20 14 10:30AM BY ALESHA AREVALO MA, EDOUARDATI ON/ADDEN DUM Yumiko fraser, [facility] 7 12:56:09 Herpes zoster 8567023 Completed 201303/17/2014 RECORDED 01/27/20 14 7:39AM BY HELEN GRAYSON I, ANNOTATI ON/ADDEN DUM Not Available [facility] 4 12:45:26 Screenin g for malignan t neoplasm of colon Completed 201103/17/2014 RECORDED 02/20/20 12 2:36PM BY MIRIAM HENDRIX MA, NEDA ON/ADDEN DUM Not Available [facility] 4 12:45:26 Stress 53765457 Completed 201311/26/2016 Yumiko fraser [facility] 7 12:55:57 Spasm 16651722 Completed 201103/17/2014 RECORDED 07/23/20 12 10:38AM BY MIRIAM HENDRIX MA, ANNOTATI ON/ADDEN DUM Not Available [facility] 4 12:45:26 Abdomina l pain 27346406 Completed 201303/18/2014 RECORDED 02/02/20 14 8:32AM BY HELEN GRAYSON I ANNOTATI ON/ADDEN DUM Trini Ortiz, [facility] [address], [place], [address] , [facility] 3 14:37:10 Acute sinusiti s 22075652 Completed 201103/18/2014 RECORDED 02/20/20 12 2:39PM BY MIRIAM HENDRIX MA, ANNOTATI ON/ADDEN DUM Not Available [facility] 4 03:45:38 Acute upper respirat ory infectio n of multiple sites Completed 201103/18/2014 RECORDED 02/20/20 12 2:41PM BY MIRIAM HENDRIX MA, ANNOTATI ON/ADDEN DUM Not Available [facility] 4 03:45:38 Patient status finding [id number] Completed 201103/18/2014 RECORDED 08/05/20 12 11:47AM BY MIRIAM HENDRIX MA, ANNOTATI ON/ADDEN DUM Yumiko Smith MA [facility] 7 12:54:17 Chest pain 67677961 Completed 201303/18/2014 STORY: AL RULED OUT / / CONT CURRENT RISK REDUCTIO N PLAN.; RECORDED 01/27/20 14 7:39AM BY EDOUARD CLEMENTEATI ON/ADDEN DUM Trini Ortiz, [facility] [address], [place], [address] , [facility] 2 09:23:46 Screenin g for malignan t neoplasm of breast Completed 201103/18/2014 RECORDED 02/20/20 12 2:38PM BY MIRIAM HENDRIX MA, ANNOTATI ON/ADDEN DUM Not Available [facility] 4 03:45:38 Disorder of breast 60621088 Completed 201103/18/2014 RECORDED 02/20/20 12 2:41PM BY MIRIAM HENDRIX MA, ANNOTATI ON/ADDEN DUM Not Available [facility] 4 03:45:38 Screenin g for malignan t neoplasm of cervix Completed 201103/18/2014 RECORDED 02/20/20 12 2:39PM BY MIRIAM HENDRIX MA, ANNOTATI ON/ADDEN DUM Not Available [facility] 4 03:45:38 Chronic sinusiti s 86355607 Completed 201103/18/2014 RECORDED 02/20/20 12 2:39PM BY MIRIAM HENDRIX MA, ANNOTATI ON/ADDEN DUM Not Available [facility] 4 03:45:38 Herpes simplex 88254173 Completed 201103/18/2014 RECORDED 07/23/20 12 10:39AM BY MIRIAM HENDRIX MA, ANNOTATI ON/ADDEN DUM Not Available [facility] 4 03:45:38 Cough 05343585 Completed 201103/18/2014 RECORDED 02/20/20 12 2:37PM BY MIRIAM HENDRIX MA, ANNOTATI ON/ADDEN DUM Trini Ortiz, [facility] [address] [address], [place], [address] , [facility] 3 14:41:04 Divertic ulitis of colon 414711116 Completed 201303/18/2014 RECORDED 02/02/20 14 8:32AM BY NEDA CLEMENTE ON/ADDEN DUM Yumiko fraser [facility] 7 12:54:25 Dysfunct ion of eustachi an tube 51287159 Completed 201303/18/2014 RECORDED 02/02/20 14 8:31AM BY EDOUARD CLEMENTEATI ON/ADDEN DUM Yumiko fraser [facility] 7 12:56:38 Dysphagi a 74490589 Completed 201103/18/2014 RECORDED 02/20/20 12 2:39PM BY MIRIAM HENDRIX MA, ANNOTATI ON/ADDEN DUM Not Available [facility] 4 03:45:38 Enthesop athy of knee 61069867 Completed 201103/18/2014 RECORDED 02/20/20 12 2:39PM BY MIRIAM HENDRIX MA, ANNOTATI ON/ADDEN DUM Not Available [facility] 4 03:45:38 Follow-u p encounte r Completed 201303/18/2014 RECORDED 01/27/20 14 7:39AM BY HELEN GRAYSON I, ANNOTATI ON/ADDEN DUM Not Available [facility] 4 03:45:38 Ill-defi inez disorder of eye Completed 201203/18/2014 RECORDED 06/14/20 13 11:23AM BY MIRIAM HENDRIX MA, ANNOTATI ON/ADDEN DUM Not Available [facility] 4 03:45:38 Influenz a vaccine needed 50387247764 06 Completed 200903/18/2014 RECORDED 08/14/19 10 1:37PM BY CONNIE HENRIQUEZ MD, OFFICE VISIT Not Available [facility] 4 03:45:38 Adult health examinat ion Completed 201203/18/2014 RECORDED 06/14/20 13 11:24AM BY MIRIAM HENDRIX MA, ANNOTATI ON/ADDEN DUM Not Available [facility] 4 03:45:38 Disorder of skin pigmenta tion 35298635 Completed 201103/18/2014 RECORDED 02/20/20 12 2:42PM BY MIRIAM HENDRIX MA, ANNOTATI ON/ADDEN DUM Not Available [facility] 4 03:45:38 Insomnia 451360667 Completed 201103/18/2014 RECORDED 02/20/20 12 2:38PM BY MIRIAM HENDRIX MA, EDOUARDATI ON/ADDEN DUM Trini Ortiz, [facility] [address] [address], [place], [address] , [facility] 3 11:10:55 Laborato ry procedur e performe d 359686196 Completed 201203/18/2014 RECORDED 01/16/20 13 8:19AM BY ALESHA AREVALO MA, ANNOTATI ON/ADDEN DUM Not Available [facility] 4 03:45:39 Low back pain 802209526 Completed 201303/18/2014 RECORDED 02/02/20 14 8:31AM BY HELEN GRAYSON I, ANNOTATI ON/ADDEN DUM Yumiko Smith MA null, [facility] 7 12:54:53 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 77281116 Completed 201303/18/2014 RECORDED 01/27/20 14 7:39AM BY HELEN GRAYSON I, ANNOTATI ON/ADDEN DUM Yumiko Smith MA null, [facility] 7 12:54:39 Mitral valve disorder 66274521 Completed 201103/18/2014 RECORDED 02/20/20 12 2:39PM BY MIRIAM HENDRIX MA, ANNOTATI ON/ADDEN DUM Yumiko Smith MA null, [facility] 7 12:54:29 Neck pain 52414997 Completed 201103/18/2014 RECORDED 07/23/20 12 10:39AM BY MIRIAM HENDRIX MA, ANNOTATI ON/ADDEN DUM Not Available [facility] 4 03:45:39 Active or passive immuniza tion Completed 200703/18/2014 RECORDED 11/16/19 08 3:08PM BY CONNIE HENRIQUEZ MD, OFFICE VISIT Not Available [facility] 4 03:45:39 Administ ration of viral vaccine Completed 200803/18/2014 RECORDED 02/14/20 09 11:55AM BY ALEXANDRIA ARVEALO, OFFICE VISIT Not Available [facility] 4 03:45:39 Administ ration of bacteria l and viral vaccine Completed 200703/18/2014 RECORDED 11/16/19 08 3:18PM BY CONNIE HENRIQUEZ MD, OFFICE VISIT Not Available [facility] 4 03:45:39 Degenera tive joint disease of hand 96395245 Completed 201103/18/2014 RECORDED 02/20/20 12 2:41PM BY MIRIAM HENDRIX MA, ANNOTATI ON/ADDEN DUM Not Available [facility] 4 03:45:39 Infectiv e otitis externa 64748514 Completed 201103/18/2014 RECORDED 02/20/20 12 2:36PM BY MIRIAM HENDRIX MA, EDOUARDATI ON/ADDEN DUM Not Available [facility] 4 03:45:39 Shoulder joint pain 525531082 Completed 201303/18/2014 RECORDED 02/02/20 14 8:31AM BY EDOUARD CLEMENTEATI ON/ADDEN DUM Yumiko fraser [facility] 7 12:54:49 Eruption 504082322 Completed 201103/18/2014 RECORDED 02/20/20 12 2:37PM BY MIRIAM HENDRIX MA, NEDA ON/ADDEN DUM Not Available [facility] 4 03:45:39 Chronic rhinitis 36987280 Completed 201303/18/2014 RECORDED 01/27/20 14 10:30AM BY ALESHA AREVALO MA, EDOUARDATI ON/ADDEN DUM Yumiko fraser [facility] 7 12:56:09 Herpes zoster 0553024 Completed 201303/18/2014 RECORDED 01/27/20 14 7:39AM BY EDOUARD CLEMENTEATI ON/ADDEN DUM Not Available [facility] 4 03:45:39 Screenin g for malignan t neoplasm of colon Completed 201103/18/2014 RECORDED 02/20/20 12 2:36PM BY MIRIAM HENDRIX MA, ANNOTATI ON/ADDEN DUM Not Available [facility] 4 03:45:39 Spasm 72251139 Completed 201103/18/2014 RECORDED 07/23/20 12 10:38AM BY MIRIAM HENDRIX MA, ANNOTATI ON/ADDEN DUM Not Available [facility] 4 03:45:39 Hyperlip idemia 19768102 Active Not Available [facility] 3 09:20:31 Anxiety 40113188 Active Not Available [facility] 3 09:20:30 Abdomina l pain 00003087 Completed 11/26/2016 Trini Ortiz, [facility] [address], [place], [address] , [facility] 3 14:37:10 Liver enzymes outside referenc e range 677098715 Completed 11/26/2016 Yumiko fraser, [facility] 7 12:54:35 Knee pain Completed 11/26/2016 Yumiko fraser, [facility] 8 14:02:45 Herpes labialis 9012225 Completed 11/26/2016 Yumiko fraser, [facility] 7 12:54:31 Seasonal allergic conjunct ivitis 130315670 Active Not Available [facility] 3 09:20:30 Carotid bruit 651137758 Active Not Available [facility] 3 09:20:30 Allergic conjunct ivitis 469177273 Completed 11/26/2016 Yuimko fraser, [facility] 7 12:58:12 Sciatica 49630777 Completed 11/26/2016 Yumiko fraser, [facility] 7 12:54:46 Knee pain Active 2017 Not Available [facility] 3 09:20:30 Major depressi on single episode, in partial remissio n 99419395 Active 2018 Not Available [facility] 3 09:20:31 Hyperten sive disorder 16362032 Completed 201601/13/2020 JESSENIA Gómez, [facility] 0 13:46:29 Total hysterec hector Active Not Available [facility] 3 09:20:30 COVID-19 838904721 Completed 202011/15/2020 Removal Reason: Problem marked historic al by user pmadden from the COVID-19 watch flag Jewel Gilbert PA-C [address], [place], [address] , [facility] 1 12:39:42 Total hysterec hector with removal of both tubes and ovaries Active around age 30 Not Available [facility] 3 09:20:31 Pain of right knee joint 52301295019 4100 Active 2021 Not Available [facility] 3 09:20:30 Neutrope ayesha 419292402 Active 2021 Not Available [facility] 3 09:20:30 Tear of meniscus of knee 784831573 Active 2021 Not Available [facility] 3 09:20:30 Pain in coccyx 85631925 Active 2021 Not Available [facility] 3 09:20:30 Pain of left hip joint 34442726269 9100 Active 2021 Not Available [facility] 3 09:20:30 Pain of left knee joint 47736319567 4107 Active 2021 Not Available [facility] 3 09:20:30 Hyperten carlos monitori ng declined 088464380 Active 2021 accuheal th Not Available [facility] 3 09:20:31 Fracture of femoral condyle 381668918 Active 2021 Not Available [facility] 3 09:20:30 Nocturia 895447104 Active 2021 Not Available [facility] 3 09:20:30 Hearing loss 98015191 Active 2021 Not Available [facility] 3 09:20:30 Leukopen ia 57307418 Active 2021 Not Available [facility] 3 09:20:31 Thromboc ytopenic disorder 951150174 Active 2021 Not Available [facility] 3 09:20:30 Chest pain 51405525 Active 2021 STORY: AL RULED OUT / / CONT CURRENT RISK REDUCTIO N PLAN.; RECORDED 01/27/20 14 7:39AM BY HELEN GRAYSON I ANNOTATI ON/ADDEN DUM Not Available [facility] 3 09:20:30 Serum creatini ne above referenc e range 229751672 Active 2021 Not Available [facility] 3 09:20:30 Pneumoni a 619025801 Active 2021 Not Available [facility] 3 09:20:30 Cough 42210491 Active 2022 RECORDED 02/20/20 12 2:37PM BY MIRIAM HENDRIX MA, ANNOTHALEY ON/ADDEN DUM Not Available [facility] 3 09:20:30 Edema of lower extremit y 195761002 Active 2022 Not Available [facility] 3 09:20:29 Serum thyroid stimulat ing hormone level outside referenc e range 163716865 Active 2022 Not Available [facility] 3 09:20:30 Edema 644820767 Active 2022 Not Available [facility] 3 09:20:30 Nausea 567733009 Active 2022 Not Available [facility] 3 09:20:30 Posterio r rhinorrh ea 81313240 Active 2022 Not Available [facility] 3 09:20:31 Chronic pneumoni a 98866776899 9104 Active 2022 Not Available [facility] 3 09:20:29 Pain of left shoulder joint 13985996511 965491 Active 2022 Not Available [facility] 3 09:20:30 Insomnia 469940448 Active 2022 RECORDED 02/20/20 12 2:38PM BY MIRIAM HENDRIX MA, ANNOTATI ON/ADDEN DUM Not Available [facility] 3 09:20:30 Muscle spasm of cervical muscle of neck 29430117896 4 Active 2022 Not Available [facility] 3 09:20:30 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 2022 Not Available [facility] 3 09:20:30 Urinary incontin ence 187435156 Active 2022 EDGAR James [address] [address], [place], [address] , [facility] 3 14:32:14 Abdomina l pain 49689259 Active 2022 EDGAR James [address] [place] [address], [place], [address] , [facility] 3 14:37:10 Body mass index 30+ - obesity 308467642 Active 2022 EDGAR James [address] [place] [address], [place], [address] , [facility] 3 14:54:16 Excessiv e thirst 62807121 Active 2022 EDGAR James [address] [place] [address], [place], [address] , [facility] 3 14:57:02 Multiple joint pain 19410179 Active 2022 [facility] [place] [address], [place], [address] , [facility] 3 14:59:45 Moderate persiste nt asthma 233045530 Active 2022 EDGAR James [address] [address], [place], [address] , [facility] 3 15:04:00 Obesity 202560435 Active 2022 EDGAR James [address] [address], [place], [address] , [facility] 3 14:47:34 Lump in upper outer quadrant of left breast 45358054869 4103 Active 2023 Trini Ortiz, [facility] [address] [facility] [address], [place], [address] , [facility] 4 15:01:52 Mass of joint of left elbow 48038315431 078391 Active 2023 Trini Ortiz, [facility] [address] [facility] [address], [place], [address] , [facility] 4 15:04:08 Bone density finding 225748639 Active 2023 Trini Ortiz, [facility] [address] [facility] [address], [place], [address] , [facility] 4 09:57:53 Inguinal pain 809148469 Active 2023 Trini Ortiz, [facility] [address] [facility] [address], [place], [address] , [facility] 4 10:10:41 Strain of muscle of right groin region 22775588513 119243 Active 2023 Trini Ortiz, [facility] [address] [facility] [address], [place], [address] , [facility] 4 10:11:20 Acute sinusiti s 71932303 Completed 201102/22/2014 RECORDED 02/20/20 12 2:39PM BY MIRIAM HENDRIX MA, NEDA ON/ADDEN DUM Not Available [facility] 4 14:27:37 Acute upper respirat ory infectio n of multiple sites Completed 201102/22/2014 RECORDED 02/20/20 12 2:41PM BY MIRIAM HENDRIX MA, NEDA ON/ADDEN DUM Not Available [facility] 4 14:27:37 Allergic rhinitis 77072619 Completed 201311/26/2016 RECORDED 02/22/20 14 8:27AM BY MALIK VARGAS, OFFICE VISIT Yumiko fraser, [facility] 7 12:55:38 Anemia 919300914 Active 2013 Not Available [facility] 3 09:20:30 Patient status finding 774077987 Completed 201102/22/2014 RECORDED 08/05/20 12 11:47AM BY MIRIAM HENDRIX MA, ANNOTATI ON/ADDEN DUM Yumiko fraser, [facility] 7 12:54:17 Chest pain 23808991 Completed 201202/22/2014 STORY: AL RULED OUT / / CONT CURRENT RISK REDUCTIO N PLAN.; RECORDED 01/16/20 13 8:19AM BY ALESHA AREVALO MA, ANNOTATI ON/ADDEN DUM Trini Ortiz, [address], [place], [address] , [facility] 2 09:23:46 Screenin g for malignan t neoplasm of breast Completed 201102/22/2014 RECORDED 02/20/20 12 2:38PM BY MIRIAM HENDRIX MA, ANNOTATI ON/ADDEN DUM Not Available [facility] 4 14:27:37 Disorder of breast 61930138 Completed 201102/22/2014 RECORDED 02/20/20 12 2:41PM BY MIRIAM HENDRIX MA, ANNOTATI ON/ADDEN DUM Not Available [facility] 4 14:27:37 Cardiova scular system problem 172638207 Active 2013 Not Available [facility] 3 09:20:30 Screenin g for malignan t neoplasm of cervix Completed 201102/22/2014 RECORDED 02/20/20 12 2:39PM BY MIRIAM HENDRIX MA, ANNOTATI ON/ADDEN DUM Not Available [facility] 4 14:27:38 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 Not Available [facility] 3 09:20:31 Chronic sinusiti s 78783849 Completed 201102/22/2014 RECORDED 02/20/20 12 2:39PM BY MIRIAM HENDRIX MA, ANNOTATI ON/ADDEN DUM Not Available [facility] 4 14:27:38 Herpes simplex 10893527 Completed 201102/22/2014 RECORDED 07/23/20 12 10:39AM BY MIRIAM HENDRIX MA, ANNOTATI ON/ADDEN DUM Not Available [facility] 4 14:27:38 Cough 51160080 Completed 201102/22/2014 RECORDED 02/20/20 12 2:37PM BY MIRIAM HENDRIX MA, ANNOTATI ON/ADDEN DUM Trini Ortiz, [facility] [address] [address], [facility] [place], [address] , [facility] 3 14:41:04 Dysfunct ion of eustachi an tube 22431762 Active 2012 Not Available [facility] 3 09:20:31 Dysphagi a 43930178 Completed 201102/22/2014 RECORDED 02/20/20 12 2:39PM BY MIRIAM HENDRIX MA, ANNOTATI ON/ADDEN DUM Not Available [facility] 4 14:27:38 Enthesop athy of knee 65728649 Completed 201102/22/2014 RECORDED 02/20/20 12 2:39PM BY MIRIAM HENDRIX MA, ANNOTATI ON/ADDEN DUM Not Available [facility] 4 14:27:38 Ill-defi inez disorder of eye Completed 201202/22/2014 RECORDED 06/14/20 13 11:23AM BY MIRIAM HENDRIX MA, ANNOTATI ON/ADDEN DUM Not Available [facility] 4 14:27:38 Influenz a vaccine needed 34095466116 06 Completed 200902/22/2014 RECORDED 08/14/19 10 1:37PM BY CONNIE HENRIQUEZ MD, OFFICE VISIT Not Available [facility] 4 14:27:38 Adult health examinat ion Completed 201202/22/2014 RECORDED 06/14/20 13 11:24AM BY MIRIAM HENDRIX MA, ANNOTATI ON/ADDEN DUM Not Available [facility] 4 14:27:38 Gastroes ophageal reflux disease 899714024 Active 2013 Not Available [facility] 3 09:20:30 Follow-u p encounte r Completed 201102/22/2014 RECORDED 08/05/20 12 11:47AM BY MIRIAM HENDRIX MA, EDOUARDATI ON/ADDEN DUM Not Available [facility] 4 14:27:38 Essentia l hyperten carols 64555142 Active 2013 Not Available [facility] 3 09:20:31 Thyrotox icosis 70482337 Active 2013 Not Available [facility] 3 09:20:31 Disorder of skin pigmenta tion 01726486 Completed 201102/22/2014 RECORDED 02/20/20 12 2:42PM BY MIRIAM HENDRIX MA, ANNOTATI ON/ADDEN DUM Not Available [facility] 4 14:27:39 Hypothyr oidism 81927237 Active 2016 Not Available [facility] 3 09:20:30 Insomnia 191339345 Completed 201102/22/2014 RECORDED 02/20/20 12 2:38PM BY MIRIAM HENDRIX MA, ANNOTATI ON/ADDEN DUM Trini Ortiz, [facility] [address] [facility] [address], [place], [address] , [facility] 3 11:10:55 Irritabl e bowel syndrome 00700060 Active 2013 Not Available [facility] 3 09:20:30 Laborato ry procedur e performe d 964462929 Completed 201202/22/2014 RECORDED 01/16/20 13 8:19AM BY ALESHA AREVALO MA, ANNOTATI ON/ADDEN DUM Not Available [facility] 4 14:27:39 Low back pain 904569023 Completed 201211/26/2016 RECORDED 06/14/20 13 11:24AM BY MIRIAM HENDRIX MA, OFFICE VISIT Yumiko fraser, [facility] 7 12:54:53 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 96895779 Active 2012 Not Available [facility] 3 09:20:30 Mitral valve disorder 91263836 Completed 201102/22/2014 RECORDED 02/20/20 12 2:39PM BY MIRIAM HENDRIX MA, ANNOTATI ON/ADDEN DUM Yumiko fraser, [facility] 7 12:54:29 Mitral valve disorder 17415773 Active 2013 Not Available [facility] 3 09:20:30 Neck pain 72803607 Completed 201102/22/2014 RECORDED 07/23/20 12 10:39AM BY MIRIAM HENDRIX MA, ANNOTATI ON/ADDEN DUM Not Available [facility] 4 14:27:39 Active or passive immuniza tion Completed 200702/22/2014 RECORDED 11/16/19 08 3:08PM BY CONNIE HENRIQUEZ MD, OFFICE VISIT Not Available [facility] 4 14:27:39 Administ ration of viral vaccine Completed 200802/22/2014 RECORDED 02/14/20 09 11:55AM BY ALEXANDRIA AREVALO, OFFICE VISIT Not Available [facility] 4 14:27:39 Administ ration of bacteria l and viral vaccine Completed 200702/22/2014 RECORDED 11/16/19 08 3:18PM BY CONNIE HENRIQUEZ MD, OFFICE VISIT Not Available [facility] 4 14:27:40 Neutrope nathen disorder 610088256 Active 2013 Not Available [facility] 3 09:20:30 Patient status finding 980623150 Completed 201311/26/2016 RECORDED 02/22/20 14 8:39AM BY MALIK VARGAS, OFFICE VISIT Yumiko fraser, [facility] 7 12:54:17 Degenera tive joint disease of hand 23738220 Completed 201102/22/2014 RECORDED 02/20/20 12 2:41PM BY MIRIAM HENDRIX MA, ANNOTATI ON/ADDEN DUM Not Available [facility] 4 14:27:40 Disorder of bone and articula r cartilag e 155552696 Active 2013 Not Available [facility] 3 09:20:30 Infectiv e otitis externa 04635111 Completed 201102/22/2014 RECORDED 02/20/20 12 2:36PM BY MIRIAM HENDRIX MA, ANNOTATI ON/ADDEN DUM Not Available [facility] 4 14:27:40 Shoulder joint pain 911474222 Completed 201211/26/2016 RECORDED 06/14/20 13 11:24AM BY MIRIAM HENDRIX MA, OFFICE VISIT Yumiko fraser [facility] 7 12:54:49 Palpitat ions 44161435 Completed 201311/26/2016 Yumiko fraser [facility] 7 12:57:10 Eruption 021995084 Completed 201102/22/2014 RECORDED 02/20/20 12 2:37PM BY MIRIAM HENDRIX MA, ANNOTATI ON/ADDEN DUM Not Available [facility] 4 14:27:40 Chronic rhinitis 85315043 Completed 201211/26/2016 Yumiko fraser [facility] 7 12:56:09 Herpes zoster 5201899 Completed 201202/22/2014 RECORDED 01/16/20 13 8:19AM BY ALESHA AREVALO MA, EDOUARDATI ON/ADDEN DUM Not Available [facility] 4 14:27:40 Screenin g for malignan t neoplasm of colon Completed 201102/22/2014 RECORDED 02/20/20 12 2:36PM BY MIRAIM HENDRIX MA, ANNOTATI ON/ADDEN DUM Not Available [facility] 4 14:27:40 Spasm 18880378 Completed 201102/22/2014 RECORDED 07/23/20 12 10:38AM BY MIRIAM HENDRIX MA, NEDA ON/ADDEN DUM Not Available [facility] 4 14:27:41 Vitamin D deficien cy 75761300 Active 2013 Not Available [facility] 3 09:20:30 Problem Notes None recorded. Procedures Surgical History Date Name Laterality Status Provider Name and Address Organization Details Recorded Time 06/20/20 23 Most Recent Mammogram completed Suzie Jaffe [facility] 06/20/2023 14:17:00 12/06/19 23 Bronchoscopy completed Suzie Jaffe [facility] 12/11/2022 09:47:35 06/19/20 22 Mammogram screening completed Alesha singh MA [facility] 10/03/2022 09:31:00 02/26/20 22 repair of meniscus completed Connie Miller MA [facility] 04/02/2022 08:44:31 01/13/20 20 Six-Item Cognitive Test completed Alesha singh MA [facility] 01/13/2020 14:08:24 12/28/19 20 Endoscopic us exam esoph completed Qiana Vieyra [facility] 12/28/2019 10:57:24 12/28/19 20 balloon dilation of esophagus completed Alesha singh MA [facility] 01/13/2020 14:02:40 11/28/19 19 Mini-Cog Test completed Yumiko Smith MA [facility] 11/27/2018 11:12:43 10/07/19 18 Mini-Cog Test completed Yumikosharla Smith [facility] 10/07/2017 13:56:19 04/11/20 17 Mammogram one breast completed Alesha singh MA [facility] 04/30/2017 16:04:21 05/23/20 16 Fall Risk Assessment completed [facility] 05/23/2016 13:03:08 05/23/20 16 [facility] 13:04:33 05/04/20 14 Date of Last Colonoscopy completed Swapna Fofana [facility] 06/06/2016 11:19:53 05/04/20 14 Colonoscopy completed Swapnabird Fofana [facility] 06/06/2016 11:19:39 04/21/20 12 Most Recent [facility] Density [facility]2017 14:02:13 Piano Stringer Surgery completed [facility] 03/30/2015 08:46:47 Appendectomy completed [facility] 03/30/2015 08:46:47 Breast Biopsy completed [facility] 03/30/2015 08:46:47 Dilation and Curettage completed [facility] 03/30/2015 08:46:47 Tonsillectomy completed [facility] 03/30/2015 08:46:47 Endometrial Biopsy completed [facility] 03/30/2015 08:46:47 Neurosurgery completed [facility] 03/30/2015 08:46:47 Total hysterectomy completed Alesha singh MA [facility] 01/13/2020 13:47:09 Hysterectomy completed Alesha singh MA [facility] 05/07/2024 14:35:12 Imaging Results None recorded. Procedure Notes None recorded. Medical Equipment None Reported. Allergies Allergen ID Allergen Name Allergen Category Reaction Reaction Severity Criticality Documentation Date Start Date Code Code System Note Provider Name and Address Organization Details Recorded Time 2330 honey bee venom medicatio n Not available Not available Not available 02/22/20142013 75736 7 RxNorm Yumiko fraser, [facility] 7 12:53:58 70291 tetracycl ine medicatio n hives Not available Not available 01/13/20202021 42589 RxNorm JESSENIA Franklin, [facility] 2 14:23:43 22320 erythromy ivan medicatio n hives Not available Not available 02/15/20222021 4053 RxNorm JESSENIA Franklin, [facility] 2 14:23:43 94912 codeine medicatio n hives Not available Not available 07/31/20232021 2670 RxNorm Trini Ortiz, [facility] [address] [facility] [address], [place], [address] 4 09:26:07 Medications Name Sig Start Date Stop Date Status Note LastModified by Organization Details LastModified Time estradiol 1 mg tabs 05/23 completed Not Available Not Available Not Available levothyro xine sodium 112 mcg tabs active Not Available Not Available [place]f [address] .5 ml gracie 05/23 completed Not Available [...] RECORDED 02/18/20 14 1:43PM BY HELEN GRAYSON I MEDICATI ON AUTO-NAVARRO CTIVATIO N; Not Available [...] 02/15 completed RECORDED 02/16/20 10 1:10PM BY ALESHA AREVALO MA, OFFICE VISIT; Not Available Not Available Not Available amoxicill in 875 mg tablet TWO TIMES DAILY 07/28 completed RECORDED 07/28/20 09 8:15AM BY JESSENIA HUTHCINS, OFFICE VISIT; Not Available Not Available Not [...] n 0.3 %-dexamet hasone 0.1 % eye drops,[facility] 10/07 completed Not Available Not Available Not [...] Available Not Available Not Available Fluad Quad 2436-4884 (65yr up)(PF) 60 mcg (15 mcg x 4)/0.5mL IM syringe PHARMACY ADMINIST ERED 07/13 completed Not Available Not Available Not Available Wegovy 0.25 mg/0.5 mL subcutane ous pen injector Inject 0.5 mL every week by subcutan eous route as directed for 30 days. 07/13 completed Not Available Not Available Not Available semagluti alicia (weight loss) weekly- compound ed active Not [...] Details Last Updated DateTime 4 170.18 cm 28.7 kg/m2 32977.4 g 85 /min 97 % 97 % 97.4 [degF] 104 mm[Hg] 65 mm[Hg] Brittnee Carlson [facility] 4 09:43:12 Social History Question Answer Notes LastModified by Organizat ion Details LastModified Time Tobacco Smoking Status Never Smoker JESSENIA Espana [facility] 03/21/2014 10:43:07 Do You Have An Advance [...] available 03/30/2015 Are You Currently Employed? Yes [email or web address] Information not available 03/21/2014 What Type Of Diet Are You Following? REGULAR Information not available 02/15/2021 Do You Or Have You Ever Used E-cigarettes Or Vape? Never Used Electronic Cigarettes Information not available 07/02/2022 Education 2 Year College Informatio n not available 07/02/2022 What Is Your Occupation? [employer] Information not available 04/02/2022 Are [...] 02/15/2021 Have You Recently Traveled To A [place] [address] High Risk Area Or Gathering In The Last 10 Days? No [email or web address] Information not available 12/26/2020 What Was The Date Of Your Most Recent Tobacco Screening? 07/13/2024 [email or web address] Information not available 07/13/2024 How Many Children Do You Have? 1 Sanket [email or web address] Information not available 03/21/2014 Do You Use [...] How Much Tobacco Do You Smoke? No [email or web address] Information not available 03/21/2014 General Stress Level High Information not available 07/02/2022 Do You Use Any Illicit Or Recreational Drugs? No Information not available 07/02/2022 Do You Use Sunscreen Routinely? Yes [email or web address] Information not available 03/21/2014 How Many Years [...] you able to care for yourself? Yes [email or web address] Information not available 03/21/2014 What is your exercise level? Occasional Exercise bike Information not available 04/02/2022 Mental Status None recorded. Family History Relationship Description Onset Age of this Age Resolved Age Notes LastModified by Organization Details LastModified Time Mother Malignant neoplasm of skin Not available 10/2023 09:29:18 Father Heart disease [...] Diseases Y Kidney Stones N Hyperthyroidism N Breast Cancer N mrsa exposure N Lung Disease N COPD N Depression N Hypothyroidism Y Defects or Inherited Disease N Developmental or Behavioral Disorders N Breast Problem N Anesthesia Complications N Headaches/Migraines N Anxiety Disorder Y Varicose Veins N Muscle, Joint, or Bone Problems N Obesity Y Vision or Eye Problems Y Arthritis N Head Injury/Concussion N Polyps N Infertility N Mental Disorder N Congenital Anomalies N Acid Reflux (GERD) Y Cancer N Stroke N ADHD N Endometriosis N High Cholesterol N Liver Disease N Fibromyalgia N Headaches N Kidney Disease N Heart Problems Y Ear or Hearing Problems N Hospitalizations Y Thyroid Problems Y GI Problems Y Developmental Delay N Acne N Eating Disorder N Skin Problems Y Anemia N Constipation N Bladder Problems N Mental Illness N Diabetes N Ovarian Cancer N Bedwetting N Blood Transfusions N Heart Problems/Murmur N Seizures/Epilepsy N Tuberculosis N AIDS/HIV N Congestive Heart Failure (CHF) N Eczema N Abuse/Domestic Violence N Diverticulitis Y Asthma N Allergies Y Reflux/GERD N Hepatitis N Heart Disease N Pulmonary Embolism N Hypertension N Chicken Pox N Autism Spectrum Disorder (ASD) N Osteoporosis N Gynecological History Statement/Question Response [...] virus, trivalent, preservative 4 completed Not Available [facility] 07/01/2023 09:20:32 Pneumococcal conjugate PCV 13 5 completed Not Available [facility] 07/01/2023 09:20:32 Influenza, high-dose, trivalent, PF 7 completed Not Available [facility] 07/01/2023 09:20:32 pneumococcal polysaccharide PPV23 7 completed Not Available [facility] 07/01/2023 09:20:31 Pneumococcal conjugate PCV 13 9 completed Not Available [facility] 07/01/2023 09:20:32 Influenza, high-dose, trivalent, PF 9 completed Not Available [facility] 07/01/2023 09:20:32 zoster live 9 completed Not Available [facility] 07/01/2023 09:20:32 Tdap 3 completed Not Available [facility] 07/01/2023 09:20:31 Influenza, high-dose, trivalent, PF 6 completed Not Available [facility] 07/01/2023 09:20:32 zoster recombinant 0 completed JESSENIA Espana [facility] 07/31/2023 14:12:32 Influenza, high-dose, trivalent, PF 0 completed JESSENIA Espana [facility] 07/31/2023 14:12:32 zoster recombinant 0 completed Not Available [facility] 07/01/2023 09:20:31 Influenza, adjuvanted, quadrivalent, PF 0 completed Not Available [facility] 07/01/2023 09:20:31 Influenza, high-dose, quadrivalent, PF 1 completed Not Available [facility] 07/01/2023 09:20:31 Influenza, split virus, quadrivalent, PF 5 completed Not Available [facility] 07/01/2023 09:20:32 COVID-19, mRNA, LNP-S, PF, 30 mcg/0.3 mL dose 2 completed Not Available [facility] 07/01/2023 09:20:31 COVID-19, mRNA, LNP-S, PF, 30 mcg/0.3 mL dose 1 completed Not Available [facility] 07/01/2023 09:20:31 COVID-19, mRNA, LNP-S, PF, 30 mcg/0.3 mL dose 1 completed Not Available [facility] 07/01/2023 09:20:31 Influenza, split virus, trivalent, preservative 0 completed Not Available [facility] 07/01/2023 09:20:32 Influenza, high-dose, trivalent, PF 6 completed Not Available [facility] 07/01/2023 09:20:32 Tdap 8 completed Not Available [facility] 07/01/2023 09:20:31 Influenza, high-dose, trivalent, PF 8 completed Not Available [facility] 07/01/2023 09:20:32 Influenza, high-dose, quadrivalent, PF 2 completed Not Available [facility] 07/01/2023 09:20:31 Pneumococcal conjugate PCV20, polysaccharide [id number] conjugate, adjuvant, PF 2 completed Not Available [facility] 07/01/2023 09:20:31 Influenza, high-dose, quadrivalent, PF 3 [facility] 14:12:32 COVID-19, mRNA, LNP-S, PF, jeremi-sucrose, 30 mcg/0.3 mL 3 completed Malik Vargas MA null, [facility] 07/31/2023 14:12:32 RSV, recombinant, protein subunit RSVpreF, adjuvant reconstituted, 0.5 mL, PF 4 completed JESSENIA Springer, [facility] 07/13/2024 09:31:47 COVID-19, mRNA, LNP-S, PF, jeremi-sucrose, 30 mcg/0.3 mL 4 completed JESSENIA Springer, [facility] 07/13/2024 09:31:47 Influenza, high-dose, trivalent, PF 4 completed Swapna fraser, [facility] 05/18/2024 08:54:12 pneumococcal polysaccharide PPV23 8 completed Not Available [facility] 07/01/2023 09:20:31 Tdap 8 completed Not Available [facility] 07/01/2023 09:20:31 Novel [id number], all formulations 0 completed Not Available [facility] 07/01/2023 09:20:31 Influenza, split virus, trivalent, preservative 1 completed Not Available [facility] 07/01/2023 09:20:32 Influenza, split virus, trivalent, preservative 2 completed Not Available [facility] 07/01/2023 09:20:32 Influenza, split virus, trivalent, preservative 3 completed Not Available [facility] 07/01/2023 09:20:32 pneumococcal polysaccharide PPV23 3 completed Not Available [facility] 07/01/2023 09:20:31 Past Encounters Encounter ID Performer Location Encounter Start Date Encounter Closed Date Diagnosis/Indication Diagnosis SNOMED-CT Code Diagnosis ICD10 Code [id number] EDGAR James Main Office [address] 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 819 Thrombocyt openic disorder 485462992 D69.6 Insomnia 421620527 G47.0 0 Strain of muscle of right groin region 5958577147 5231366 S76.011A Inguinal pain 890600780 R10.2 Health Concerns Section Related Observation LastModified by Organization Detai ls LastModified Time None Recorded Concern Status LastModified by Organization Details LastModified Time None Recorded Payers Encounter Date Sequence Insurance Name Policy Number Policy Carbajal Covered Member ID Carbajal Member ID Guarantor Name 07/13/2024 1 [place] [employer] Naomie Hernandez Disanti [id number] Naomie Hernandez Disanti 07/13/2024 2 [place] [id number] Naomie Hernandez Disanti [id number] Naomie Hernandez Disanti Notes Date Note Type Note Provider Name and Address Organization Details Recorded Time 07/13/2024 text/html Medicare Annual Wellness VisitReported bypatient.Diet and Nutrition:healthy diet; discussed vitamin and supplement use Fracture Risk:no history of fractures; no recent explained fracture; no sudden unexplained fractures; knee pain bilateral, right groin pain Physical Activity:discussed weightbearing activities; discussed exercise habits Depression Risk:sleep disturbances or insomnia; anxiety re: grandchildren Orientation:no disorientation to time; no disorientation to date; no disorientation to place Concentration and Memory:no memory lapses or loss; does not forget words Speech/Motor difficulties:no speech difficulties; no difficulty expressing formulated concepts; no difficulty with fine manipulative tasks; no difficulty writing/copying; no slowed reaction time Hearing:loss of hearing: in both ears; My hearing has been tested within the last year and they said that I have problems with very high pitches however in my daily life I have hearing issues with everything so I am a bit surprised with their diagnosis Vision:slow partial vision loss; I have a slow moving cataract that is being watched. I am having more and more trouble driving at night Activities of Daily Living:able to bathe with limited or no assistance; able to contol urination and bowels; able to dress with limited or no assistance; able to feed self with limited or no assistance; able to get out of chair or bed with limited or no assistance; able to groom with limited or no assistance; able to toilet with limited or no assistance Instrumental Activities of Daily Living:able to do house work with limited or no assistance; able to grocery shop with limited or no assistance; able to manage medications with limited or no assistance; able to manage money with limited or no assistance; able to prepare meals with limited or no assistance; able to use the phone with limited or no assistance Falls Risk Assessment:no frequent falls while walking; no fall in the past year; no fall since last visit; no dizziness/vertigo Home Safety:no unsafe elif hazzards; no unsafe gas appliances; working smoke/CO detectors; use of seatbelts; no fire arms; has hand bars in the bathroom/shower; good lighting in the homeNotes:Had bloodwork for hematology in [place] 2 weeks ago but no results yet. - Had mammo and US of breast and was normal.- Has appt Friday for arm lump US- and had to be sent home as it was not approved by special radiologist, appt in or August. 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 breathing is much better - Started vit D with calcium, due to having right groin pain radiating into the leg. she does note she is walking a bit funny due to pain. No injury or trauma. pain is to right groin and she does notice it is worse with she is crossing that leg over the other leg, worse with getting in her car and when getting in to bed notices she has to physically lift her leg to get in bed. 74yo female presents for Medicare annual wellness exam. Ophthalmology: last visit 2021- normal.[employer]: hysterectomy 40ys ago ; Mammogram- UTDColonoscopy: last colonoscopy in 2019- has appt coming up with endoscopy Trini Ortiz, [facility] [address] [id number], [place], [id number], [place] [facility] 07/13/2024 11:24:25 OBGyn Episode No OBEpisode recorded.
--- OUTSIDE RECORDS SUMMARY | 2024-08-06 16:28 | XMS_ITS | Data Portability ---
Author Organization [facility], Main Office Address [address] [facility] [address] [place] [address] Care Team Providers Care Airbrush Artist Name Role Phone FADI MALLOY Manager Of Financial [phone] GARRET BAKER Profiling Machine Setup Operator DUY LOFTON Campus Recruiter TRINI ORTIZ Primary Care Provider [phone] JR TOBAR Orthopedic Surgeon [phone] TAE BERMUDEZ Screw Cutter LUÍS NG Client Service Supervisor Assessment No assessment recorded. Plan of Treatment Reminders Order Date Submit Date Provider Last Modified By Organization Details Last Modified Time Details Appointments None record ed. Lab CMP, serum or plasma 2022 023 ALEXIA [facility], [address], [address] [address], [place], [address], 3 17:20:12 CMP, serum or plasma 2022 023 [facility], [address], [address], [place], [address], 3 19:08:25 H pylori urea breath test, co2 infrar ed 2022 023 [facility], [address], [address], [place], [address], 3 16:07:17 lipase , serum or plasma 2022 023 [facility], [address], [address], [place], [address], 3 19:08:27 amylas e, serum or plasma 2022 023 [facility], [address], [address], [place], [address], 3 19:08:24 lipid panel, serum 2022 023 [facility], [address], [address], [place], [address], 3 19:08:28 ESR (eryth rocyte sedime ntatio n rate), blood 2022 023 [facility], [address], [address], [place], [address], 3 17:06:17 C-reac tive protei n, quanti tative , serum or plasma 2022 023 [facility], [address], [address], [place], [address], 3 19:08:26 lyme diseas e Ab, total, serum 2022 023 [facility], [address], [address], [place], [address], 3 11:23:05 rf (rheum atoid factor ), serum 2022 023 [facility], [address], [address], [place], [address], 3 19:08:29 LUIGI (antin uclear antibo dies) screen , serum 2022 023 [facility], [address], [address], [place], [address], 3 23:05:56 HbA1c (hemog lobin A1c), blood 2022 023 [facility], [address], [address], [place], [address], 3 18:33:09 CBC w/ auto diff 2022 023 [facility], [address], [address], [place], [address], 3 16:14:49 TSH, serum or plasma 2022 023 [facility], [address], [address], [place], [address], 3 18:56:23 T4, free, serum 2022 023 [facility], [address], [address], [place], [address], 3 18:56:21 Referral urogyn ecolog ist referr reynaldo jones y incont inence , unable to hold her bladde r, someti mes just emptie s comple tely, someti mes she is headed to [place] and her bladde r emptie s on the way. Is wearin g diaper s at this point. 2022 024 jessi Hernandez MD, [address] [place] [address] , [address], [place], [address], 4 09:19:25 Procedures None record ed. Surgeries None record ed. Imaging XR, should er - s/p fall in February, landed on hands and knees, left should er pain 2022 023 [facility], [address] [place], [address], 3 15:02:09 XR, knee, 3 view - s/p fall in february, landed on hands and knees, knee pain. 2022 023 ALEXIA [facility], [address] , [place], [address], 3 16:29:16 US, elbow - left medial elbow palpab le lump, tender to palpat ion, r/o lipoma vs joint effusi on 2023 024 jessi [facility], [address] , [place], [address], 4 11:58:29 MAMMO, diagno stic, digita l, bilate ral - 3 weeks ago develo ped pea sized lump right breast 6 o'cloc k positi on and lump under axilla , left breast pain/ tender ness, lump upper outer quadra nt, left axilla ry tender ness and lump. 2023 024 [email or web address] [facility], [address], [address], [place], [address], 4 10:20:59 US, breast , unilat eral - 3 weeks ago develo ped pea sized lump right breast 6 o'cloc k positi on and lump under axilla , left breast pain/ tender ness, lump upper outer quadra nt, left axilla ry tender ness and lump. 2023 024 [email or web address] [facility], [address], [address], [place], [address], 4 10:20:59 bone densit y - due for bine densit y- hx osteop enia 2023 024 [email or web address] [facility], [address], [address], [place], [address], 4 10:17:14 XR, hip + pelvis , bilate ral - right groin pain, r/o fractu re 2023 024 [facility], [address] [place], [address], 4 10:02:35 Medication Orders diazep am 5 mg tablet 2022 023 [email or web address] [id number], [address] [place], [address], 3 14:15:05 Advair Diskus 500 mcg-50 mcg/do se powder for inhala tion 2022 023 [id number], [address] [place], [address], 3 16:12:18 Bromfe d DM 2 mg-30 mg-10 mg/5 mL oral syrup 2022 024 [id number], [address] [place], [address], 4 15:30:17 Wegovy 0.25 mg/0.5 mL subcut aneous pen inject or 2022 023 [email or web address] [id number] [address] [place], [address], 4 10:01:33 azithr omycin 500 mg tablet 2023 024 [id number] [address] [place], [address], 4 14:36:16 predni sone 20 mg tablet 2023 024 [id number] [address] [place], [address], 4 14:36:35 codein e 10 mg-gua ifenes in 100 mg/5 mL oral liquid 2023 024 [facility] #7639, [address] [place], [address], 14:36:23 albute rol sulfat e 2.5 mg/3 mL (0.083 %) soluti on for nebuli zation 2023 024 [facility] #[id number], [address] [place], [address], 09:30:31 Patient TargetsNo targets recorded. Patient Instructions Encounter Date Encounter Id Patient Instructions Last Modified By Organization Details Last Modified Time 04/04/2023 [id number] high cholesterol : care instructions [email or web address] Not available 04/04/2023 11:10:50 preventing falls : care instructions [email or web address] Not available 04/04/2023 11:10:50 medicare preventive services guide (female 74yrs and under) [email or web address] Not available 04/04/2023 11:10:50 To call or retur n for worsening or concerns [email or web address] Not available 04/04/2023 11:10:29 07/31/2023 [id number] starting a weigh t loss plan: care instructions [email or web address] Not available 07/31/2023 14:55:58 To call or retur n for worsening or concerns [email or web address] Not available 07/31/2023 14:36:48 03/04/2024 [id number] To call or retur n for worsening or concerns [email or web address] Not available 03/04/2024 09:30:36 05/07/2024 [id number] elbow: exercises jthabet Not availabl e 05/07/2024 15:06:31 breast lumps (noncancerous): care instructions [email or web address] Not available 05/07/2024 15:06:31 To call or retur n for worsening or concerns [email or web address] Not available 05/07/2024 12:36:37 07/13/2024 [id number] hip flexor strain: rehab exercises jthabet Not [...] Not available 07/13/2024 10:12:04 Reason for Referral Urogynecologist Referral for Urinary incontinence urinary incontinence, unable to hold her bladder, sometimes just empties completely, sometimes she is headed to [place] and her bladder empties on the way. Is wearing diapers at this point. Referring Physician: Trini Ortiz, Family Medicine, Encounter Date: 07/31/2023 Results Created Date Observation Date Name Description Value Unit Range Abnormal Flag Note LastModifiedBy Organization Detail LastModifiedTime 04/04/20 23 04/04/2023 COMPR EHENS MAY METAB OLIC PANL glucose 98 mg/dL (70-99 ) Not Available [facility] [address] [place], [address], 04/04/2023 17:20:12 04/04/20 23 04/04/2023 COMPR EHENS MAY METAB OLIC PANL BUN 20 mg/dL (8-23) Not Available [facility] [address] [place], [address], 04/04/2023 17:20:12 04/04/20 23 04/04/2023 COMPR EHENS MAY METAB OLIC PANL creatinine 0.9 mg/dL (0.5-1 .0) Not Available [facility] [address] [place], [address], 04/04/2023 17:20:12 04/04/20 23 04/04/2023 COMPR EHENS MAY METAB OLIC PANL sodium 144 mmol/ L (133-1 45) Not Available [facility] [address] [place], [address], 04/04/2023 17:20:12 04/04/20 23 04/04/2023 COMPR EHENS MAY METAB OLIC PANL potassium 4.9 mmol/ L (3.6-5 .2) Not Available [facility] [address] [place], [address], 04/04/2023 17:20:12 04/04/20 23 04/04/2023 COMPR EHENS MAY METAB OLIC PANL chloride 103 mmol/ L (98-10 7) Not Available [facility] [address] [place], [address], 04/04/2023 17:20:12 04/04/20 23 04/04/2023 COMPR EHENS MAY METAB OLIC PANL bicarbonate 27 mmol/ L (22-29 ) Not Available [facility] [address] [place], [address], 04/04/2023 17:20:12 04/04/20 23 04/04/2023 COMPR EHENS MAY METAB OLIC PANL anion gap 14 (4-17) Not Available [facility] [address] [place], [address], 04/04/2023 17:20:12 04/04/20 23 04/04/2023 COMPR EHENS MAY METAB OLIC PANL albumin 4.9 gm/dL (3.4-4 .8) high Not Available [facility] [address] [place], [address], 04/04/2023 17:20:12 04/04/20 23 04/04/2023 COMPR EHENS MAY METAB OLIC PANL calcium 10.6 mg/dL (8.6-1 0.5) high Not Available [facility] [address] [place], [address], 04/04/2023 17:20:12 04/04/20 23 04/04/2023 COMPR EHENS MAY METAB OLIC PANL bilirubin,to tierra 0.6 mg/dL (0-1.2 ) Not Available [facility] [place], [address], 04/04/2023 17:20:12 04/04/20 23 04/04/2023 COMPR EHENS MAY METAB OLIC PANL total protein 7.2 gm/dL (6.2-8 .2) Not Available [facility] [place], [address], 04/04/2023 17:20:12 04/04/20 23 04/04/2023 COMPR EHENS MAY METAB OLIC PANL Ag ratio 2.1 Not Available [facility] [address] [place], [address], 04/04/2023 17:20:12 04/04/20 23 04/04/2023 COMPR EHENS MAY METAB OLIC PANL AST 15 U/L (0-32) Not Available [facility] [address] [place], [address], 04/04/2023 17:20:12 04/04/20 23 04/04/2023 COMPR EHENS MAY METAB OLIC PANL alk phos 112 U/L (35-10 4) high Not Available [facility] [place], [address], 04/04/2023 17:20:12 04/04/20 23 04/04/2023 COMPR EHENS MAY METAB OLIC PANL ALT 12 U/L (0-33) Not Available [facility] [address] [place], [address], 04/04/2023 17:20:12 04/04/20 23 04/04/2023 COMPR EHENS MAY METAB OLIC PANL estimated GFR creatinine 70 mL/mi n/1.7 3_M2 Creat inine based estim ated glome rular filtr ation (eGFR ) in adult s is calcu lated using the Natio nal Kidne y Found ation recom danny d 2020 CKD-E PI equat ion. Estim ates GFR from serum creat inine , age and sex. Not Available [facility] [place], [address], 04/04/2023 17:20:12 08/01/20 23 08/01/2023 COMPL ETE CBC WITH DIFF WBC 3.1 K/mm3 (4.0-1 1.0) low Not Available [facility] [place], [address], 08/01/2023 16:14:49 08/01/20 23 08/01/2023 COMPL ETE CBC WITH DIFF RBC 4.67 M/mm3 (4.20- 5.40) Not Available [facility] [place], [address], 08/01/2023 16:14:49 08/01/20 23 08/01/2023 COMPL ETE CBC WITH DIFF HGB 14.0 gm/dL (11.7- 15.5) Not Available [facility] [address] [place], [address], 08/01/2023 16:14:49 08/01/20 23 08/01/2023 COMPL ETE CBC WITH DIFF HCT 42.7 % (35.7- 45.8) Not Available [facility] [address] [place], [address], 08/01/2023 16:14:49 08/01/20 23 08/01/2023 COMPL ETE CBC WITH DIFF MCV 91.4 fL (80.0- 100.0) Not Available [facility] [address] [place], [address], 08/01/2023 16:14:49 08/01/20 23 08/01/2023 COMPL ETE CBC WITH DIFF MCH 30.0 pg (27.0- 34.0) Not Available [facility] [address] [place], [address], 08/01/2023 16:14:49 08/01/20 23 08/01/2023 COMPL ETE CBC WITH DIFF MCHC 32.8 g/dL (33.0- 37.0) low Not Available [facility] [address] [place], [address], 08/01/2023 16:14:49 08/01/20 23 08/01/2023 COMPL ETE CBC WITH DIFF plt 166 K/mm3 (150-4 60) Not Available [facility] [address] [place], [address], 08/01/2023 16:14:49 08/01/20 23 08/01/2023 COMPL ETE CBC WITH DIFF RDW-SD 42.5 fL (<47.0 ) Not Available [facility] [place], [address], 08/01/2023 16:14:49 08/01/20 23 08/01/2023 COMPL ETE CBC WITH DIFF MPV 11.1 fL (9.4-1 2.4) Not Available [facility] [place], [address], 08/01/2023 16:14:49 08/01/20 23 08/01/2023 COMPL ETE CBC WITH DIFF automated NRBC 0.0 #/100 _WBC' s Not Available [facility] [address] [place], [address], 08/01/2023 16:14:49 08/01/20 23 08/01/2023 COMPL ETE CBC WITH DIFF abs. NRBC 0.0 K/mm3 Not Available [facility] [address] [place], [address], 08/01/2023 16:14:49 08/01/20 23 08/01/2023 COMPL ETE CBC WITH DIFF neut # 1.3 K/mm3 (1.3-7 .0) Not Available [facility] [address] [place], [address], 08/01/2023 16:14:49 08/01/20 23 08/01/2023 COMPL ETE CBC WITH DIFF lymph # 1.2 K/mm3 (0.8-3 .1) Not Available [facility] [address] [place], [address], 08/01/2023 16:14:49 08/01/20 23 08/01/2023 COMPL ETE CBC WITH DIFF mono# 0.5 K/mm3 (0.4-0 .9) Not Available [facility] [address] [place], [address], 08/01/2023 16:14:49 08/01/20 23 08/01/2023 COMPL ETE CBC WITH DIFF eo # 0.1 K/mm3 (0.0-0 .4) Not Available [facility] [address] [place], [address], 08/01/2023 16:14:49 08/01/20 23 08/01/2023 COMPL ETE CBC WITH DIFF baso # 0.0 K/mm3 (0.0-0 .1) Not Available [facility] [address] [place], [address], 08/01/2023 16:14:49 08/01/20 23 08/01/2023 COMPL ETE CBC WITH DIFF abs. imm gran 0.0 K/mm3 Not Available [facility] [address] [place], [address], 08/01/2023 16:14:49 08/01/20 23 08/01/2023 COMPL ETE CBC WITH DIFF neut 42.8 % (44-76 ) low Not Available [facility] [address] [place], [address], 08/01/2023 16:14:49 08/01/20 23 08/01/2023 COMPL ETE CBC WITH DIFF lymph 37.1 % (15-43 ) Not Available [facility] [address] [place], [address], 08/01/2023 16:14:49 08/01/20 23 08/01/2023 COMPL ETE CBC WITH DIFF monocyte 16.6 % (4.5-1 0.5) high Not Available [facility] [address] [place], [address], 08/01/2023 16:14:49 08/01/20 23 08/01/2023 COMPL ETE CBC WITH DIFF eo 2.2 % (0-6) Not Available [facility] [address] [place], [address], 08/01/2023 16:14:49 08/01/20 23 08/01/2023 COMPL ETE CBC WITH DIFF baso 1.3 % (0-2) Not Available [facility] [address] [place], [address], 08/01/2023 16:14:49 08/01/20 23 08/01/2023 COMPL ETE CBC WITH DIFF imm gran 0.0 % Not Available [facility] [address], [place], [address], 08/01/2023 16:14:49 08/01/20 23 08/01/2023 SEDIM ENTAT ION RATE, AUTOM ATED sedimentatio n rate,automat ed 21 mm/HR (0-20) high Not Available [facility] [address] [place], [address], 08/01/2023 17:06:17 08/01/20 23 08/01/2023 HEMOG LOBIN A1C hemoglobin A1C 5.6 % (4.0-5 .6) MONIT ORING : In known diabe tic patie nts, hemog lobin A1c targe ts shoul d be discu ssed with healt h care provi maurice. DIAGN OSTIC USE: The Ameri can Diabe jazmine Assoc iatio n (ADA) and the World Healt h Organ izati on (WHO) recom mend the use of HbA1c to diagn ose diabe jazmine using a thres hold of 6.5%. Patie nts who have an HbA1c betwe en 5.7% and 6.4% are consi dered at incre ased risk for devel oping diabe jazmine in the samantha kianaWill BROWNE ON: False ly low HbA1c resul ts may be obser kelvin in patie nts with hemol ytic anemi a, homoz ygous forms of abnor mal hemog lobin (e.g. SS, CC, SC), pregn montse, recen t blood loss or hemog lobin F great er than 7%. Fruct osami ne may be used as an alter kenna test in these cases . REFER ENCE: ADA: Stand ards of Medic al Care in Diabe jazmine 2019, The Journ al of Clini oskar and Appli ed Resea rch and Educa tion Volum e 43, Suppl ement 1 Not Available [facility] [address] [place], [address], 08/01/2023 18:33:09 08/01/20 23 08/01/2023 FREE T4 free T4 1.69 NG/dL (0.70- 1.80) Not Available [facility] [address] [place], [address], 08/01/2023 18:56:21 08/01/20 23 08/01/2023 TSH TSH 0.18 uIU/m L (0.4-4 .2) low Not Available [facility] [address] [place], [address], 08/01/2023 18:56:23 08/01/20 23 08/01/2023 AMYLA SE amylase 43 U/L (28-10 0) Not Available [facility] [address] [place], [address], 08/01/2023 19:08:23 08/01/20 23 08/01/2023 COMPR EHENS MAY METAB OLIC PANL glucose 106 mg/dL (70-99 ) high Not Available [facility] [address] [place], [address], 08/01/2023 19:08:25 08/01/20 23 08/01/2023 COMPR EHENS MAY METAB OLIC PANL BUN 20 mg/dL (8-23) Not Available [facility] [address] [place], [address], 08/01/2023 19:08:25 08/01/20 23 08/01/2023 COMPR EHENS MAY METAB OLIC PANL creatinine 0.9 mg/dL (0.5-1 .0) Not Available [facility] [address] [place], [address], 08/01/2023 19:08:25 08/01/20 23 08/01/2023 COMPR EHENS MAY METAB OLIC PANL sodium 141 mmol/ L (133-1 45) Not Available [facility] [address] [place], [address], 08/01/2023 19:08:25 08/01/20 23 08/01/2023 COMPR EHENS MAY METAB OLIC PANL potassium 4.7 mmol/ L (3.6-5 .2) Not Available [facility] [address] [place], [address], 08/01/2023 19:08:25 08/01/20 23 08/01/2023 COMPR EHENS MAY METAB OLIC PANL chloride 102 mmol/ L (98-10 7) Not Available [facility] [address] [place], [address], 08/01/2023 19:08:25 08/01/20 23 08/01/2023 COMPR EHENS MAY METAB OLIC PANL bicarbonate 28 mmol/ L (22-29 ) Not Available [facility] [address] [place], [address], 08/01/2023 19:08:25 08/01/20 23 08/01/2023 COMPR EHENS MAY METAB OLIC PANL anion gap 11 (4-17) Not Available [facility] [address] [place], [address], 08/01/2023 19:08:25 08/01/20 23 08/01/2023 COMPR EHENS MAY METAB OLIC PANL albumin 4.6 gm/dL (3.4-4 .8) Not Available [facility] [address] [place], [address], 08/01/2023 19:08:25 08/01/20 23 08/01/2023 COMPR EHENS MAY METAB OLIC PANL calcium 10.4 mg/dL (8.6-1 0.5) Not Available [facility] [address] [place], [address], 08/01/2023 19:08:25 08/01/20 23 08/01/2023 COMPR EHENS MAY METAB OLIC PANL bilirubin,to tierra 0.8 mg/dL (0-1.2 ) Not Available [facility] [address] [place], [address], 08/01/2023 19:08:25 08/01/20 23 08/01/2023 COMPR EHENS MAY METAB OLIC PANL total protein 7.2 gm/dL (6.2-8 .2) Not Available [facility] [address] [place], [address], 08/01/2023 19:08:25 08/01/20 23 08/01/2023 COMPR EHENS MAY METAB OLIC PANL Ag ratio 1.8 Not Available [facility] [address] [place], [address], 08/01/2023 19:08:25 08/01/20 23 08/01/2023 COMPR EHENS MAY METAB OLIC PANL AST 18 U/L (0-32) Not Available [facility] [address] [place], [address], 08/01/2023 19:08:25 08/01/20 23 08/01/2023 COMPR EHENS MAY METAB OLIC PANL alk phos 123 U/L (35-10 4) high Not Available [facility] [address], [address], 08/01/2023 19:08:25 08/01/20 23 08/01/2023 COMPR EHENS MAY METAB OLIC PANL ALT 15 U/L (0-33) Not Available [facility] [address] [place], [address], 08/01/2023 19:08:25 08/01/20 23 08/01/2023 COMPR EHENS MAY METAB OLIC PANL estimated GFR creatinine 65 mL/mi n/1.7 3_M2 Creat inine based estim ated glome rular filtr ation (eGFR ) in adult s is calcu lated using the Natio nal Kidne y Found ation recom danny d 2020 CKD-E PI equat ion. Estim ates GFR from serum creat inine , age and sex. Not Available [facility] [address] [place], [address], 08/01/2023 19:08:25 08/01/20 23 08/01/2023 C-AC CTIVE PROTE IN C-reactive protein <0.3 mg/dL (0-0.5 ) Not Available [facility] [address] [place], [address], 08/01/2023 19:08:26 08/01/20 23 08/01/2023 LIPAS E lipase 18 U/L (13-60 ) Not Available [facility] [address] [place], [address], 08/01/2023 19:08:27 08/01/20 23 08/01/2023 LIPID PANEL cholesterol, total 204 mg/dL (<200) high Not Available [facility] [address] [place], [address], 08/01/2023 19:08:28 08/01/20 23 08/01/2023 LIPID PANEL triglyceride 124 mg/dL (<150) Not Available [facility] [address] [place], [address], 08/01/2023 19:08:28 08/01/20 23 08/01/2023 LIPID PANEL HDL chol 51 mg/dL (>39) Not Available [facility] [address], [place], [address], 08/01/2023 19:08:28 08/01/20 23 08/01/2023 LIPID PANEL LDL cholesterol, calculated 128 mg/dL (0-130 ) Not Available [facility] [address] [place], [address], 08/01/2023 19:08:28 08/01/20 23 08/01/2023 LIPID PANEL non HDL cholesterol (calc) 153 mg/dL (<160) Not Available [facility] [address] [place], [address], 08/01/2023 19:08:28 08/01/20 23 08/01/2023 RHEUM ATOID FACTO R rheumatoid factor <10.0 IU/mL (<14) Not Available [facility] [address], [place], [address], 08/01/2023 19:08:29 08/01/20 23 08/02/2023 LYME AB W/REF SUKHDEEP lyme Ab w/reflex (neg) NEGAT MAY NO ANTIB DOLLY TO BORRE LUIS BURGD ORFER I DETEC JOHANNY. PATIE NTS IN EARLY STAGE S OF INFEC TION OR WHO WERE GIVEN EARLY ANTIB IOTIC TREAT MENT MAY NOT PRODU CE DETEC TABLE LEVEL S OF ANTIB DOLLY. THESE PATIE NTS WOULD BENEF IT FROM REPEA T TESTI NG IN 2 TO 4 WEEKS . Testi ng perfo rmed by the Bio-R ad BioPl ex 2200 multi plex flow immun oassa y syste m Not Available [facility] [address], [place], [address], 08/02/2023 11:23:04 08/01/20 23 08/02/2023 ANTI- NUCLE AR ANTIB DOLLY SCREE N anti-nuclear antibody screen NEGATI VE (NOTE ) Negat may <1:80 Borde rline 1:80 Posit may >1:80 ICAP nomen clatu re: AC-0 For more infor matio n about Hep-2 cell patte rns use ANApa ttern s.org , the offic sidney galdamez for the Inter natio nal Conse nsus on Antin uclea r Antib dolly (LUIGI) Patte rns (ICAP ). Test perfo rmed by [facility], [address], [place] [address] Not Available [facility] [address] [place], [address], 08/02/2023 23:05:56 08/07/20 23 08/07/2023 FREE T4 free T4 1.64 NG/dL (0.70- 1.80) Not Available [facility] [address] [place], [address], 08/07/2023 17:21:19 08/07/20 23 08/07/2023 TSH TSH 0.13 uIU/m L (0.4-4 .2) low Not Available [facility] [address] [place], [address], 08/07/2023 17:21:21 08/07/20 23 08/08/2023 H. PYLOR I UREA BREAT H TEST H. pylori urea breath test NEGATI VE Refer ence range : NEGAT MAY Test perfo rmed by [facility], [address], [place] [address] Not Available [facility] [address] [place], [address], 08/08/2023 16:07:17 09/08/19 24 09/08/2023 FREE T4 free T4 1.64 NG/dL (0.70- 1.80) Not Available [facility] [address] [place], [address], 09/08/2023 22:05:21 09/08/19 24 09/08/2023 TSH TSH 0.60 uIU/m L (0.4-4 .2) Not Available [facility] [address] [place], [address], 09/08/2023 22:05:23 11/18/19 24 11/19/2023 CBC WITH DIFFE RENTI AL/PL ATELE T WBC 3.0 x10e3 /uL 3.4-10 .8 below low normal Not Available [facility] ([facility]) [address] [facility], [place], [address], 11/19/2023 08:08:45 11/18/19 24 11/19/2023 CBC WITH DIFFE RENTI AL/PL ATELE T RBC 4.85 x10e6 /uL 3.77-5 .28 Not Available [facility] ([facility]) [address] [facility], [place], [address], 11/19/2023 08:08:45 11/18/19 24 11/19/2023 CBC WITH DIFFE RENTI AL/PL ATELE T hemoglobin 14.4 g/dL 11.1-1 5.9 Not Available [facility] ([facility]) [address] [facility], [place], [address], 11/19/2023 08:08:45 11/18/19 24 11/19/2023 CBC WITH DIFFE RENTI AL/PL ATELE T hematocrit 44.4 % 34.0-4 6.6 Not Available [facility] ([facility]) [address] [facility], [place], [address], 11/19/2023 08:08:45 11/18/1911/19/2023 CBC WITH DIFFE RENTI AL/PL ATELE T MCV 92 fL 79-97 Not Available [facility] ([facility]) [address] [place], [address], 11/19/2023 08:08:45 11/18/1911/19/2023 CBC WITH DIFFE RENTI AL/PL ATELE T MCH 29.7 pg 26.6-3 3.0 Not Available [facility] ([facility]) [address] [place], [address], 11/19/2023 08:08:45 11/18/19 24 11/19/2023 CBC WITH DIFFE RENTI AL/PL ATELE T MCHC 32.4 g/dL 31.5-3 5.7 Not Available [facility] ([facility]) [address] [facility], [place], [address], 11/19/2023 08:08:45 11/18/19 24 11/19/2023 CBC WITH DIFFE RENTI AL/PL ATELE T RDW 13.7 % 11.7-1 5.4 Not Available [facility] ([facility]) [address] [facility], [place], [address], 11/19/2023 08:08:45 11/18/19 24 11/19/2023 CBC WITH DIFFE RENTI AL/PL ATELE T platelets 152 x10e3 /uL 150-45 0 Not Available [facility] ([facility]) [address] [facility], [place], [address], 11/19/2023 08:08:45 11/18/19 24 11/19/2023 CBC WITH DIFFE RENTI AL/PL ATELE T neutrophils 42 % not estab. Not Available [facility] ([facility]) [address] [facility], [place], [address], 11/19/2023 08:08:45 11/18/19 24 11/19/2023 CBC WITH DIFFE RENTI AL/PL ATELE T lymphs 44 % not estab. Not Available [facility] ([facility]) [address] [facility], [place], [address], 11/19/2023 08:08:45 11/18/19 24 11/19/2023 CBC WITH DIFFE RENTI AL/PL ATELE T monocytes 12 % not estab. Not Available [facility] ([facility]) [address] [facility], [place], [address], 11/19/2023 08:08:45 11/18/19 24 11/19/2023 CBC WITH DIFFE RENTI AL/PL ATELE T eos 1 % not estab. Not Available [facility] ([facility]) [address] [facility], [place], [address], 11/19/2023 08:08:45 11/18/19 24 11/19/2023 CBC WITH DIFFE RENTI AL/PL ATELE T basos 1 % not estab. 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 0 below low normal Not Available [facility] ([facility]) [address] [place], [address], 11/19/2023 08:08:45 11/18/19 24 11/19/2023 CBC WITH DIFFE RENTI AL/PL ATELE T lymphs (absolute) 1.3 x10e3 /uL 0.7-3. 1 Not Available [facility] ([facility]) [address] [place], [address], 11/19/2023 08:08:45 11/18/19 24 11/19/2023 CBC WITH DIFFE RENTI AL/PL ATELE T monocytes(ab solute) 0.4 x10e3 /uL 0.1-0. 9 Not Available [facility] ([facility]) [address] [place], [address], 11/19/2023 08:08:45 11/18/19 24 11/19/2023 CBC WITH DIFFE RENTI AL/PL ATELE T eos (absolute) 0.0 x10e3 /uL 0.0-0. 4 Not Available [facility] ([facility]) [address] [place], [address], 11/19/2023 08:08:45 11/18/19 24 11/19/2023 CBC WITH DIFFE RENTI AL/PL ATELE T baso (absolute) 0.0 x10e3 /uL 0.0-0. 2 Not Available [facility] ([facility]) [address] [facility], [place], [address], 11/19/2023 08:08:45 11/18/19 24 11/19/2023 CBC WITH DIFFE RENTI AL/PL ATELE T immature granulocytes 0 % not estab. Not Available [facility] ([facility]) [address] [facility], [place], [address], 11/19/2023 08:08:45 11/18/19 24 11/19/2023 CBC WITH DIFFE RENTI AL/PL ATELE T immature grans (abs) 0.0 x10e3 /uL 0.0-0. 1 Not Available [facility] ([facility]) [address] [place], [address], 11/19/2023 08:08:45 11/18/19 24 11/19/2023 CBC WITH DIFFE RENTI AL/PL ATELE T NRBC HIDES SOAKER Not Available [facility] ([facility]) [address] [place], [address], 11/19/2023 08:08:45 11/18/19 24 11/19/2023 CBC WITH DIFFE RENTI AL/PL ATELE T hematology comments: HIDES SOAKER Not Available [facility] ([facility]) [address] [place], [address], 11/19/2023 08:08:45 11/18/19 24 11/19/2023 COMP. METAB OLIC PANEL (14) glucose 99 mg/dL 70-99 Not Available [facility] ([facility]) [address] [facility] [place], [address], 11/19/2023 08:08:46 11/18/19 24 11/19/2023 COMP. METAB OLIC PANEL (14) BUN 19 mg/dL 8-27 Not Available [facility] ([facility]) [address] [facility] [place], [address], 11/19/2023 08:08:46 11/18/19 24 11/19/2023 COMP. METAB OLIC PANEL (14) creatinine 0.91 mg/dL 0.57-1 .00 Not Available [facility] ([facility]) [address] [place], [address], 11/19/2023 08:08:46 11/18/19 24 11/19/2023 COMP. METAB OLIC PANEL (14) eGFR 67 mL/mi n/1.7 3 >59 Not Available [facility] ([facility]) [address] [facility] [place], [address], 11/19/2023 08:08:46 11/18/19 24 11/19/2023 COMP. METAB OLIC PANEL (14) BUN/creatini ne ratio 21 12-28 Not Available [facility] ([facility]) [address] [place], [address], 11/19/2023 08:08:46 11/18/19 24 11/19/2023 COMP. METAB OLIC PANEL (14) sodium 141 mmol/ L 134-14 4 Not Available [facility] ([facility]) [address] [place], [address], 11/19/2023 08:08:46 11/18/19 24 11/19/2023 COMP. METAB OLIC PANEL (14) potassium 4.1 mmol/ L 3.5-5. 2 Not Available [facility] ([facility]) [address] [place], [address], 11/19/2023 08:08:46 11/18/19 24 11/19/2023 COMP. METAB OLIC PANEL (14) chloride 100 mmol/ L 96-106 Not Available [facility] ([facility]) [address], [place], [address], 11/19/2023 08:08:46 11/18/19 24 11/19/2023 COMP. METAB OLIC PANEL (14) anion gap 17.0 mmol/ L 10.0-1 8.0 Not Available [facility] ([facility]) [address] [place], [address], 11/19/2023 08:08:46 11/18/19 24 11/19/2023 COMP. METAB OLIC PANEL (14) carbon dioxide, total 24 mmol/ L 20-29 Not Available [facility] ([facility] [address] [facility] [place], [address], 11/19/2023 08:08:46 11/18/19 24 11/19/2023 COMP. METAB OLIC PANEL (14) calcium 10.3 mg/dL 8.7-10 .3 Not Available [facility] ([facility] [address] [facility] [place], [address], 11/19/2023 08:08:46 11/18/19 24 11/19/2023 COMP. METAB OLIC PANEL (14) protein, total 7.2 g/dL 6.0-8. 5 Not Available [facility] ([facility] [address] [facility] [place], [address], 11/19/2023 08:08:46 11/18/19 24 11/19/2023 COMP. METAB OLIC PANEL (14) albumin 4.7 g/dL 3.8-4. 8 Not Available [facility] ([facility] [address] [facility] [place], [address], 11/19/2023 08:08:46 11/18/19 24 11/19/2023 COMP. METAB OLIC PANEL (14) globulin, total 2.5 g/dL 1.5-4. 5 Not Available [facility] ([facility]) [address] [place], [address], 11/19/2023 08:08:46 11/18/19 24 11/19/2023 COMP. METAB OLIC PANEL (14) A/G ratio 1.9 1.2-2. 2 Not Available [facility] ([facility]) [address] [facility], [place], [address], 11/19/2023 08:08:46 11/18/19 24 11/19/2023 COMP. METAB OLIC PANEL (14) bilirubin, total 0.9 mg/dL 0.0-1. 2 Not Available [facility] ([facility]) [address] [place], [address], 11/19/2023 08:08:46 11/18/19 24 11/19/2023 COMP. METAB OLIC PANEL (14) alkaline phosphatase 109 IU/L 44-121 Not Available [facility] ([facility]) [address] [place], [address], 11/19/2023 08:08:46 11/18/19 24 11/19/2023 COMP. METAB OLIC PANEL (14) AST (SGOT) 21 IU/L 0-40 Not Available [facility] ([facility]) [address] [place], [address], 11/19/2023 08:08:46 11/18/19 24 11/19/2023 COMP. METAB OLIC PANEL (14) ALT (SGPT) 15 IU/L 0-32 Not Available [facility] ([facility]) [address] [place], [address], 11/19/2023 08:08:46 11/18/19 24 11/19/2023 THYRO XINE (T4) FREE, DIREC T T4,free(dire ct) 1.98 NG/dL 0.82-1 .77 above high normal Not Available [facility] ([facility]) [address] [place], [address], 11/19/2023 08:08:47 11/18/19 24 11/19/2023 TSH TSH 0.148 uIU/m L 0.450- 4.500 below low normal Not Available [facility] ([facility]) [address] [place], [address], 11/19/2023 08:08:47 11/18/19 24 11/19/2023 AMYLA SE amylase 48 U/L 31-110 Not Available [facility] ([facility]) [address] [place], [address], 11/19/2023 08:08:48 11/18/19 24 11/19/2023 LIPAS E lipase 36 U/L 14-85 Not Available [facility] ([facility]) [address] [place], [address], 11/19/2023 08:08:48 01/20/20 24 01/20/2024 CMP14 (REFL EX HGB A1C) glucose 94 mg/dL 70-99 Not Available [facility] ([facility]) [address] [place], [address], 01/21/2024 06:14:04 01/20/20 24 01/20/2024 CMP14 (REFL EX HGB A1C) BUN 20 mg/dL 8-27 Not Available [facility] ([facility]) [address] [place], [address], 01/21/2024 06:14:04 01/20/20 24 01/20/2024 CMP14 (REFL EX HGB A1C) creatinine 0.91 mg/dL 0.57-1 .00 Not Available [facility] ([facility]) [address] [place], [address], 01/21/2024 06:14:04 01/20/20 24 01/20/2024 CMP14 (REFL EX HGB A1C) eGFR 67 mL/mi n/1.7 3 >59 Not Available [facility] ([facility]) [address] [facility], [place], [address], 01/21/2024 06:14:04 01/20/20 24 01/20/2024 CMP14 (REFL EX HGB A1C) BUN/creatini ne ratio 22 12-28 Not Available [facility] ([facility]) [address] [facility], [place], [address], 01/21/2024 06:14:04 01/20/20 24 01/20/2024 CMP14 (REFL EX HGB A1C) sodium 141 mmol/ L 134-14 4 Not Available [facility] ([facility]) [address] [facility], [place], [address], 01/21/2024 06:14:04 01/20/20 24 01/20/2024 CMP14 (REFL EX HGB A1C) potassium 4.9 mmol/ L 3.5-5. 2 Not Available [facility] ([facility]) [address] [facility], [place], [address], 01/21/2024 06:14:04 01/20/20 24 01/20/2024 CMP14 (REFL EX HGB A1C) chloride 104 mmol/ L 96-106 Not Available [facility] ([facility]) [address] [place], [address], 01/21/2024 06:14:04 01/20/20 24 01/20/2024 CMP14 (REFL EX HGB A1C) carbon dioxide, total 26 mmol/ L 20-29 Not Available [facility] ([facility]) [address] [place], [address], 01/21/2024 06:14:04 01/20/20 24 01/20/2024 CMP14 (REFL EX HGB A1C) calcium 10.2 mg/dL 8.7-10 .3 Not Available [facility] ([facility]) [address] [place], [address], 01/21/2024 06:14:04 01/20/20 24 01/20/2024 CMP14 (REFL EX HGB A1C) protein, total 6.9 g/dL 6.0-8. 5 Not Available [facility] ([facility]) [address] [facility], [place], [address], 01/21/2024 06:14:04 01/20/20 24 01/20/2024 CMP14 (REFL EX HGB A1C) albumin 4.5 g/dL 3.8-4. 8 Not Available [facility] ([facility]) [address] [place], [address], 01/21/2024 06:14:04 01/20/20 24 01/20/2024 CMP14 (REFL EX HGB A1C) globulin, total 2.4 g/dL 1.5-4. 5 Not Available [facility] ([facility]) [address] [place], [address], 01/21/2024 06:14:04 01/20/20 24 01/20/2024 CMP14 (REFL EX HGB A1C) A/G ratio 1.9 Not Available [facility] ([facility]) [address] [place], [address], 01/21/2024 06:14:04 01/20/20 24 01/20/2024 CMP14 (REFL EX HGB A1C) bilirubin, total 0.7 mg/dL 0.0-1. 2 Not Available [facility] ([facility]) [address] [place], [address], 01/21/2024 06:14:04 01/20/20 24 01/20/2024 CMP14 (REFL EX HGB A1C) alkaline phosphatase 107 IU/L 44-121 Not Available [facility] ([facility]) [address] [place], [address], 01/21/2024 06:14:04 01/20/20 24 01/20/2024 CMP14 (REFL EX HGB A1C) AST (SGOT) 15 IU/L 0-40 Not Available [facility] ([facility]) [address] [place], [address], 01/21/2024 06:14:04 01/20/20 24 01/20/2024 CMP14 (REFL EX HGB A1C) ALT (SGPT) 12 IU/L 0-32 Not Available [facility] ([facility]) [address] [place], [address], 01/21/2024 06:14:04 01/20/20 24 01/21/2024 TSH+F REE T4 TSH 0.568 uIU/m L 0.450- 4.500 Not Available [facility] ([facility]) [address] [place], [address], 01/21/2024 06:14:05 01/20/20 24 01/21/2024 TSH+F REE T4 T4,free(dire ct) 1.62 NG/dL 0.82-1 .77 Not Available [facility] ([facility]) [address] [place], [address], 01/21/2024 06:14:05 01/20/20 24 01/21/2024 CBC WITH DIFFE RENTI AL/PL ATELE T WBC 3.0 x10e3 /uL 3.4-10 .8 below low normal Not Available [facility] ([facility]) [address] [place], [address], 01/21/2024 06:14:06 01/20/20 24 01/21/2024 CBC WITH DIFFE RENTI AL/PL ATELE T RBC 4.62 x10e6 /uL 3.77-5 .28 Not Available [facility] ([facility]) [address] [facility], [place], [address], 01/21/2024 06:14:06 01/20/20 24 01/21/2024 CBC WITH DIFFE RENTI AL/PL ATELE T hemoglobin 14.1 g/dL 11.1-1 5.9 Not Available [facility] ([facility]) [address] [facility], [place], [address], 01/21/2024 06:14:06 01/20/20 24 01/21/2024 CBC WITH DIFFE RENTI AL/PL ATELE T hematocrit 43.7 % 34.0-4 6.6 Not Available [facility] ([facility]) [address] [facility], [place], [address], 01/21/2024 06:14:06 01/20/20 24 01/21/2024 CBC WITH DIFFE RENTI AL/PL ATELE T MCV 95 fL 79-97 Not Available [facility] ([facility]) [address] [facility], [place], [address], 01/21/2024 06:14:06 01/20/20 24 01/21/2024 CBC WITH DIFFE RENTI AL/PL ATELE T MCH 30.5 pg 26.6-3 3.0 Not Available [facility] ([facility]) [address] [facility], [place], [address], 01/21/2024 06:14:06 01/20/20 24 01/21/2024 CBC WITH DIFFE RENTI AL/PL ATELE T MCHC 32.3 g/dL 31.5-3 5.7 Not Available [facility] ([facility]) [address] [place], [address], 01/21/2024 06:14:06 01/20/20 24 01/21/2024 CBC WITH DIFFE RENTI AL/PL ATELE T RDW 13.5 % 11.7-1 5.4 Not Available [facility] ([facility]) [address] [facility], [place], [address], 01/21/2024 06:14:06 01/20/20 24 01/21/2024 CBC WITH DIFFE RENTI AL/PL ATELE T platelets 146 x10e3 /uL 150-45 0 below low normal Not Available [facility] ([facility]) [address] [facility], [place], [address], 01/21/2024 06:14:06 01/20/20 24 01/21/2024 CBC WITH DIFFE RENTI AL/PL ATELE T neutrophils 40 % not estab. Not Available [facility] ([facility]) [address] [facility], [place], [address], 01/21/2024 06:14:06 01/20/20 24 01/21/2024 CBC WITH DIFFE RENTI AL/PL ATELE T lymphs 49 % not estab. Not Available [facility] ([facility]) [address] [facility], [place], [address], 01/21/2024 06:14:06 01/20/20 24 01/21/2024 CBC WITH DIFFE RENTI AL/PL ATELE T monocytes 9 % not estab. Not Available [facility] ([facility]) [address] [facility], [place], [address], 01/21/2024 06:14:06 01/20/20 24 01/21/2024 CBC WITH DIFFE RENTI AL/PL ATELE T eos 1 % not estab. Not Available [facility] ([facility]) [address] [facility], [place], [address], 01/21/2024 06:14:06 01/20/20 24 01/21/2024 CBC WITH DIFFE RENTI AL/PL ATELE T basos 1 % not estab. Not Available [facility] ([facility]) [address] [facility], [place], [address], 01/21/2024 06:14:06 01/20/20 24 01/21/2024 CBC WITH DIFFE RENTI AL/PL ATELE T immature cells HIDES SOAKER Not Available [facility] ([facility]) [address] [place], [address], 01/21/2024 06:14:06 01/20/20 24 01/21/2024 CBC WITH DIFFE RENTI AL/PL ATELE T neutrophils (absolute) 1.2 x10e3 /uL 1.4-7. 0 below low normal Not Available [facility] ([facility]) [address] [place], [address], 01/21/2024 06:14:06 01/20/20 24 01/21/2024 CBC WITH DIFFE RENTI AL/PL ATELE T lymphs (absolute) 1.5 x10e3 /uL 0.7-3. 1 Not Available [facility] ([facility]) [address] [place], [address], 01/21/2024 06:14:06 01/20/20 24 01/21/2024 CBC WITH DIFFE RENTI AL/PL ATELE T monocytes(ab solute) 0.3 x10e3 /uL 0.1-0. 9 Not Available [facility] ([facility]) [address] [place], [address], 01/21/2024 06:14:06 01/20/20 24 01/21/2024 CBC WITH DIFFE RENTI AL/PL ATELE T eos (absolute) 0.0 x10e3 /uL 0.0-0. 4 Not Available [facility] ([facility]) [address] [place], [address], 01/21/2024 06:14:06 01/20/20 24 01/21/2024 CBC WITH DIFFE RENTI AL/PL ATELE T baso (absolute) 0.0 x10e3 /uL 0.0-0. 2 Not Available [facility] ([facility]) [address] [facility], [place], [address], 01/21/2024 06:14:06 01/20/20 24 01/21/2024 CBC WITH DIFFE RENTI AL/PL ATELE T immature granulocytes 0 % not estab. Not Available [facility] ([facility]) [address] [facility], [place], [address], 01/21/2024 06:14:06 01/20/20 24 01/21/2024 CBC WITH DIFFE RENTI AL/PL ATELE T immature grans (abs) 0.0 x10e3 /uL 0.0-0. 1 Not Available [facility] ([facility]) [address] [facility], [place], [address], 01/21/2024 06:14:06 01/20/20 24 01/21/2024 CBC WITH DIFFE RENTI AL/PL ATELE T NRBC HIDES SOAKER Not Available [facility] ([facility]) [address] [facility], [place], [address], 01/21/2024 06:14:06 01/20/20 24 01/21/2024 CBC WITH DIFFE RENTI AL/PL ATELE T hematology comments: HIDES SOAKER Not Available [facility] ([facility]) [address] [facility], [place], [address], 01/21/2024 06:14:06 01/20/20 24 01/20/2024 LIPID PANEL cholesterol, total 212 mg/dL 100-19 9 above high normal Not Available [facility] ([facility]) [address] [facility], [place], [address], 01/21/2024 06:14:07 01/20/20 24 01/20/2024 LIPID PANEL triglyceride s 83 mg/dL 0-149 Not Available [facility] ([facility]) [address] [facility], [place], [address], 01/21/2024 06:14:07 01/20/20 24 01/20/2024 LIPID PANEL HDL cholesterol 55 mg/dL >39 Not Available [facility] ([facility]) [address] [place], [address], 01/21/2024 06:14:07 01/20/20 24 01/20/2024 LIPID PANEL VLDL cholesterol oskar 15 mg/dL 5-40 Not Available [facility] ([facility]) [address] [place], [address], 01/21/2024 06:14:07 01/20/20 24 01/20/2024 LIPID PANEL LDL chol calc ([facility]) 142 mg/dL 0-99 above high normal Not Available [facility] ([facility]) [address] [place], [address], 01/21/2024 06:14:07 01/20/20 24 01/20/2024 LIPID PANEL LDL calc comment: HIDES SOAKER Not Available [facility] ([facility]) [address] [place], [address], 01/21/2024 06:14:07 01/20/2001/21/2024 HEMOG LOBIN A1C hemoglobin A1C 5.4 % 4.8-5. 6 Predi abete s: 5.7 - 6.4 Diabe jazmine: >6.4 Glyce cindy contr ol for adult s with diabe jazmine: <7.0 Not Available [facility] ([facility]) [address] [place], [address], 01/21/2024 06:14:08 01/20/2001/21/2024 TRIIO DOTHY JOSE E (T3), FREE triiodothyro nine (T3), free 2.6 pg/mL 2.0-4. 4 Not Available [facility] ([facility]) [address] [place], [address], 01/21/2024 06:14:08 08/25/04/03/2023 US, sandra s No observ ation record ed. [email or web address] [facility] [address] [facility], [place], [address], 04/07/2023 09:36:18 04/07/2004/07/2023 XR, shoul maurice, 2 or more view Should er Min 2 Views Left, 3 views REASON : pain in left should er COMPAR ROMEL: None. FINDIN GS: No fractu re or disloc ation. No arthri tic change of the glenoh umeral joint. Normal AC joint and portio ns of the clavic le includ ed on the exam. Soft tissue calcif icatio ns adjace nt to the rakesh l head. IMPRES JANET: Findin gs are likely due to calcif ic tendin itis of the rotato r cuff. WSN: [id number] Orderi ng Physic kenny: Timbo Ortiz Dictat ed By: Rush Gonzalez MD Dictat ed Date/T tom: 4:25 pm Review ed By: Rush Gonzalez MD Signed By: Rush Gonzalez MD Signed Date/T tom: 4:25 pm Transc ribed By: ISAURA Transc ribed Date/T tom: 4:24 pm Patien t Class: Outpat ient [facility] (Out[facility]) [address] , [place], [address], 04/08/2023 15:23:39 04/07/2004/07/2023 XR, knee, 3 view Knee 3 Views Right REASON : pain in right knee COMPAR ROMEL: None. FINDIN GS: There is no eviden ce of acute or healin g fractu re, disloc ation or bone lesion . Mild medial and patell ofemor al compar tment joint space narrow ing with tiny medial compar tment osteop hyte. Soft tissue calcif icatio n adjace nt to the latera l femora l condyl e. Trace joint effusi on. IMPRES JANET: 1. Mild osteop enia arthri tis. 2. Trace joint effusi on. 3. Findin gs concer sharath for prior latera l collat eral ligame nt injury . WSN: [id number] [facility] Physic kenny: Timbo Ortiz Dictat ed By: Rush Gonzalez MD Dictat ed Date/T tom: 4:26 pm Review ed By: Rush Gonzalez MD Signed By: Rush Gonzalez MD Signed Date/T tom: 4:26 pm Transc ribed By: ISAURA Transc ribed Date/T tom: 4:25 pm Patien t Class: Outpat ient [facility] ([facility]) [address] [place], [address], 04/08/2023 15:22:51 04/08/20 23 04/05/2023 XR, shoul maurice No observ ation record ed. [email or web address] [address] [place], [address], 04/08/2023 15:03:31 04/22/20 23 04/19/2023 MRI, knee, w/o contr ast [facility] Access ion Number : [id number] Frankie koenig Name: Naomie Solitario i Medica l Record Number : [id number] Date of : 1949 Date of Exam: 2022 Referr ing Physic kenny: Timbo Ortiz [employer] [address] [facility] -[address] [place] [id number] Exam: MR Knee (C-) CPT 24423 - Right Room Descri ption: Metter GE Pion 3T Histor y: Pain in the right knee. The patien t report s severe consta nt diffus e right knee pain since January 2023 when there was a fall, instab ility. Techni que: MRI of the right knee was perfor med withou t intrav enous contra st. Compar romel: None. Findin gs: Joint effusi on: No joint effusi on is presen t. Hoffa' s fat pad is unrema rkable . Menisc i: The mobile home laborer ior tibial attach ment of the medial menisc us appear s torn with marked ly diminu tive appear ance of the adjace nt mobile home laborer ior third and medial extrus ion of the body. There is interm ediate signal in the anteri or third of the latera l menisc us extend ing to the superi or articu lar surfac e, concer sharath for a superi mposed degene rative tear. Tendon s and ligame nts: Diffus e thicke sharath of the ACL with tubula r areas of fluid signal within its proxim al aspect , most sugges tive of mucoid degene ration . The collat eral ligame nts are unrema rkable . The ilioti bial band is unrema rkable . The extens or mechan ism appear s normal . Articu lar cartil age and bone: There is chondr al thinni ng in slight surfac e irregu larity in the weight bearin g portio n of the medial compar tment with minima l bony prolif eratio n of the medial joint line. Articu lar cartil age in the latera l compar tment appear s normal in thickn ess. Irregu lar chondr al thinni ng is seen over the medial patell ar facet and patell ar apex with partia l thickn ess chondr al fissur es in the latera l patell ar facet. Trochl ear cartil age appear s normal in thickn ess. Impres janet: 1. Tear of the mobile home laborer ior tibial attach ment of the medial menisc us. 2. Degene ration in the anteri or third of the latera l menisc us with signal extend ing to its superi or articu lar surfac e sugges ting superi mposed degene rative tear. 3. Mild degene rative change of the medial compar tment and patell a.. Electr onical ly Signed By: Catia Norwood ra, MD [facility] ([facility]) [address], [place], [address], 04/23/2023 17:30:30 05/01/20 23 04/30/2023 MRI, shobart maurice, w/o contr ast No observ ation record ed. [facility] ([facility]) [address], [place], [address], 05/01/2023 14:56:50 06/20/2006/20/2023 MAMMO , scree sharath, digit al, bilat eral PROCED URE: MM Digita l Mammo Screen ing INDICA TION: Screen ing. No known palpab le abnorm alitie s. COMPAR ROMEL: Dating back to 020 TECHNI QUE: Full-f ield digita l CC and MLO 3D tomosy nthesi s images of both breast s were acquir ed. Comput er-aid ed detect ion (CAD) was utiliz ed in the interp retati on of this study. DENSIT Y: The breast tissue contai ns scatte red areas of fibrog landul ar densit y. FINDIN GS: No suspic ious masses , suspic ious microc alcifi cation s, or areas of oriana ectura l distor tion are seen in either breast to sugges t malign montse. IMPRES JANET: No mammog raphic eviden ce of malign montse. RECOMM ENDATI ON: Annual mammog raphic screen ing BI-RAD S: 1 (Negat may) Lay letter mailed to frankie koenig WSN: [id number] Orderi ng Physic kenny: Timbo Mae Dictat ed By: Dangelo Del Rosario MD Dictat ed Date/T tom: 2:09 pm Review ed By: Dangelo Del Rosario MD Signed By: Dangelo Del Rosario MD Signed Date/T tom: 2:09 pm Transc ribed By: CSB Transc riptio n Date/T tom: 2:09 pm Birads : Frankie koenig Class: Outpat ient [email or web address] [facility] (Outpt Imaging) [address] [facility], [place], [address], 06/20/2023 14:17:04 07/22/20 23 07/14/2023 CT, chest , w/o contr ast No observ ation record ed. [email or web address] [facility] (Medical Records) [address], [place], [address], 07/22/2023 15:22:36 08/14/19 24 07/14/2023 CT, chest , w/o contr ast No observ ation record ed. [email or web address] Not Available 2023 11:49:56 05/28/20 24 05/28/2024 US, breas t, limit [...] raphic screen ing BI-RAD S: 1 (Negat may) Lay letter mailed to patijose m t I have person ally review ed the images and I agree with this report . WSN: [id number] Orderi ng Physic kenny: Timbo Mae Dictat ed By: Juanita Ramirez DO Dictat ed Date/T tom: 12:03 p Review ed By: Jamie Heaton MD Signed By: Jamie Heaton MD Signed Date/T tom: 12:08 pm Transc ribed By: ISAURA Transc ribed Date/T tom: 11:44 am Frankie koenig Class: Outpat ient [facility] (Outpt Imaging) [address] [place] [address], [place], [address], 05/28/2024 12:19:12 05/28/2005/28/2024 mm digit al mammo bilat eral PROCED [...] right breast at the area of the frankie koenig's palpab le concer n, at the 5 to 8:00 positi on 3 to 9 cm from the nipple . No abnorm ality seen. [employer] ed ultras ound was perfor med in the left breast at the area of the frankie t's palpab le concer n, at the 12 to 3:00 positi on 1 to 6 cm from the nipple . No abnorm ality seen. IMPRES JANET: No mammog raphic or sonogr aphic eviden ce of malign montse. RECOMM ENDATI ON: Annual mammog raphic screen ing BI-RAD S: 1 (Negat may) Lay letter mailed to frankie koenig I have person ally review ed the images and I agree with this report . WSN: [id number] Eugene ng Physic kenny: Timbo Mae Dictat ed By: Juanita Ramirez DO Dictat ed Date/T tom: 12:03 pm Review ed By: Jamie Heaton MD Signed By: Jamie Heaton MD Signed Date/T tom: 12:08 pm Transc ribed By: CSB Transc riptio n Date/T tom: 11:44 am Birads : Frankie koenig Class: Outpat ient [facility] (Outpt Imaging) [address] [place], [address], 05/28/2024 12:19:12 07/14/20 24 07/13/2024 XR, hip + pelvi s, bilat eral AP pelvis and bilate ral hips 5 views total dated Dece er 2023. Compar romel films are from December 21, 2021 and 2016. HISTOR Y: Pain. FINDIN GS: This [...] the care of this patien t. WSN: [id number] Orderi ng Physic kenny: Timbo Ortiz Dictat ed By: Jamie Heaton MD Dictat ed Date/T tom: 9:55 am Review ed By: Jamie Heaton MD Signed By: Jamie Heaton MD Signed Date/T tom: 9:55 am Transc ribed By: ISAURA Transc ribed Date/T tom: 9:55 am Patien t Class: Outpat ient [facility] (Outpt Imaging) [address] , [place], [address], 07/14/2024 10:22:01 07/29/20 24 07/29/2024 US msk [...] ng was also perfor med by the inter reting radiol ogist. There is no sonogr [...] uing as the partia lly-vi sualiz ed mobile home laborer ior intero sseous nerve. 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 No olecra non bursal fluid collec tion is identi fied. The tricep s brachi i combin ed latera l and long head tendon , as well as the medial head tendon are intact at the olecra non insert ion. The olecra non demons trates normal mobile home laborer ior contou r. IMPRES JANET: 1. No elbow mass or fluid collec tion. 2. Incide ntal bifid ulnar nerve, otherw ise normal in appear ance. WSN: [id number] Orderi ng Physic kenny: Timbo Mae Dictat ed By: Colin Jaquez MD Dictat ed Date/T tom: 4:06 pm Review ed By: Colin Jaquez MD Signed By: Colin Jaquez MD Signed Date/T tom: 4:06 pm Transc ribed By: ISAURA Transc ribed Date/T tom: 1:32 pm Patien t Class: Outpat ient [facility] (Outpt Imaging) [address] [facility], [place], [address], 07/29/2024 17:55:12 Result Notes None recorded. Problems Name Problem SNOMED Code Status Onset Date Resolution Date Notes Provider Name and Address Organization Details Recorded Time Abdomina l pain 96168296 Completed 201303/17/2014 RECORDED 02/02/20 14 8:32AM BY HELEN GRAYSON I ANNOTATI ON/ADDEN DUM Trini Ortiz, [place] [address], [place], [address] , [facility] 3 14:37:10 Acute sinusiti s 83160654 Completed 201103/17/2014 RECORDED 02/20/20 12 2:39PM BY MIRIAM HENDRIX MA, EDOUARDATI ON/ADDEN DUM Not Available [facility] 4 12:45:23 Acute upper respirat ory infectio n of multiple sites Completed 201103/17/2014 RECORDED 02/20/20 12 2:41PM BY MIRIAM HENDRIX MA, ANNOTATI ON/ADDEN DUM Not Available [facility] 4 12:45:23 Patient status finding [id number] Completed 201103/17/2014 RECORDED 08/05/20 12 11:47AM BY MIRIAM HENDRIX MA, ANNOTATI ON/ADDEN DUM [facility] 7 12:54:17 Chest pain 34330600 Completed 201303/17/2014 STORY: NE RULED OUT / / CONT CURRENT RISK REDUCTIO N PLAN.; RECORDED 01/27/20 14 7:39AM BY EDOUARD CLEMENTEATI ON/ADDEN DUM Trini Ortiz, [place] [address], [place], [address] , [facility] 2 09:23:46 Screenin g for malignan t neoplasm of breast Completed 201103/17/2014 RECORDED 02/20/20 12 2:38PM BY MIRIAM HENDRIX MA, EDOUARDATI ON/ADDEN DUM Not Available [facility] 4 12:45:23 Disorder of breast 02062300 Completed 201103/17/2014 RECORDED 02/20/20 12 2:41PM BY MIRIAM HENDRIX MA, ANNOTATI ON/ADDEN DUM Not Available [facility] 4 12:45:23 Screenin g for malignan t neoplasm of cervix Completed 201103/17/2014 RECORDED 02/20/20 12 2:39PM BY MIRIAM HENDRIX MA, ANNOTATI ON/ADDEN DUM Not Available [facility] 4 12:45:23 Chronic sinusiti s 59485226 Completed 201103/17/2014 RECORDED 02/20/20 12 2:39PM BY MIRIAM HENDRIX MA, ANNOTATI ON/ADDEN DUM Not Available [facility] 4 12:45:24 Herpes simplex 48494444 Completed 201103/17/2014 RECORDED 07/23/20 12 10:39AM BY MIRIAM HENDRIX MA, ANNOTATI ON/ADDEN DUM Not Available [facility] 4 12:45:24 Cough 38280346 Completed 201103/17/2014 RECORDED 02/20/20 12 2:37PM BY MIRIAM HENDRIX MA, EDOUARDATI ON/ADDEN DUM rTini Ortiz, [place] [address], [place], [address] , [facility] 3 14:41:04 Divertic ulitis of colon 970874796 Active 2013 Not Available [facility] 3 09:20:30 Divertic ulitis of colon 891965398 Completed 201303/17/2014 RECORDED 02/02/20 14 8:32AM BY NEDA CLEMENTE ON/ADDEN DUM Yumiko fraser [facility] 7 12:54:25 Dysfunct ion of eustachi an tube 79894899 Completed 201303/17/2014 RECORDED 02/02/20 14 8:31AM BY DEOUARD CLEMENTEATI ON/ADDEN DUM Yumiko fraser MA [facility] 7 12:56:38 Dysphagi a 60481070 Completed 201103/17/2014 RECORDED 02/20/20 12 2:39PM BY MIRIAM HENDRIX MA, ANNOTATI ON/ADDEN DUM Not Available [facility] 4 12:45:24 Enthesop athy of knee 94253017 Completed 201103/17/2014 RECORDED 02/20/20 12 2:39PM BY MIRIAM HENDRIX MA, ANNOTATI ON/ADDEN DUM Not Available [facility] 4 12:45:24 Follow-u p encounte r Completed 201303/17/2014 RECORDED 01/27/20 14 7:39AM BY HELEN GRAYSON I, EDOUARDATI ON/ADDEN DUM Not Available [facility] 4 12:45:24 Ill-defi inez disorder of eye Completed 201203/17/2014 RECORDED 06/14/20 13 11:23AM BY MIRIAM HENDRIX MA, ANNOTATI ON/ADDEN DUM Not Available [facility] 4 12:45:24 Influenz a vaccine needed 55787335342 06 Completed 200903/17/2014 RECORDED 08/14/19 10 1:37PM BY CONNIE HENRIQUEZ MD, OFFICE VISIT Not Available [facility] 4 12:45:24 Adult health examinat ion Completed 201203/17/2014 RECORDED 06/14/20 13 11:24AM BY MIRIAM HENDRIX MA, EDOUARDATI ON/ADDEN DUM Not Available [facility] 4 12:45:24 Disorder of skin pigmenta tion 09624718 Completed 201103/17/2014 RECORDED 02/20/20 12 2:42PM BY MIRIAM HENDRIX MA, ANNOTATI ON/ADDEN DUM Not Available [facility] 4 12:45:24 Insomnia 582127310 Completed 201103/17/2014 RECORDED 02/20/20 12 2:38PM BY MIRIAM HENDRIX MA, EDOUARDATI ON/ADDEN DUM Trini Ortiz, [facility] [address], [place], [address] , [facility] 3 11:10:55 Laborato ry procedur e performe d 680588797 Completed 201203/17/2014 RECORDED 01/16/20 13 8:19AM BY VIVIEN AREVALO MA, ANNOTATI ON/ADDEN DUM Not Available [facility] 4 12:45:25 Low back pain 661169122 Completed 201303/17/2014 RECORDED 02/02/20 14 8:31AM BY HELEN GRAYSON I ANNOTATI ON/ADDEN DUM Yumiko fraser, [facility] 7 12:54:53 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 12711690 Completed 201303/17/2014 RECORDED 01/27/20 14 7:39AM BY EDOUARD CLEMENTEATI ON/ADDEN DUM Yumiko fraser, [facility] 7 12:54:39 Mitral valve disorder 89133057 Completed 201103/17/2014 RECORDED 02/20/20 12 2:39PM BY MIRIAM HENDRIX MA, ANNOTATI ON/ADDEN DUM Yumiko fraser, [facility] 7 12:54:29 Neck pain 49371958 Completed 201103/17/2014 RECORDED 07/23/20 12 10:39AM BY MIRIAM HENDRIX MA, ANNOTATI ON/ADDEN DUM Not Available [facility] 4 12:45:25 Active or passive immuniza tion Completed 200703/17/2014 RECORDED 11/16/19 08 3:08PM BY CONNIE HENRIQUEZ MD, OFFICE VISIT Not Available [facility] 4 12:45:25 Administ ration of viral vaccine Completed 200803/17/2014 RECORDED 02/14/20 09 11:55AM BY ALEXANDRIA AREVALO, OFFICE VISIT Not Available [facility] 4 12:45:25 Administ ration of bacteria l and viral vaccine Completed 200703/17/2014 RECORDED 11/16/19 08 3:18PM BY CONNIE HENRIQUEZ MD, OFFICE VISIT Not Available [facility] 4 12:45:25 Degenera tive joint disease of hand 22309922 Completed 201103/17/2014 RECORDED 02/20/20 12 2:41PM BY MIRIAM HENDRIX MA, EDOUARDATI ON/ADDEN DUM Not Available [facility] 4 12:45:25 Infectiv e otitis externa 40580197 Completed 201103/17/2014 RECORDED 02/20/20 12 2:36PM BY MIRIAM HENDRIX MA, EDOUARDATI ON/ADDEN DUM Not Available [facility] 4 12:45:26 Shoulder joint pain 647949527 Completed 201303/17/2014 RECORDED 02/02/20 14 8:31AM BY EDOUARD CLEMENTEATI ON/ADDEN DUM Yumiko fraser MA [facility] 7 12:54:49 Eruption 890482436 Completed 201103/17/2014 RECORDED 02/20/20 12 2:37PM BY MIRIAM HENDRIX MA, ANNOTATI ON/ADDEN DUM Not Available [facility] 4 12:45:26 Chronic rhinitis 80985229 Completed 201303/17/2014 RECORDED 01/27/20 14 10:30AM BY VIVIEN AREVALO MA, ANNOTATI ON/ADDEN DUM Yumiko fraser [facility] 7 12:56:09 Herpes zoster 4287928 Completed 201303/17/2014 RECORDED 01/27/20 14 7:39AM BY EDOUARD CLEMENTEATI ON/ADDEN DUM Not Available [facility] 4 12:45:26 Screenin g for malignan t neoplasm of colon Completed 201103/17/2014 RECORDED 02/20/20 12 2:36PM BY MIRIAM HENDRIX MA, ANNOTATI ON/ADDEN DUM Not Available [facility] 4 12:45:26 Stress 91768100 Completed 201311/26/2016 Yumiko fraser, [facility] 7 12:55:57 Spasm 79681562 Completed 201103/17/2014 RECORDED 07/23/20 12 10:38AM BY MIRIAM HENDRIX MA, ANNOTATI ON/ADDEN DUM Not Available [facility] 4 12:45:26 Abdomina l pain 86183410 Completed 201303/18/2014 RECORDED 02/02/20 14 8:32AM BY NEDA CLEMENTE ON/ADDEN DUM Trini Ortiz [facility] [address] [address], [facility] [address] [facility] 3 14:37:10 Acute sinusiti s 86812945 Completed 201103/18/2014 RECORDED 02/20/20 12 2:39PM BY MIRIAM HENDRIX MA, ANNOTATI ON/ADDEN DUM Not Available [facility] 4 03:45:38 Acute upper respirat ory infectio n of multiple sites Completed 201103/18/2014 RECORDED 02/20/20 12 2:41PM BY MIRIAM HENDRIX MA, ANNOTATI ON/ADDEN DUM Not Available [facility] 4 03:45:38 Patient status finding 801733764 Completed 201103/18/2014 RECORDED 08/05/20 12 11:47AM BY MIRIAM HENDRIX MA, ANNOTATI ON/ADDEN DUM Yumiko fraser, [facility] 7 12:54:17 Chest pain 26680476 Completed 201303/18/2014 STORY: NE RULED OUT / / CONT CURRENT RISK REDUCTIO N PLAN.; RECORDED 01/27/20 14 7:39AM BY NEDA CLEMENTE ON/ADDEN DUM Trini Ortiz [facility] [address], [place], [address] , [facility] 2 09:23:46 Screenin g for malignan t neoplasm of breast Completed 201103/18/2014 RECORDED 02/20/20 12 2:38PM BY MIRIAM HENDRIX MA, ANNOTATI ON/ADDEN DUM Not Available [facility] 4 03:45:38 Disorder of breast 57167429 Completed 201103/18/2014 RECORDED 02/20/20 12 2:41PM BY MIRIAM HENDRIX MA, ANNOTATI ON/ADDEN DUM Not Available [facility] 4 03:45:38 Screenin g for malignan t neoplasm of cervix Completed 201103/18/2014 RECORDED 02/20/20 12 2:39PM BY MIRIAM HENDRIX MA, ANNOTATI ON/ADDEN DUM Not Available [facility] 4 03:45:38 Chronic sinusiti s 00790558 Completed 201103/18/2014 RECORDED 02/20/20 12 2:39PM BY MIRIAM HENDRIX MA, ANNOTATI ON/ADDEN DUM Not Available [facility] 4 03:45:38 Herpes simplex 89443273 Completed 201103/18/2014 RECORDED 07/23/20 12 10:39AM BY MIRIAM HENDRIX MA, ANNOTATI ON/ADDEN DUM Not Available [facility] 4 03:45:38 Cough 52230777 Completed 201103/18/2014 RECORDED 02/20/20 12 2:37PM BY MIRIAM HENDRIX MA, ANNOTATI ON/ADDEN DUM Trini Ortiz, [facility] [address], [place], [address] , [facility] 3 14:41:04 Divertic ulitis of colon 158313165 Completed 201303/18/2014 RECORDED 02/02/20 14 8:32AM BY HELEN GRAYSON I, ANNOTATI ON/ADDEN DUM Yumiko fraser, [facility] 7 12:54:25 Dysfunct ion of eustachi an tube 46188161 Completed 201303/18/2014 RECORDED 02/02/20 14 8:31AM BY NEDA CLEMENTE ON/ADDEN DUM Yumiko Smith MA bria, [facility] 7 12:56:38 Dysphagi a 95251561 Completed 201103/18/2014 RECORDED 02/20/20 12 2:39PM BY MIRIAM HENDRIX MA, EDOUARDATI ON/ADDEN DUM Not Available [facility] 4 03:45:38 Enthesop athy of knee 76015207 Completed 201103/18/2014 RECORDED 02/20/20 12 2:39PM BY MIRIAM HENDRIX MA, EDOUARDATI ON/ADDEN DUM Not Available [facility] 4 03:45:38 Follow-u p encounte r Completed 201303/18/2014 RECORDED 01/27/20 14 7:39AM BY EDOUARD CLEMENTEATI ON/ADDEN DUM Not Available [facility] 4 03:45:38 Ill-defi inez disorder of eye Completed 201203/18/2014 RECORDED 06/14/20 13 11:23AM BY MIRIAM HENDRIX MA, EDOUARDATI ON/ADDEN DUM Not Available [facility] 4 03:45:38 Influenz a vaccine needed 96653056159 06 Completed 200903/18/2014 RECORDED 08/14/19 10 1:37PM BY CONNIE HENRIQUEZ MD, OFFICE VISIT Not Available [facility] 4 03:45:38 Adult health examinat ion Completed 201203/18/2014 RECORDED 06/14/20 13 11:24AM BY MIRIAM HENDRIX MA, ANNOTATI ON/ADDEN DUM Not Available [facility] 4 03:45:38 Disorder of skin pigmenta tion 92414201 Completed 201103/18/2014 RECORDED 02/20/20 12 2:42PM BY MIRIAM HENDRIX MA, ANNOTATI ON/ADDEN DUM Not Available [facility] 4 03:45:38 Insomnia 734031676 Completed 201103/18/2014 RECORDED 02/20/20 12 2:38PM BY MIRIAM HENDRIX MA, ANNOTATI ON/ADDEN DUM Trini Ortiz, [facility] [address], [place], [address] , [facility] 3 11:10:55 Laborato ry procedur e performe d 198027304 Completed 201203/18/2014 RECORDED 01/16/20 13 8:19AM BY VIVIEN AREVALO MA, ANNOTATI ON/ADDEN DUM Not Available [facility] 4 03:45:39 Low back pain 290592936 Completed 201303/18/2014 RECORDED 02/02/20 14 8:31AM BY EDOUARD CLEMENTEATI ON/ADDEN DUM Yumiko fraser, [facility] 7 12:54:53 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 48683535 Completed 201303/18/2014 RECORDED 01/27/20 14 7:39AM BY EDOUARD CLEMENTEATI ON/ADDEN DUM Yumiko fraser, [facility] 7 12:54:39 Mitral valve disorder 22758618 Completed 201103/18/2014 RECORDED 02/20/20 12 2:39PM BY MIRIAM HENDRIX MA, NEDA ON/ADDEN DUM Yumiko fraser, [facility] 7 12:54:29 Neck pain 23597206 Completed 201103/18/2014 RECORDED 07/23/20 12 10:39AM BY MIRIAM HENDRIX MA, ANNOTATI ON/ADDEN DUM Not Available [facility] 4 03:45:39 Active or passive immuniza tion Completed 200703/18/2014 RECORDED 11/16/19 08 3:08PM BY CONNIE HENRIQUEZ MD, OFFICE VISIT Not Available [facility] 4 03:45:39 Administ ration of viral vaccine Completed 200803/18/2014 RECORDED 02/14/20 09 11:55AM BY ALEXANDRIA AREVALO, OFFICE VISIT Not Available [facility] 4 03:45:39 Administ ration of bacteria l and viral vaccine Completed 200703/18/2014 RECORDED 11/16/19 08 3:18PM BY CONNIE HENRIQUEZ MD, OFFICE VISIT Not Available [facility] 4 03:45:39 Degenera tive joint disease of hand 39522485 Completed 201103/18/2014 RECORDED 02/20/20 12 2:41PM BY MIRIAM HENDRIX MA, ANNOTATI ON/ADDEN DUM Not Available [facility] 4 03:45:39 Infectiv e otitis externa 46260067 Completed 201103/18/2014 RECORDED 02/20/20 12 2:36PM BY MIRIAM HENDRIX MA, ANNOTATI ON/ADDEN DUM Not Available [facility] 4 03:45:39 Shoulder joint pain 042936658 Completed 201303/18/2014 RECORDED 02/02/20 14 8:31AM BY HELEN GRAYSON I, ANNOTATI ON/ADDEN DUM Yumiko fraser MA - [facility] 7 12:54:49 Eruption 051764254 Completed 201103/18/2014 RECORDED 02/20/20 12 2:37PM BY MIRIAM HENDRIX MA, ANNOTATI ON/ADDEN DUM Not Available [facility] 4 03:45:39 Chronic rhinitis 93177128 Completed 201303/18/2014 RECORDED 01/27/20 14 10:30AM BY VIVIEN AREVALO MA, ANNOTATI ON/ADDEN DUM Yumiko fraser MA - [facility] 7 12:56:09 Herpes zoster 6255567 Completed 201303/18/2014 RECORDED 01/27/20 14 7:39AM BY HELEN GRAYSON I, ANNOTATI ON/ADDEN DUM Not Available [facility] 4 03:45:39 Screenin g for malignan t neoplasm of colon Completed 201103/18/2014 RECORDED 02/20/20 12 2:36PM BY MIRIAM HENDRIX MA, ANNOTATI ON/ADDEN DUM Not Available [facility] 4 03:45:39 Spasm 64499364 Completed 201103/18/2014 RECORDED 07/23/20 12 10:38AM BY MIRIAM HENDRIX MA, ANNOTATI ON/ADDEN DUM Not Available [facility] 4 03:45:39 Hyperlip idemia 51853352 Active Not Available [facility] 3 09:20:31 Anxiety 57468272 Active Not Available [facility] 3 09:20:30 Abdomina l pain 38444409 Completed 11/26/2016 Trini Ortiz, [facility] [address], [place], [address] , [facility] 3 14:37:10 Liver enzymes outside referenc e range 665309944 Completed 11/26/2016 Yumiko fraser [facility] 7 12:54:35 Knee pain Completed 11/26/2016 Yumiko fraser [facility] 8 14:02:45 Herpes labialis 4755049 Completed 11/26/2016 Yumiko fraser [facility] 7 12:54:31 Seasonal allergic conjunct ivitis 678537929 Active Not Available [facility] 3 09:20:30 Carotid bruit 164965052 Active Not Available [facility] 3 09:20:30 Allergic conjunct ivitis 859101519 Completed 11/26/2016 Yumiko fraser [facility] 7 12:58:12 Sciatica 42351829 Completed 11/26/2016 Yumiko fraser, [facility] 7 12:54:46 Knee pain Active 2017 Not Available [facility] 3 09:20:30 Major depressi on single episode, in partial remissio n 61073047 Active 2018 Not Available [facility] 3 09:20:31 Hyperten sive disorder 33067754 Completed 201601/13/2020 Vivien espinosa, JESSENIA fraser, [facility] 0 13:46:29 Total hysterec hector Active Not Available [facility] 3 09:20:30 COVID-19 192032414 Completed 202011/15/2020 Removal Reason: Problem marked historic al by user pmadden from the COVID-19 watch flag Jewel Gilbert PA-C [address], [place], [address] , [facility] 1 12:39:42 Total hysterec hector with removal of both tubes and ovaries Active around age 30 Not Available [facility] 3 09:20:31 Pain of right knee joint 47494609245 4100 Active 2021 Not Available [facility] 3 09:20:30 Neutrope ayesha 372567162 Active 2021 Not Available [facility] 3 09:20:30 Tear of meniscus of knee 551997890 Active 2021 Not Available [facility] 3 09:20:30 Pain in coccyx 04407132 Active 2021 Not Available [facility] 3 09:20:30 Pain of left hip joint 67553055378 9100 Active 2021 Not Available [facility] 3 09:20:30 Pain of left knee joint 25197721434 4107 Active 2021 Not Available [facility] 3 09:20:30 Hyperten janet monitori ng declined 703801476 Active 2021 accuheal th Not Available [facility] 3 09:20:31 Fracture of femoral condyle 504645374 Active 2021 Not Available [facility] 3 09:20:30 Nocturia 127528981 Active 2021 Not Available [facility] 3 09:20:30 Hearing loss 46956390 Active 2021 Not Available [facility] 3 09:20:30 Leukopen ia 99883938 Active 2021 Not Available [facility] 3 09:20:31 Thromboc ytopenic disorder 882771001 Active 2021 Not Available [facility] 3 09:20:30 Chest pain 68742391 Active 2021 STORY: NE RULED OUT / / CONT CURRENT RISK REDUCTIO N PLAN.; RECORDED 01/27/20 14 7:39AM BY HELEN GRAYSON I, ANNOTATI ON/ADDEN DUM Not Available [facility] 3 09:20:30 Serum creatini ne above referenc e range 155442384 Active 2021 Not Available [facility] 3 09:20:30 Pneumoni a 908190428 Active 2021 Not Available [facility] 3 09:20:30 Cough 57813475 Active 2022 RECORDED 02/20/20 12 2:37PM BY MIRIAM HENDRIX MA, ANNOTATI ON/ADDEN DUM Not Available [facility] 3 09:20:30 Edema of lower extremit y 898176685 Active 2022 Not Available [facility] 3 09:20:29 Serum thyroid stimulat ing hormone level outside referenc e range 179636770 Active 2022 Not Available [facility] 3 09:20:30 Edema 437559398 Active 2022 Not Available [facility] 3 09:20:30 Nausea 531542242 Active 2022 Not Available [facility] 3 09:20:30 Posterio r rhinorrh ea 42701108 Active 2022 Not Available [facility] 3 09:20:31 Chronic pneumoni a 42816435845 9104 Active 2022 Not Available [facility] 3 09:20:29 Pain of left shoulder joint 13610449225 138656 Active 2022 Not Available [facility] 3 09:20:30 Insomnia 493920477 Active 2022 RECORDED 02/20/20 12 2:38PM BY MIRIAM HENDRIX MA, ANNOTATI ON/ADDEN DUM Not Available [facility] 3 09:20:30 Muscle spasm of cervical muscle of neck 51520090394 4 Active 2022 Not Available [facility] 3 09:20:30 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 2022 Not Available [facility] 3 09:20:30 Urinary incontin ence 853362550 Active 2022 Trini Ortiz, [facility] [address], [place], [address] , [facility] 3 14:32:14 Abdomina l pain 82732441 Active 2022 Trini Ortiz, [facility] [address], [place], [address] , [facility] 3 14:37:10 Body mass index 30+ - obesity 574476608 Active 2022 Trini Ortiz, PASUP [address], [place], [address] , [facility] 3 14:54:16 Excessiv e thirst 44280600 Active 2022 Trini Ortiz, PASUP [address], [place], [address] , [facility] 3 14:57:02 Multiple joint pain 74852178 Active 2022 RODNEY JamesUP [address] [address], [place], [address] , [facility] 3 14:59:45 Moderate persiste nt asthma 699070216 Active 2022 Trini Ortiz PASUP [address] [address], [place], [address] , [facility] 3 15:04:00 Obesity 526909780 Active 2022 Trini Ortiz, EDGAR [address] [place] [address], [place], [address] , [facility] 3 14:47:34 Lump in upper outer quadrant of left breast 92952065663 4103 Active 2023 EDGAR James [address] [place] [address], [place], [address] , [facility] 4 15:01:52 Mass of joint of left elbow 83145868816 440065 Active 2023 EDGAR James [address] [place] [address], [place], [address] , [facility] 4 15:04:08 Bone density finding 846929869 Active 2023 EDGAR James [address] [address], [place], [address] , [facility] 4 09:57:53 Inguinal pain 628803532 Active 2023 EDGAR James [address] [address], [place], [address] , [facility] 4 10:10:41 Strain of muscle of right groin region 95753694167 980117 Active 2023 EDGAR James [address] [address], [place], [address] , [facility] 4 10:11:20 Acute sinusiti s 33434374 Completed 201102/22/2014 RECORDED 02/20/20 12 2:39PM BY MIRIAM HENDRIX MA, ANNOTATI ON/ADDEN DUM Not Available [facility] 4 14:27:37 Acute upper respirat ory infectio n of multiple sites Completed 201102/22/2014 RECORDED 02/20/20 12 2:41PM BY MIRIAM HENDRIX MA, ANNOTATI ON/ADDEN DUM Not Available [facility] 4 14:27:37 Allergic rhinitis 67604228 Completed 201311/26/2016 RECORDED 02/22/20 14 8:27AM BY RIMMA VARGAS, OFFICE VISIT [facility] 7 12:55:38 Anemia 353469843 Active 2013 Not Available [facility] 3 09:20:30 Patient status finding 513485175 Completed 201102/22/2014 RECORDED 08/05/20 12 11:47AM BY MIRIAM HENDRIX MA, ANNOTATI ON/ADDEN DUM Yumiko fraser, [facility] 7 12:54:17 Chest pain 52146371 Completed 201202/22/2014 STORY: NE RULED OUT / / CONT CURRENT RISK REDUCTIO N PLAN.; RECORDED 01/16/20 13 8:19AM BY VIVIEN AREVALO MA, ANNOTATI ON/ADDEN DUM Trini Ortiz, PASUP [address], [place], [address] , [facility] 2 09:23:46 Screenin g for malignan t neoplasm of breast Completed 201102/22/2014 RECORDED 02/20/20 12 2:38PM BY MIRIAM HENDRIX MA, ANNOTATI ON/ADDEN DUM Not Available [facility] 4 14:27:37 Disorder of breast 58892830 Completed 201102/22/2014 RECORDED 02/20/20 12 2:41PM BY MIRIAM HENDRIX MA, ANNOTATI ON/ADDEN DUM Not Available [facility] 4 14:27:37 Cardiova scular system problem 007966259 Active 2013 Not Available [facility] 3 09:20:30 Screenin g for malignan t neoplasm of cervix Completed 201102/22/2014 RECORDED 02/20/20 12 2:39PM BY MIRIAM HENDRIX MA, ANNOTATI ON/ADDEN DUM Not Available [facility] 4 14:27:38 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 Not Available [facility] 3 09:20:31 Chronic sinusiti s 80008700 Completed 201102/22/2014 RECORDED 02/20/20 12 2:39PM BY MIRIAM HENDRIX MA, ANNOTATI ON/ADDEN DUM Not Available [facility] 4 14:27:38 Herpes simplex 00103063 Completed 201102/22/2014 RECORDED 07/23/20 12 10:39AM BY MIRIAM HENDRIX MA, ANNOTATI ON/ADDEN DUM Not Available [facility] 4 14:27:38 Cough 40645725 Completed 201102/22/2014 RECORDED 02/20/20 12 2:37PM BY MIRIAM HENDRIX MA, ANNOTATI ON/ADDEN DUM Trini Ortiz, [facility] [address], [place], [address] , [facility] 3 14:41:04 Dysfunct ion of eustachi an tube 53374201 Active 2012 Not Available [facility] 3 09:20:31 Dysphagi a 34424359 Completed 201102/22/2014 RECORDED 02/20/20 12 2:39PM BY MIRIAM HENDRIX MA, ANNOTATI ON/ADDEN DUM Not Available [facility] 4 14:27:38 Enthesop athy of knee 75162258 Completed 201102/22/2014 RECORDED 02/20/20 12 2:39PM BY MIRIAM HENDRIX MA, NEDA ON/ADDEN DUM Not Available [facility] 4 14:27:38 Ill-defi inez disorder of eye Completed 201202/22/2014 RECORDED 06/14/20 13 11:23AM BY MIRIAM HENDRIX MA, NEDA ON/ADDEN DUM Not Available [facility] 4 14:27:38 Influenz a vaccine needed 68009810650 06 Completed 200902/22/2014 RECORDED 08/14/19 10 1:37PM BY CONNIE HENRIQUEZ MD, OFFICE VISIT Not Available [facility] 4 14:27:38 Adult health examinat ion Completed 201202/22/2014 RECORDED 06/14/20 13 11:24AM BY MIRIAM HENDRIX MA, NEDA ON/ADDEN DUM Not Available [facility] 4 14:27:38 Gastroes ophageal reflux disease 484863260 Active 2013 Not Available [facility] 3 09:20:30 Follow-u p encounte r Completed 201102/22/2014 RECORDED 08/05/20 12 11:47AM BY MIRIAM HENDRIX MA, ANNOTATI ON/ADDEN DUM Not Available [facility] 4 14:27:38 Essentia l hyperten janet 01193711 Active 2013 Not Available [facility] 3 09:20:31 Thyrotox icosis 67867197 Active 2013 Not Available [facility] 3 09:20:31 Disorder of skin pigmenta tion 12640094 Completed 201102/22/2014 RECORDED 02/20/20 12 2:42PM BY MIRIAM HENDRIX MA, ANNOTATI ON/ADDEN DUM Not Available [facility] 4 14:27:39 Hypothyr oidism 91006065 Active 2016 Not Available [facility] 3 09:20:30 Insomnia 134808368 Completed 201102/22/2014 RECORDED 02/20/20 12 2:38PM BY MIRIAM HENDRIX MA, ANNOTATI ON/ADDEN DUM Trini Ortiz, [facility] [address], [place], [address] , [facility] 3 11:10:55 Irritabl e bowel syndrome 52474707 Active 2013 Not Available [facility] 3 09:20:30 Laborato ry procedur e performe d 580827187 Completed 201202/22/2014 RECORDED 01/16/20 13 8:19AM BY VIVIEN AREVALO MA, EDOUARDATI ON/ADDEN DUM Not Available [facility] 4 14:27:39 Low back pain 561962930 Completed 201211/26/2016 RECORDED 06/14/20 13 11:24AM BY MIRIAM HENDRIX MA, OFFICE VISIT Yumiko fraser, [facility] 7 12:54:53 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 64928522 Active 2012 Not Available [facility] 3 09:20:30 Mitral valve disorder 60069345 Completed 201102/22/2014 RECORDED 02/20/20 12 2:39PM BY MIRIAM HENDRIX MA, ANNOTATI ON/ADDEN DUM Yumiko fraser, [facility] 7 12:54:29 Mitral valve disorder 96458020 Active 2013 Not Available [facility] 3 09:20:30 Neck pain 07402082 Completed 201102/22/2014 RECORDED 07/23/20 12 10:39AM BY MIRIAM HENDRIX MA, ANNOTATI ON/ADDEN DUM Not Available [facility] 4 14:27:39 Active or passive immuniza tion Completed 200702/22/2014 RECORDED 11/16/19 08 3:08PM BY CONNIE HENRIQUEZ MD, OFFICE VISIT Not Available [facility] 4 14:27:39 Administ ration of viral vaccine Completed 200802/22/2014 RECORDED 02/14/20 09 11:55AM BY ALEXANDRIA AREVALO, OFFICE VISIT Not Available [facility] 4 14:27:39 Administ ration of bacteria l and viral vaccine Completed 200702/22/2014 RECORDED 11/16/19 08 3:18PM BY CONNIE HENRIQUEZ MD, OFFICE VISIT Not Available [facility] 4 14:27:40 Neutrope nathen disorder 231072522 Active 2013 Not Available [facility] 3 09:20:30 Patient status finding 640479203 Completed 201311/26/2016 RECORDED 02/22/20 14 8:39AM BY RIMMA VARGAS, OFFICE VISIT Yumiko fraser, [facility] 7 12:54:17 Degenera tive joint disease of hand 06946003 Completed 201102/22/2014 RECORDED 02/20/20 12 2:41PM BY MIRIAM HENDRIX MA, ANNOTATI ON/ADDEN DUM Not Available [facility] 4 14:27:40 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 Not Available [facility] 3 09:20:30 Infectiv e otitis externa 78148042 Completed 201102/22/2014 RECORDED 02/20/20 12 2:36PM BY MIRIAM HENDRIX MA, ANNOTATI ON/ADDEN DUM Not Available [facility] 4 14:27:40 Shoulder joint pain 629445242 Completed 201211/26/2016 RECORDED 06/14/20 13 11:24AM BY MIRIAM HENDRIX MA, OFFICE VISIT Yumiko fraser, [facility] 7 12:54:49 Palpitat ions 44092701 Completed 201311/26/2016 Yumiko fraser [facility] 7 12:57:10 Eruption 738380550 Completed 201102/22/2014 RECORDED 02/20/20 12 2:37PM BY MIRIAM HENDRIX MA, ANNOTATI ON/ADDEN DUM Not Available [facility] 4 14:27:40 Chronic rhinitis 82217311 Completed 201211/26/2016 Yumiko fraser [facility] 7 12:56:09 Herpes zoster 7201302 Completed 201202/22/2014 RECORDED 01/16/20 13 8:19AM BY VIVIEN AREVALO MA, ANNOTATI ON/ADDEN DUM Not Available [facility] 4 14:27:40 Screenin g for malignan t neoplasm of colon Completed 201102/22/2014 RECORDED 02/20/20 12 2:36PM BY MIRIAM HENDRIX MA, ANNOTATI ON/ADDEN DUM Not Available [facility] 4 14:27:40 Spasm 29898402 Completed 201102/22/2014 RECORDED 07/23/20 12 10:38AM BY MIRIAM HENDRIX MA, ANNOTATI ON/ADDEN DUM Not Available [facility] 4 14:27:41 Vitamin D deficien 85942324 Active 2013 Not Available [facility] 3 09:20:30 Problem Notes None recorded. Procedures Surgical History Date Name Laterality Status Provider Name and Address Organization Details Recorded Time 06/20/20 23 Most Recent Mammogram completed Suzie Jaffe [facility] 06/20/2023 14:17:00 12/06/19 23 Bronchoscopy completed Suzie Jaffe [facility] 12/11/2022 09:47:35 06/19/20 22 Mammogram screening completed Vivien singh MA [facility] 10/03/2022 09:31:00 02/26/20 22 repair of meniscus completed Connie Miller MA [facility] 04/02/2022 08:44:31 01/13/20 20 Six-Item Cognitive Test completed Vivien singh MA [facility] 01/13/2020 14:08:24 12/28/19 20 Endoscopic us exam esoph completed Qiana Money [facility] 12/28/2019 10:57:24 12/28/19 20 balloon dilation of esophagus completed Vivien singh MA [facility] 01/13/2020 14:02:40 11/28/19 19 Mini-Cog Test completed Yumiko Smith MA [facility] 11/27/2018 11:12:43 10/07/19 18 Mini-Cog Test completed Yumikosharla Smith [facility] 10/07/2017 13:56:19 04/11/20 17 Mammogram one breast completed Vivien singh MA [facility] 04/30/2017 16:04:21 05/23/20 16 Fall Risk Assessment completed Yumikosharla Smith [facility] 05/23/2016 13:03:08 05/23/20 16 Mini-Cog Test completed Yumikosharla Smith [facility] 05/23/2016 13:04:33 05/04/20 14 Date of Last Colonoscopy completed Swapna Fofana [facility] 06/06/2016 11:19:53 05/04/20 14 Colonoscopy completed Swapna Fofana [facility] 06/06/2016 11:19:39 04/21/20 12 Most Recent Bone Density completed Yumiko Smith [facility] 10/07/2017 14:02:13 [employer]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 [facility] 03/30/2015 08:46:47 Appendectomy completed [facility] 03/30/2015 08:46:47 Breast Biopsy completed [facility] 03/30/2015 08:46:47 Dilation and Curettage completed [facility] 03/30/2015 08:46:47 Tonsillectomy completed [facility] 03/30/2015 08:46:47 Endometrial Biopsy completed Aspen Adornot [facility] 03/30/2015 08:46:47 Neurosurgery completed Aspen Adornot [facility] 03/30/2015 08:46:47 Total hysterectomy completed Vivien singh MA [facility] 01/13/2020 13:47:09 Hysterectomy completed Vivien singh MA [facility] 05/07/2024 14:35:12 Imaging Results Imaging Date Name Status LastModified by Organiz ation Details LastModified Time 04/03/2023 US, pelvis completed [facility] [address] [place], [address], 04/07/2023 09:36:18 04/07/2023 XR, shoulder, 2 or more view completed [facility] (Outpt Imaging) [address] [place] [address], [address], 04/08/2023 15:23:39 04/07/2023 XR, knee, 3 view completed [facility] (Outpt Imaging) [address] [place] [address], [address], 04/08/2023 15:22:51 04/05/2023 XR, shoulder completed [facility] [address] [place], [address], 04/08/2023 15:03:31 04/19/2023 MRI, knee, w/o contrast completed [facility] ([facility] [address] [place], [address], 04/23/2023 17:30:30 04/30/2023 MRI, shoulder, w/o contrast completed [facility] ([facility] [address] [place], [address], 05/01/2023 14:56:50 06/20/2023 MAMMO, screening, digital, bilateral completed [email or web address] [facility] (Outpt Imaging) [address] [place], [address], 06/20/2023 14:17:04 07/14/2023 CT, chest, w/o contrast completed [email or web address] [facility] (Medical Records) [address] [place], [address], 07/22/2023 15:22:36 07/14/2023 CT, chest, w/o contrast completed [facility] Information not available 08/14/2023 11:49:56 05/28/2024 US, breast, limited completed [facility] (Outpt Imaging) [address] [place], [address], 05/28/2024 12:19:12 05/28/2024 mm digital mammo bilateral completed [facility] (Outpt Imaging) [address] [place], [address], 05/28/2024 12:19:12 07/13/2024 XR, hip + pelvis, bilateral completed [facility] (Outpt Imaging) [address] [place], [address], 07/14/2024 10:22:01 07/29/2024 US msk extremity left completed [facility] (Outpt Imaging) [address] [place], [address], 07/29/2024 17:55:12 Procedure Notes None recorded. Medical Equipment None Reported. Allergies Allergen ID Allergen Name Allergen Category Reaction Reaction Severity Criticality Documentation Date Start Date Code Code System Note Provider Name and Address Organization Details Recorded Time 2330 honey bee venom medicatio n Not available Not available Not available 02/22/20142013 72618 7 RxNorm Yumiko fraser [facility] 7 12:53:58 34870 tetracycl ine medicatio n hives Not available Not available 01/13/20202021 22872 RxNorm JESSENIA Franklin, [facility] 2 14:23:43 65258 erythromy ivan medicatio n hives Not available Not available 02/15/20222021 4053 RxNorm JESSENIA Franklin, [facility] 2 14:23:43 93686 codeine medicatio n hives Not available Not available 07/31/20232021 2670 RxNorm Trini Ortiz, [facility] [address], [place], [address], [facility] 4 09:26:07 Medications Name Sig Start Date Stop Date Status Note LastModified by Organization Details LastModified Time estradiol 1 mg tabs 05/23 completed Not Available Not Available Not Available levothyro xine sodium 112 mcg tabs active Not Available [place] [address] .5 ml gracie 05/23 completed Not Available [...] 11/03 completed RECORDED 11/04/19 13 8:33AM BY RIMMA VARGAS, OFFICE VISIT; Not Available Not Available [...] 11/03 completed RECORDED 11/04/19 13 8:33AM BY RIMMA VARGAS, OFFICE VISIT; Not Available Not Available [...] n 0.3 %-dexamet hasone 0.1 % eye drops,[facility] 10/07 completed Not Available Not Available Not [...] 13 12:13PM BY CONNIE HENRIQUEZ MD, ANNOTATI ON/KARISHMA DUM;IN PLACE OF FISH OIL Not Available Not Available Not Available Fish Oil DAILY 04/21 completed RECORDED 04/21/20 12 3:39PM BY RIMMA VARGAS, OFFICE VISIT; Not Available Not Available Not Available omega-3 fatty acids QD 04/21 completed RECORDED 04/21/20 12 3:38PM BY RIMMA VARGAS, OFFICE VISIT; Not Available Not Available [...] and Address Organization Details Last Updated DateTime 3 170.18 cm 33.5 kg/m2 62400.7 7 g 80 /min 98 % 98 % 97.9 [degF] 133 mm[Hg] 79 mm[Hg] Donna Hutchins MA [facility] 3 10:42:14 Date Recorded Body height Body mass index (BMI) Body weight Oxygen saturation Oxygen saturation in Arterial blood by Pulse oximetry Heart rate Body temperature Systolic blood pressure Diastolic blood pressure Provider Name and Address Organization Details Last Updated DateTime 3 170.18 cm 34.3 kg/m2 73927.7 3 g 98 % 98 % 72 /min 97.7 [degF] 111 mm[Hg] 69 mm[Hg] Rimma Vargas MA [facility] 3 14:09:33 Date Recorded Body height Body mass index (BMI) Body weight Heart rate Oxygen saturation Oxygen saturation in Arterial blood by Pulse oximetry Body temperature Systolic blood pressure Diastolic blood pressure Provider Name and Address Organization Details Last Updated DateTime 4 170.18 cm 29.6 kg/m2 59856.9 6 g 60 /min 98 % 98 % 97.3 [degF] 124 mm[Hg] 83 mm[Hg] Brittnee Carlson MA [facility] 4 09:10:57 Date Recorded Body height Body mass index (BMI) Body weight Heart rate Oxygen saturation Oxygen saturation in Arterial blood by Pulse oximetry Body temperature Systolic blood pressure Diastolic blood pressure Provider Name and Address Organization Details Last Updated DateTime 4 170.18 cm 29.3 kg/m2 28748.7 7 g 75 /min 100 % 100 % 97.2 [degF] 155 mm[Hg] 75 mm[Hg] Vivien lao MA [facility] 4 14:43:29 Date Recorded Body height Body mass index (BMI) Body weight Heart rate Oxygen saturation Oxygen saturation in Arterial blood by Pulse oximetry Body temperature Systolic blood pressure Diastolic blood pressure Provider Name and Address Organization Details Last Updated DateTime 4 170.18 cm 28.7 kg/m2 60464.4 g 85 /min 97 % 97 % 97.4 [degF] 104 mm[Hg] 65 mm[Hg] Brittnee Carlson MA [facility] 4 09:43:12 Social History Question Answer Notes LastModified by Organizat ion Details LastModified Time Tobacco Smoking Status [facility]2014 10:43:07 Do You Have An [...] available 03/30/2015 Are You Currently Employed? Yes [email or web address] Information not available 03/21/2014 What Type Of Diet Are You Following? REGULAR Information not available 02/15/2021 Do You Or Have You Ever Used E-cigarettes Or Vape? 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 No Information not available 12/26/2020 What Was The Date Of Your Most Recent Tobacco Screening? 07/13/2024 [email or web address] Information not available 07/13/2024 How Many Children Do You Have? 1 Sanket [email or web address] Information not available 03/21/2014 Do You Use [...] How Much Tobacco Do You Smoke? No [email or web address] Information not available 03/21/2014 General Stress Level [...] you able to care for yourself? Yes [email or web address] Information not available 03/21/2014 What is your exercise level? Occasional Exercise bike Information not available 04/02/2022 Mental Status None recorded. Family History Relationship Description Onset Age of this Age Resolved Age Notes LastModified by Organization Details LastModified Time Mother Malignant neoplasm of skin [email or web address] Not available 10/2023 09:29:18 Father Heart disease [...] History Condition Response Coronary Artery Disease N Other N Gout N Kidney Stones N Blood Diseases Y Hyperthyroidism N Breast Cancer N mrsa exposure N Hypothyroidism Y Depression N COPD N Lung Disease N Developmental or Behavioral Disorders N Defects or Inherited Disease N Breast Problem N Anesthesia Complications N Headaches/Migraines N Varicose Veins N Anxiety Disorder Y Muscle, Joint, or Bone Problems N Obesity Y Vision or Eye Problems Y Arthritis N Head Injury/Concussion N Polyps N Infertility N Mental Disorder N Congenital Anomalies N Acid Reflux (GERD) Y Cancer N Stroke N ADHD N Endometriosis N High Cholesterol N Liver Disease N Headaches N Fibromyalgia N Kidney Disease N Heart Problems Y Ear or Hearing Problems N Hospitalizations Y Thyroid Problems Y GI Problems Y Developmental Delay N Acne N Skin Problems Y Eating Disorder N Anemia N Constipation N Bladder Problems N Mental Illness N Ovarian Cancer N Diabetes N Bedwetting N Blood Transfusions N Seizures/Epilepsy N Heart Problems/Murmur N Tuberculosis N AIDS/HIV N Congestive Heart Failure (CHF) N Eczema N Diverticulitis Y Abuse/Domestic Violence N Asthma N Allergies Y Reflux/GERD N Hepatitis [...] virus, trivalent, preservative 4 completed Not Available [facility] 07/01/2023 09:20:32 Pneumococcal conjugate PCV 13 5 completed Not Available [facility] 07/01/2023 09:20:32 Influenza, high-dose, trivalent, PF 7 completed Not Available [facility] 07/01/2023 09:20:32 pneumococcal polysaccharide PPV23 7 completed Not Available [facility] 07/01/2023 09:20:31 Pneumococcal conjugate PCV 13 9 completed Not Available [facility] 07/01/2023 09:20:32 Influenza, high-dose, trivalent, PF 9 completed Not Available [facility] 07/01/2023 09:20:32 zoster live 9 completed Not Available [facility] 07/01/2023 09:20:32 Tdap 3 completed Not Available [facility] 07/01/2023 09:20:31 Influenza, high-dose, trivalent, PF 6 completed Not Available [facility] 07/01/2023 09:20:32 zoster recombinant 0 completed JESSENIA Espana, [facility] 07/31/2023 14:12:32 Influenza, high-dose, trivalent, PF 0 completed JESSENIA Espana, [facility] 07/31/2023 14:12:32 zoster recombinant 0 completed Not Available [facility] 07/01/2023 09:20:31 Influenza, adjuvanted, quadrivalent, PF 0 completed Not Available [facility] 07/01/2023 09:20:31 Influenza, high-dose, quadrivalent, PF 1 completed Not Available [facility] 07/01/2023 09:20:31 Influenza, split virus, quadrivalent, PF 5 completed Not Available [facility] 07/01/2023 09:20:32 COVID-19, mRNA, LNP-S, PF, 30 mcg/0.3 mL dose 2 completed Not Available [facility] 07/01/2023 09:20:31 COVID-19, mRNA, LNP-S, PF, 30 mcg/0.3 mL dose 1 completed Not Available [facility] 07/01/2023 09:20:31 COVID-19, mRNA, LNP-S, PF, 30 mcg/0.3 mL dose 1 completed Not Available [facility] 07/01/2023 09:20:31 Influenza, split virus, trivalent, preservative 0 completed Not Available [facility] 07/01/2023 09:20:32 Influenza, high-dose, trivalent, PF 6 completed Not Available [facility] 07/01/2023 09:20:32 Tdap 8 completed Not Available [facility] 07/01/2023 09:20:31 Influenza, high-dose, trivalent, PF 8 completed Not Available [facility] 07/01/2023 09:20:32 Influenza, high-dose, quadrivalent, PF 2 completed Not Available [facility] 07/01/2023 09:20:31 Pneumococcal conjugate PCV20, polysaccharide PHF841 conjugate, adjuvant, PF 2 completed Not Available [facility] 07/01/2023 09:20:31 Influenza, high-dose, quadrivalent, PF 3 completed JESSENIA Espana, [facility] 07/31/2023 14:12:32 COVID-19, mRNA, LNP-S, PF, jeremi-sucrose, 30 mcg/0.3 mL 3 completed JESSENIA Epsana, [facility] 07/31/2023 14:12:32 RSV, recombinant, protein subunit RSVpreF, adjuvant reconstituted, 0.5 mL, PF 4 completed JESSENIA Springer, [facility] 07/13/2024 09:31:47 COVID-19, mRNA, LNP-S, PF, jeremi-sucrose, 30 mcg/0.3 mL 4 completed JESSENIA Springer [facility] 07/13/2024 09:31:47 Influenza, high-dose, trivalent, PF 4 completed Swapna fraser [facility] 05/18/2024 08:54:12 pneumococcal polysaccharide PPV23 8 completed Not Available [facility] 07/01/2023 09:20:31 Tdap 8 completed Not Available [facility] 07/01/2023 09:20:31 Novel Nprfneppa-O8P6-34, all formulations 0 completed Not Available [facility] 07/01/2023 09:20:31 Influenza, split virus, trivalent, preservative 1 completed Not Available [facility] 07/01/2023 09:20:32 Influenza, split virus, trivalent, preservative 2 completed Not Available [facility] 07/01/2023 09:20:32 Influenza, split virus, trivalent, preservative 3 completed Not Available [facility] 07/01/2023 09:20:32 pneumococcal polysaccharide PPV23 3 completed Not Available [facility] 07/01/2023 09:20:31 Past Encounters Encounter ID Performer Location Encounter Start Date Encounter Closed Date Diagnosis/Indication Diagnosis SNOMED-CT Code Diagnosis ICD10 Code [id number] [facility]Comm erce [id number] [facility] [place] [address] 11/16/2007 00:00:00 [id number] auto[facility]Comm erce [address] [facility],[address] [place] [address] 09/06/2008 00:00:00 [id number] auto[facility]Comm erce [address] [facility],[address] [place] [address] 12/09/2008 00:00:00 [id number] auto[facility]Comm erce [address] [facility] [place] [address] 12/21/2008 00:00:00 [id number] auto[facility]Comm erce [address] [facility],[address] [place] [address] 02/13/2009 00:00:00 [id number] [address] [address] [place] [address] 07/21/2009 00:00:00 [id number] autoEComm erce [address] [facility] [address] [place] [address] 07/28/2009 00:00:00 [id number] autoEComm erce [address] [facility],[address] [place] [address] 08/14/2009 00:00:00 [id number] autoEComm erce [address] [facility] [address] [place] [address] 02/15/2010 00:00:00 [id number] auto[facility]Comm erce [address] [facility],[address] [place] [address] 02/18/2011 00:00:00 [id number] auto[facility]Comm erce [address] [facility] [place] [address] 06/28/2011 00:00:00 [id number] autoEComm erce [address] [facility] [place] [address] 02/20/2012 00:00:00 [id number] autoEComm erce [address] [facility] [place] [address] 04/21/2012 00:00:00 [id number] auto[facility]Comm erce [address] [facility],[address] [place] [address] 07/07/2012 00:00:00 [id number] auto[facility]Comm erce [address] [facility] [place] [address] 07/23/2012 00:00:00 [id number] autoEComm erce [address] [facility] [place] [address] 08/05/2012 00:00:00 [id number] autoEComm erce [address] [facility] [address] [place] [address] 11/03/2012 00:00:00 [id number] autoEComm erce [address] [facility] [place] [address] 01/15/2013 00:00:00 [id number] autoEComm erce [address] [facility] [place], [place] [address] 03/05/2013 00:00:00 [id number] autoEComm erce [address] [facility] [place], [place] [address] 06/14/2013 00:00:00 [id number] autoEComm erce [address] [facility] [place], [place] [address] 01/26/2014 00:00:00 [id number] autoEComm erce [address] [facility] [place], [place] [address] 02/01/2014 00:00:00 [id number] autoEComm erce [address] [facility] [place], [place] [address] 02/21/2014 00:00:00 [id number] Aspen Cordovaoit Main Office [address] [facility] [address] [place] [address] 03/21/2014 10:06:16 03/21/2014 11:11:47 Adult health examination 912993792 Hyperlipidemia 94756150 Essential hypertension 92184323 Anxiety 53176137 Abdominal pain 42302884 Hypothyroidism 34008990 520234 Main Office [address] [address] [place] [address] 03/30/2015 08:38:20 03/30/2015 09:44:48 Essential hypertension 09571138 Hypothyroidism 52195737 Adult [facility] th examination 823810880 Carotid bruit 290420451 Anxiety 35342902 Allergic conjunctivitis 815462917 Sciatica 32538247 [id number] Connie royal Main Office [address] [address] [place] [address] 05/23/2016 12:48:24 05/23/2016 13:45:05 Adult health examination 062846960 Z00.00 Influenza vaccine needed 8403294933 106 Z23 Hypothyroidism 60139453 E03.9 Essential hypertension 20933299 I10 Major depr ession single episode, in partial remission 09282791 F32.4 Screening for malignant neoplasm of colon 306367634 Z12.11 [id number] Sol Ritchie Main Office [address] [facility] [address] [place] [address] 08/28/2016 08:41:07 08/28/2016 10:04:38 Bursitis of hip 62545058 M70.72 Lumbago with sciatica 20 9506784 M54.42 [id number] Connie Mitacharles Main Office [address] [address] [place] [address] 11/26/2016 12:38:56 11/26/2016 13:36:20 Hypothyroidism 54774745 E03.9 Essential hypertension 58301714 I10 Major depr ession single episode, in partial remission 68798191 F32.4 Leukopenia 62526243 D72. 819 [id number] [facility] Main Office [address] [address] [place] [address] 10/07/2017 13:42:39 10/07/2017 14:55:35 Adult health examination 836088104 Z00.00 Administra tion of viral vaccine 64465917 Z23 Knee pain 45899180 M25.5 69 Hypothyroidism 10564041 E03.9 Major depr ession single episode, in partial remission 04004538 F32.4 [id number] Lion Caro MD Main Office [address] [address] [place] [address] 03/31/2018 08:20:51 03/31/2018 09:15:47 Hypothyroidism 74097012 E03.9 Influenza vaccine needed 1871369949 106 Z23 Essential hypertension 34174561 I10 Hyperlipidemia 12549359 E78.5 Family his tory of diabetes mellitus 103254986 Z83.3 Screening for malignant neoplasm of cervix 762316315 Z12.4 [id number] Nazario Sullivan MD Main Office [address] [address] [place] [address] 07/08/2018 14:58:38 07/08/2018 15:33:21 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 [id number] EDGAR James Main Office [address] [address] [place] [address] 11/27/2018 10:57:59 11/27/2018 11:39:19 Adult health examination 125553363 Z00.00 Screening for malignant neoplasm of colon 279499244 Z12.11 Hypothyroidism 58979563 E03.9 Hyperlipidemia 55331010 E78.5 Family his tory of diabetes mellitus 743492159 Z83.3 Fatigue 62780974 R53.83 [id number] Brittany Denis Main Office [address] [address] [place] [address] 04/16/2019 10:12:25 04/16/2019 11:02:12 Anxiety 25757822 F41.9 Essential hypertension 64113344 I10 Excessive weight gain 22 2330954 R63.5 Major depr ession single episode, in partial remission 21449181 F32.4 [id number] Trini Ortiz [facility] Main Office [address] [place] [address] [place] [address] 06/17/2019 11:27:58 06/17/2019 12:05:06 Hyperlipidemia 48630180 E78.5 Anxiety 80958626 F41.9 Hypothyroidism 51266402 E03.9 Leukopenia 74351541 D72. 819 [id number] Trini Ortiz [facility] Main Office [address] [place] [address] [place] [address] 07/20/2019 10:12:39 07/20/2019 10:47:02 Major depression single episode, in partial remission 24618711 F32.4 Insomnia 691388868 G47.0 0 [id number] Trini Ortiz [facility] Main Office [address] [place] [address] [place] [address] 08/31/2019 09:47:25 08/31/2019 10:41:59 Insomnia 738334477 G47.00 Anxiety 58286045 F41.9 [id number] Trini Ortiz [address] [address] [place] [address] 01/13/2020 13:25:43 01/13/2020 14:26:28 Adult health examination 185490260 Z00.00 Essential hypertension 95029640 I10 Hyperlipidemia 36846251 E78.5 Hypothyroidism 10304628 E03.9 Anxiety 15234877 F41.9 Stricture of esophagus 95003929 K22.2 [id number] Trini Ortiz [address] [address] [place] [address] 07/13/2020 08:53:26 07/13/2020 09:23:06 Hypothyroidism 84109898 E03.9 Essential hypertension 74191437 I10 Vitamin D deficiency 347 93298 E55.9 Mixed hyperlipidemia 267 372143 E78.2 Anemia 723279171 D64.9 [id number] Jewel Gilbert PA-C Main Office [address] [address] [place] [address] 11/15/2020 09:01:30 11/15/2020 13:25:00 COVID-19 018831183 U07.1 Counseling 584450553 Z71 .9 [id number] EDGAR James Main Office [address] [address] [place] [address] 12/26/2020 10:26:55 12/26/2020 11:22:39 Urinary tract infectious disease 30222418 N39.0 Flank pain 702313280 R10 .9 Urinary incontinence 165 842193 R32 Hypothyroidism 83565436 E03.9 Hyperlipidemia 77156806 E78.5 600057 EDGAR James Main Office [address] [address] [place] [address] 02/15/2021 08:53:19 02/15/2021 09:49:12 Adult health examination 486935502 Z00.00 Anxiety 03697480 F41.9 Essential hypertension 78059800 I10 Hypothyroidism 14282057 E03.9 Major depr ession single episode, in partial remission 59837746 F32.4 Nocturia 430619157 R35.1 Hearing loss 00390710 H9 1.93 Hyperlipidemia 89750818 E78.5 [id number] Donna Hutchins MA Main Office [address] [address] [place] [address] 09/28/2021 10:46:24 09/28/2021 11:37:51 Pre-surgery evaluation 002671737 Z01.818 Hypothyroidism 05419043 E03.9 Essential hypertension 47907643 I10 Carotid bruit 263199541 R09.89 Dyspnea on exertion 6084 5006 R06.09 [id number] EDGAR James Main Office [address] [address] [place] [address] 11/15/2021 08:28:17 11/15/2021 09:21:13 Hypothyroidism 51704438 E03.9 Neutropenic disorder 303 276241 D70.9 Mitral valve disorder 11 644541 I05.8 Tear of me niscus of knee 246249699 S83.206D Essential hypertension 28035901 I10 Hyperlipidemia 90973725 E78.5 Pre-surger y evaluation 637806981 Z01.818 [id number] Will Paredes MD [facility] [address] [address] [place] [address] 02/15/2022 08:44:32 02/15/2022 16:00:44 COVID-19 404687955 U07.1 [id number] Trini Ortiz [facility] Main Office [address] [address] [place] [address] 04/02/2022 08:27:00 04/02/2022 09:48:51 Adult health examination 245496150 Z00.00 Anxiety 32825794 F41.9 Major depr ession single episode, in partial remission 45566952 F32.4 Essential hypertension 39967784 I10 Hypothyroidism 85814048 E03.9 Nocturia 675363249 R35.1 Hearing loss 19587752 H9 1.93 Hyperlipidemia 53914540 E78.5 Leukopenia 43214964 D72. 819 Thrombocyt openic disorder 862538602 D69.6 Menopause present 203238 006 Z78.0 Chest pain 49732205 R07. 9 Gastroesop hageal reflux disease 197808734 K21.9 [id number] Catracho Escalante MD Main Office [address] [address] [place] [address] 06/14/2022 13:22:07 06/14/2022 13:57:27 Cough 44484465 R05.9 [id number] Trini Ortiz [facility] Main Office [address] [address] [place] [address] 07/02/2022 14:03:28 07/02/2022 14:43:26 Pneumonia 605413523 J18.9 Tear of me niscus of knee 400858840 S83.206D [id number] [facility] Main [facility] [address] [address] [facility] [address] 10/10/2022 13:51:37 10/10/2022 15:15:41 Essential hypertension 73788945 I10 Edema of l ower extremity 219892236 R60.0 Hypothyroidism 76033632 E03.9 Hyperlipidemia 09786246 E78.5 Cough 39715860 R05.9 Pneumonia 704403197 J18. 9 [id number] [place]ini [place] [address] [place] [address] 10/30/2022 14:24:09 10/30/2022 16:04:12 Pneumonia 848049285 J18.9 History of SARS-CoV-2 29 11116405 14316169 Z86.16 Essential hypertension 48110357 I10 Edema of l ower extremity 279664863 R60.0 Nausea 587748969 R11.0 [id number] Trini [place] [address] [place] [address] 11/06/2022 13:58:13 11/06/2022 16:17:11 Pneumonia 846373988 J18.9 History of SARS-CoV-2 29 63726688 67897103 Z86.16 Essential hypertension 37750893 I10 Edema of l ower extremity 690222614 R60.0 Nausea 511183313 R11.0 Posterior rhinorrhea 758 51916 R09.82 [id number] [facility] Main Office [facility] [address] [address] 04/04/2023 10:29:50 04/04/2023 11:27:11 Adult health examination 390240571 Z00.00 Anxiety 28866822 F41.9 Major depr ession single episode, 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 819 Thrombocyt openic disorder 402246854 D69.6 Chest pain 44066497 R07. 9 Pain of le ft shoulder joint 0737930797 3453750 M25.512 Pain of ri ght knee joint 5918253377 92122 M25.561 Insomnia 144061470 G47.0 0 Muscle spa sm of cervical muscle of neck 6294149206 04 M62.838 [id number] Trini Ortiz [facility] Main Office [address] [place] [address] 07/31/2023 13:53:43 07/31/2023 15:22:41 Urinary incontinence 060702159 R32 Hypothyroidism 62407430 E03.9 Leukopenia 79319785 D72. 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 Cough 96827887 R05.9 Body mass index 30+ - obesity 381571098 Z68.30 E66.9 Excessive thirst 6221517 7 R63.1 Multiple joint pain 3567 8005 M25.50 Moderate p ersistent asthma 099566417 J45.40 [id number] Trini Ortiz [facility] Main Office [facility] [address] [place] [address] 03/04/2024 09:02:37 03/04/2024 09:34:29 Pulmonary Mycobacterium avium complex infection 858348402 A31.0 Essential hypertension 40272064 I10 Moderate p ersistent asthma 060567936 J45.40 Cough 75219115 R05.9 [id number] Trini Ortiz [facility] Main Office [address] [place] [address] 05/07/2024 14:21:54 05/07/2024 15:09:53 Lump in upper outer quadrant of left breast 4828562447 05589 N63.21 Mass of frank int of left elbow 1836010206 4804176 M25.822 M25.422 [id number] Trini Ortiz [facility] Main Office [address] [address] [facility] [place] [address] 07/13/2024 09:28:20 07/13/2024 10:17:14 Adult health examination 328677932 Z00.00 Bone density finding 385 309440 M85.89 Anxiety 63582983 F41.9 Major depr ession single episode, in partial remission 91636534 F32.4 Essential hypertension 44561071 I10 Hypothyroidism 41342380 E03.9 Nocturia 973787800 R35.1 Hearing loss 29668542 H9 1.93 Hyperlipidemia 96510739 E78.5 Leukopenia 59790209 D72. 819 Thrombocyt openic disorder 057814167 D69.6 Insomnia 090977662 G47.0 0 Strain of muscle of right groin region 5161804412 3185064 S76.011A Inguinal pain 575128244 R10.2 Health Concerns Section Related Observation LastModified by Organization Detai ls LastModified Time None Recorded Concern Status LastModified by Organization Details LastModified Time None Recorded Advance Directives Directive Y: Payers Encounter Date Sequence Insurance Name Policy Number Policy Carbajal Covered Member ID Carbajal Member ID Guarantor Name 04/04/2023 1 MEDICARE B-[place]: [employer] Naomie A Disanti [id number] 5 Naomie A Disanti 04/04/2023 2 [facility]-[place] MED[place] (MEDICARE SUPPLEMENT) [id number] Naomie A Disanti [id number] 25 Naomie A Disanti 07/31/2023 1 MEDICARE B-[place]: [employer] Naomie A Disanti [id number] 5 Naomie A Disanti 07/31/2023 2 [facility]-[place] (MEDICARE SUPPLEMENT) [id number] Naomie A Disanti [id number] Naomie A Disanti 03/04/2024 1 MEDICARE B-[place]: [employer] Naomie A Disanti [id number] 5 Naomie A Disanti 03/04/2024 2 [facility]-[place]MED[place]LEMENT) [id number] Naomie A Disanti [id number] 25 Naomie A Disanti 05/07/2024 1 MEDICARE B-[place]: [employer] Naomie A Disanti [id number] 5 Naomie A Disanti 05/07/2024 2 [facility] [id number] Naomie Hernandez Disanti [id number] 25 Naomie Hernandez Disanti 07/13/2024 1 [place] [facility] SERVICES Naomie Hernandez Disanti [id number] 5 Naomie Hernandez Disanti 07/13/2024 2 [facility] [id number] Naomie Hernandez Disanti [id number] 25 Naomie Hernandez Disanti Notes Date Note Type Note Provider Name and Address Organization Details Recorded Time 04/04/2023 text/html Medicare Annual Wellness VisitReported bypatient.Diet and Nutrition:healthy diet; discussed vitamin and supplement use Fracture Risk:no history of fractures; knee pain bilateral Physical Activity:discussed weightbearing activities; discussed exercise habits; I had been walking for miles a day but I just had knee surgery on the right and I need a total knee replacement on the left so it has inhibited walking. I am starting today back on a stationary bike Depression Risk:sleep disturbances or insomnia; anxiety re: grandchildren Orientation:no disorientation to time; no disorientation to date; no disorientation to place Concentration and Memory:memory lapses or loss;forgetting words; I was OK until I had Covid. I did see a neuropsychologist and went through five hours of testing with poor performance. I have not been able to go back for retesting because of too many other medical issues that needed to be addressed for knee surgery Speech/Motor difficulties:no speech difficulties;difficult y writing/copying; After Covid I have been unable to think of words sometimes and I find that when writing numbers I sometimes transpose them and don?t realize it. This is all since Covid Hearing:loss of hearing: in both ears; My [...] to prepare meals with limited or no assistance Falls Risk Assessment:no frequent falls while walking; no fall in the past year; no dizziness/vertigo Home Safety:no unsafe elif hazzards; no unsafe gas appliances; working smoke/CO detectors; use of seatbelts; no fire armsNotes:Has had resp issues- covid x 3, PNA x 2. On 03/07 she fell onto her hands and knees on wood floor, jammed my left arm and can't do upper body exercises. can move the shoulder but has pain.Has been seeing chiro,light therapy, acupuncture.Right knee pain and left shoulder pain since February. Supposed to start pulm rehab but unable to exercise due to pain. Seeing pulmonology in 2 weeks. Will be getting a new nephro at [facility], had renal US yesterday which was normal. - Not sleeping, thinks its time to start a med for sleep. Combination of things- leg keeps her up, shoulder, coughing, up every 2 hours to pee, some stress. - has cataracts but holding off until her lungs improve. 70yo female presents for Medicare annual wellness exam. Ophthalmology: last visit 2021- normal.ER TECH: hysterectomy 40ys ago ; Mammogram- 06/18/21Colonoscopy: last colonoscopy in 2019- normal. Trini Ortiz [facility] [address] [facility] [address], [place], [address], [facility] [place] 04/04/2023 12:38:24 07/31/2023 text/html Generic HPI TemplateReported bypatient.Notes:Tima ts in f/u chronic problemsSaw pulm 10 [address] had repeat CT for mycobacterium-has new semisolid 4mm nodule, slightly elevated right hemidiaphragm.increasi ng mediastinal lymphadnopathy. Constant weight gain- lack of appetite, nausea, eats healthy foods but she does not want to eat. Drinking ensure in the mornings, does not eat lunch, not eating dinner.-Lethargic, can't exercise due to knees- using a cane due to knee pain, burnign in legs.-Sleep disturbances- using diazepam.-Constant thirst drinks 32oz about 5 times per day.-Having incontintent of her full bladder- this is new for her.Other times drinks and tries to go but nothing comes out.-Epigastric area hardens and distends- gets hard as a a rock anytime she eats. no heartburn. + regurgitation- trying to eat earlier.- Loose stool not always but sometimes can't stop having BMs- certain foods, gravies, chicken, beef, pork chop.- After covid and PNA things have changed.- neutropenia, kidney and liver issues. Not sleeping well. Trini Ortiz, [facility] [address] [address], [place], [address], [facility] 07/31/2023 16:18:44 03/04/2024 text/html Generic HPI TemplateReported bypatient.Notes:Presen ts with chills, cough, nausea and fatigue for the last 2 weeks, no fever, no headache, + sore throat, runny nose, no ear pain, no vomiting or diarrhea.Has tested negative for covid, hx MAC last saw Dr. Ng 4 months ago. Is scheduled for CT scan in July. She stopped inhaler last visit as she was doing great. On wegovy, compounded- paying OOP. Highest dose. Trini Ortiz [facility] [address] [address], [place], [address], [facility] 03/04/2024 09:58:11 05/07/2024 text/html Generic HPI TemplateReported bypatient.Notes:3 weeks [...] loss recently 34lbs due to wegovy. Trini Ortiz [facility] [address] [address], [place], [address], [facility] 05/07/2024 15:13:14 07/13/2024 text/html Medicare Annual Wellness VisitReported bypatient.Diet [...] in the homeNotes:Had bloodwork for hematology in [place] 2 weeks ago but no results yet. [...] annual wellness exam. Ophthalmology: last visit 2021- normal.ER TECH: hysterectomy 40ys ago ; Mammogram- UTDColonoscopy: last colonoscopy in 2019- has appt coming up with endoscopy Trini Ortiz, [facility] [address] [facility] [address], [place], [address], [place] [facility] 07/13/2024 11:24:25 OBGyn Episode No OBEpisode recorded.
== END 2024-08-06 16:26 | disposition home or self-care (01) ==
LOC: HO.CT 16:25
PROVIDERS: PCP Registered Nurse; Visit Provider Hospitalist
DX: R91.1 Solitary pulmonary nodule (principal)
CPT/HCPCS: 71250

== ENCOUNTER → 2024-08-06 16:26 | Outpatient (BNV) | payer MEDICARE, SELFPAY | PROVIDERS: PCP Registered Nurse; Visit Provider Radiology Diagnostic Radiology | DX: R91.1 Solitary pulmonary nodule (principal) | CPT/HCPCS: 71250 ==

== ENCOUNTER 2024-09-02 10:50 | Outpatient (AMB) | payer MEDICARE, SELFPAY ==
[2024-09-02 11:11] VITALS: BP 122/80; PULSE 70; O2SAT 99; BMI 28.7
--- NOTE | 2024-09-02 11:11 | A.OFFVIS_ITS ---
Vital Signs 09/02/24 11:11 Height 5 ft 7 in Weight 182 lb 15.739 oz BMI 28.7 BP 122/80 Blood Pressure Location Rt brachial Position Sitting Pulse 70 Pulse Source Pulse Oximeter Pulse Oximetry (%) 99 Oxygen Delivery Method Room Air Intake Visit Reasons: Pneumonia Allergies tetracycline Allergy (Unknown, Verified 09/02/24 14:17) Hives msg Adverse Reaction (Severe, Uncoded 09/02/24 14:17) Hives bee stings Adverse Reaction (Uncoded 09/02/24 14:17) Hives HPI Comments Details: The patient is a 74 year woman who was in her usual state health until sometime in July when she started developing worsening cough. She was given a course of antibiotics. Ultimately her symptoms persisted. Moderate severity. Also complaining of shortness of breath. She had a chest x-ray demonstrating airspace disease Consistent with pneumonia. She was given another course of antibiotics. The patient continues to be symptomatic however. She had a repeat chest x-ray demonstrating interval worsening symptoms. Therefore she was referred for a CT scan of the chest which was personally by me. The patient had evidence of significant bronchitis in addition to evidence of bronchiolitis with tree-in-bud and some areas of alveolitis or pneumonia. She was then switched to Vantin for antibiotic. Seems to be responding a little better. in view of the findings on the CT scan will go ahead and request additional blood work. The patient also is to continue the Ventolin start small dose of prednisone. Hopefully with see improvements on her repeat chest x-ray in the coming weeks. However, the patient is no better she is to call the office for an earlier re- evaluation. 01/09/2023 the patient is here for a pulmonary follow-up visit. She is status post bronchoscopy. The bronchoscopy demonstrated significant erosive bronchitis very friable mucosa. 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 The patient continues to be symptomatic with cough dyspnea chest tightness. [id number] severity. Explained to the patient that ideally more than 1 culture should be requested in order to make sure that we are dealing with a rate pathogenic infection versus colonization. In the office we did try to do is sputum culture after a hypertonic nebulized solution the therapy. However, the patient was not able to produce 1. She will try to produce 1 the coming days. She understand the treatment for mycobacterial disease can be pretty prolonged and difficult to tolerate at times. Required multiple antibiotics. The we will request sensitivities from her mycobacterial culture. The meantime will go ahead and try to start a partial treatment with azithromycin 3 times a week to see if her symptoms improve. I am hopeful that we can get another sputum culture. Depending on her response in the sensitivities and the repeat culture will decide on other additional antimicrobial therapies and also duration of therapy. Also to note, the patient did have a CTA after having a positive D-dimer. Ruled out for pulmonary emboli. She did have some degree of atelectasis. No evidence of any bronchiectasis or pulmonary nodules which is more of a typical presentation mycobacterial disease. 04/28/2023 the patient is here for a pulmonary follow-up visit. Overall she is feeling better. The cough overall is better and her shortness of breath also has improved. Still intermittent cough though. Unfortunately does while she was started pulmonary rehabilitation the patient had a fall resulting in injury to both her knees and also her left shoulder. She has not been evaluated by orthopedic surgery. She is looking at nonsurgical approaches and therefore stem cell and also plasma therapy. The patient still waiting for MRI for her right shoulder. We did review her last CT scan demonstrating some changes primarily to the lingula and some bronchiectatic looking airways. She has completed a 2 month course of azithromycin and now the hope is that she maintains stable. She does have to work on chest PT. We do need to request an Acapella valve for her. I also provide her incentive spirometer since she is not able to move around as much. She should be using the incentive spirometer followed by the Acapella valve least twice a day. Will plan to repeat her CT scan in 2 months and then follow-up to see if there is any evolution of the lower respiratory infection. Overall currently the patient is doing a lot better from a respiratory status. therefore, if the patient does need to undergo any semi invasive or invasive procedures such as surgery with anesthesia the patient can proceed from a pulmonary standpoint. She does have mild risk for perioperative pulmonary complications which includes atelectasis, hypoxia, prolonged mechanical ventilation and pneumonia. 07/22/2023 the patient is here for a pulmonary follow-up visit. The patient still complaining of multiple complaints including shortness of breath and chest tightness. Moderate severity. She also has significant musculoskeletal discomfort. This makes it very hard for her to function. She has a hard time sleeping because she is coughing so much. She has been getting increasing lower extremity edema so she has been sleeping with the head of bed down and her legs elevated to try to help with that swelling but this only making her cough worse. She has a hard time sleeping because of it. The patient is willing to try some cough syrup at nighttime possibly some codeine can help. In the office we also gave her a treatment with albuterol which seemed to help and take away some of that chest tightness feeling that she had. We did provide her with a nebulizer in order for her to use albuterol at home. She will continue using the nebulizer once or twice a day. The patient will follow-up it in the springtime. If she has any worsening symptoms she was will call for earlier assessment. 10/23/2023 the patient is here for a pulmonary follow-up visit. The patient has been doing a lot better. Her respiratory symptoms have improved. She has no longer requiring her Symbicort or rescue inhaler. Denies any significant shortness of breath. She still has musculoskeletal issues but also improved. The patient did have a CT scan of the chest that we personally reviewed. It was done back in July 2023. appears that she does have a new pulmonary nodule measuring 4 mm in size. Also has some areas of atelectasis likely from a previous infection. Based on the fact that the new pulmonary nodule she will need a repeat CT scan in a year's time. the patient does still have a intermittent cough. It is a lot better. Nonproductive in nature. Sometimes she does get of component of a postnasal drip primarily going to the allergy season spring. I did recommend she can start taking benzodiazepines. She is already using nasal sprays. She can also use antihistamine [id number] as needed. Will follow-up after her CT scan. 09/02/2024 the patient is here for a pulmonary follow-up visit. She continues to do well. She has not required her rescue inhaler. Overall she has been fine. She did have some pain behind her knee and calf on her left lower extremity although she did have a lower extremity Doppler that was negative for any DVT which is reassuring. In the meantime the patient did have a CT scan of the chest that I personally reviewed. She does appear to have a new pulmonary nodule measuring 3 mm and therefore will plan to repeat the CT scan in a year's time. I did reassure her that this is not of any concern but just requires follow-up. Otherwise patient is doing well will follow-up in a year's time. If any issues arise she will call for an earlier assessment. [facility] Medical History Pulmonary nodule Chronic cough Asthma Atelectasis Hypotension Mycobacterium avium complex Mitral valve prolapse Hypothyroid Anxiety HLD (hyperlipidemia) HTN (hypertension) Chest pain Bronchiolitis Bronchitis Pneumonia Surgical History History of hysterectomy H/O endoscopy S/P transposition of nerve H/O colonoscopy Social History Household Members: Spouse Patient Tobacco Use Status: Never used Tobacco Review of Systems Const Denies daytime sleepiness, Denies fatigue and Denies fever(s) Eyes Denies change in vision ENT Denies change in voice Card Denies chest pain, Reports leg edema and Denies dyspnea on exertion Resp Denies chest congestion, Reports cough, Denies dyspnea on exertion and Denies wheezing GI Reports no additional complaints Musc Reports as per HPI, Reports myalgias, Reports arthralgias and Reports limited range of motion Skin/Breast Denies rash Neuro Reports no additional complaints Endo Denies fatigue Matty/Lymph Denies easy bleeding and Denies easy bruising Aller/Immun Denies wheezing Physical Exam Vital Signs: Last Vital Signs Pulse 70 09/02/24 11:11 BP 122/80 09/02/24 11:11 Pulse Ox 99 09/02/24 11:11 Oxygen Delivery Method Room Air 09/02/24 11:11 BMI result Body Mass Index 28.7 Const General: comfortable HEENT Head: Yes normocephalic Neck Neck: Yes supple Chest Chest palpation & inspection: normal inspection of the chest Resp Effort & Inspection: normal respiratory effort and No prolonged expiratory phase Auscultation: clear to auscultation bilaterally and no wheezes Cardio Rate: regular rate Rhythm: regular rhythm Heart sounds: S1 normal heart sound present and S2 normal heart sound present GI Palpation (GI): Soft to palpation Skin General skin exam: no rashes or lesions noted Extrem General: Yes no clubbing, cyanosis or edema Results AMB Urinalysis, Automated UA Leukoctes 0 Javier/uL Last Edit by Rossy Garcia on 09/02/24 14:01 UA Nitrite Last Edit by Rossy Garcia on 09/02/24 14:01 UA Urobilinogen 0.2 mg/dL Last Edit by Rossy Garcia on 09/02/24 14:01 UA Protein 0 mg/dL Last Edit by Rossy Garcia on 09/02/24 14:01 UA pH 6.0 Last Edit by Rossy Garcia on 09/02/24 14:01 UA Blood 0 Noel/uL Last Edit by Rossy Garcia on 09/02/24 14:01 UA Specific [place] 1.015 Last Edit by Rossy Garcia on 09/02/24 14:01 UA Ketone Last Edit by Rossy Garcia on 09/02/24 14:01 UA Bilirubin 0 mg/dL Last Edit by Rossy Garcia on 09/02/24 14:01 UA Glucose 0 mg/dL Last Edit by Rossy Garcia on 09/02/24 14:01 Assessment & Plan Assessment & Plan (1) Atelectasis: Code(s): J98.11 - Atelectasis Category: Medical (2) Asthma: Code(s): J45.909 - Unspecified asthma, uncomplicated Category: Medical Qualifiers: Asthma complication type: uncomplicated Asthma persistence: persistent Asthma severity: moderate Qualified Code(s): J45.40 - Moderate persistent asthma, uncomplicated (3) Chronic cough: Code(s): R05.3 - Chronic cough Category: Medical (4) Pulmonary nodule: Code(s): R91.1 - Solitary pulmonary nodule Category: Medical Plan continue Symbicort as needed Benzonates as needed for cough repeat CT chest 08/2025 F/U August [address]: [address] chest wo IV con 1 Year R91.1 - Solitary pulmonary nodule Coding Level of Care Code Est Pt Level 4 (77864) Diagnoses Atelectasis J98.11 Moderate persistent asthma without complication J45.40 Asthma complication type: uncomplicated Asthma persistence: persistent Asthma severity: moderate Chronic cough R05.3 Pulmonary nodule R91.1 Time Spent (min) 16
== END 2024-09-02 11:33 | disposition home or self-care (01) ==
PROVIDERS: PCP Registered Nurse; Visit Provider Hospitalist
DX: J98.11 Atelectasis (principal); J45.40 Moderate persistent asthma, uncomplicated; R05.3 Chronic cough; R91.1 Solitary pulmonary nodule
CPT/HCPCS: 99214

== ENCOUNTER → 2024-09-02 10:50 | Outpatient (BNVA) | payer MEDICARE, SELFPAY | PROVIDERS: PCP Registered Nurse; Visit Provider Hospitalist | DX: J98.11 Atelectasis (principal); J45.40 Moderate persistent asthma, uncomplicated; R91.1 Solitary pulmonary nodule; R39.9 Unspecified symptoms and signs involving the genitourinary system; R05.3 Chronic cough | CPT/HCPCS: 51798; 81003; 99212 ==

== ENCOUNTER 2024-09-02 12:46 | Outpatient (AMB) | payer MEDICARE, SELFPAY ==
--- NOTE | 2024-09-02 13:29 | A.OFFVIS_ITS ---
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 Ortiz. She has a past medical history of asthma, hypotension, mitral valve prolapse, hypothyroidism, anxiety, hyperlipidemia, hypertension, bronchitis, and pneumonia. She presents to the office today for follow-up of her lower urinary tract symptoms. In discussion with the patient today she reports to be doing and feeling well. She denies having had any bothersome urinary issues or concerns since her last office visit here 6 months ago. She does report episodes of urge/stress incontinence however describes these episodes as infrequent and not bothersome at this time. We did discuss further treatment options and risks and benefits of these treatment options. In office urinalysis results reviewed with the patient today. PVR 0 mL. When asked she denies urinary urgency, urinary frequency, nocturia, hematuria, dysuria, foul smelling urine, changes to urinary stream, flank pain, fever, and or chills. She is happy with her current voiding parameters. [facility] Medical History Pulmonary nodule Chronic cough Asthma Atelectasis Hypotension Mycobacterium avium complex Mitral valve prolapse Hypothyroid Anxiety HLD (hyperlipidemia) HTN (hypertension) Chest pain Bronchiolitis Bronchitis Pneumonia Surgical History History of hysterectomy H/O endoscopy S/P transposition of nerve H/O colonoscopy Social History Household Members: Spouse Patient Tobacco Use Status: Never used Tobacco Review of Systems Eyes Reports no additional complaints ENT Reports no additional complaints Card Reports as per HPI Resp Reports as per HPI GI Reports no additional complaints Reports as per HPI Musc Details: She discusses having 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 and her right shoulder in this has been helpful for her Neuro Reports no additional complaints Psych Reports no additional complaints Endo Reports no additional complaints Matty/Lymph Reports no additional complaints Aller/Immun Reports no additional complaints Physical Exam Const General: cooperative, healthy appearing, comfortable, no acute distress, well developed, alert and awake Nutritional Appearance: overweight Orientation/consciousness: patient oriented x3 Limitations: no limitations HEENT Head: Yes normal to inspection, Yes normocephalic and Yes atraumatic Ears: hearing grossly normal bilaterally Eyes General: appearance normal, both eyes and all related structures Neck Neck: Yes normal visual inspection and Yes trachea midline Chest Chest palpation & inspection: normal inspection of the chest Resp Effort & Inspection: normal respiratory effort and able to speak in complete sentences Cardio Rate: regular rate GI Inspection: Yes normal to inspection General: Yes no CVA tenderness Back/Spine/Pelvis Back: no CVA tenderness Skin General skin exam: no rashes or lesions noted Neuro General: patient oriented x3 Extrem General: Yes normal to inspection Psych Appearance: grossly normal and well kempt Mental Status: mental status grossly normal Speech and movement: Normal speech and movement present and Clear speech present Affect: normal affect Attitude: cooperative Thought process: Normal thought process present Thought content: Normal thought content present Insight: Fair insight present (Psych) Judgement: Fair judgement present (Psych) Office Procedures Post Void Residual Post Residual Void Post Void Residual (PVR): 0 [id number] Void Residual by ultrasound Results AMB Urinalysis, Automated UA Leukoctes 0 Javier/uL Last Edit by Rossy Garcia on 09/02/24 14:01 UA Nitrite Last Edit by Rossy Garcia on 09/02/24 14:01 UA Urobilinogen 0.2 mg/dL Last Edit by Rossy Garcia on 09/02/24 14:01 UA Protein 0 mg/dL Last Edit by Rossy Garcia on 09/02/24 14:01 UA pH 6.0 Last Edit by Rossy Garcia on 09/02/24 14:01 UA Blood 0 Noel/uL Last Edit by Rossy Garcia on 09/02/24 14:01 UA Specific [place] 1.015 Last Edit by Rossy Garcia on 09/02/24 14:01 UA Ketone Last Edit by Rossy Garcia on 09/02/24 14:01 UA Bilirubin 0 mg/dL Last Edit by Rossy Garcia on 09/02/24 14:01 UA Glucose 0 mg/dL Last Edit by Rossy Garcia on 09/02/24 14:01 Results Reviewed Results Reviewed: Laboratory Last Values Urine pH (Auto) 6.0 09/02/24 14:00 Specific [place] (Auto) 1.015 09/02/24 14:00 Urine Protein (Auto) 0 mg/dL 09/02/24 14:00 Glucose (UA)(Auto) 0 mg/dL 09/02/24 14:00 Urine Blood (Auto) 0 Noel/uL 09/02/24 14:00 Urine Bilirubin (Auto) 0 mg/dL 09/02/24 14:00 Urine Urobilinogen (Auto) 0.2 mg/dL 09/02/24 14:00 Leukocyte Esterase (Auto) 0 Javier/uL 09/02/24 14:00 Assessment & Plan Assessment & Plan (1) Lower urinary tract symptoms: Code(s): R39.9 - Unspecified symptoms and signs involving the genitourinary system Category: Medical Plan In office urinalysis results reviewed with the patient today; as noted above. PVR 0 mL. She currently denies any bothersome urinary issues or concerns. She reports be happy with current voiding parameters. Will continue with surveillance monitoring Follow-up in 1 year with PVR; or sooner with any issues, concerns, and or questions. Orders: Orders AMB Urinalysis Automated Today Z13.9 - Encounter for screening, unspecified AMB Post Void Residual by ultrasound Today R39.9 - Unspecified symptoms and signs involving the genitourinary system Patient Instructions: The patient had an opportunity to ask questions regarding the treatment plan. All questions were answered. Physical exam, labs, and imaging were discussed and reviewed in detail. As well as risks, benefits, and discussion of treatment choices. No major barriers to understanding were identified. The patient expressed understanding and agreement with the above treatment plan. The patient was made aware they should contact our office by phone for worsening of their current condition, the appearance of new symptoms, or with any questions or concerns. Compliance is encouraged with any medications and follow up testing that is ordered. It is a privilege to be allowed the opportunity to participate in? your urological care.? Again, if you have any questions or concerns If you have any questions or concerns please do not hesitate to contact me. The office is [phone]. This note is constructed using voice recognition software. While every effort has been made to ensure accuracy cognos analyst errors may have been included. Yours sincerely, MAYTE Hui Coding Level of Care Code Est Pt Level 3 (47089) Diagnoses Lower urinary tract symptoms R39.9 CPT Codes Post Residual Void - PVR CPT Code: 62443-Luta Void Residual by ultrasound ([id number])
--- OUTSIDE RECORDS SUMMARY | 2024-09-02 15:04 | XMS_ITS | Data Portability ---
Author Organization [facility], Main Office Address [address] [facility] [address] [place] [address] Care Team Providers Care Ramp Boss Name Role Phone FADI MALLOY Networking Technology Instructor GARRET BAKER Geomorphologist DUY LOFTON Auto Electrician TRINI ORTIZ Primary Care Provider [phone] JR PHELPS Orthopedic Surgeon [phone] TAE BERMUDEZ Team Automobile Assembler LUÍS NG Right Of Way Supervisor Assessment No assessment recorded. Plan of Treatment Reminders Order Date Submit Date Provider Last Modified By Organization Details Last Modified Time Details Appointments None record ed. Lab CMP, serum or plasma 2022 023 [facility], [address], [address], [place], [address], 3 17:20:12 CMP, serum or plasma 2022 023 [facility], [address], [address], [place], [address], 3 19:08:25 H pylori urea breath test, co2 infrar ed 2022 023 [facility], [address], [address], [place], [address], 3 16:07:17 lipase , serum or plasma 2022 023 [facility], [address], [address], [place], [address], 3 19:08:27 amylas e, serum or plasma 2022 023 [facility], [address], [address], [place], [address], 3 19:08:24 lipid panel, serum 2022 023 [facility], [address], [address], [place], [address], 3 19:08:28 ESR (eryth rocyte sedime ntatio n rate), blood 2022 023 [facility], [address], [address], [place], [address], 3 17:06:17 C-reac tive protei n, quanti tative , serum or plasma 2022 023 [facility], [address], [address], [place], [address], 3 19:08:26 lyme diseas e Ab, total, serum 2022 023 [facility], [address], [address], [place], [address], 3 11:23:05 rf (rheum atoid factor ), serum 2022 023 [facility], [address], [address], [place], [address], 3 19:08:29 LUIGI (antin uclear antibo dies) screen , serum 2022 023 [facility], [address], [address], [place], [address], 3 23:05:56 HbA1c (hemog lobin A1c), blood 2022 023 [facility], [address], [address], [place], [address], 3 18:33:09 CBC w/ auto diff 2022 023 [facility], [address], [address], [place], [address], 3 16:14:49 TSH, serum or plasma 2022 023 [facility], [address], [address], [place], [address], 3 18:56:23 T4, free, serum 2022 023 [facility], [address], [address], [place], [address], 3 18:56:21 Referral urogyn ecolog ist referr reynaldo jones y incont inence , unable to hold her bladde r, someti mes just emptie s comple tely, someti mes she is headed to [place] and her bladde r emptie s on the way. Is wearin g diaper s at this point. 2022 024 jessi Hernandez MD, [address] [place] [address] , [address], [place], [address], 4 09:19:25 Procedures None record ed. Surgeries None record ed. Imaging XR, should er - s/p fall in February, landed on hands and knees, left should er pain 2022 023 [facility], [address] [place], [address], 3 15:02:09 XR, knee, 3 view - s/p fall in february, landed on hands and knees, knee pain. 2022 023 ALEXIA [facility], [address] , [place], [address], 3 16:29:16 US, elbow - left medial elbow palpab le lump, tender to palpat ion, r/o lipoma vs joint effusi on 2023 024 jessi [facility], [address] , [place], [address], 4 11:58:29 MAMMO, diagno stic, digita l, bilate ral - 3 weeks ago develo ped pea sized lump right breast 6 o'cloc k positi on and lump under axilla , left breast pain/ tender ness, lump upper outer quadra nt, left axilla ry tender ness and lump. 2023 024 [email or web address] [facility], [address], [address], [place], [address], 4 10:20:59 US, breast , unilat eral - 3 weeks ago develo ped pea sized lump right breast 6 o'cloc k positi on and lump under axilla , left breast pain/ tender ness, lump upper outer quadra nt, left axilla ry tender ness and lump. 2023 024 [email or web address] [facility], [address], [address], [place], [address], 4 10:20:59 bone densit y - due for bine densit y- hx osteop enia 2023 024 [email or web address] [facility], [address], [address], [place], [address], 4 10:17:14 XR, hip + pelvis , bilate ral - right groin pain, r/o fractu re 2023 024 [facility], [address] [place], [address], 4 10:02:35 Medication Orders diazep am 5 mg tablet 2022 023 [id number] [address] [place], [address], 3 14:15:05 Advair Diskus 500 mcg-50 mcg/do se powder for inhala tion 2022 023 [id number] [address] [place], [address], 3 16:12:18 Bromfe d DM 2 mg-30 mg-10 mg/5 mL oral syrup 2022 024 [id number] [address] [place], [address], 4 15:30:17 Wegovy 0.25 mg/0.5 mL subcut aneous pen inject or 2022 023 [email or web address] [facility] [address] [place], [address], 4 10:01:33 azithr omycin 500 mg tablet 2023 024 [id number] [address] [place], [address], 4 14:36:16 predni sone 20 mg tablet 2023 024 [id number], [address] [place], [address], 4 14:36:35 codein e 10 mg-gua ifenes in 100 mg/5 mL oral liquid 2023 024 [facility]86[facility], [address] [place], [address], 14:36:23 albute rol sulfat e 2.5 mg/3 mL (0.083 %) soluti on for nebuli zation 2023 024 [id number], [address] [place], [address], 09:30:31 Patient TargetsNo targets recorded. Patient Instructions Encounter Date Encounter Id Patient Instructions Last Modified By Organization Details Last Modified Time 04/04/2023 [id number] high cholesterol : care instructions [email or web address] Not available 04/04/2023 11:10:50 preventing falls : care instructions [email or web address] Not available 04/04/2023 11:10:50 medicare preventive services guide (female 74yrs and under) [email or web address] Not available 04/04/2023 11:10:50 To call or retur n for worsening or concerns [email or web address] Not available 04/04/2023 11:10:29 07/31/2023 [id number] starting a weigh t loss plan: care instructions [email or web address] Not available 07/31/2023 14:55:58 To call or retur n for worsening or concerns [email or web address] Not available 07/31/2023 14:36:48 03/04/2024 [id number] To call or retur n for worsening or concerns [email or web address] Not available 03/04/2024 09:30:36 05/07/2024 [id number] elbow: exercises [email or web address] Not availabl e 05/07/2024 15:06:31 breast lumps (noncancerous): care instructions [email or web address] Not available 05/07/2024 15:06:31 To call or retur n for worsening or concerns [email or web address] Not available 05/07/2024 12:36:37 07/13/2024 [id number] hip flexor strain: rehab exercises jthabet Not [...] Available [facility] [address] [place], [address], 04/04/2023 17:20:12 04/04/20 23 04/04/2023 COMPR EHENS MAY METAB OLIC PANL BUN 20 mg/dL (8-23) Not Available [facility] [address] [place], [address], 04/04/2023 17:20:12 04/04/20 23 04/04/2023 COMPR EHENS MAY METAB OLIC PANL creatinine 0.9 mg/dL (0.5-1 .0) Not Available [facility] [place], [address], 04/04/2023 17:20:12 04/04/20 23 04/04/2023 COMPR EHENS MAY METAB OLIC PANL sodium 144 mmol/ L (133-1 45) Not Available [facility] [place], [address], 04/04/2023 17:20:12 04/04/20 23 04/04/2023 COMPR EHENS MAY METAB OLIC PANL potassium 4.9 mmol/ L (3.6-5 .2) Not Available [facility] [place], [address], 04/04/2023 17:20:12 04/04/20 23 04/04/2023 COMPR EHENS MAY METAB OLIC PANL chloride 103 mmol/ L (98-10 7) Not Available [facility] [place], [address], 04/04/2023 17:20:12 04/04/20 23 04/04/2023 COMPR EHENS MAY METAB OLIC PANL bicarbonate 27 mmol/ L (22-29 ) Not Available [facility] [place], [address], 04/04/2023 17:20:12 04/04/20 23 04/04/2023 COMPR EHENS MAY METAB OLIC PANL anion gap 14 (4-17) Not Available [facility] [place], [address], 04/04/2023 17:20:12 04/04/20 23 04/04/2023 COMPR EHENS MAY METAB OLIC PANL albumin 4.9 gm/dL (3.4-4 .8) high Not Available [facility] [place], [address], 04/04/2023 17:20:12 04/04/20 23 04/04/2023 COMPR EHENS MAY METAB OLIC PANL calcium 10.6 mg/dL (8.6-1 0.5) high Not Available [facility] [place], [address], 04/04/2023 17:20:12 04/04/20 23 04/04/2023 COMPR EHENS MAY METAB OLIC PANL bilirubin,to tierra 0.6 mg/dL (0-1.2 ) Not Available [facility] [address] [place], [address], 04/04/2023 17:20:12 04/04/20 23 04/04/2023 COMPR EHENS MAY METAB OLIC PANL total protein 7.2 gm/dL (6.2-8 .2) Not Available [facility] [address] [place], [address], 04/04/2023 17:20:12 04/04/20 23 04/04/2023 COMPR EHENS MAY METAB OLIC PANL Ag ratio 2.1 Not Available [facility] [address] [place], [address], 04/04/2023 17:20:12 04/04/20 23 04/04/2023 COMPR EHENS MAY METAB OLIC PANL AST 15 U/L (0-32) Not Available [facility] [address] [place], [address], 04/04/2023 17:20:12 04/04/20 23 04/04/2023 COMPR EHENS MAY METAB OLIC PANL alk phos 112 U/L (35-10 4) high Not Available [facility] [address] [place], [address], 04/04/2023 17:20:12 04/04/20 23 04/04/2023 COMPR EHENS MAY METAB OLIC PANL ALT 12 U/L (0-33) Not Available [facility] [address] [place], [address], 04/04/2023 17:20:12 04/04/20 23 04/04/2023 COMPR EHENS [...] Available [facility] [address] [place], [address], 04/04/2023 17:20:12 08/01/20 23 08/01/2023 COMPL ETE CBC WITH DIFF WBC 3.1 K/mm3 (4.0-1 1.0) low Not Available [facility] [address] [place], [address], 08/01/2023 16:14:49 08/01/20 23 08/01/2023 COMPL ETE CBC WITH DIFF RBC 4.67 M/mm3 (4.20- 5.40) Not Available [facility] [address] [place], [address], 08/01/2023 16:14:49 08/01/20 23 08/01/2023 COMPL ETE CBC WITH DIFF HGB 14.0 gm/dL (11.7- 15.5) Not Available [facility] [address] [place], [address], 08/01/2023 16:14:49 08/01/20 23 08/01/2023 COMPL ETE CBC WITH DIFF HCT 42.7 % (35.7- 45.8) Not Available [facility] [address] [place], [address], 08/01/2023 16:14:49 08/01/20 23 08/01/2023 COMPL ETE CBC WITH DIFF MCV 91.4 fL (80.0- 100.0) Not Available [facility] [address] [place], [address], 08/01/2023 16:14:49 08/01/20 23 08/01/2023 COMPL ETE CBC WITH DIFF MCH 30.0 pg (27.0- 34.0) Not Available [facility] [address] [place], [address], 08/01/2023 16:14:49 08/01/20 23 08/01/2023 COMPL ETE CBC WITH DIFF MCHC 32.8 g/dL (33.0- 37.0) low Not Available [facility] [address] [place], [address], 08/01/2023 16:14:49 08/01/20 23 08/01/2023 COMPL ETE CBC WITH DIFF plt 166 K/mm3 (150-4 60) Not Available [facility] [address] [place], [address], 08/01/2023 16:14:49 08/01/20 23 08/01/2023 COMPL ETE CBC WITH DIFF RDW-SD 42.5 fL (<47.0 ) Not Available [facility] [address] [place], [address], 08/01/2023 16:14:49 08/01/20 23 08/01/2023 COMPL ETE CBC WITH DIFF MPV 11.1 fL (9.4-1 2.4) Not Available [facility] [address] [place], [address], 08/01/2023 16:14:49 08/01/20 23 08/01/2023 COMPL ETE CBC WITH DIFF automated NRBC 0.0 #/100 _WBC' s Not Available [facility] [address] [place], [address], 08/01/2023 16:14:49 08/01/20 23 08/01/2023 COMPL ETE CBC WITH DIFF abs. NRBC 0.0 K/mm3 Not Available [facility] [address] [place], [address], 08/01/2023 16:14:49 08/01/20 23 08/01/2023 COMPL ETE CBC WITH DIFF neut # 1.3 K/mm3 (1.3-7 .0) Not Available [facility] [address] [place], [address], 08/01/2023 16:14:49 08/01/20 23 08/01/2023 COMPL ETE CBC WITH DIFF lymph # 1.2 K/mm3 (0.8-3 .1) Not Available [facility] [address] [place], [address], 08/01/2023 16:14:49 08/01/20 23 08/01/2023 COMPL ETE CBC WITH DIFF mono# 0.5 K/mm3 (0.4-0 .9) Not Available [facility] [address] [place], [address], 08/01/2023 16:14:49 08/01/20 23 08/01/2023 COMPL ETE CBC WITH DIFF eo # 0.1 K/mm3 (0.0-0 .4) Not Available [facility] [address] [place], [address], 08/01/2023 16:14:49 08/01/20 23 08/01/2023 COMPL ETE CBC WITH DIFF baso # 0.0 K/mm3 (0.0-0 .1) Not Available [facility] [address] [place], [address], 08/01/2023 16:14:49 08/01/20 23 08/01/2023 COMPL ETE CBC WITH DIFF abs. imm gran 0.0 K/mm3 Not Available [facility] [address] [place], [address], 08/01/2023 16:14:49 08/01/20 23 08/01/2023 COMPL ETE CBC WITH DIFF neut 42.8 % (44-76 ) low Not Available [facility] [address] [place], [address], 08/01/2023 16:14:49 08/01/20 23 08/01/2023 COMPL ETE CBC WITH DIFF lymph 37.1 % (15-43 ) Not Available [facility] [address] [place], [address], 08/01/2023 16:14:49 08/01/20 23 08/01/2023 COMPL ETE CBC WITH DIFF monocyte 16.6 % (4.5-1 0.5) high Not Available [facility] [address] [place], [address], 08/01/2023 16:14:49 08/01/20 23 08/01/2023 COMPL ETE CBC WITH DIFF eo 2.2 % (0-6) Not Available [facility] [address] [place], [address], 08/01/2023 16:14:49 08/01/20 23 08/01/2023 COMPL ETE CBC WITH DIFF baso 1.3 % (0-2) Not Available [facility] [address] [place], [address], 08/01/2023 16:14:49 08/01/20 23 08/01/2023 COMPL ETE CBC WITH DIFF imm gran 0.0 % Not Available [facility] [address], [place], [address], 08/01/2023 16:14:49 08/01/20 23 08/01/2023 SEDIM ENTAT ION RATE, AUTOM ATED sedimentatio n rate,automat ed 21 mm/HR (0-20) high Not Available [facility] [address] [place], [address], 08/01/2023 17:06:17 08/01/20 23 08/01/2023 HEMOG LOBIN [...] jazmine 2019, The Journ al of Clini oskra and Appli ed Resea rch and Educa tion Volum e 43, Suppl ement 1 Not Available [facility] [address] [place], [address], 08/01/2023 18:33:09 08/01/20 23 08/01/2023 FREE T4 free T4 1.69 NG/dL (0.70- 1.80) Not Available [facility] [address] [place], [address], 08/01/2023 18:56:21 08/01/20 23 08/01/2023 TSH TSH 0.18 uIU/m L (0.4-4 .2) low Not Available [facility] [address] [place], [address], 08/01/2023 18:56:23 08/01/20 23 08/01/2023 AMYLA SE amylase 43 U/L (28-10 0) Not Available [facility] [address] [place], [address], 08/01/2023 19:08:23 08/01/20 23 08/01/2023 COMPR EHENS MAY METAB OLIC PANL glucose 106 mg/dL (70-99 ) high Not Available [facility] [address] [place], [address], 08/01/2023 19:08:25 08/01/20 23 08/01/2023 COMPR EHENS MAY METAB OLIC PANL BUN 20 mg/dL (8-23) Not Available [facility] [address] [place], [address], 08/01/2023 19:08:25 08/01/20 23 08/01/2023 COMPR EHENS MAY METAB OLIC PANL creatinine 0.9 mg/dL (0.5-1 .0) Not Available [facility] [address] [place], [address], 08/01/2023 19:08:25 08/01/20 23 08/01/2023 COMPR EHENS MAY METAB OLIC PANL sodium 141 mmol/ L (133-1 45) Not Available [facility] [address] [place], [address], 08/01/2023 19:08:25 08/01/20 23 08/01/2023 COMPR EHENS MAY METAB OLIC PANL potassium 4.7 mmol/ L (3.6-5 .2) Not Available [facility] [address] [place], [address], 08/01/2023 19:08:25 08/01/20 23 08/01/2023 COMPR EHENS MAY METAB OLIC PANL chloride 102 mmol/ L (98-10 7) Not Available [facility] [address] [place], [address], 08/01/2023 19:08:25 08/01/20 23 08/01/2023 COMPR EHENS MAY METAB OLIC PANL bicarbonate 28 mmol/ L (22-29 ) Not Available [facility] [address] [place], [address], 08/01/2023 19:08:25 08/01/20 23 08/01/2023 COMPR EHENS MAY METAB OLIC PANL anion gap 11 (4-17) Not Available [facility] [address] [place], [address], 08/01/2023 19:08:25 08/01/20 23 08/01/2023 COMPR EHENS MAY METAB OLIC PANL albumin 4.6 gm/dL (3.4-4 .8) Not Available [facility] [address] [place], [address], 08/01/2023 19:08:25 08/01/20 23 08/01/2023 COMPR EHENS MAY METAB OLIC PANL calcium 10.4 mg/dL (8.6-1 0.5) Not Available [facility] [address] [place], [address], 08/01/2023 19:08:25 08/01/20 23 08/01/2023 COMPR EHENS MAY METAB OLIC PANL bilirubin,to tierra 0.8 mg/dL (0-1.2 ) Not Available [facility] [address] [place], [address], 08/01/2023 19:08:25 08/01/20 23 08/01/2023 COMPR EHENS MAY METAB OLIC PANL total protein 7.2 gm/dL (6.2-8 .2) Not Available [facility] [address] [place], [address], 08/01/2023 19:08:25 08/01/20 23 08/01/2023 COMPR EHENS MAY METAB OLIC PANL Ag ratio 1.8 Not Available [facility] [address] [place], [address], 08/01/2023 19:08:25 08/01/20 23 08/01/2023 COMPR EHENS MAY METAB OLIC PANL AST 18 U/L (0-32) Not Available [facility] [address] [place], [address], 08/01/2023 19:08:25 08/01/20 23 08/01/2023 COMPR EHENS MAY METAB OLIC PANL alk phos 123 U/L (35-10 4) high Not Available [facility] [address], [address], 08/01/2023 19:08:25 08/01/20 23 08/01/2023 COMPR EHENS MAY METAB OLIC PANL ALT 15 U/L (0-33) Not Available [facility] [address] [place], [address], 08/01/2023 19:08:25 08/01/20 23 08/01/2023 COMPR EHENS [...] Available [facility] [address] [place], [address], 08/01/2023 19:08:25 08/01/20 23 08/01/2023 C-AC CTIVE PROTE IN C-reactive protein <0.3 mg/dL (0-0.5 ) Not Available [facility] [address] [place], [address], 08/01/2023 19:08:26 08/01/20 23 08/01/2023 LIPAS E lipase 18 U/L (13-60 ) Not Available [facility] [address] [place], [address], 08/01/2023 19:08:27 08/01/20 23 08/01/2023 LIPID PANEL cholesterol, total 204 mg/dL (<200) high Not Available [facility] [address] [place], [address], 08/01/2023 19:08:28 08/01/20 23 08/01/2023 LIPID PANEL triglyceride 124 mg/dL (<150) Not Available [facility] [address] [place], [address], 08/01/2023 19:08:28 08/01/20 23 08/01/2023 LIPID PANEL HDL chol 51 mg/dL (>39) Not Available [facility] [address], [place], [address], 08/01/2023 19:08:28 08/01/20 23 08/01/2023 LIPID PANEL LDL cholesterol, calculated 128 mg/dL (0-130 ) Not Available [facility] [address] [place], [address], 08/01/2023 19:08:28 08/01/20 23 08/01/2023 LIPID PANEL non HDL cholesterol (calc) 153 mg/dL (<160) Not Available [facility] [address] [place], [address], 08/01/2023 19:08:28 08/01/20 23 08/01/2023 RHEUM ATOID FACTO R rheumatoid factor <10.0 IU/mL (<14) Not Available [facility] [address], [place], [address], 08/01/2023 19:08:29 08/01/20 23 08/02/2023 LYME AB [...] Not Available [facility] [address], [place], [address], 08/02/2023 11:23:04 08/01/20 23 08/02/2023 ANTI- NUCLE [...] rp, [address], [place] [address] Not Available [facility] [address] [place], [address], 08/02/2023 23:05:56 08/07/20 23 08/07/2023 FREE T4 free T4 1.64 NG/dL (0.70- 1.80) Not Available [facility] [address] [place], [address], 08/07/2023 17:21:19 08/07/20 23 08/07/2023 TSH TSH 0.13 uIU/m L (0.4-4 .2) low Not Available [facility] [address] [place], [address], 08/07/2023 17:21:21 08/07/20 23 08/08/2023 H. PYLOR I UREA BREAT H TEST H. pylori urea breath test NEGATI VE Refer ence range : NEGAT MAY Test perfo rmed by [facility], [address], [place] [address] Not Available [facility] [address] [place], [address], 08/08/2023 16:07:17 09/08/19 24 09/08/2023 FREE T4 free T4 1.64 NG/dL (0.70- 1.80) Not Available [facility] [address] [place], [address], 09/08/2023 22:05:21 09/08/19 24 09/08/2023 TSH TSH 0.60 uIU/m L (0.4-4 .2) Not Available [facility] [address] [place], [address], 09/08/2023 22:05:23 11/18/19 24 11/19/2023 CBC WITH DIFFE RENTI AL/PL ATELE T WBC 3.0 x10e3 /uL 3.4-10 .8 below low normal Not Available [facility] ([facility]) [address] [facility], [place], [address], 11/19/2023 08:08:45 11/18/19 24 11/19/2023 CBC WITH DIFFE RENTI AL/PL ATELE T RBC 4.85 x10e6 /uL 3.77-5 .28 Not Available [facility] ([facility]) [address] [facility], [place], [address], 11/19/2023 08:08:45 11/18/19 24 11/19/2023 CBC WITH DIFFE RENTI AL/PL ATELE T hemoglobin 14.4 g/dL 11.1-1 5.9 Not Available [facility] ([facility]) [address] [facility], [place], [address], 11/19/2023 08:08:45 11/18/19 24 11/19/2023 CBC WITH DIFFE RENTI AL/PL ATELE T hematocrit 44.4 % 34.0-4 6.6 Not Available [facility] ([facility]) [address] [facility], [place], [address], 11/19/2023 08:08:45 11/18/1911/19/2023 CBC WITH DIFFE RENTI AL/PL ATELE T MCV 92 fL 79-97 Not Available [facility] ([facility]) [address] [place], [address], 11/19/2023 08:08:45 11/18/1911/19/2023 CBC WITH DIFFE RENTI AL/PL ATELE T MCH 29.7 pg 26.6-3 3.0 Not Available [facility] ([facility]) [address] [place], [address], 11/19/2023 08:08:45 11/18/19 24 11/19/2023 CBC WITH DIFFE RENTI AL/PL ATELE T MCHC 32.4 g/dL 31.5-3 5.7 Not Available [facility] ([facility]) [address] [facility], [place], [address], 11/19/2023 08:08:45 11/18/19 24 11/19/2023 CBC WITH DIFFE RENTI AL/PL ATELE T RDW 13.7 % 11.7-1 5.4 Not Available [facility] ([facility]) [address] [facility], [place], [address], 11/19/2023 08:08:45 11/18/19 24 11/19/2023 CBC WITH DIFFE RENTI AL/PL ATELE T platelets 152 x10e3 /uL 150-45 0 Not Available [facility] ([facility]) [address] [facility], [place], [address], 11/19/2023 08:08:45 11/18/19 24 11/19/2023 CBC WITH DIFFE RENTI AL/PL ATELE T neutrophils 42 % not estab. Not Available [facility] ([facility]) [address] [facility], [place], [address], 11/19/2023 08:08:45 11/18/19 24 11/19/2023 CBC WITH DIFFE RENTI AL/PL ATELE T lymphs 44 % not estab. Not Available [facility] ([facility]) [address] [facility], [place], [address], 11/19/2023 08:08:45 11/18/19 24 11/19/2023 CBC WITH DIFFE RENTI AL/PL ATELE T monocytes 12 % not estab. Not Available [facility] ([facility]) [address] [facility], [place], [address], 11/19/2023 08:08:45 11/18/19 24 11/19/2023 CBC WITH DIFFE RENTI AL/PL ATELE T eos 1 % not estab. Not Available [facility] ([facility]) [address] [facility], [place], [address], 11/19/2023 08:08:45 11/18/19 24 11/19/2023 CBC WITH DIFFE RENTI AL/PL ATELE T basos 1 % not estab. Not Available [facility] ([facility]) [address] [facility], [place], [address], 11/19/2023 08:08:45 11/18/19 24 11/19/2023 CBC WITH DIFFE RENTI AL/PL ATELE T immature cells MANAGER SUPPORT Not Available [facility] ([facility]) [address] [facility], [place], [address], 11/19/2023 08:08:45 11/18/19 24 11/19/2023 CBC WITH DIFFE RENTI AL/PL ATELE T neutrophils (absolute) 1.3 x10e3 /uL 1.4-7. 0 below low normal Not Available [facility] ([facility]) [address] [place], [address], 11/19/2023 08:08:45 11/18/19 24 11/19/2023 CBC WITH DIFFE RENTI AL/PL ATELE T lymphs (absolute) 1.3 x10e3 /uL 0.7-3. 1 Not Available [facility] ([facility]) [address] [place], [address], 11/19/2023 08:08:45 11/18/19 24 11/19/2023 CBC WITH DIFFE RENTI AL/PL ATELE T monocytes(ab solute) 0.4 x10e3 /uL 0.1-0. 9 Not Available [facility] ([facility]) [address] [place], [address], 11/19/2023 08:08:45 11/18/19 24 11/19/2023 CBC WITH DIFFE RENTI AL/PL ATELE T eos (absolute) 0.0 x10e3 /uL 0.0-0. 4 Not Available [facility] ([facility]) [address] [place], [address], 11/19/2023 08:08:45 11/18/19 24 11/19/2023 CBC WITH DIFFE RENTI AL/PL ATELE T baso (absolute) 0.0 x10e3 /uL 0.0-0. 2 Not Available [facility] ([facility]) [address] [facility], [place], [address], 11/19/2023 08:08:45 11/18/19 24 11/19/2023 CBC WITH DIFFE RENTI AL/PL ATELE T immature granulocytes 0 % not estab. Not Available [facility] ([facility]) [address] [facility], [place], [address], 11/19/2023 08:08:45 11/18/19 24 11/19/2023 CBC WITH DIFFE RENTI AL/PL ATELE T immature grans (abs) 0.0 x10e3 /uL 0.0-0. 1 Not Available [facility] ([facility]) [address] [place], [address], 11/19/2023 08:08:45 11/18/19 24 11/19/2023 CBC WITH DIFFE RENTI AL/PL ATELE T NRBC MANAGER SUPPORT Not Available [facility] ([facility]) [address] [place], [address], 11/19/2023 08:08:45 11/18/19 24 11/19/2023 CBC WITH DIFFE RENTI AL/PL ATELE T hematology comments: MANAGER SUPPORT Not Available [facility] ([facility]) [address] [place], [address], 11/19/2023 08:08:45 11/18/19 24 11/19/2023 COMP. METAB OLIC PANEL (14) glucose 99 mg/dL 70-99 Not Available [facility] ([facility]) [address] [facility] [place], [address], 11/19/2023 08:08:46 11/18/19 24 11/19/2023 COMP. METAB OLIC PANEL (14) BUN 19 mg/dL 8-27 Not Available [facility] ([facility]) [address] [facility] [place], [address], 11/19/2023 08:08:46 11/18/19 24 11/19/2023 COMP. METAB OLIC PANEL (14) creatinine 0.91 mg/dL 0.57-1 .00 Not Available [facility] ([facility]) [address] [place], [address], 11/19/2023 08:08:46 11/18/19 24 11/19/2023 COMP. METAB OLIC PANEL (14) eGFR 67 mL/mi n/1.7 3 >59 Not Available [facility] ([facility]) [address] [facility] [place], [address], 11/19/2023 08:08:46 11/18/19 24 11/19/2023 COMP. METAB OLIC PANEL (14) BUN/creatini ne ratio 21 12-28 Not Available [facility] ([facility]) [address] [place], [address], 11/19/2023 08:08:46 11/18/19 24 11/19/2023 COMP. METAB OLIC PANEL (14) sodium 141 mmol/ L 134-14 4 Not Available [facility] ([facility]) [address] [place], [address], 11/19/2023 08:08:46 11/18/19 24 11/19/2023 COMP. METAB OLIC PANEL (14) potassium 4.1 mmol/ L 3.5-5. 2 Not Available [facility] ([facility]) [address] [place], [address], 11/19/2023 08:08:46 11/18/19 24 11/19/2023 COMP. METAB OLIC PANEL (14) chloride 100 mmol/ L 96-106 Not Available [facility] ([facility]) [address], [place], [address], 11/19/2023 08:08:46 11/18/19 24 11/19/2023 COMP. METAB OLIC PANEL (14) anion gap 17.0 mmol/ L 10.0-1 8.0 Not Available [facility] ([facility]) [address] [place], [address], 11/19/2023 08:08:46 11/18/19 24 11/19/2023 COMP. METAB OLIC PANEL (14) carbon dioxide, total 24 mmol/ L 20-29 Not Available [facility] ([facility] [address] [facility] [place], [address], 11/19/2023 08:08:46 11/18/19 24 11/19/2023 COMP. METAB OLIC PANEL (14) calcium 10.3 mg/dL 8.7-10 .3 Not Available [facility] ([facility] [address] [facility] [place], [address], 11/19/2023 08:08:46 11/18/19 24 11/19/2023 COMP. METAB OLIC PANEL (14) protein, total 7.2 g/dL 6.0-8. 5 Not Available [facility] ([facility] [address] [place], [address], 11/19/2023 08:08:46 11/18/19 24 11/19/2023 COMP. METAB OLIC PANEL (14) albumin 4.7 g/dL 3.8-4. 8 Not Available [facility] ([facility] [address] [facility] [place], [address], 11/19/2023 08:08:46 11/18/19 24 11/19/2023 COMP. METAB OLIC PANEL (14) globulin, total 2.5 g/dL 1.5-4. 5 Not Available [facility] ([facility]) [address] [place], [address], 11/19/2023 08:08:46 11/18/19 24 11/19/2023 COMP. METAB OLIC PANEL (14) A/G ratio 1.9 1.2-2. 2 Not Available [facility] ([facility]) [address] [facility], [place], [address], 11/19/2023 08:08:46 11/18/19 24 11/19/2023 COMP. METAB OLIC PANEL (14) bilirubin, total 0.9 mg/dL 0.0-1. 2 Not Available [facility] ([facility]) [address] [place], [address], 11/19/2023 08:08:46 11/18/19 24 11/19/2023 COMP. METAB OLIC PANEL (14) alkaline phosphatase 109 IU/L 44-121 Not Available [facility] ([facility]) [address] [place], [address], 11/19/2023 08:08:46 11/18/19 24 11/19/2023 COMP. METAB OLIC PANEL (14) AST (SGOT) 21 IU/L 0-40 Not Available [facility] ([facility]) [address] [place], [address], 11/19/2023 08:08:46 11/18/19 24 11/19/2023 COMP. METAB OLIC PANEL (14) ALT (SGPT) 15 IU/L 0-32 Not Available [facility] ([facility]) [address] [place], [address], 11/19/2023 08:08:46 11/18/19 24 11/19/2023 THYRO XINE (T4) FREE, DIREC T T4,free(dire ct) 1.98 NG/dL 0.82-1 .77 above high normal Not Available [facility] ([facility]) [address] [place], [address], 11/19/2023 08:08:47 11/18/19 24 11/19/2023 TSH TSH 0.148 uIU/m L 0.450- 4.500 below low normal Not Available [facility] ([facility]) [address] [place], [address], 11/19/2023 08:08:47 11/18/19 24 11/19/2023 AMYLA SE amylase 48 U/L 31-110 Not Available [facility] ([facility]) [address] [place], [address], 11/19/2023 08:08:48 11/18/19 24 11/19/2023 LIPAS E lipase 36 U/L 14-85 Not Available [facility] ([facility]) [address] [place], [address], 11/19/2023 08:08:48 01/20/20 24 01/20/2024 CMP14 (REFL EX HGB A1C) glucose 94 mg/dL 70-99 Not Available [facility] ([facility]) [address] [place], [address], 01/21/2024 06:14:04 01/20/20 24 01/20/2024 CMP14 (REFL EX HGB A1C) BUN 20 mg/dL 8-27 Not Available [facility] ([facility]) [address] [place], [address], 01/21/2024 06:14:04 01/20/20 24 01/20/2024 CMP14 (REFL EX HGB A1C) creatinine 0.91 mg/dL 0.57-1 .00 Not Available [facility] ([facility]) [address] [place], [address], 01/21/2024 06:14:04 01/20/20 24 01/20/2024 CMP14 (REFL EX HGB A1C) eGFR 67 mL/mi n/1.7 3 >59 Not Available [facility] ([facility]) [address] [facility], [place], [address], 01/21/2024 06:14:04 01/20/20 24 01/20/2024 CMP14 (REFL EX HGB A1C) BUN/creatini ne ratio 22 12-28 Not Available [facility] ([facility]) [address] [facility], [place], [address], 01/21/2024 06:14:04 01/20/20 24 01/20/2024 CMP14 (REFL EX HGB A1C) sodium 141 mmol/ L 134-14 4 Not Available [facility] ([facility]) [address] [facility], [place], [address], 01/21/2024 06:14:04 01/20/20 24 01/20/2024 CMP14 (REFL EX HGB A1C) potassium 4.9 mmol/ L 3.5-5. 2 Not Available [facility] ([facility]) [address] [facility], [place], [address], 01/21/2024 06:14:04 01/20/20 24 01/20/2024 CMP14 (REFL EX HGB A1C) chloride 104 mmol/ L 96-106 Not Available [facility] ([facility]) [address] [place], [address], 01/21/2024 06:14:04 01/20/20 24 01/20/2024 CMP14 (REFL EX HGB A1C) carbon dioxide, total 26 mmol/ L 20-29 Not Available [facility] ([facility]) [address] [place], [address], 01/21/2024 06:14:04 01/20/20 24 01/20/2024 CMP14 (REFL EX HGB A1C) calcium 10.2 mg/dL 8.7-10 .3 Not Available [facility] ([facility]) [address] [place], [address], 01/21/2024 06:14:04 01/20/20 24 01/20/2024 CMP14 (REFL EX HGB A1C) protein, total 6.9 g/dL 6.0-8. 5 Not Available [facility] ([facility]) [address] [facility], [place], [address], 01/21/2024 06:14:04 01/20/20 24 01/20/2024 CMP14 (REFL EX HGB A1C) albumin 4.5 g/dL 3.8-4. 8 Not Available [facility] ([facility]) [address] [place], [address], 01/21/2024 06:14:04 01/20/20 24 01/20/2024 CMP14 (REFL EX HGB A1C) globulin, total 2.4 g/dL 1.5-4. 5 Not Available [facility] ([facility]) [address] [place], [address], 01/21/2024 06:14:04 01/20/20 24 01/20/2024 CMP14 (REFL EX HGB A1C) A/G ratio 1.9 Not Available [facility] ([facility]) [address] [place], [address], 01/21/2024 06:14:04 01/20/20 24 01/20/2024 CMP14 (REFL EX HGB A1C) bilirubin, total 0.7 mg/dL 0.0-1. 2 Not Available [facility] ([facility]) [address] [place], [address], 01/21/2024 06:14:04 01/20/20 24 01/20/2024 CMP14 (REFL EX HGB A1C) alkaline phosphatase 107 IU/L 44-121 Not Available [facility] ([facility]) [address] [place], [address], 01/21/2024 06:14:04 01/20/20 24 01/20/2024 CMP14 (REFL EX HGB A1C) AST (SGOT) 15 IU/L 0-40 Not Available [facility] ([facility]) [address] [place], [address], 01/21/2024 06:14:04 01/20/20 24 01/20/2024 CMP14 (REFL EX HGB A1C) ALT (SGPT) 12 IU/L 0-32 Not Available [facility] ([facility]) [address] [place], [address], 01/21/2024 06:14:04 01/20/20 24 01/21/2024 TSH+F REE T4 TSH 0.568 uIU/m L 0.450- 4.500 Not Available [facility] ([facility]) [address] [place], [address], 01/21/2024 06:14:05 01/20/20 24 01/21/2024 TSH+F REE T4 T4,free(dire ct) 1.62 NG/dL 0.82-1 .77 Not Available [facility] ([facility]) [address] [place], [address], 01/21/2024 06:14:05 01/20/20 24 01/21/2024 CBC WITH DIFFE RENTI AL/PL ATELE T WBC 3.0 x10e3 /uL 3.4-10 .8 below low normal Not Available [facility] ([facility]) [address] [place], [address], 01/21/2024 06:14:06 01/20/20 24 01/21/2024 CBC WITH DIFFE RENTI AL/PL ATELE T RBC 4.62 x10e6 /uL 3.77-5 .28 Not Available [facility] ([facility]) [address] [facility], [place], [address], 01/21/2024 06:14:06 01/20/20 24 01/21/2024 CBC WITH DIFFE RENTI AL/PL ATELE T hemoglobin 14.1 g/dL 11.1-1 5.9 Not Available [facility] ([facility]) [address] [facility], [place], [address], 01/21/2024 06:14:06 01/20/20 24 01/21/2024 CBC WITH DIFFE RENTI AL/PL ATELE T hematocrit 43.7 % 34.0-4 6.6 Not Available [facility] ([facility]) [address] [facility], [place], [address], 01/21/2024 06:14:06 01/20/20 24 01/21/2024 CBC WITH DIFFE RENTI AL/PL ATELE T MCV 95 fL 79-97 Not Available [facility] ([facility]) [address] [facility], [place], [address], 01/21/2024 06:14:06 01/20/20 24 01/21/2024 CBC WITH DIFFE RENTI AL/PL ATELE T MCH 30.5 pg 26.6-3 3.0 Not Available [facility] ([facility]) [address] [facility], [place], [address], 01/21/2024 06:14:06 01/20/20 24 01/21/2024 CBC WITH DIFFE RENTI AL/PL ATELE T MCHC 32.3 g/dL 31.5-3 5.7 Not Available [facility] ([facility]) [address] [place], [address], 01/21/2024 06:14:06 01/20/20 24 01/21/2024 CBC WITH DIFFE RENTI AL/PL ATELE T RDW 13.5 % 11.7-1 5.4 Not Available [facility] ([facility]) [address] [facility], [place], [address], 01/21/2024 06:14:06 01/20/20 24 01/21/2024 CBC WITH DIFFE RENTI AL/PL ATELE T platelets 146 x10e3 /uL 150-45 0 below low normal Not Available [facility] ([facility]) [address] [facility], [place], [address], 01/21/2024 06:14:06 01/20/20 24 01/21/2024 CBC WITH DIFFE RENTI AL/PL ATELE T neutrophils 40 % not estab. Not Available [facility] ([facility]) [address] [facility], [place], [address], 01/21/2024 06:14:06 01/20/20 24 01/21/2024 CBC WITH DIFFE RENTI AL/PL ATELE T lymphs 49 % not estab. Not Available [facility] ([facility]) [address] [facility], [place], [address], 01/21/2024 06:14:06 01/20/20 24 01/21/2024 CBC WITH DIFFE RENTI AL/PL ATELE T monocytes 9 % not estab. Not Available [facility] ([facility]) [address] [facility], [place], [address], 01/21/2024 06:14:06 01/20/20 24 01/21/2024 CBC WITH DIFFE RENTI AL/PL ATELE T eos 1 % not estab. Not Available [facility] ([facility]) [address] [facility], [place], [address], 01/21/2024 06:14:06 01/20/20 24 01/21/2024 CBC WITH DIFFE RENTI AL/PL ATELE T basos 1 % not estab. Not Available [facility] ([facility]) [address] [facility], [place], [address], 01/21/2024 06:14:06 01/20/20 24 01/21/2024 CBC WITH DIFFE RENTI AL/PL ATELE T immature cells MANAGER SUPPORT Not Available [facility] ([facility]) [address] [place], [address], 01/21/2024 06:14:06 01/20/20 24 01/21/2024 CBC WITH DIFFE RENTI AL/PL ATELE T neutrophils (absolute) 1.2 x10e3 /uL 1.4-7. 0 below low normal Not Available [facility] ([facility]) [address] [place], [address], 01/21/2024 06:14:06 01/20/20 24 01/21/2024 CBC WITH DIFFE RENTI AL/PL ATELE T lymphs (absolute) 1.5 x10e3 /uL 0.7-3. 1 Not Available [facility] ([facility]) [address] [place], [address], 01/21/2024 06:14:06 01/20/20 24 01/21/2024 CBC WITH DIFFE RENTI AL/PL ATELE T monocytes(ab solute) 0.3 x10e3 /uL 0.1-0. 9 Not Available [facility] ([facility]) [address] [place], [address], 01/21/2024 06:14:06 01/20/20 24 01/21/2024 CBC WITH DIFFE RENTI AL/PL ATELE T eos (absolute) 0.0 x10e3 /uL 0.0-0. 4 Not Available [facility] ([facility]) [address] [place], [address], 01/21/2024 06:14:06 01/20/20 24 01/21/2024 CBC WITH DIFFE RENTI AL/PL ATELE T baso (absolute) 0.0 x10e3 /uL 0.0-0. 2 Not Available [facility] ([facility]) [address] [facility], [place], [address], 01/21/2024 06:14:06 01/20/20 24 01/21/2024 CBC WITH DIFFE RENTI AL/PL ATELE T immature granulocytes 0 % not estab. Not Available [facility] ([facility]) [address] [facility], [place], [address], 01/21/2024 06:14:06 01/20/20 24 01/21/2024 CBC WITH DIFFE RENTI AL/PL ATELE T immature grans (abs) 0.0 x10e3 /uL 0.0-0. 1 Not Available [facility] ([facility]) [address] [facility], [place], [address], 01/21/2024 06:14:06 01/20/20 24 01/21/2024 CBC WITH DIFFE RENTI AL/PL ATELE T NRBC MANAGER SUPPORT Not Available [facility] ([facility]) [address] [facility], [place], [address], 01/21/2024 06:14:06 01/20/20 24 01/21/2024 CBC WITH DIFFE RENTI AL/PL ATELE T hematology comments: MANAGER SUPPORT Not Available [facility] ([facility]) [address] [facility], [place], [address], 01/21/2024 06:14:06 01/20/20 24 01/20/2024 LIPID PANEL cholesterol, total 212 mg/dL 100-19 9 above high normal Not Available [facility] ([facility]) [address] [facility], [place], [address], 01/21/2024 06:14:07 01/20/20 24 01/20/2024 LIPID PANEL triglyceride s 83 mg/dL 0-149 Not Available [facility] ([facility]) [address] [facility], [place], [address], 01/21/2024 06:14:07 01/20/20 24 01/20/2024 LIPID PANEL HDL cholesterol 55 mg/dL >39 Not Available [facility] ([facility]) [address] [place], [address], 01/21/2024 06:14:07 01/20/20 24 01/20/2024 LIPID PANEL VLDL cholesterol oskar 15 mg/dL 5-40 Not Available [facility] ([facility]) [address] [place], [address], 01/21/2024 06:14:07 01/20/20 24 01/20/2024 LIPID PANEL LDL chol calc ([facility]) 142 mg/dL 0-99 above high normal Not Available [facility] ([facility]) [address] [place], [address], 01/21/2024 06:14:07 01/20/20 24 01/20/2024 LIPID PANEL LDL calc comment: MANAGER SUPPORT Not Available [facility] ([facility]) [address] [place], [address], 01/21/2024 06:14:07 01/20/2001/21/2024 HEMOG LOBIN A1C hemoglobin A1C 5.4 % 4.8-5. 6 Predi abete s: 5.7 - 6.4 Diabe jazmine: >6.4 Glyce cindy contr ol for adult s with diabe jazmine: <7.0 Not Available [facility] ([facility]) [address] [place], [address], 01/21/2024 06:14:08 01/20/2001/21/2024 TRIIO DOTHY JOSE E (T3), FREE triiodothyro nine (T3), free 2.6 pg/mL 2.0-4. 4 Not Available [facility] ([facility]) [address] [place], [address], 01/21/2024 06:14:08 08/25/04/03/2023 US, sandra s No observ ation record ed. [email or web address] [facility] [address] [facility], [place], [address], 04/07/2023 09:36:18 04/07/2004/07/2023 XR, shoul maurice, 2 [...] itis of the rotato r cuff. WSN: [id number] Orderi ng Physic kenny: Timbo Ortiz Dictat ed By: Rush Gonzalez MD Dictat ed Date/T tom: 4:25 pm Review ed By: Rush Gonzalez MD Signed By: Rush Gonzalez MD Signed Date/T tom: 4:25 pm Transc ribed By: ISAURA Transc ribed Date/T tom: 4:24 pm Patien t Class: Outpat ient [facility] (Outpt Imaging) [address] , [place], [address], 04/08/2023 15:23:39 04/07/2004/07/2023 XR, knee, 3 view [...] collat eral ligame nt injury . WSN: [id number] [facility] Physic kenny: Timbo Ortiz Dictat ed By: Rush Gonzalez MD Dictat ed Date/T tom: 4:26 pm Review ed By: Rush Gonzalez MD Signed By: Rush Gonzalez MD Signed Date/T tom: 4:26 pm Transc ribed By: ISAURA Transc ribed Date/T tom: 4:25 pm Patien t Class: Outpat ient [facility] (Outpt Imaging) [address] [place], [address], 04/08/2023 15:22:51 04/08/20 23 04/05/2023 XR, shoul maurice No observ ation [facility] ed[email or web address] [address] [place], [address], 04/08/2023 15:03:31 04/22/20 23 04/19/2023 MRI, knee, w/o contr ast [facility] Access ion Number : [id number] Frankie koenig Name: Namoie Solitario i Medica l Record Number : [id number] Date of : 1949 Date of Exam: 2022 Referr ing Physic kenny: Timbo Ortiz [employer] [address] [facility] -[address] [place] [id number] Exam: MR Knee (C-) CPT 03597 - Right Room Descri ption: [place] GE Pion 3T Histor y: Pain in [...] is unrema rkable . 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 Impres janet: 1. Tear of the cotton picking machine operator ior tibial attach ment of the medial [...] ly Signed By: Catia Norwood ra, MD [facility] ([facility]) [address], [place], [address], 04/23/2023 17:30:30 05/01/20 23 04/30/2023 MRI, shobart maurice, w/o contr ast No observ ation record ed. [facility] ([facility]) [address], [place], [address], 05/01/2023 14:56:50 06/20/2006/20/2023 MAMMO , scree sharath, [...] Lay letter mailed to frankie koenig WSN: [id number] Orderi ng Physic kenny: Timbo Mae Dictat ed By: Dangelo Del Rosario MD Dictat ed Date/T tom: 2:09 pm Review ed By: Dangelo Del Rosario MD Signed By: Dangelo Del Rosario MD Signed Date/T tom: 2:09 pm Transc ribed By: CSB Transc riptio n Date/T tom: 2:09 pm Birads : Frankie koenig Class: Outpat ient [facility] (Outpt Imaging) [address] [facility], [place], [address], 06/20/2023 14:17:04 07/22/20 23 07/14/2023 CT, chest , w/o contr ast No observ ation record ed. [email or web address] [facility] (Medical Records) [address], [place], [address], 07/22/2023 15:22:36 08/14/19 24 07/14/2023 CT, chest [...] to sugges t malign montse on mammog ferddy. [employer] ed ultras ound was perfor med [...] I agree with this report . WSN: [id number] Orderi ng Physic kenny: Timbo Mae Dictat ed By: Juanita Ramirez DO Dictat ed Date/T tom: 12:03 p Review ed By: Jamie Heaton MD Signed By: Jamie Heaton MD Signed Date/T tom: 12:08 pm Transc ribed By: ISAURA Transc ribed Date/T tom: 11:44 am Frankie koenig Class: Outpat ient [facility] (Outpt Imaging) [address] [place] [address], [place], [address], 05/28/2024 12:19:12 05/28/2005/28/2024 mm digit al mammo [...] I agree with this report . WSN: [id number] Eugene ng Physic kenny: Timbo Mae Dictat ed By: Juanita Ramirez DO Dictat ed Date/T tom: 12:03 pm Review ed By: Jamie Heaton MD Signed By: Jamie Heaton MD Signed Date/T tom: 12:08 pm Transc ribed By: CSB Transc riptio n Date/T tom: 11:44 am Birads : Frankie koenig Class: Outpat ient [facility] (Outpt Imaging) [address] [place], [address], 05/28/2024 12:19:12 07/14/20 24 07/13/2024 XR, hip [...] the care of this patien t. WSN: [id number] Orderi ng Physic kenny: Timbo Ortiz Dictat ed By: Jamie Heaton MD Dictat ed Date/T tom: 9:55 am Review ed By: Jamie Heaton MD Signed By: Jamie Heaton MD Signed Date/T tom: 9:55 am Transc ribed By: ISAURA Transc ribed Date/T tom: 9:55 am Patien t Class: Outpat ient [facility] (Outpt Imaging) [address] , [place], [address], 07/14/2024 10:22:01 07/29/20 24 07/29/2024 US msk [...] uing as the partia lly-vi sualiz ed cotton picking machine operator ior intero sseous nerve. 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 No olecra non bursal fluid collec tion is identi fied. The tricep s brachi i combin ed latera l and long head tendon , as well as the medial head tendon are intact at the olecra non insert ion. The olecra non demons trates normal cotton picking machine operator ior contou r. IMPRES JANET: 1. No elbow mass or fluid collec tion. 2. Incide ntal bifid ulnar nerve, otherw ise normal in appear ance. WSN: [id number] Orderi ng Physic kenny: Timbo Mae Dictat ed By: Colin Jaquez MD Dictat ed Date/T tom: 4:06 pm Review ed By: Colin Jaquez MD Signed By: Colin Jaquez MD Signed Date/T tom: 4:06 pm Transc ribed By: ISAURA Transc ribed Date/T tom: 1:32 pm Patien t Class: Outpat ient [facility] (Outpt Imaging) [address] [facility], [place], [address], 07/29/2024 17:55:12 08/09/20 24 08/06/2024 CT, chest , w/ contr ast No observ ation record ed. [facility] (Medical Records) [address] [facility], [place], [address], 08/10/2024 09:10:43 Result Notes None recorded. Problems Name Problem SNOMED Code Status Onset Date Resolution Date Notes Provider Name and Address Organization Details Recorded Time Abdomina l pain 41484316 Completed 201303/17/2014 RECORDED 02/02/20 14 8:32AM BY EDOUARD CLEMENTEATI ON/ADDEN DUM Trini Ortiz, [place] [address], [place], [address] , [facility] [place] 14:37:10 Acute sinusiti s [id number] Completed 201103/17/2014 RECORDED 02/20/20 12 2:39PM BY MIRIAM HENDRIX MA, EDOUARDATI ON/ADDEN DUM Not Available [facility] 4 12:45:23 Acute upper respirat ory infectio n of multiple sites Completed 201103/17/2014 RECORDED 02/20/20 12 2:41PM BY MIRIAM HENDRIX MA, ANNOTATI ON/ADDEN DUM Not Available [facility] 4 12:45:23 Patient status finding [id number] Completed 201103/17/2014 RECORDED 08/05/20 12 11:47AM BY MIRIAM HENDRIX MA, ANNOTATI ON/ADDEN DUM Yumiko fraser, [facility] 7 12:54:17 Chest pain [id number] Completed 201303/17/2014 STORY: NC RULED OUT / / CONT CURRENT RISK REDUCTIO N PLAN.; RECORDED 01/27/20 14 7:39AM BY EDOUARD CLEMENTEATI ON/ADDEN DUM Trini Ortiz, [place] [address], [place], [address] , [facility] [place] 2 09:23:46 Screenin g for malignan t neoplasm of breast Completed 201103/17/2014 RECORDED 02/20/20 12 2:38PM BY MIRIAM HENDRIX MA, ANNOTATI ON/ADDEN DUM Not Available [facility] 4 12:45:23 Disorder of breast [id number] Completed 201103/17/2014 RECORDED 02/20/20 12 2:41PM BY MIRIAM HENDRIX MA, ANNOTATI ON/ADDEN DUM Not Available [facility] 4 12:45:23 Screenin g for malignan t neoplasm of cervix Completed 201103/17/2014 RECORDED 02/20/20 12 2:39PM BY MIRIAM HENDRIX MA, ANNOTATI ON/ADDEN DUM Not Available [facility] 4 12:45:23 Chronic sinusiti s [id number] Completed 201103/17/2014 RECORDED 02/20/20 12 2:39PM BY MIRIAM HENDRIX MA, ANNOTATI ON/ADDEN DUM Not Available [facility] 4 12:45:24 Herpes simplex [id number] Completed 201103/17/2014 RECORDED 07/23/20 12 10:39AM BY MIRIAM HENDRIX MA ANNOTATI ON/ADDEN DUM Not Available [facility] 4 12:45:24 Cough [id number] Completed 201103/17/2014 RECORDED 02/20/20 12 2:37PM BY MIRIAM HENDRIX MA, ANNOTATI ON/ADDEN DUM [facility] [address] [place] [address], [place], [id number] , [facility] [place] 14:[place]:04 Divertic ulitis of colon [id number] Active 2013 Not Available [facility] 3 09:20:30 Divertic ulitis of colon [id number] Completed 201303/17/2014 RECORDED 02/02/20 14 8:32AM BY HELEN GRAYSON I ANNOTATI ON/ADDEN DUM Yumiko fraser, [facility] 7 12:54:25 Dysfunct ion of eustachi an tube 97549567 Completed 201303/17/2014 RECORDED 02/02/20 14 8:31AM BY HELEN GRAYSON I, ANNOTATI ON/ADDEN DUM Yumiko fraser, [facility] 7 12:56:38 Dysphagi a [id number] Completed 201103/17/2014 RECORDED 02/20/20 12 2:39PM BY MIRIAM HENDRIX MA, ANNOTATI ON/ADDEN DUM Not Available [facility] 4 12:45:24 Enthesop athy of knee 10990174 Completed 201103/17/2014 RECORDED 02/20/20 12 2:39PM BY MIRIAM HENDRIX MA, ANNOTATI ON/ADDEN DUM Not Available [facility] 4 12:45:24 Follow-u p encounte r Completed 201303/17/2014 RECORDED 01/27/20 14 7:39AM BY HELEN GRAYSON I, EDOUARDATI ON/ADDEN DUM Not Available [facility] 4 12:45:24 Ill-defi inez disorder of eye Completed 201203/17/2014 RECORDED 06/14/20 13 11:23AM BY MIRIAM HENDRIX MA, ANNOTATI ON/ADDEN DUM Not Available [facility] 4 12:45:24 Influenz a vaccine needed [id number] Completed 200903/17/2014 RECORDED 08/14/19 10 1:37PM BY CONNIE HENRIQUEZ MD, OFFICE VISIT Not Available [facility] 4 12:45:24 Adult health examinat ion Completed 201203/17/2014 RECORDED 06/14/20 13 11:24AM BY MIRIAM HENDRIX MA, ANNOTATI ON/ADDEN DUM Not Available [facility] 4 12:45:24 Disorder of skin pigmenta tion 01358407 Completed 201103/17/2014 RECORDED 02/20/20 12 2:42PM BY MIRIAM HENDRIX MA, ANNOTATI ON/ADDEN DUM Not Available [facility] 4 12:45:24 Insomnia 614626536 Completed 201103/17/2014 RECORDED 02/20/20 12 2:38PM BY MIRIAM HENDRIX MA, ANNOTATI ON/ADDEN DUM Trini Ortiz, [facility] [address] [address], [place], [address] , [facility] 3 11:10:55 Laborato ry procedur e performe d 658630641 Completed 201203/17/2014 RECORDED 01/16/20 13 8:19AM BY VIVIEN AREVALO MA, EDOUARDATI ON/ADDEN DUM Not Available [facility] 4 12:45:25 Low back pain 001832408 Completed 201303/17/2014 RECORDED 02/02/20 14 8:31AM BY EDOUARD CLEMENTEATI ON/ADDEN DUM Yumiko fraser, [facility] 7 12:54:53 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 39839174 Completed 201303/17/2014 RECORDED 01/27/20 14 7:39AM BY EDOUARD CLEMENTEATI ON/ADDEN DUM Yumiko fraser, [facility] 7 12:54:39 Mitral valve disorder 46705869 Completed 201103/17/2014 RECORDED 02/20/20 12 2:39PM BY MIRIAM HENDRIX MA, EDOUARDATI ON/ADDEN DUM Yumiko fraser, [facility] 7 12:54:29 Neck pain 24972181 Completed 201103/17/2014 RECORDED 07/23/20 12 10:39AM BY MIRIAM HENDRIX MA, ANNOTATI ON/ADDEN DUM Not Available [facility] 4 12:45:25 Active or passive immuniza tion Completed 200703/17/2014 RECORDED 11/16/19 08 3:08PM BY CONNIE HENRIQUEZ MD, OFFICE VISIT Not Available [facility] 4 12:45:25 Administ ration of viral vaccine Completed 200803/17/2014 RECORDED 02/14/20 09 11:55AM BY ALEXANDRIA AREVALO, OFFICE VISIT Not Available [facility] 4 12:45:25 Administ ration of bacteria l and viral vaccine Completed 200703/17/2014 RECORDED 11/16/19 08 3:18PM BY CONNIE HENRIQUEZ MD, OFFICE VISIT Not Available [facility] 4 12:45:25 Degenera tive joint disease of hand 53417793 Completed 201103/17/2014 RECORDED 02/20/20 12 2:41PM BY MIRIAM HENDRIX MA, ANNOTATI ON/ADDEN DUM Not Available [facility] 4 12:45:25 Infectiv e otitis externa 49429021 Completed 201103/17/2014 RECORDED 02/20/20 12 2:36PM BY MIRIAM HENDRIX MA, ANNOTATI ON/ADDEN DUM Not Available [facility] 4 12:45:26 Shoulder joint pain 060224871 Completed 201303/17/2014 RECORDED 02/02/20 14 8:31AM BY HELEN GRAYSON I, ANNOTATI ON/ADDEN DUM Yumiko fraser MA - [facility] 7 12:54:49 Eruption 036413697 Completed 201103/17/2014 RECORDED 02/20/20 12 2:37PM BY MIRIAM HENDRIX MA, ANNOTATI ON/ADDEN DUM Not Available [facility] 4 12:45:26 Chronic rhinitis 40050554 Completed 201303/17/2014 RECORDED 01/27/20 14 10:30AM BY VIVIEN AREVALO MA, EDOUARDATI ON/ADDEN DUM Yumiko fraser MA - [facility] 7 12:56:09 Herpes zoster 3079871 Completed 201303/17/2014 RECORDED 01/27/20 14 7:39AM BY HELEN GRAYSON I, ANNOTATI ON/ADDEN DUM Not Available [facility] 4 12:45:26 Screenin g for malignan t neoplasm of colon Completed 201103/17/2014 RECORDED 02/20/20 12 2:36PM BY MIRIAM HENDRIX MA, ANNOTATI ON/ADDEN DUM Not Available [facility] 4 12:45:26 Stress 75908600 Completed 201311/26/2016 Yumiko fraser, [facility] 7 12:55:57 Spasm 84406237 Completed 201103/17/2014 RECORDED 07/23/20 12 10:38AM BY MIRIAM HENDRIX MA, ANNOTATI ON/ADDEN DUM Not Available [facility] 4 12:45:26 Abdomina l pain 54122714 Completed 201303/18/2014 RECORDED 02/02/20 14 8:32AM BY HELEN GRAYSON I, ANNOTATI ON/ADDEN DUM Trini Ortiz, [facility] [address] [facility] [address], [place], [address] , [facility] 3 14:37:10 Acute sinusiti s 62535258 Completed 201103/18/2014 RECORDED 02/20/20 12 2:39PM BY MIRIAM HENDRIX MA, ANNOTATI ON/ADDEN DUM Not Available [facility] 4 03:45:38 Acute upper respirat ory infectio n of multiple sites Completed 201103/18/2014 RECORDED 02/20/20 12 2:41PM BY MIRIAM HENDRIX MA, ANNOTATI ON/ADDEN DUM Not Available [facility] 4 03:45:38 Patient status finding [id number] Completed 201103/18/2014 RECORDED 08/05/20 12 11:47AM BY MIRIAM HENDRIX MA, ANNOTATI ON/ADDEN DUM Yumiko fraser, [facility] 7 12:54:17 Chest pain 87196261 Completed 201303/18/2014 STORY: NC RULED OUT / / CONT CURRENT RISK REDUCTIO N PLAN.; RECORDED 01/27/20 14 7:39AM BY HELEN GRAYSON I, ANNOTATI ON/ADDEN DUM Trini Ortiz, [facility] [address], [place], [address] , [facility] 2 09:23:46 Screenin g for malignan t neoplasm of breast Completed 201103/18/2014 RECORDED 02/20/20 12 2:38PM BY MIRIAM HENDRIX MA, ANNOTATI ON/ADDEN DUM Not Available [facility] 4 03:45:38 Disorder of breast 97739549 Completed 201103/18/2014 RECORDED 02/20/20 12 2:41PM BY MIRIAM HENDRIX MA, ANNOTATI ON/ADDEN DUM Not Available [facility] 4 03:45:38 Screenin g for malignan t neoplasm of cervix Completed 201103/18/2014 RECORDED 02/20/20 12 2:39PM BY MIRIAM HENDRIX MA, ANNOTATI ON/ADDEN DUM Not Available [facility] 4 03:45:38 Chronic sinusiti s 81925831 Completed 201103/18/2014 RECORDED 02/20/20 12 2:39PM BY MIRIAM HENDRIX MA, ANNOTATI ON/ADDEN DUM Not Available [facility] 4 03:45:38 Herpes simplex 12703281 Completed 201103/18/2014 RECORDED 07/23/20 12 10:39AM BY MIRIAM HENDRIX MA, ANNOTATI ON/ADDEN DUM Not Available [facility] 4 03:45:38 Cough 82295124 Completed 201103/18/2014 RECORDED 02/20/20 12 2:37PM BY MIRIAM HENDRIX MA, ANNOTATI ON/ADDEN DUM Trini Ortiz, [facility] [address], [place], [address] , [facility] 3 14:41:04 Divertic ulitis of colon 891947145 Completed 201303/18/2014 RECORDED 02/02/20 14 8:32AM BY HELEN GRAYSON I, ANNOTATI ON/ADDEN DUM Yumiko Smith MA null, [facility] 7 12:54:25 Dysfunct ion of eustachi an tube 11907782 Completed 201303/18/2014 RECORDED 02/02/20 14 8:31AM BY HELEN GRAYSON I, ANNOTATI ON/ADDEN DUM Yumiko Smith MA null, [facility] 7 12:56:38 Dysphagi a 24893827 Completed 201103/18/2014 RECORDED 02/20/20 12 2:39PM BY MIRIAM HENDRIX MA, NEDA ON/ADDEN DUM Not Available [facility] 4 03:45:38 Enthesop athy of knee 73031008 Completed 201103/18/2014 RECORDED 02/20/20 12 2:39PM BY MIRIAM HENDRIX MA, ANNOTATI ON/ADDEN DUM Not Available [facility] 4 03:45:38 Follow-u p encounte r Completed 201303/18/2014 RECORDED 01/27/20 14 7:39AM BY HELEN GRAYSON I, EDOUARDATI ON/ADDEN DUM Not Available [facility] 4 03:45:38 Ill-defi inez disorder of eye Completed 201203/18/2014 RECORDED 06/14/20 13 11:23AM BY MIRIAM HENDRIX MA, EDOUARDATI ON/ADDEN DUM Not Available [facility] 4 03:45:38 Influenz a vaccine needed 55272765953 06 Completed 200903/18/2014 RECORDED 08/14/19 10 1:37PM BY CONNIE HENRIQUEZ MD, OFFICE VISIT Not Available [facility] 4 03:45:38 Adult health examinat ion Completed 201203/18/2014 RECORDED 06/14/20 13 11:24AM BY MIRIAM HENDRIX MA, ANNOTATI ON/ADDEN DUM Not Available [facility] 4 03:45:38 Disorder of skin pigmenta tion 90822720 Completed 201103/18/2014 RECORDED 02/20/20 12 2:42PM BY MIRIAM HENDRIX MA, ANNOTATI ON/ADDEN DUM Not Available [facility] 4 03:45:38 Insomnia 874311673 Completed 201103/18/2014 RECORDED 02/20/20 12 2:38PM BY MIRIAM HENDRIX MA, ANNOTATI ON/ADDEN DUM Trini Ortiz, [facility] [address] [place] [address] [address], [place], [address] , [facility] 3 11:10:55 Laborato ry procedur e performe d 011424705 Completed 201203/18/2014 RECORDED 01/16/20 13 8:19AM BY VIVIEN AREVALO MA, ANNOTATI ON/ADDEN DUM Not Available [facility] 4 03:45:39 Low back pain 717954012 Completed 201303/18/2014 RECORDED 02/02/20 14 8:31AM BY EDOUARD CLEMENTEATI ON/ADDEN DUM Ymuiko fraser, [facility] 7 12:54:53 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 66805269 Completed 201303/18/2014 RECORDED 01/27/20 14 7:39AM BY EDOUARD CLEMENTEATI ON/ADDEN DUM Yumiko fraser, [facility] 7 12:54:39 Mitral valve disorder 05446525 Completed 201103/18/2014 RECORDED 02/20/20 12 2:39PM BY MIRIAM HENDRIX MA, ANNOTATI ON/ADDEN DUM Yumiko fraser, [facility] 7 12:54:29 Neck pain 04689976 Completed 201103/18/2014 RECORDED 07/23/20 12 10:39AM BY MIRIAM HENDRIX MA, ANNOTATI ON/ADDEN DUM Not Available [facility] 4 03:45:39 Active or passive immuniza tion Completed 200703/18/2014 RECORDED 11/16/19 08 3:08PM BY CONNIE HENRIQUEZ MD, OFFICE VISIT Not Available [facility] 4 03:45:39 Administ ration of viral vaccine Completed 200803/18/2014 RECORDED 02/14/20 09 11:55AM BY ALEXANDRIA AREVALO, OFFICE VISIT Not Available [facility] 4 03:45:39 Administ ration of bacteria l and viral vaccine Completed 200703/18/2014 RECORDED 11/16/19 08 3:18PM BY CONNIE HENRIQUEZ MD, OFFICE VISIT Not Available [facility] 4 03:45:39 Degenera tive joint disease of hand 08974051 Completed 201103/18/2014 RECORDED 02/20/20 12 2:41PM BY MIRIAM HENDRIX MA, ANNOTATI ON/ADDEN DUM Not Available [facility] 4 03:45:39 Infectiv e otitis externa 50314227 Completed 201103/18/2014 RECORDED 02/20/20 12 2:36PM BY MIRIAM HENDRIX MA, ANNOTATI ON/ADDEN DUM Not Available [facility] 4 03:45:39 Shoulder joint pain 214390735 Completed 201303/18/2014 RECORDED 02/02/20 14 8:31AM BY HELEN GRAYSON I ANNOTATI ON/ADDEN DUM Yumiko fraser MA [facility] 7 12:54:49 Eruption 512831291 Completed 201103/18/2014 RECORDED 02/20/20 12 2:37PM BY MIRIAM HENDRIX MA, ANNOTATI ON/ADDEN DUM Not Available [facility] 4 03:45:39 Chronic rhinitis 09457445 Completed 201303/18/2014 RECORDED 01/27/20 14 10:30AM BY VIVIEN AREVALO MA, EDOUARDATI ON/ADDEN DUM Yumiko fraser, [facility] 7 12:56:09 Herpes zoster 2133873 Completed 201303/18/2014 RECORDED 01/27/20 14 7:39AM BY HELEN GRAYSON I, ANNOTATI ON/ADDEN DUM Not Available [facility] 4 03:45:39 Screenin g for malignan t neoplasm of colon Completed 201103/18/2014 RECORDED 02/20/20 12 2:36PM BY MIRIAM HENDRIX MA, ANNOTATI ON/ADDEN DUM Not Available [facility] 4 03:45:39 Spasm 34361651 Completed 201103/18/2014 RECORDED 07/23/20 12 10:38AM BY MIRIAM HENDRIX MA, ANNOTATI ON/ADDEN DUM Not Available [facility] 4 03:45:39 Hyperlip idemia 34438821 Active Not Available [facility] 3 09:20:31 Anxiety 51920720 Active Not Available [facility] 3 09:20:30 Abdomina l pain 62821910 Completed 11/26/2016 Trini Ortiz, [facility] [address] [address], [facility] [place], [address] , [facility] 3 14:37:10 Liver enzymes outside referenc e range 067391441 Completed 11/26/2016 Yumiko fraser [facility] 7 12:54:35 Knee pain Completed 11/26/2016 Yumiko fraser [facility] 8 14:02:45 Herpes labialis 6120757 Completed 11/26/2016 Yumiko fraser [facility] 7 12:54:31 Seasonal allergic conjunct ivitis 642001407 Active Not Available [facility] 3 09:20:30 Carotid bruit 449963520 Active Not Available [facility] 3 09:20:30 Allergic conjunct ivitis 434228455 Completed 11/26/2016 Yumiko fraser, [facility] 7 12:58:12 Sciatica 86375749 Completed 11/26/2016 Yumiko fraser, [facility] 7 12:54:46 Knee pain Active 2017 Not Available [facility] 3 09:20:30 Major depressi on single episode, in partial remissio n 21295449 Active 2018 Not Available [facility] 3 09:20:31 Hyperten sive disorder 94851878 Completed 201601/13/2020 Vivien espinosa, JESSENIA fraser, [facility] 0 13:46:29 Total hysterec hector Active Not Available [facility] 3 09:20:30 COVID-19 790743107 Completed 202011/15/2020 Removal Reason: Problem marked historic al by user pmadden from the COVID-19 watch flag Jewel Gilbert PA-C [address] [facility] [address], [place], [address] , [facility] 12:39:42 Total hysterec hector with removal of both tubes and ovaries Active around age 30 Not Available [facility] 3 09:20:31 Pain of right knee joint 20072091124 4100 Active 2021 Not Available [facility] 3 09:20:30 Neutrope ayesha 599914859 Active 2021 Not Available [facility] 3 09:20:30 Tear of meniscus of knee 793013032 Active 2021 Not Available [facility] 3 09:20:30 Pain in coccyx 85604802 Active 2021 Not Available [facility] 3 09:20:30 Pain of left hip joint 98748648712 9100 Active 2021 Not Available [facility] 3 09:20:30 Pain of left knee joint 68336952989 4107 Active 2021 Not Available [facility] 3 09:20:30 Hyperten janet monitori ng declined 930268394 Active 2021 acc[facility]al th Not Available [facility] 3 09:20:31 Fracture of femoral condyle 511928390 Active 2021 Not Available [facility] 3 09:20:30 Nocturia 067093138 Active 2021 Not Available [facility] 3 09:20:30 Hearing loss 93766042 Active 2021 Not Available [facility] 3 09:20:30 Leukopen ia 52613574 Active 2021 Not Available [facility] 3 09:20:31 Thromboc ytopenic disorder 563090034 Active 2021 Not Available [facility] 3 09:20:30 Chest pain 89386581 Active 2021 STORY: NC RULED OUT / / CONT CURRENT RISK REDUCTIO N PLAN.; RECORDED 01/27/20 14 7:39AM BY EDOUARD CLEMENTEATI ON/ADDEN DUM Not Available [facility] 3 09:20:30 Serum creatini ne above referenc e range 348494010 Active 2021 Not Available [facility] 3 09:20:30 Pneumoni a 074295801 Active 2021 Not Available [facility] 3 09:20:30 Cough 24174208 Active 2022 RECORDED 02/20/20 12 2:37PM BY MIRIAM HENDRIX MA, ANNOTATI ON/ADDEN DUM Not Available [facility] 3 09:20:30 Edema of lower extremit y 105385160 Active 2022 Not Available [facility] 3 09:20:29 Serum thyroid stimulat ing hormone level outside referenc e range 763696015 Active 2022 Not Available [facility] 3 09:20:30 Edema 778537632 Active 2022 Not Available [facility] 3 09:20:30 Nausea 669503447 Active 2022 Not Available [facility] 3 09:20:30 Posterio r rhinorrh ea 62355429 Active 2022 Not Available [facility] 3 09:20:31 Chronic pneumoni a 06934663879 9104 Active 2022 Not Available [facility] 3 09:20:29 Pain of left shoulder joint 14678288236 842279 Active 2022 Not Available [facility] 3 09:20:30 Insomnia 489368003 Active 2022 RECORDED 02/20/20 12 2:38PM BY MIRIAM HENDRIX MA, ANNOTATI ON/KARISHMA DUM Not Available [facility] 3 09:20:30 Muscle spasm of cervical muscle of neck 09178422727 4 Active 2022 Not Available [facility] 3 09:20:30 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 Active 2022 Not Available [facility] 3 09:20:30 Urinary incontin ence 992644223 Active 2022 Trini Ortiz, [facility] [address] [facility] [address], [place], [address] , [facility] 3 14:32:14 Abdomina l pain 88548938 Active 2022 Trini Ortiz, [facility] [address] [facility] [address], [place], [address] , [facility] 3 14:37:10 Body mass index 30+ - obesity 570017158 Active 2022 Trini Ortiz, [facility] [address] [facility] [address], [place], [address] , [facility] 3 14:54:16 Excessiv e thirst 67002727 Active 2022 Trini Ortiz [facility] [address] [address], [place], [address] , [facility] 3 14:57:02 Multiple joint pain 92945273 Active 2022 Trini Ortiz [facility] [address] [address], [place], [address] , [facility] 3 14:59:45 Moderate persiste nt asthma 175689603 Active 2022 [facility] [address] [place] [address], [place], [address] , [facility] 3 15:04:00 Obesity 721437920 Active 2022 EDGAR James [address] [place] [address], [place], [address] , [facility] 3 14:47:34 Lump in upper outer quadrant of left breast 70584286429 4103 Active 2023 [facility] [address] [address], [place], [address] , [facility] 4 15:01:52 Mass of joint of left elbow 49484822789 312684 Active 2023 [facility] [address] [address], [place], [address] , [facility] 4 15:04:08 Bone density finding 227099984 Active 2023 EDGAR James [address] [address], [place], [address] , [facility] 4 09:57:53 Inguinal pain 394640566 Active 2023 EDGAR James [address] [address], [place], [address] , [facility] 4 10:10:41 Strain of muscle of right groin region 85981794563 713755 Active 2023 Trini Ortiz, [facility] [address] [facility] [address], [place], [address] , [facility] 4 10:11:20 Acute sinusiti s 22883518 Completed 201102/22/2014 RECORDED 02/20/20 12 2:39PM BY MIRIAM HENDRIX MA, ANNOTATI ON/ADDEN DUM Not Available [facility] 4 14:27:37 Acute upper respirat ory infectio n of multiple sites Completed 201102/22/2014 RECORDED 02/20/20 12 2:41PM BY MIRIAM HENDRIX MA, ANNOTATI ON/ADDEN DUM Not Available [facility] 4 14:27:37 Allergic rhinitis 24488463 Completed 201311/26/2016 RECORDED 02/22/20 14 8:27AM BY RIMMA VARGAS, OFFICE VISIT Yumiko fraser, [facility] 7 12:55:38 Anemia 025826629 Active 2013 Not Available [facility] 3 09:20:30 Patient status finding 294865903 Completed 201102/22/2014 RECORDED 08/05/20 12 11:47AM BY MIRIAM HENDRIX MA, ANNOTATI ON/ADDEN DUM Yumiko fraser, [facility] 7 12:54:17 Chest pain 57492334 Completed 201202/22/2014 STORY: NC RULED OUT / / CONT CURRENT RISK REDUCTIO N PLAN.; RECORDED 01/16/20 13 8:19AM BY VIVIEN AREVALO MA, ANNOTATI ON/ADDEN DUM Trini Ortiz, [facility] [address] [facility] [address], [place], [address] , [facility] 2 09:23:46 Screenin g for malignan t neoplasm of breast Completed 201102/22/2014 RECORDED 02/20/20 12 2:38PM BY MIRIAM HENDRIX MA, ANNOTATI ON/ADDEN DUM Not Available [facility] 4 14:27:37 Disorder of breast 83523651 Completed 201102/22/2014 RECORDED 02/20/20 12 2:41PM BY MIRIAM HENDRIX MA, ANNOTATI ON/ADDEN DUM Not Available [facility] 4 14:27:37 Cardiova scular system problem 563286640 Active 2013 Not Available [facility] 3 09:20:30 Screenin g for malignan t neoplasm of cervix Completed 201102/22/2014 RECORDED 02/20/20 12 2:39PM BY MIRIAM HENDRIX MA, ANNOTATI ON/ADDEN DUM Not Available [facility] 4 14:27:38 Brachial neuritis 82907816 Active 2013 Not Available [facility] 3 09:20:31 Chronic sinusiti s 43855637 Completed 201102/22/2014 RECORDED 02/20/20 12 2:39PM BY MIRIAM HENDRIX MA, ANNOTATI ON/ADDEN DUM Not Available [facility] 4 14:27:38 Herpes simplex 06092006 Completed 201102/22/2014 RECORDED 07/23/20 12 10:39AM BY MIRIAM HENDRIX MA, ANNOTATI ON/ADDEN DUM Not Available [facility] 4 14:27:38 Cough 75234721 Completed 201102/22/2014 RECORDED 02/20/20 12 2:37PM BY MIRIAM HENDRIX MA, ANNOTATI ON/ADDEN DUM Trini Ortiz, [facility] [address] [facility] [address], [place], [address] , [facility] 3 14:41:04 Dysfunct ion of eustachi an tube 84409160 Active 2012 Not Available [facility] 3 09:20:31 Dysphagi a 42737161 Completed 201102/22/2014 RECORDED 02/20/20 12 2:39PM BY MIRIAM HENDRIX MA, EDOUARDATI ON/ADDEN DUM Not Available [facility] 4 14:27:38 Enthesop athy of knee 77661374 Completed 201102/22/2014 RECORDED 02/20/20 12 2:39PM BY MIRIAM HENDRIX MA, NEDA ON/ADDEN DUM Not Available [facility] 4 14:27:38 Ill-defi inez disorder of eye Completed 201202/22/2014 RECORDED 06/14/20 13 11:23AM BY MIRIAM HENDRIX MA, NEDA ON/ADDEN DUM Not Available [facility] 4 14:27:38 Influenz a vaccine needed 96849335265 06 Completed 200902/22/2014 RECORDED 08/14/19 10 1:37PM BY CONNIE HENRIQUEZ MD, OFFICE VISIT Not Available [facility] 4 14:27:38 Adult health examinat ion Completed 201202/22/2014 RECORDED 06/14/20 13 11:24AM BY MIRIAM HENDRIX MA, NEDA ON/ADDEN DUM Not Available [facility] 4 14:27:38 Gastroes ophageal reflux disease 898965219 Active 2013 Not Available [facility] 3 09:20:30 Follow-u p encounte r Completed 201102/22/2014 RECORDED 08/05/20 12 11:47AM BY MIRIAM HENDRIX MA, NEDA ON/ADDEN DUM Not Available [facility] 4 14:27:38 [facility]entia l hyperten janet 87530072 Active 2013 Not Available [facility] 3 09:20:31 Thyrotox icosis 91942805 Active 2013 Not Available [facility] 3 09:20:31 Disorder of skin pigmenta tion 55017913 Completed 201102/22/2014 RECORDED 02/20/20 12 2:42PM BY MIRIAM HENDRIX MA, ANNOTATI ON/ADDEN DUM Not Available [facility] 4 14:27:39 Hypothyr oidism 52630116 Active 2016 Not Available [facility] 3 09:20:30 Insomnia 926189124 Completed 201102/22/2014 RECORDED 02/20/20 12 2:38PM BY MIRIAM HENDRIX MA, ANNOTATI ON/ADDEN DUM Trini Ortiz, [facility] [address] [facility] [address], [place], [address] , [facility] 3 11:10:55 Irritabl e bowel syndrome 78793715 Active 2013 Not Available [facility] 3 09:20:30 Laborato ry procedur e performe d 753543122 Completed 201202/22/2014 RECORDED 01/16/20 13 8:19AM BY VIVIEN AREVALO MA, EDOUARDATI ON/ADDEN DUM Not Available [facility] 4 14:27:39 Low back pain 623307958 Completed 201211/26/2016 RECORDED 06/14/20 13 11:24AM BY MIRIAM HENDRIX MA, OFFICE VISIT Yumiko fraser [facility] 7 12:54:53 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 89771733 Active 2012 Not Available [facility] 3 09:20:30 Mitral valve disorder 96493422 Completed 201102/22/2014 RECORDED 02/20/20 12 2:39PM BY MIRIAM HENDRIX MA, ANNOTATI ON/ADDEN DUM Yumiko fraser [facility] 7 12:54:29 Mitral valve disorder 25617259 Active 2013 Not Available [facility] 3 09:20:30 Neck pain 06333472 Completed 201102/22/2014 RECORDED 07/23/20 12 10:39AM BY MIRIAM HENDRIX MA, ANNOTATI ON/ADDEN DUM Not Available [facility] 4 14:27:39 Active or passive immuniza tion Completed 200702/22/2014 RECORDED 11/16/19 08 3:08PM BY CONNIE HENRIQUEZ MD, OFFICE VISIT Not Available [facility] 4 14:27:39 Administ ration of viral vaccine Completed 200802/22/2014 RECORDED 02/14/20 09 11:55AM BY ALEXANDRIA AREVALO, OFFICE VISIT Not Available [facility] 4 14:27:39 Administ ration of bacteria l and viral vaccine Completed 200702/22/2014 RECORDED 11/16/19 08 3:18PM BY CONNIE HENRIQUEZ MD, OFFICE VISIT Not Available [facility] 4 14:27:40 Neutrope nathen disorder 969581263 Active 2013 Not Available [facility] 3 09:20:30 Patient status finding [id number] Completed 201311/26/2016 RECORDED 02/22/20 14 8:39AM BY RIMMA VARGAS, OFFICE VISIT Yumiko fraser [facility] 7 12:54:17 Degenera tive joint disease of hand 12925684 Completed 201102/22/2014 RECORDED 02/20/20 12 2:41PM BY MIRIAM HENDRIX MA, ANNOTATI ON/ADDEN DUM Not Available [facility] 4 14:27:40 Disorder of bone and articula r cartilag e 936767557 Active 2013 Not Available [facility] 3 09:20:30 Infectiv e otitis externa 04753234 Completed 201102/22/2014 RECORDED 02/20/20 12 2:36PM BY MIRIAM HENDRIX MA, ANNOTATI ON/ADDEN DUM Not Available [facility] 4 14:27:40 Shoulder joint pain 120439458 Completed 201211/26/2016 RECORDED 06/14/20 13 11:24AM BY MIRIAM HENDRIX MA, OFFICE VISIT Yumiko fraser, [facility] 7 12:54:49 Palpitat ions 63636599 Completed 201311/26/2016 Yumiko fraser, [facility] 7 12:57:10 Eruption 644193557 Completed 201102/22/2014 RECORDED 02/20/20 12 2:37PM BY MIRIAM HENDRIX MA, EDOUARDATI ON/ADDEN DUM Not Available [facility] 4 14:27:40 Chronic rhinitis 72304481 Completed 201211/26/2016 Yumiko fraser [facility] 7 12:56:09 Herpes zoster 5644541 Completed 201202/22/2014 RECORDED 01/16/20 13 8:19AM BY VIVIEN AREVALO MA, EDOUARDATI ON/ADDEN DUM Not Available [facility] 4 14:27:40 Screenin g for malignan t neoplasm of colon Completed 201102/22/2014 RECORDED 02/20/20 12 2:36PM BY MIRIAM HENDRIX MA, ANNOTATI ON/ADDEN DUM Not Available [facility] 4 14:27:40 Spasm 09050233 Completed 201102/22/2014 RECORDED 07/23/20 12 10:38AM BY MIRIAM HENDRIX MA, NEDA ON/ADDEN DUM Not Available [facility] 4 14:27:41 Vitamin D deficien 06129214 Active 2013 Not Available [facility] 3 09:20:30 Problem Notes None recorded. Procedures Surgical History Date Name Laterality Status Provider Name and Address Organization Details Recorded Time 06/20/20 23 Most Recent Mammogram completed Suzie Jaffe [facility] 06/20/2023 14:17:00 12/06/19 23 Bronchoscopy completed Suzie Jaffe [facility] 12/11/2022 09:47:35 06/19/20 22 Mammogram screening completed Vivien singh MA [facility] 10/03/2022 09:31:00 02/26/20 22 repair of meniscus completed Connie Miller MA [facility] 04/02/2022 08:44:31 01/13/20 20 Six-Item Cognitive Test completed Vivien singh MA [facility] 01/13/2020 14:08:24 12/28/19 20 Endoscopic us exam esoph completed Qiana Vieyra [facility] 12/28/2019 10:57:24 12/28/19 20 balloon dilation of esophagus completed Vivien singh MA [facility] 01/13/2020 14:02:40 11/28/19 19 Mini-Cog Test completed Yumiko Smith MA [facility] 11/27/2018 11:12:43 10/07/19 18 Mini-Cog Test completed Yumiko Smith MA [facility] 10/07/2017 13:56:19 04/11/20 17 Mammogram one breast completed Vivien singh MA [facility] 04/30/2017 16:04:21 05/23/20 16 Fall Risk Assessment completed Yumiko Smith MA [facility] 05/23/2016 13:03:08 05/23/20 16 Mini-Cog Test completed Yumiko Smith MA [facility] 05/23/2016 13:04:33 05/04/20 14 Date of Last Colonoscopy completed Swapna Fofana [facility] 06/06/2016 11:19:53 05/04/20 14 Colonoscopy completed Swapna Fofana [facility] 06/06/2016 11:19:39 04/21/20 12 Most Recent Bone Density completed Yumiko Smith MA [facility] 10/07/2017 14:02:13 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 Aspne Renae [facility] 03/30/2015 08:46:47 Appendectomy completed Aspen Renae [facility] 03/30/2015 08:46:47 Breast Biopsy completed [facility] 03/30/2015 08:46:47 Dilation and Curettage completed [facility] 03/30/2015 08:46:47 Tonsillectomy completed [facility] 03/30/2015 08:46:47 Endometrial Biopsy completed [facility] 03/30/2015 08:46:47 Neurosurgery completed [facility] 03/30/2015 08:46:47 Total hysterectomy completed Vivien singh MA [facility] 01/13/2020 13:47:09 Hysterectomy completed Vivien singh MA [facility] 05/07/2024 14:35:12 Imaging Results Imaging Date Name Status LastModified by Organiz ation Details LastModified Time 04/03/2023 US, pelvis completed [email or web address] [facility] Rad[facility] [address] [place], [address], 04/07/2023 09:36:18 04/07/2023 XR, shoulder, 2 or more view completed [facility] (Outpt Imaging) [address] [place] [address], [address], 04/08/2023 15:23:39 04/07/2023 XR, knee, 3 view completed [facility] (Outpt Imaging) [address] [place] [address], [address], 04/08/2023 15:22:51 04/05/2023 XR, shoulder completed [facility] Interventional Radiology [address] [place], [address], 04/08/2023 15:03:31 04/19/2023 MRI, knee, w/o contrast completed [facility] ([facility]) [address] [place], [address], 04/23/2023 17:30:30 04/30/2023 MRI, shoulder, w/o contrast completed [facility] ([facility]) [address], [place], [address], 05/01/2023 14:56:50 06/20/2023 MAMMO, screening, digital, bilateral completed [email or web address] (Outpt Imaging) [address] [place], [address], 06/20/2023 14:17:04 07/14/2023 CT, chest, w/o contrast completed [address] (Medical Records) [address] [place], [address], 07/22/2023 15:22:36 07/14/2023 CT, chest, w/o contrast completed [facility] Information not available 08/14/2023 11:49:56 05/28/2024 US, breast, limited completed [facility] (Outpt Imaging) [address] [place], [address], 05/28/2024 12:19:12 05/28/2024 mm digital mammo bilateral completed [facility] (Outpt Imaging) [address] [place], [address], 05/28/2024 12:19:12 07/13/2024 XR, hip + pelvis, bilateral completed [facility] (Outpt Imaging) [address] [place], [address], 07/14/2024 10:22:01 07/29/2024 US msk extremity left completed [facility] (Outpt Imaging) [address] [place], [address], 07/29/2024 17:55:12 08/06/2024 CT, chest, w/ contrast completed [facility] (Medical Records) [address] [place], [address], 08/10/2024 09:10:43 Procedure Notes None recorded. Medical Equipment None Reported. Allergies Allergen ID Allergen Name Allergen Category Reaction Reaction Severity Criticality Documentation Date Start Date Code Code System Note Provider Name and Address Organization Details Recorded Time 2330 honey bee venom medicatio n Not available Not available Not available 02/22/20142013 39667 7 RxNorm Yumiko Bigby [facility] fraser [facility] 7 12:53:58 92165 tetracycl ine medicatio n hives Not available Not available 01/13/20202021 29520 RxNorm JESSENIA [facility] 2 14:23:43 46694 erythromy ivan medicatio n hives Not available Not available 02/15/20222021 4053 RxNorm JESSENIA [facility] 2 14:23:43 77672 codeine medicatio n hives Not available Not available 07/31/20232021 2670 RxNorm Trini Ortiz, [facility] [address] [facility] [address], [facility] [place], [address] [place], [place] [address] 4 09:26:07 Medications Name Sig Start Date Stop Date Status Note LastModified by Organization Details LastModified Time estradiol 1 mg tabs 05/23 completed Not Available Not Available Not Available levothyro xine sodium 112 mcg tabs active Not Available Not Available Not Available afluria pf .5 ml gracie 05/23 completed Not Available [...] 1 TABLET BY MOUTH EVERY DAY DIRECTED 2024 active Not Available Not Available Not Avai lable metronida zole 500 mg tablet THREE TIMES [...] 1 TABLET BY MOUTH EVERY DAY DIRECTED 2023 active Not Available Not Available Not Avai lable levofloxa ivan 500 mg tablet TAKE 1 [...] 1 TABLET BY MOUTH EVERYDAY AT BEDTIME 2023 active Not Available Not Available Not Avai lable levothyro xine 112 mcg tablet Take 112 ugs by oral route. 08/06 completed Not Available Not Available Not Available amoxicill in 875 mg-potass ium clavulana te 125 mg tablet BID 08/11 completed RECORDED 08/14/19 10 8:08AM BY CONNIE HENRIQUEZ MD, MEDICATI ON AUTO-NAVARRO CTIVATIO N; Not Available Not Available Not Available tobramyci n 0.3 %-dexamet hasone 0.1 % eye drops,donita pension 10/07 completed Not Available Not Available Not [...] Updated DateTime 3 170.18 cm 33.5 kg/m2 88816.7 7 g 80 /min 98 % 98 % 97.9 [degF] 133 mm[Hg] 79 mm[Hg] Donna Hutchins MA [facility] [place] 3 10:42:14 Date Recorded Body height Body mass index (BMI) Body weight Oxygen saturation Oxygen saturation in Arterial blood by Pulse oximetry Heart rate Body temperature Systolic blood pressure Diastolic blood pressure Provider Name and Address Organization Details Last Updated DateTime 3 170.18 cm 34.3 kg/m2 78445.7 3 g 98 % 98 % 72 /min 97.7 [degF] 111 mm[Hg] 69 mm[Hg] Rimma Vargas MA [facility] 3 14:09:33 Date Recorded Body height Body mass index (BMI) Body weight Heart rate Oxygen saturation Oxygen saturation in Arterial blood by Pulse oximetry Body temperature Systolic blood pressure Diastolic blood pressure Provider Name and Address Organization Details Last Updated DateTime 4 170.18 cm 29.6 kg/m2 72032.9 6 g 60 /min 98 % 98 % 97.3 [degF] 124 mm[Hg] 83 mm[Hg] Brittnee Carlson MA [facility] 4 09:10:57 Date Recorded Body height Body mass index (BMI) Body weight Heart rate Oxygen saturation Oxygen saturation in Arterial blood by Pulse oximetry Body temperature Systolic blood pressure Diastolic blood pressure Provider Name and Address Organization Details Last Updated DateTime 4 170.18 cm 29.3 kg/m2 39882.7 7 g 75 /min 100 % 100 % 97.2 [degF] 155 mm[Hg] 75 mm[Hg] Vivien lao MA [facility] 4 14:43:29 Date Recorded Body height Body mass index (BMI) Body weight Heart rate Oxygen saturation Oxygen saturation in Arterial blood by Pulse oximetry Body temperature Systolic blood pressure Diastolic blood pressure Provider Name and Address Organization Details Last Updated DateTime 4 170.18 cm 28.7 kg/m2 70189.4 g 85 /min 97 % 97 % 97.4 [degF] 104 mm[Hg] 65 mm[Hg] Brittnee Carlson MA [facility] 4 09:43:12 Social History Question Answer Notes LastModified by Organizat ion Details LastModified Time Tobacco Smoking Status Never Smoker JESSENIA E[place]a [facility] 03/21/2014 10:43:07 Do You Have An Advance [...] available 03/30/2015 Are You Currently Employed? Yes [email or web address] Information not available 03/21/2014 What Type Of Diet Are You Following? REGULAR Information not available 02/15/2021 Do You Or Have You Ever Used E-cigarettes Or Vape? Never Used Electronic Cigarettes Information not available 07/02/2022 Education 2 Year College Informatio n not available 07/02/2022 What Is Your Occupation? [employer] Information not available 04/02/2022 Are [...] 02/15/2021 Have You Recently Traveled To A [place] [address] High Risk Area Or Gathering In The Last 10 Days? No [email or web address] Information not available 12/26/2020 What Was The Date Of Your Most Recent Tobacco Screening? 07/13/2024 [email or web address] Information not available 07/13/2024 How Many Children Do You Have? 1 Sanket [email or web address] Information not available 03/21/2014 Do You Use [...] How Much Tobacco Do You Smoke? No [email or web address] Information not available 03/21/2014 General Stress Level High Information not available 07/02/2022 Do You Use Any Illicit Or Recreational Drugs? No Information not available 07/02/2022 Do You Use Sunscreen Routinely? Yes [email or web address] Information not available 03/21/2014 How Many Years [...] you able to care for yourself? Yes Information not available 03/21/2014 What is your exercise level? Occasional Exercise bike Information not available 04/02/2022 Mental Status None recorded. Family History Relationship Description Onset Age of this Age Resolved Age Notes LastModified by Organization Details LastModified Time Mother Malignant neoplasm of skin [email or web address] Not available 10/2023 09:29:18 Father Heart disease [...] exposure N Lung Disease N Hypothyroidism Y Depression N COPD N Defects or Inherited Disease N Developmental or Behavioral Disorders N Breast Problem N Anesthesia Complications N Headaches/Migraines N Varicose Veins N Anxiety Disorder Y Muscle, Joint, or Bone Problems N Obesity Y Vision or Eye Problems Y Arthritis N Head Injury/Concussion N Infertility N Polyps N Mental Disorder N Congenital Anomalies N [...] virus, trivalent, preservative 4 completed Not Available [facility] 07/01/2023 09:20:32 Pneumococcal conjugate PCV 13 5 completed Not Available [facility] 07/01/2023 09:20:32 Influenza, high-dose, trivalent, PF 7 completed Not Available [facility] 07/01/2023 09:20:32 pneumococcal polysaccharide PPV23 7 completed Not Available [facility] 07/01/2023 09:20:31 Pneumococcal conjugate PCV 13 9 completed Not Available [facility] 07/01/2023 09:20:32 Influenza, high-dose, trivalent, PF 9 completed Not Available [facility] 07/01/2023 09:20:32 zoster live 9 completed Not Available [facility] 07/01/2023 09:20:32 Tdap 3 completed Not Available [facility] 07/01/2023 09:20:31 Influenza, high-dose, trivalent, PF 6 completed Not Available [facility] 07/01/2023 09:20:32 zoster recombinant 0 completed JESSENIA Espana [facility] 07/31/2023 14:12:32 Influenza, high-dose, trivalent, PF 0 completed JESSENIA Espana [facility] 07/31/2023 14:12:32 zoster recombinant 0 completed Not Available [facility] 07/01/2023 09:20:31 Influenza, adjuvanted, quadrivalent, PF 0 completed Not Available [facility] 07/01/2023 09:20:31 Influenza, high-dose, quadrivalent, PF 1 completed Not Available [facility] 07/01/2023 09:20:31 Influenza, split virus, quadrivalent, PF 5 completed Not Available [facility] 07/01/2023 09:20:32 COVID-19, mRNA, LNP-S, PF, 30 mcg/0.3 mL dose 2 completed Not Available [facility] 07/01/2023 09:20:31 COVID-19, mRNA, LNP-S, PF, 30 mcg/0.3 mL dose 1 completed Not Available [facility] 07/01/2023 09:20:31 COVID-19, mRNA, LNP-S, PF, 30 mcg/0.3 mL dose 1 completed Not Available [facility] 07/01/2023 09:20:31 Influenza, split virus, trivalent, preservative 0 completed Not Available [facility] 07/01/2023 09:20:32 Influenza, high-dose, trivalent, PF 6 completed Not Available [facility] 07/01/2023 09:20:32 Tdap 8 completed Not Available [facility] 07/01/2023 09:20:31 Influenza, high-dose, trivalent, PF 8 completed Not Available [facility] 07/01/2023 09:20:32 Influenza, high-dose, quadrivalent, PF 2 completed Not Available [facility] 07/01/2023 09:20:31 Pneumococcal conjugate PCV20, polysaccharide [id number] conjugate, adjuvant, PF 2 completed Not Available [facility] 07/01/2023 09:20:31 Influenza, high-dose, quadrivalent, PF 3 completed Rimma Vargas MA [facility] 07/31/2023 14:12:32 COVID-19, mRNA, LNP-S, PF, jeremi-sucrose, 30 mcg/0.3 mL 3 completed Rimma Vargas MA null, [facility] 07/31/2023 14:12:32 RSV, recombinant, protein subunit RSVpreF, adjuvant reconstituted, 0.5 mL, PF 4 completed JESSENIA Springer, [facility] 07/13/2024 09:31:47 COVID-19, mRNA, LNP-S, PF, jeremi-sucrose, 30 mcg/0.3 mL 4 completed Brittnee Carlson MA null, [facility] 07/13/2024 09:31:47 Influenza, high-dose, trivalent, PF 4 completed Swapna fraser, [facility] 05/18/2024 08:54:12 pneumococcal polysaccharide PPV23 8 completed Not Available [facility] 07/01/2023 09:20:31 Tdap 8 completed Not Available [facility] 07/01/2023 09:20:31 Novel Edpbayryn-[id number], all formulations 0 completed Not Available [facility] 07/01/2023 09:20:31 Influenza, split virus, trivalent, preservative 1 completed Not Available [facility] 07/01/2023 09:20:32 Influenza, split virus, trivalent, preservative 2 completed Not Available [facility] 07/01/2023 09:20:32 Influenza, split virus, trivalent, preservative 3 completed Not Available [facility] 07/01/2023 09:20:32 pneumococcal polysaccharide PPV23 3 completed Not Available [facility] 07/01/2023 09:20:31 Past Encounters Encounter ID Performer Location Encounter Start Date Encounter Closed Date Diagnosis/Indication Diagnosis SNOMED-CT Code Diagnosis ICD10 Code Diagnosis Note [id number] [facility] [address] [facility] [facility] JESSEN[place] [address] 11/16/2007 00:00:00 [id number] [place] [address] 09/06/2008 00:00:00 [id number] [address] [address] [place] [address] 12/09/2008 00:00:00 [id number] [address] [place] [address] 12/21/2008 00:00:00 [id number] [address] [address] [place] [address] 02/13/2009 00:00:00 [id number] [address] [address] [place] [address] 07/21/2009 00:00:00 [id number] auto[facility] erce [address] [facility] [place] [address] 07/28/2009 00:00:00 [id number] auto[facility] erce [address] [facility] [place] [address] 08/14/2009 00:00:00 [id number] auto[facility] erce [address] [facility],[address] [place] [address] 02/15/2010 00:00:00 [id number] [facility] [facility] [address] [facility] [place] [address] 02/18/2011 00:00:00 [id number] auto[facility]Comm erce [address] [facility] [address] [place] [address] 06/28/2011 00:00:00 [id number] auto[facility]Comm erce [address] [facility] [place] [address] 02/20/2012 00:00:00 [id number] [address] [address] [place] [address] 04/21/2012 00:00:00 [id number] [address] [address] [place] [address] 07/07/2012 00:00:00 [id number] [address] [address] [place] [address] 07/23/2012 00:00:00 [id number] [address] [facility] [place] [address] 08/05/2012 00:00:00 [id number] auto[facility] [address] [place] [address] 11/03/2012 00:00:00 [id number] auto[address]Comm er[address] [place] [address] 01/15/2013 00:00:00 [id number] [facility] [facility] [address] [place] [address] 03/05/2013 00:00:00 [id number] auto[facility]Comm erce [address] [facility] [address] [place] [address] 06/14/2013 00:00:00 [id number] auto[facility]Comm erce [address] [facility] [place] [address] 01/26/2014 00:00:00 [id number] auto[facility]Comm erce [address] [facility] [place] [address] 02/01/2014 00:00:00 [id number] auto[facility]Comm erce [address] [facility] [place] [address] 02/21/2014 00:00:00 [id number] Aspen Cordovaoit Main Office [address] [facility] [address] [place], J[place]ENIA [address] 03/21/2014 10:06:16 03/21/2014 11:11:47 Adult health examination 443588293 Hyperlipidemia 51765854 Essential hypertension 16311942 well controlled continue current medication Anxiety 77335066 doing w ell on sertraline , will continue Abdominal pain 91172971 Followed by GI Hypothyroidism 39415700 [id number] Main Office [address] [facility] [address] [place], JESSENIA [address] 03/30/2015 08:38:20 03/30/2015 09:44:48 Essential hypertension 39720778 Hypothyroidism 95005632 Adult heal th examination 523769702 Carotid bruit 060659427 pt has had carotid doppler 2013/ no vascular dz. pt saw cardiology -[place] Anxiety 52784015 SSRI he lps stablize mood/ low dose Allergic conjunctivitis 120459808 Sciatica 16380578 [id number] Connie FlahertyJaydaTemo royal Main Office [address] [place] [address] 05/23/2016 12:48:24 05/23/2016 13:45:05 Adult health examination 785182245 Z00.00 Influenza vaccine needed 0057525105 106 Z23 Hypothyroidism 72490113 E03.9 Essential hypertension 28643935 I10 Major depr ession single episode, in partial remission 98501497 F32.4 Screening for malignant neoplasm of colon 034885970 Z12.11 [id number] Sol Chau Main Office [address] [place] [address] 08/28/2016 08:41:07 08/28/2016 10:04:38 Bursitis of hip 96964281 M70.72 Unclear if etiology is only hip bursitis. Will check XRAys of the hip and lower back. Pt. has h/o cervi al radiculopa thy in the past. Lumbago with sciatica 20 9517011 M54.42 [id number] Connie FlahertyJaydaTemo royal Main Office [address] [place] [address] 11/26/2016 12:38:56 11/26/2016 13:36:20 Hypothyroidism 70221099 E03.9 phone call may 242015. pt will do labs in aug 2016 Essential hypertension 80441498 I10 Major depr ession single episode, in partial remission 41227613 F32.4 cont meds Leukopenia 27476155 D72. 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 [id number] Connie royal Main Office [address] [place] [address] 10/07/2017 13:42:39 10/07/2017 14:55:35 Adult health examination 763724059 Z00.00 Administra tion of viral vaccine 83839884 Z23 Knee pain 68307369 M25.5 69 Hypothyroidism 46587130 E03.9 phone call may 242015. pt will do labs in aug 2016 Major depr ession single episode, in partial remission 50068867 F32.4 cont meds [id number] Lion Caro MD Main Office [address] [facility] [address] [place] [address] 03/31/2018 08:20:51 03/31/2018 09:15:47 Hypothyroidism 05498274 E03.9 will recheck labs, refill med. Influenza vaccine needed 0474008187 106 Z23 Essential hypertension 89231590 I10 continue metoprolol as directed. 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 Tried NSAIDs and percocet w/o any relief of her pain. [id number] EDGAR James Main Office [address] [place] [address] [place] [address] 11/27/2018 10:57:59 11/27/2018 11:39:19 Adult health examination 793566950 Z00.00 UTD, due for colo this year, she will call to schedule. Screening for malignant neoplasm of colon 254330496 Z12.11 Hypothyroidism 03301150 E03.9 will recheck labs, refill med. Hyperlipidemia 85760142 E78.5 Family his tory of diabetes mellitus 260867927 Z83.3 Fatigue 99469504 R53.83 [id number] Brittany Denis Main Office [address] [facility] [address] [place] [address] 04/16/2019 10:12:25 04/16/2019 11:02:12 Anxiety 01210866 F41.9 Will increase wellbutrin to 300mg daily, has not been on long enough to determine effectiven ess. recheck in 4-6 weeks. Essential hypertension 21152252 I10 continue metoprolol as directed. Excessive weight gain 22 2924442 R63.5 she is very concerned about this. recently started keto diet but does note they have been eating foods very high in fat- arreola, fatty red meats etc. she will adjust this to make it a more well balanced keto diet with good fats. Major depr ession single episode, in partial remission 46563054 F32.4 [id number] Trini Ortiz [facility] Main Office [address] [address] [place] [address] 06/17/2019 11:27:58 06/17/2019 12:05:06 Hyperlipidemia 00856224 E78.5 Anxiety 10410262 F41.9 Seems she has been alternatin g between 150mg and 300mg but not one consistent dose. encouraged to check with her pharmacy to see what happened in terms of getting 2 different pills in her bottle. New rx sent with a note to d/c 150mg tab. F/u in 1 month after taking 300mg consistent ly to see if sx improve. if not we may try trintellix as it is weight neutral and see if this works for her. call or return for any concerns. lorapzeam as needed for anxiety/ sleep, no alcohol or dirving with med. Hypothyroidism 46694058 E03.9 will recheck labs, refill med. Leukopenia 29558137 D72. 819 [id number] Trini Ortiz [facility] Main Office [address] [address] [place] [address] 07/20/2019 10:12:39 07/20/2019 10:47:02 Major depression single episode, in partial remission 48295118 F32.4 will increase wellbutrin to 450mg daily, do not miss doses or stop med abruptly. f/u in 6 weeks for recheck. Insomnia 648640539 G47.0 0 lorazepam not helping, will trial amitriptyl ine at bedtime, no alcohol or driving with med. good sleep hygeine reviewed. f/u in 6 weeks for recheck [id number] Trini Ortiz [facility] Main Office [address] [address] [place] [address] 08/31/2019 09:47:25 08/31/2019 10:41:59 Insomnia 484224718 G47.00 amitriptyl ine working great for sleep. she is feeling much better. Anxiety 48555843 F41.9 Sx improved on 450mg. she feels better. will continue meds as directed. FU at in DECEMBER, prior if needed [id number] EDGAR James [facility] h [address] [facility] [address] [place] [address] 01/13/2020 13:25:43 01/13/2020 14:26:28 Adult health examination 693012009 Z00.00 UTD, patient believe she had colo 2018. will request Essential hypertension 11553509 I10 continue metoprolol as directed. Hyperlipidemia 36832643 E78.5 Hypothyroidism 22826976 E03.9 Anxiety 98291913 F41.9 Sx improved on 450mg. she feels better. will continue meds as directed. FU at in DECEMBER, prior if needed Stricture of esophagus 80842656 K22.2 recent balloon dilatation in December, feeling much better. [id number] EDGAR James [facility] [address] [address] [place] [address] 07/13/2020 08:53:26 07/13/2020 09:23:06 Hypothyroidism 61582659 E03.9 Essential hypertension 66426014 I10 continue metoprolol as directed. Vitamin D deficiency 347 21587 E55.9 Mixed hyperlipidemia 267 658701 E78.2 Anemia 641845183 D64.9 [id number] Jewel Gilbert PA-C Main Office [address] [address] [place] [address] 11/15/2020 09:01:30 11/15/2020 13:25:00 COVID-19 286933551 U07.1 she rec'd monoclonal ab - rushing - feeling sig better lately x mild lingering cough (rec juliocesar dm prn - call if worse then consider prn tessalon) - will get covid shots in 7. she works from home - does not need rtwn Counseling 750879263 Z71 .9 Health advice, education or counseling done for COVID 19 [id number] EDGAR James Main Office [address] [address] [place] [address] 12/26/2020 10:26:55 12/26/2020 11:22:39 Urinary tract infectious disease 45865788 N39.0 negative urine dip, will send for culture. Flank pain 735936015 R10 .9 bilateral but worse on left x 3-4 weeks. will check US Urinary incontinence 165 436985 R32 1-2 daily for the last month. this is new for her. will refer Hypothyroidism 80269278 E03.9 Hyperlipidemia 50488434 E78.5 [id number] EDGAR James Main Office [address] [place] [address] 02/15/2021 08:53:19 02/15/2021 09:49:12 Adult health examination 946980689 Z00.00 TDap UTD, HM UTD, patient believe she had colo 2018. will request Anxiety 32754090 F41.9 Stable. Continue current medication s. Essential hypertension 52964912 I10 Stable. Continue current medication s. Hypothyroidism 43949109 E03.9 Stable. Continue current medication s.Will recheck TSH and adjust medication s as necessary. Major depr ession single episode, in partial remission 85665849 F32.4 PHQ9 score of 5.Continue current medication s. Nocturia 389822656 R35.1 Managed by a uroGYN. See as scheduled. Hearing loss 03900894 H9 1.93 will refer to ENT Hyperlipidemia 55518444 E78.5 [id number] Donna Hutchins MA Main Office [address] [facility] [address] [place] [address] 09/28/2021 10:46:24 09/28/2021 11:37:51 Pre-surgery evaluation 608407650 Z01.818 1. Pre-Surgic al Evaluation /Surgical Clearance for right knee meniscus repair scheduled for 10/08/21 under general anesthesia .-- Clinical cardiac predictor( s): anemia, carotid bruit, hypertensi on, hyperlipid emia, obesity and mitral valvular disease-- Surgical risk level: Low/Modera te-- Functional Status: Moderate-- Revised Cardiac Risk Index (RCRI) for Pre-Operat may Risk: 0-- SANDOVAL Score: 0 % Risk of myocardial infarction or cardiac arrest, intraopera tively or up to 30 days post-op-- Vitals and previous labs reviewed-- Imaging: Not indicated- - EKG: Reviewed no concern for ACD-- Labs ordered given hx of of hypothyroi dism and anemia.-- Informed patient NPO at midnight-- Advised to avoid aspirin and NSAIDS-- Plan of care discussed with patient.-- Medical clearance: Patient cleared if labs wnl and after being cleared from cardiac stand point given the shortness of breath while only going up 4 stairs. Patient is currently at moderate to low risk for cardiopulm onary complicati ons with planned procedure based on comorbidit ies, good exertional tolerance and overall procedure risk. Hypothyroidism 41521714 E03.9 Essential hypertension 93427678 I10 BP within JNC 8 guideline range.Cont with metoprolol Carotid bruit 305043792 R09.89 U/S on 2012 showed less than 50% stenosis on right side and I could not appreciate bruit this time. Dyspnea on exertion 6084 5006 R06.09 When going up stairs otherwise she can walk 4 miles before sx start.She is establishe d with cardiology thus I would like to refer her to cardiology for clearance prior to clear her from cardiac stand point.I believe her sx are likely 2/2 to physical deconditio sharath. [id number] Trini Ortiz [facility] Main Office [address] [facility] [address] [facility] [place] [address] 11/15/2021 08:28:17 11/15/2021 09:21:13 Hypothyroidism 00300968 E03.9 Dose was decreased in Sep. labs rechecked with thai koenig, new dosing provided. Neutropenic disorder 303 954083 D70.9 saw hematology due to decreasing WBC, low platelet count. I had referred her in the past and heme reviewed her records and did not feel she needed to be seen at that time. She will be seeing them every 2 months, may possibly need bone marrow biopsy. Mitral valve disorder 11 212873 I05.8 stable Tear of me niscus of knee 265397932 S83.206D needs to have surgery but is waiting on cardiac clearance. She has a lot of pain, we discussed risk of diclofenac and blood dyscrasia, she will use the medication only as needed at her discretion . Will also rx topical diclofenac to use in between times as needed. Essential hypertension 96734476 I10 Stable. Continue current medication s. 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 Phelps. She has has CT heart with minimal CAD. Bilateral carotid US with 1-49% stenosis bilateral- on lower end of range bilaterall y.Now also had left knee pain s/p fall with fracture and has severe left knee pain but has to have right knee done first.-She has long standing neutropeni a and is being followed by hem/onc in [place].Acc ording to Felice Nahomi-opera tive Risk Assessment , based on patient's age, creatinine , ASA class and surgical procedure, patient has a 0.7% risk of nahomi-opera tive myocardial infarction or cardiac arrest.no further work-up is necessary. [id number] Will Paredes MD [facility] [address] [facility] [address] [facility] [place] [address] 02/15/2022 08:44:32 02/15/2022 16:00:44 COVID-19 426659010 U07.1 [id number] RODNEY James Main Office [address] [facility] [address] [place] [address] 04/02/2022 08:27:00 04/02/2022 09:48:51 Adult health examination 060749977 Z00.00 TDAP UTD, HM UTD, patient believe she had colo 2018. will request Anxiety 24314831 F41.9 Stable. Continue current medication s. Major depr ession single episode, in partial remission 95743126 F32.4 PHQ9 score of 5.Continue current medication s. Essential hypertension 03775320 I10 Stable. Continue current medication s. Hypothyroidism 65480193 E03.9 Stable. Continue current medication s.Will recheck TSH and adjust medication s as necessary. Nocturia 349253388 R35.1 Managed by a uroGYN. See as scheduled. Hearing loss 10534166 H9 1.93 Saw ENT had ears checked then hearing test in the office and was normal but she is unsure if she was raising her hand at the right time Hyperlipidemia 25503182 E78.5 Leukopenia 68884468 D72. 819 Thrombocyt openic disorder 909801778 D69.6 Menopause present 686577 006 Z78.0 Chest pain 33829284 R07. 9 EKG no acute abnormalit y, recent extensive cardiac work-up- negative, suspect may be gerd related. Gastroesop hageal reflux disease 775538300 K21.9 trial omeprazole x 14 days- 1st thing in the morning on an empty stomach with full glass of water. [id number] Catracho Escalante MD Main Office [address] [facility] [address] [facility] [place] [address] 06/14/2022 13:22:07 06/14/2022 13:57:27 Cough 16251406 R05.9 I had a discussion with Naomie regarding the causes of cough, from her history it seems to be multifacto rial, interestin gly she has been having some wheezing in pm which could be due to reactive airway spasm; I will prescribe her some albuterol however she does not have a diagnosis of asthma. The other interestin g thing is he is having pleurisy although there is no recent history of a URI I believe the symptoms that she is experienci ng is likely due to the excessive cough that she has at night, unfortunet ly I cannot give her NSAID as she tells me it would interfere with her PRP.She did describe having a sensation of something dripping from the back of her nose into her throat which would support a diagnosis of postnasal drip. Given that I have gone ahead and prescribe her some Flonase Sensimist where she is supposed to use 2 sprays in each nostril at bedtime for about 2 weeks and then bring it down to 1. In the daytime she was advised to use a saline nasal spray.I wanted to give antihistam ine but with her PRP for which she was told she cannot take any other meds I have held.She denies any GERD sx.I will have her follow-up with her primary care in about a month if the cough continues to persist a chest x-ray can be considered at that point and a PFT.For completene ss sake with the pleurisy, cardiac valve hx and ankle edema which she notes is from her knees I have ordered a BNP. [id number] EDGAR James Main Office [address] [facility] [address] [facility] [place] [address] 07/02/2022 14:03:28 07/02/2022 14:43:26 Pneumonia 124497212 J18.9 Sx improving but still has cough, feeling slightly winded and has chest and back pain. Will rx short burst of prednisone to help with pain and SOB. she is going on a cruise and would like script in case sx worsen. Tear of me niscus of knee 040872925 S83.206D had stem cell injection without much relief. She has bene havign laser therapy. is supposed to have PRP injections 07/22. then will re-start PT. [id number] Trini Ortiz [facility] Main Office [address] [facility] [address] [facility] [place], [place] [address] 10/10/2022 13:51:37 10/10/2022 15:15:41 Essential hypertension 70120781 I10 Stable. Continue current medication s. Suspect Elevations were due to fluid overload, has normalized . Edema of l ower extremity 681696031 R60.0 Echo essentiall y normal, EF 60-65%, BNP 110, lasix x 1 dose and diuresed 10lbs. Will refill lasix but recommend she only take it if she has > 3lbs weight gain 1 day. Recheck kidney function. Hypothyroidism 30819177 E03.9 Stable. Continue current medication s.Will recheck TSH and adjust medication s as necessary. Hyperlipidemia 16882053 E78.5 Cough 69130889 R05.9 forceful, wheezy cough, improved but still very bothersome . Pneumonia 492553654 J18. 9 Had CXR that showed ? nodule LLL, CT scan pending readings. She has since developed a cough- very forceful, wheezing, congestion , has bloody/ green thick phlegm. Will tx with doxy for possible PNA, prednisone burst x 5 days, tessalon perles as needed for cough. Has bene takign codeine for cough with relief, will rx tylenol #3 to use as needed at bedtime for coughing- (robitussi n with codeine shortage) [id number] [facility] [address] [facility] [address] [facility] [place] [address] 10/30/2022 14:24:09 10/30/2022 16:04:12 Pneumonia 369438837 J18.9 repeat CXR done this morning:In terval increase in the nodular opacity at the left lower lobe when compared tothe radiograph dated 10/03/2022 and correspond ing to findings on the CT chestdated 10/09/2022. Findings may reflect waxing and waning nodular opacities whichcan be seen with an inflammato ry or infectious process, however other etiologies cannot be completely excluded. Recommend follow-up per pulmonolog yfinish doxy, start cefpodoxim e, use probiotics daily. History of SARS-CoV-2 29 01737191 59094058 Z86.16 Waiting on pulmonolog y appt, will start tx with flovent daily, albuterol as needed Essential hypertension 60713186 I10 Continue current medication s. Edema of l ower extremity 194547720 R60.0 Echo essentiall y normal, EF 60-65%, wearing compressio n stockings, has US scheduled in january Nausea 598300538 R11.0 [id number] Trini Ortiz, [facility] [address] [facility] [address] [facility], [place] [address] 11/06/2022 13:58:13 11/06/2022 16:17:11 Pneumonia 532828342 J18.9 Will extend cefpodoxim e by 3 days for a total of 10 days of abx. recommed she contact dr Ng again to notify him of no improvemen t and see what his suggestion s are. History of SARS-CoV-2 29 29211375 18198276 Z86.16 continue with flovent daily, albuterol as needed Essential hypertension 41915530 I10 Continue current medication s. BP has been normal, pulse is fine. Edema of l ower extremity 767469231 R60.0 Echo essentiall y normal, EF 60-65%, wearing compressio n stockings, has US scheduled in January, taking lasix more often, swelling is still there, burning in left ankle. Nausea 481128104 R11.0 Sx improved, not using ondansetro n unless sx worsen. Posterior rhinorrhea 758 37458 R09.82 add triamcinol one spray to see if it helps. [id number] Trini Ortiz [facility] Main Office [address] [facility] [address] [place] [address] 04/04/2023 10:29:50 04/04/2023 11:27:11 Adult health examination 993388692 Z00.00 TDAP UTD, HM UTD, patient believe she had colo 2019. will request Anxiety 78256314 F41.9 Stable. Continue current medication s. 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 Continue current medication s. Hypothyroidism 49186223 E03.9 Stable. Continue current medication s.Will recheck TSH and adjust medication s as necessary. Nocturia 353446015 R35.1 Managed by a uroGYN. Hearing loss 36774237 H9 1.93 Saw audiology, needs hearing aids- high pitched sounds are the problem. Hyperlipidemia 42333652 E78.5 Leukopenia 74732865 D72. 819 Thrombocyt openic disorder 692709572 D69.6 Chest pain 93315094 R07. 9 EKG no acute abnormalit y, recent extensive cardiac work-up- negative, suspect may be gerd related. Pain of le ft shoulder joint 5897864516 1645825 M25.512 Pain of ri ght knee joint 1693785596 21683 M25.561 Insomnia 408845126 G47.0 0 stopped amitriptyl ine due to weight problems. Will send a message re: sleep med.Has tried diazepam for sleep which has worked. Muscle spa sm of cervical muscle of neck 1148763670 04 M62.838 [id number] Trini Ortiz [facility] Main Office [address] [facility] [address] [place] [address] 07/31/2023 13:53:43 07/31/2023 15:22:41 Urinary incontinence 664949120 R32 has seen urogyn before but would like to be seen again. Hypothyroidism 68085234 E03.9 Will recheck TSH and adjust medication s as necessary. Leukopenia 53285886 D72. 819 Essential hypertension 12644210 I10 Stable. Continue current medication s. 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 ng, recent CT done. Cough 21605234 R05.9 forceful, wheezy cough, improved but still very bothersome . Body mass index 30+ - obesity 638463864 Z68.30 E66.9 Member is 18 years of age and older. The member has a BMI greater than 30KG/m2. The member has engaged in a trial of behavioral modificati on, dietary restrictio ns, and exercise for least 3 months. The member will continue to engage in behavioral modificati on, dietary restrictio ns, and exercise while on Wegovy. The dose requested does not exceed 2.4 mg once weekly. The member will not be taking Wegovy with any other weight loss agent or any other GLP-1 receptor agent. Excessive thirst 9713051 7 R63.1 excess thirst, lack of appetite, urinating a lot but not making it to BR. Multiple joint pain 3567 8005 M25.50 will check labs. Moderate p ersistent asthma 476747384 J45.40 symbicort was not helpful but i do believe he should be on a long acting/ steroid inhaler, will try advair BID, rinse mouth out after. Try for at least 30 days. [id number] EDGAR James Main Office [address] [facility] [address] [facility] [place] [address] 03/04/2024 09:02:37 03/04/2024 09:34:29 Pulmonary Mycobacterium avium complex infection 252180860 A31.[address] Ng, Due for CT in gh dose azithro x 10 days, pred burst x 5 days.Re-st art arnuity inhaler and albuterol nebs, robitussin with codeine as needed.to ED for any severe resp distress. Essential hypertension 87858616 I10 Stable. Continue current medication s. Moderate p ersistent asthma 619469347 J45.40 restart nebs and arnuity inahler Cough 50590056 R05.9 forceful, wheezy cough, robitussin with codeine as needed [id number] Trini Ortiz [facility] Main Office [address] [facility] [address] [place] [address] 05/07/2024 14:21:54 05/07/2024 15:09:53 Lump in upper outer quadrant of left breast 8394314223 43260 N63.21 will check diagnostic mammo and US, right breast lump and axillary lumps have subsided but left breast and axilla are tender on exam. Mass of frank int of left elbow 8881898330 4568561 M25.822 M25.422 will check US, suspect lipoma as she has lost weight recently. [id number] Trini Ortiz [facility] Main Office [address] [facility] [address] [facility] [place] [address] 07/13/2024 09:28:20 07/13/2024 10:17:14 Adult health examination 266113236 Z00.00 Vaccines UTD, HM UTD, colo and endosocpy in august, mammo UTD, hysterecto my, no need for pap, bone density will schedule. Bone density finding 385 462640 M85.89 due for bone density, she will schedule. Anxiety 72866558 F41.9 Stable. Continue current medication s. Major depr ession single episode, in partial remission 96603613 F32.4 Essential hypertension 71539904 I10 Stable. Continue current medication s. Hypothyroidism 91950912 E03.9 Stable. Continue current medication s. Nocturia 674533970 R35.1 Managed by uroGYN. Hearing loss 44280991 H9 1.93 Saw audiology, needs hearing aids- high pitched sounds are the problem. she currently cannot purchase them. Hyperlipidemia 92193433 E78.5 Leukopenia 07120719 D72. 819 hematology f/u- had bloodwork, waiting on results Thrombocyt openic disorder 423078830 D69.6 hematology f/u- had bloodwork, waiting on results Insomnia 597795523 G47.0 0 improving Strain of muscle of right groin region 3550078517 9293549 S76.011A suspect hip flexor strain, may try heat/ ice, tylenol or iburpofen as needed, will check XR Inguinal pain 383077982 R10.2 suspect hip flexor strain, may try heat/ ice, tylenol or iburpofen as needed, will check XR Health Concerns Section Related Observation LastModified by Organization Detai ls LastModified Time None Recorded Concern Status LastModified by Organization Details LastModified Time None Recorded Advance Directives Directive Y: Payers Encounter Date Sequence Insurance Name Policy Number Policy Carbajal Covered Member ID Carbajal Member ID Guarantor Name 04/04/2023 1 [place] [employer] Naomie A Disanti [id number] Naomie A Disanti 04/04/2023 2 [place] [id number] Naomie A Disanti [id number] Naomie A Disanti 07/31/2023 1 [place] Naomie A Disanti [id number] 5 Naomie A Disanti 07/31/2023 2 [place] [id number] Naomie A Disanti [id number] 25 Naomie A Disanti 03/04/2024 1 [place] Naomie A Disanti [id number] 5 Namoie A Disanti 03/04/2024 2 [place] [id number] Naomie A Disanti [id number] Naomie A Disanti 05/07/2024 1 [place] Naomie A Disanti [id number] 5 Naomie A Disanti 05/07/2024 2 [place] [id number] Naomie A Disanti [id number] 25 Naomie A Disanti 07/13/2024 1 [place] Naomie A Disanti [id number] 5 Naomie A Disanti 07/13/2024 2 [place] [id number] Naomie A Disanti [id number] Naomie A Disanti Notes Date Note Type Note Provider [...] annual wellness exam. 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 Trini Ortiz, [facility] [address] [facility] [address], [place], [address], [facility] [place] 04/04/2023 12:38:24 07/31/2023 text/html Generic HPI [...] liver issues. Not sleeping well. Trini Ortiz, [facility] [address] [facility] [address], [place], [address], [facility] [place] 07/31/2023 16:18:44 03/04/2024 text/html Generic HPI TemplateReported [...] wegovy, compounded- paying OOP. Highest dose. Trini Ortiz, [facility] [address] [address], [place], [address], [facility] [place] 03/04/2024 09:58:11 05/07/2024 text/html Generic HPI TemplateReported [...] recently 34lbs due to wegovy. Trini Ortiz, [facility] [address] [address], [place], [address], [facility] 05/07/2024 15:13:14 07/13/2024 text/html Medicare Annual Wellness [...] in the homeNotes:Had bloodwork for hematology in [place] 2 weeks ago but no results yet. [...] annual wellness exam. 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
--- OUTSIDE RECORDS SUMMARY | 2024-09-02 15:05 | XMS_ITS | Clinical Summary ---
Author Organization [facility] [address] [facility] ilding Address [address] [place] [address] Phone Care Team Providers Care Industrial Methods Consultant Name Role Phone Catracho Escalante MD Primary Care Provider [phone] Encounters Date Type Department Care Team Description 06/23/2024 Telephone Gastroenterology - [address] [address] Mireille Carrillo MA from Last 3 Months Surgical History Surgery Date Site/Laterality Comments OTHER SURGICAL HISTORY PROCEDURE: NV TOTAL ABDOMINAL HYSTERECT W/WO RMVL TUBE OVARY OTHER SURGICAL HISTORY 1980 PROCEDURE: NV VAG HYST 250 GM/< W/RMVL TUBE&/OVARY Medical History Medical History Date Comments Thyrotoxicosis 02/21/2014 DX:Thyrotoxicosi s Hypothyroidism 09/07/2016 DX:Hypothyroidis m Vitamin D deficiency 02/21/2014 DX:Vitamin D deficiency Anemia 02/21/2014 DX:Anemia 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) Major depression single epis ode, in partial remission ([facility]) 04/16/2019 DX:Major depression single episode, in partial remission ([facility]) Anxiety DX:Anxiety Seasonal allergic conjunctivitis DX:Seasonal allergic conjunctivitis Dysfunction of eustachian tube 06/14/2013 D X:Dysfunction of eustachian tube GERD (gastroesophageal reflu x disease) 02/21/2014 DX:GERD (gastroesophageal re flux disease) Diverticulitis of colon 02/21/2014 DX:Diver ticulitis of colon Irritable bowel syndrome 02/21/2014 DX:Irri table bowel syndrome Displacement of lumbar inter vertebral disc 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hy 06/14/2013 DX:Displacement of lumbar intervertebral disc 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hy Disorder of bone and articul ar cartilage 02/21/2014 DX:Disorder of bone and mare cular cartilage Brachial neuritis 02/21/2014 DX:Brachial ne uritis Knee pain 10/07/2017 DX:Knee pain Pain in joint of right knee 09/04/2021 DX:P ain in joint of right knee Family History Medical History Relation Name Comments Diabetes Father Mellitus Hypertension Father Obesity Father Other: Heart Disease, Unspecified Father Sleep disorder Father Other: Malignant Neoplasm of Skin Mother Asthma Sister Other: Anxiety Disorder Sister Sleep disorder Sister Thyroid disease Sister Relation Name Status Comments Father Mother Sister Social History Tobacco Use Types Packs/Day Years Used Date Smoking Tobacco: Never Smokeless Tobacco: Never Alcohol Use Standard Drinks/Week Comments Yes 0 (1 standard drink = 0.6 oz pur e alcohol) Sex and Gender Information Value Date Recorded Sex Assigned at Not on file Gender Identity Not on file Sexual Orientation Not on file Obstetrics History Last Filed Vital Signs Vital Sign Reading Time Taken Comments Blood Pressure 130/82 10/24/2021 2:12 PM EDT Sit ting R Arm Pulse 75 10/24/2021 2:12 PM EDT Temperature - - Respiratory Rate - - Oxygen Saturation - - Inhaled Oxygen Concentration - - Weight 91.6 kg (202 lb) 10/24/2021 2:12 PM EDT Height 168.9 cm (5' 6.5 ) 10/24/2021 2:12 PM EDT Body Mass Index 32.12 10/24/2021 2:12 PM EDT Plan of Treatment Health Maintenance Due Date Last Done Comments Breast Cancer Screening 1950 DTaP,Tdap,and Td Vaccines (1 - Tdap) 1969 Zoster Vaccines (1 of 2) 2000 Pneumococcal Vaccine: 65+ Years (2 of 2 - PCV) 06/27/2018 06/27/2017 Cholesterol Screening (Lipid Panel) 07/21/2022 Depression Screening 07/21/2022 Falls Risk Assessment 07/21/2022 Hepatitis C Screening 07/21/2022 Hypertension/CHF/CAD Annual BMP Blood Test 07/21/2022 Osteoporosis Screening (Bone Density Screening) 07/21/2022 Social Influencers of Health Screening 07/21/2022 Medicare Annual Wellness Visit 04/02/2023 04/02/2022 COVID-19 Vaccine ( - season) 2024 Influenza Vaccine (#1) 2024 2, 04/18/2021, 04/23/2020, Additional history exists RSV Immunization Patients 60+ Years Old (1 - 1-dose 75+ series) 2025 Colorectal Cancer Screening: Colonoscopy 08/30/2034 08/30/2024, 05/04/2019 HIB Vaccines Aged Out No longer eligi ble based on patient's age to complete this topic HPV Vaccines Aged Out No longer eligi ble based on patient's age to complete this topic Hepatitis A Vaccines Aged Out No long er eligible based on patient's age to complete this topic Hepatitis B Vaccines Aged Out No long er eligible based on patient's age to complete this topic IPV Vaccines Aged Out No longer eligi ble based on patient's age to complete this topic MMR Vaccines Aged Out No longer eligi ble based on patient's age to complete this topic Meningococcal ACWY Vaccine Aged Out N o longer eligible based on patient's age to complete this topic RSV Immunization Patients Under 20 months Aged Out No longer eligible based on patient's age to complete this topic Varicella Vaccines Aged Out No longer eligible based on patient's age to complete this topic Procedures Procedure Name Priority Date/Time Associated Diagnosis Comments EXTERNAL ENDOSCOPY REPORT Routine 08/30/2024 4:47 PM EST EXTERNAL COLONOSCOPY REPORT Routine 08/30/2024 4:46 PM EST from Last 3 Months Results * External Endoscopy (08/30/2024 4:47 PM EST) Anatomical Region Laterality Modality Endoscopy Historical Provider GI~PROCEDURE MONTY PARSONS * External Colonoscopy Report (08/30/2024 4:46 PM EST) Anatomical Region Laterality Modality Endoscopy Historical Provider GI~PROCEDURE MONTY PARSONS from Last 3 Months Care Teams Industrial Methods Consultant Relationship Specialty Start Date End Date Catracho Escalante MD [address] [address] PCP - General 10/24/21
--- OUTSIDE RECORDS SUMMARY | 2024-09-02 15:05 | XMS_ITS | Data Portability ---
Author Organization [facility] Address [address] [place] [address] Care Team Providers Care Topstitcher Zigzag Name Role Phone JAMESTRINI ROLDAN Primary Care Provider [phone] Assessment Encounter Date Assessment Date Assessment LastModified [...] recorded. Surgeries orthopaedic surgery (SURG) 2021 022 8 Not available 18:40:39 Imaging None recorded. Medication Orders None recorded. Patient TargetsNo targets recorded. Patient InstructionsNo instructions recorded. Reason for Referral None Reported. Results Created Date Observation Date Name Description Value Unit Range Abnormal Flag Note LastModifiedBy Organization Detail LastModifiedTime 03/26/20 22 03/26/2022 XR, knee http:/ [email or web address]/opa lweb/I ntegra tionPr ocesso r.aspx ?CMD=O CHRISTIChris HENAO&ACC ESSION [id number] [facility] Shoulder [address], [address], 04/04/2022 14:54:12 Result Notes None recorded. Procedures Surgical History Date Name Laterality Status Provider Name and Address Organization Details Recorded Time 2 Orthopaedic Surgery completed Jose Angel Abdul MA [facility] 03/26/2022 17:23:01 0 Other completed Jose Angel Abdul MA [facility] 03/26/2022 17:23:15 Imaging Results Imaging Date Name Status LastModified by Organiz ation Details LastModified Time 03/26/2022 XR, knee completed [address], [address], 04/04/2022 14:54:12 Procedure Notes None recorded. Medical Equipment None Reported. Allergies Allergen ID Allergen Name Allergen Category Reaction Reaction Severity Criticality Documentation Date Start Date Code Code System Note Provider Name and Address Organization Details Recorded Time 631050 tetracycl ine medicatio n Not available Not available Not available 03/26/2022 59471 RxNorm Jose Angel fraser, [facility] 2 17:21:15 [id number] pholcodin e Not available Not available Not available Not available 03/26/2022 91182 RxNorm Jose Angel fraser, [facility] 2 17:21:19 [id number] bee pollen environme nt,medica tion Not available Not available Not available 03/26/2022 84628 7 RxNorm Jose Angel fraser, [facility] 2 17:21:22 [id number] ethamsyla te Not available Not available Not available Not available 03/26/2022 4112 RxNorm Jose Angel fraser, [facility] 2 17:21:43 Medications [...] Not Available Vitals Date Recorded Body height Provider Name an d Address Organization Details Last Updated DateTime 03/26/2022 168.91 cm Jose Angel Franko [facility] 03/26/2022 17:20:35 Date Recorded Body mass index (BMI) Body weight Provider Name and Address Organization Details Last Updated DateTime 03/26/2022 31.8 kg/m2 39531.47 g Jose Angel Abdul MA [facility] 03/26/2022 17:20:38 Social History Question Answer Notes LastModified by Organizat ion Details LastModified Time Tobacco Smoking Status Never Smoker Jose Angel fraser [facility] 03/26/2022 17:20:50 What Is Your Level Of Alcohol Consumption? Occasional Information not available 03/26/2022 What Is Your Level Of Caffeine Consumption? None Information not available 03/26/2022 Do You Or Have You Ever Used E-cigarettes Or Vape? 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 Obstetrics History GPAL:G 0 P 0 0 0 0 Past Encounters Encounter ID Performer Location Encounter Start Date Encounter Closed Date Diagnosis/Indication Diagnosis SNOMED-CT Code Diagnosis ICD10 Code Diagnosis Note [id number] [place] [address] 03/26/2022 15:02:44 03/26/2022 18:11:46 Osteoarthritis of left knee joint 7201334572 62070 M17.12 Health Concerns Section Related Observation LastModified by Organization Detai ls LastModified Time None Recorded Concern Status LastModified by Organization Details LastModified Time None Recorded Advance Directives Directive None Recorded Payers Encounter Date Sequence Insurance Name Policy Number Policy Carbajal Covered Member ID Carbajal Member ID Guarantor Name 03/26/2022 1 MEDICARE B-[place]: [facility] Naomie Hernandez Disanti [id number] Naomie Disanti 03/26/2022 2 [facility]: [facility] [id number] Naomie Hernandez Disanti [id number] Naomie Cullenanti Notes Date Note Type Note Provider Name [...] and feeling very limited. SHANELL SCHAFFER MD [address] [place] [address], [address], [facility] 03/26/2022 17:58:01 OBGyn Episode No OBEpisode recorded.
--- OUTSIDE RECORDS SUMMARY | 2024-09-02 15:05 | XMS_ITS | Clinical Summary ---
Author Organization [facility] Facility Address [address] [place] [address] Care Team Providers Care Crossing Tender Name Role Phone Erik Ortiz PA-C Primary Care Provider [phone] Allergies Active Allergy Reactions Criticality Noted Date Comments Codeine Hives 12/25/2021 Erythromycin Base Hives 12/25/2021 Tetracycline Hives 12/25/2021 Medications acetaminophen-c odeine (TYLENOL with CODEINE #3) 300-30 MG per tablet Take 1 tablet by mouth every 6 (six) hours if needed Active albuterol HFA (PROVENTIL HFA;VENTOLIN HFA) 108 (90 Base) MCG/ACT inhaler Inhale 2 puffs every 4 (four) hours Active benzonatate (TESSALON) 200 MG capsule Take 200 mg by mouth in the morning and 200 mg at noon and 200 mg in the evening. Active clobetasol (OLUX) 0.05 % topical foam Apply topically 2 (two) times a day Active doxycycline (VIBRA-TABS) 100 MG tablet Take 100 mg by mouth in the morning and 100 mg in the evening. Active furosemide (LASIX) 20 MG tablet Take 20 mg by mouth 1 (one) time each day Active levothyroxine (SYNTHROID, LEVOTHROID) 112 MCG tablet Take 112 mcg by mouth 1 (one) time each day in the morning Active metoprolol succinate XL (TOPROL-XL) 100 MG 24 hr tablet Take 100 mg by mouth 1 (one) time each day Active predniSONE (DELTASONE) 20 MG tablet prednisone 20 mg tablet TAKE 2 TABLETS BY MOUTH EVERY DAY DIRECTED FOR 5 DAYS Active sodium chloride (OCEAN) 0.65 % nasal spray Administer 1 spray into each nostril 1 (one) time each day Active valACYclovir (VALTREX) 1 g tablet Take 2 tablets by mouth if needed For cold sores Active Active Problems Problem Noted Date Diagnosed Date Hypertension 10/27/2022 Localized edema 10/27/2022 Serum creatinine outside reference range 023 Social History Tobacco Use Types Packs/Day Years Used Date Smoking Tobacco: Never Assessed Tobacco Cessation:Counseling Given: Not Answered Comments Unknown Sex and Gender Information Value Date Recorded Sex Assigned at Not on file Legal Sex Female 4:47 PM EST Gender Identity Not on file Sexual Orientation Not on file Last Filed Vital Signs Vital Sign Reading Time Taken Comments Blood Pressure 118/66 10/28/2022 9:08 AM EDT Pulse 70 10/28/2022 9:08 AM EDT Temperature - - Respiratory Rate - - Oxygen Saturation 94% 10/28/2022 9:08 AM EDT Inhaled Oxygen Concentration - - Weight 96.3 kg (212 lb 6.4 oz) 10/28/2022 9:08 A M EDT Height 167.6 cm (5' 6 ) 10/28/2022 9:08 AM EDT Body Mass Index 34.28 10/28/2022 9:08 AM EDT Plan of Treatment Health Maintenance Due Date Last Done Comments Breast Cancer Screening 1950 Colorectal Cancer Screening: Annual FOBT 1999 Colorectal Cancer Screening: Colonoscopy 1999 Colorectal Cancer Screening: Sigmoidoscopy 1999 Influenza Vaccine (#1) 2024 0, 04/21/2020, 04/13/2019, Additional history exists Pneumococcal Vaccine: 65+ Years Completed 04/13/2019, 06/27/2017, 06/14/2015, Additional history exists Hepatitis B Vaccine Aged Out No longe r eligible based on patient's age to complete this topic Insurance MEDICARE [facility] MEDICARE [facility] Care Teams Crossing Tender Relationship Specialty Start Date End Date Erik Ortiz PA-C [address] [place] [address] PCP - General Physician Insurance Risk Surveyor 10/28/22
== END 2024-09-02 14:18 | disposition home or self-care (01) ==
PROVIDERS: PCP Registered Nurse; Visit Provider Nurse Practitioner Family
DX: R39.9 Unspecified symptoms and signs involving the genitourinary system (principal); Z13.9 Encounter for screening, unspecified
CPT/HCPCS: 99213

== ENCOUNTER 2024-10-20 14:09 | Outpatient (AMB) | payer MEDICARE, SELFPAY ==
[2024-10-20 15:08] VITALS: BP 104/70; PULSE 80; O2SAT 98; BMI 28.3
--- NOTE | 2024-10-20 15:08 | AM.OFFWIN_ITS ---
Intake Vital Signs 10/20/24 15:08 Height 5 ft 7 in Weight 181 lb BMI 28.3 BP 104/70 Blood Pressure Location Rt brachial Position Sitting Pulse 80 Pulse Source Pulse Oximeter Pulse Oximetry (%) 98 Oxygen Delivery Method Room Air Intake Visit Reasons: EP-lt leg lump/tingling Intake Note: Patient here for lump behind left leg, weakness on left side and feels weak. Patient Tobacco Use Status: Never used Tobacco Allergies tetracycline Allergy (Unknown, Verified 10/20/24 15:09) Hives msg Adverse Reaction (Severe, Uncoded 10/20/24 15:09) Hives bee stings Adverse Reaction (Uncoded 10/20/24 15:09) Hives Do you need a note to return to daycare/school/sports/work: No HPI HPI Comments History of Present Illness Details She presents to office with 2 complaints Hx of mitral prolapse and HTN She said initially was going to come here for a bump behind her L knee Has been present for a while Worked up with an US 2 months ago which was negative for DVT She said she is now here for more concerning symptom of sudden onset L sided headache, dizziness and tingling down L side of body She felt headache around 1pm Pain level in L side is stabbing pain 9/10 feeling like she might pass out but has not No room spinning Pt drove herself No double vision or loss of vision. Baseline blurred vision + tingling down L arm and leg without we akness No nausea or vomiting + slight CP 2/10 gas pain . Chronic cough without SOB PFSH Medical History Pulmonary nodule Chronic cough Asthma Atelectasis Hypotension Mycobacterium avium complex Mitral valve prolapse Hypothyroid Anxiety HLD (hyperlipidemia) HTN (hypertension) Chest pain Bronchiolitis Bronchitis Pneumonia Surgical History History of hysterectomy H/O endoscopy S/P transposition of nerve H/O colonoscopy Social History Household Members: Spouse Patient Tobacco Use Status: Never used Tobacco Review of Systems Const Denies chills, Denies fever(s) and Reports headache(s) Eyes Denies blurry vision and Denies change in vision ENT Reports dizziness, Reports headache(s), Denies neck pain and Denies sore throat Card Reports chest pain, Denies syncope and Denies dyspnea Resp Denies cough and Denies dyspnea GI Denies abdominal pain, Denies diarrhea and Denies vomiting Musc Denies back pain, Reports arthralgias (L posterior knee pain), Denies neck pain and Reports tingling Skin/Breast Denies erythema Neuro Reports dizziness, Denies syncope, Reports headache(s), Denies focal weakness and Reports tingling Physical Exam Vital Signs: Last Vital Signs Pulse 80 10/20/24 15:08 BP 104/70 10/20/24 15:08 Pulse Ox 98 10/20/24 15:08 Oxygen Delivery Method Room Air 10/20/24 15:08 BMI result Body Mass Index 28.3 General: Non-toxic, NAD. Speaking full sentences. Skin: Warm dry throughout Eye: EOMI, PERRL. No entrapement of nystagmus HENT: Airway patent. Uvula midline. No pharyngeal erythema or edema. No MENTAL HEALTH PROGRAM SPECIALIST. Bilateral canals clear. TM non-erythematous, non-bulging. No TM perforation or hemotympanum noted. Respiratory: CTA bilaterally. No wheezes, rales or rhonchi Cardiac:RRR, No murmur. + L posterior knee ttp. LLE edema noted. No palor to lower extremities. Radial pulses 2+ bilaterally MSK: + ttp L posterior knee with + ROM L knee. Neurology: A/O x 3. CN 2-12 grossly intact. Negative pronator drift. Finger to nose tracing equal bilaterally. No aphasia or facial droop. Gait without abnormality Psych: Good mood and affect Assessment & Plan Assessment & Plan (1) Chest pain: Code(s): R07.9 - Chest pain, unspecified Qualifiers: Chest pain type: unspecified Qualified Code(s): R07.9 - Chest pain, unspecified Plan: Patient seen and evaluated. She has headache, dizziness and chest pain EKbpm normal sinus with t wave inversions from V1-V4 She does have sudden onset dizziness/headache at approx 1pm Discussed with pt the concern for need of imaging and labs She agreed and we discussed we are not comfortable with her driving so will take her to ER Ambulance called for ? stroke timeline and she would like to go to [facility]; expet called Patient gave verbal understanding and had no additional questions or concerns at time of discharge All questions answered (2) Dizziness: Code(s): R42 - Dizziness and giddiness Plan: see above Orders: Orders AMB EKG-In Office Today R07.9 - Chest pain, unspecified Coding Level of Care Code Est Pt Level 5 (85801) Diagnoses Chest pain, unspecified type R07.9 Chest pain type: unspecified Dizziness R42
--- OUTSIDE RECORDS SUMMARY | 2024-10-20 16:43 | XMS_ITS | Data Portability ---
Author Organization [place] - [facility], [facility] [place] Office Address [address] [place] [address] Care Team Providers Care Journeyman Glazier Name Role Phone ALFelecia TRINI Primary Care Provider Assessment Encounter Date Assessment Date Assessment LastModified by Organization Details LastModified Time 03/26/2022 03/26/2022 Independent interpretation of the xrays from today and the clinical exam of the right knee shows some mild OA but reasonably well maintained joint spaces -- but on the left she has bone on bone OA in the left knee. We? v e discussed the many forms of conservative care [...] recorded. Surgeries orthopaedic surgery (SURG) 2021 022 [email or web address] [id number] Not available 18:40:39 Imaging None recorded. Medication Orders None recorded. Patient TargetsNo targets recorded. Patient InstructionsNo instructions recorded. Reason for Referral None Reported. Results Created Date Observation Date Name Description Value Unit Range Abnormal Flag Note LastModifiedBy Organization Detail LastModifiedTime 08/03/26/2022 XR, knee http:/ /[email or web address]. 44/opa lweb/I ntegra tionPr ocesso r.aspx ?CMD=O CHRISTIChris HENAO&ACC ESSION =[id number], [address], 04/04/2022 14:54:12 Result Notes None recorded. Procedures Surgical History Date Name Laterality Status Provider Name and Address Organization Details Recorded Time 2 Orthopaedic Surgery completed Jose Angel Abdul MA [facility] 03/26/2022 17:23:01 0 Other completed Jose Angel Abdul MA [facility] 03/26/2022 17:23:15 Imaging Results Imaging Date Name Status LastModified by Organiz ation Details LastModified Time 03/26/2022 XR, knee completed [address], [address], 04/04/2022 14:54:12 Procedure Notes None recorded. Medical Equipment None Reported. Allergies Allergen ID Allergen Name Allergen Category Reaction Reaction Severity Criticality Documentation Date Start Date Code Code System Note Provider Name and Address Organization Details Recorded Time 987826 tetracycl ine medicatio n Not available Not available Not available 03/26/2022 54400 RxNorm Jose Angel fraser [facility] 2 17:21:15 747753 pholcodin e Not available Not available Not available Not available 03/26/2022 48887 RxNorm Jose Angel fraser [facility] 2 17:21:19 677249 bee pollen environme nt,medica tion Not available Not available Not available 03/26/2022 66125 7 RxNorm Jose Angel fraser MA [facility] 2 17:21:22 [id number] ethamsyla te Not available Not available Not available Not available 03/26/2022 4112 RxNorm Jose Angel fraser [facility] 2 17:21:43 Medications Name Sig Start Date [...] NOW COVID-19 Test Kit TEST DIRECTED TODAY 03/25 completed Not Available Not Available Not [...] Updated DateTime 03/26/2022 168.91 cm 31.8 kg/m2 76105.47 g Jose Angel Abdul MA [facility] 03/26/2022 17:20:38 Social History Question Answer Notes LastModified by Organizat ion Details LastModified Time Tobacco Smoking Status Never Smoker Jose Angel fraser MA [facility] 03/26/2022 17:20:50 What Is Your Level Of Alcohol Consumption? Occasional Information not available 03/26/2022 What Is Your Level Of Caffeine Consumption? None Information not available 03/26/2022 Do You Or Have You Ever Used E-cigarettes Or Vape? 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 Obstetrics History GPAL:G 0 P 0 0 0 0 Past Encounters Encounter ID Performer Location Encounter Start Date Encounter Closed Date Diagnosis/Indication Diagnosis SNOMED-CT Code Diagnosis ICD10 Code Diagnosis Note [id number] SHANELL SCHAFFER MD [place] [address] 1 03/26/2022 15:02:44 03/26/2022 18:11:46 Osteoarthritis of left knee joint 0085460219 40872 M17.12 Health Concerns Section Related Observation LastModified by Organization Detai ls LastModified Time None Recorded Concern Status LastModified by Organization Details LastModified Time None Recorded Advance Directives Directive None Recorded Payers Encounter Date Sequence Insurance Name Policy Number Policy Carbajal Covered Member ID Carbajal Member ID Guarantor Name 03/26/2022 1 [place]ARE [place]: [facility] Naomie Hernandez Disanti [id number] Naomie Cullenanti 03/26/2022 2 [facility] [id number] Naomie Hernandez Disanti [id number] Naomie Cullenanti Notes Date Note Type [...] and feeling very limited. SHANELL SCHAFFER MD [address] [place] [address], [phone], [facility] - [facility] 03/26/2022 17:58:01 OBGyn Episode No OBEpisode recorded.
--- OUTSIDE RECORDS SUMMARY | 2024-10-20 16:44 | XMS_ITS | Clinical Summary ---
Author Organization [facility] Facility Address [address] [place] [id number] Care Team Providers Care Pediatric Dental Assistant Name Role Phone Erik Ortiz PA-C Primary Care Provider + [phone] Allergies Active Allergy Reactions Criticality Noted Date [...] age to complete this topic Insurance MEDICARE [facility] MEDICARE [facility] Care Teams Pediatric Dental Assistant Relationship Specialty Start Date End Date Erik Ortiz PA-C [address] [place] [address] PCP - General Physician Dough Maker 10/28/22
--- OUTSIDE RECORDS SUMMARY | 2024-10-20 16:44 | XMS_ITS | Data Portability ---
Author Organization [facility], Main Office Address [address] [place] [address] Care Team Providers Care Warpman Name Role Phone FADI MALLOY Network Desktop Support Specialist GARRET BAKER Residential Appliance Repair Technician DUY MORROW Prescriptionist TRINI ORTIZ Primary Care Provider [phone] JR PHELPS Orthopedic Surgeon [phone] TAE BERMUDEZ Ed Tech LUÍS JAFFE Product Development Worker [phone] Assessment No assessment recorded. Plan of Treatment Reminders Order Date Submit Date Provider Last Modified By Organization Details Last Modified Time Details Appointments None record ed. Lab CMP, serum or plasma 2022 023 [facility], [address], [address], [place], [address], 3 19:08:25 H pylori urea breath test, co2 infrar ed 2022 023 [facility], [address], [address], [place], [address], 3 16:07:17 lipase , serum or plasma 2022 023 [facility], [address], [address], [place], [address], 3 19:08:27 amylas e, serum or plasma 2022 023 [facility], [address], [address], [place], [address], 3 19:08:24 lipid panel, serum 2022 023 [facility], [address], [address], [place], [address], 3 19:08:28 ESR (eryth rocyte sedime ntatio n rate), blood 2022 023 [facility], [address], [address], [place], [address], 3 17:06:17 C-reac tive protei n, quanti tative , serum or plasma 2022 023 [facility], [address], [address], [place], [address], 3 19:08:26 lyme diseas e Ab, total, serum 2022 023 [facility], [address], [address], [place], [address], 3 11:23:05 rf (rheum atoid factor ), serum 2022 023 [facility], [address], [address], [place], [address], 3 19:08:29 LUIGI (antin uclear antibo dies) screen , serum 2022 023 [facility], [address], [address], [place], [address], 3 23:05:56 HbA1c (hemog lobin A1c), blood 2022 023 [facility], [address], [address], [place], [address], 3 18:33:09 CBC w/ auto diff 2022 023 [facility], [address], [address], [place], [address], 3 16:14:49 TSH, serum or plasma 2022 023 [facility], [address], [address], [place], [address], 3 18:56:23 T4, free, serum 2022 023 [facility], [address], [address], [place], [address], 3 18:56:21 CMP, serum or plasma 2022 023 [facility], [address], [address], [place], [address], 3 17:20:12 Referral urogyn ecolog ist referr reynaldo - karen y incont inence , unable to hold her bladde r, someti mes just emptie s comple tely, someti mes she is headed to [place] and her bladde r emptie s on the way. Is wearin g diaper s at this point. 2022 024 [email or web address] Dilan Hernandez MD, [address] [place] [address] , [address], [place], [address], 4 09:19:25 Procedures None record ed. Surgeries None record ed. Imaging bone densit y - due for bine densit y- hx osteop enia 2023 024 [email or web address] [facility], [address], [address], [place], [address], 5 08:45:41 XR, hip + pelvis , bilate ral - right groin pain, r/o fractu re 2023 024 [facility], [address], [place], [address], 4 10:02:35 US, elbow - left medial elbow palpab le lump, tender to palpat ion, r/o lipoma vs joint effusi on 2023 024 [email or web address] [facility], [address] [place], [address], 4 11:58:29 MAMMO, diagno stic, digita l, bilate ral - 3 weeks ago develo ped pea sized lump right breast 6 o'cloc k positi on and lump under axilla , left breast pain/ tender ness, lump upper outer quadra nt, left axilla ry tender ness and lump. [email or web address] [facility], [address], [address], [place], [address], 4 10:20:59 US, breast , unilat eral - 3 weeks ago develo ped pea sized lump right breast 6 o'cloc k positi on and lump under axilla , left breast pain/ tender ness, lump upper outer quadra nt, left axilla ry tender ness and lump. [email or web address] [facility], [address], [address], [place], [address], 4 10:20:59 XR, should er - s/p fall in February, landed on hands and knees, left should er pain 2022 023 [facility], [address] [place], [address], 3 15:02:09 XR, knee, 3 view - s/p fall in february, landed on hands and knees, knee pain. 2022 023 [facility], [address] , [place], [address], 3 16:29:16 Medication Orders azithr omycin 500 mg tablet 2023 024 [id number], [address] [place], [address], 4 14:36:16 predni sone 20 mg tablet 2023 024 [id number], [address] [place], [address], 4 14:36:35 codein e 10 mg-gua ifenes in 100 mg/5 mL oral liquid 2023 024 [id number], [address] [place], [address], 4 14:36:23 albute rol sulfat e 2.5 mg/3 mL (0.083 %) soluti on for nebuli zation 2023 024 [id number], [address] [facility], [place], [address], 4 09:30:31 Advair Diskus 500 mcg-50 mcg/do se powder for inhala tion 2022 023 [id number], [address] [place], [address], 3 16:12:18 Bromfe d DM 2 mg-30 mg-10 mg/5 mL oral syrup 2022 024 [id number], [address] [place], [address], 4 15:30:17 Wegovy 0.25 mg/0.5 mL subcut aneous pen inject or 2022 023 [email or web address] [id number], [address] [place], [address], 10:01:33 diazep am 5 mg tablet 2022 023 [email or web address] [id number], [address] [place], [address], 14:15:05 Patient TargetsNo targets recorded. Patient Instructions Encounter Date Encounter Id Patient Instructions Last Modified By Organization Details Last Modified Time 04/04/2023 [id number] high cholesterol : care instructions [email or web address] Not available 04/04/2023 11:10:50 preventing falls : care instructions [email or web address] Not available 04/04/2023 11:10:50 medicare preventive services guide (female 74yrs and under) [email or web address] Not available 04/04/2023 11:10:50 To call or retur n for worsening or concerns [email or web address] Not available 04/04/2023 11:10:29 07/31/2023 [id number] starting a weigh t loss plan: care instructions jthabet Not available 07/31/2023 14:55:58 To call or retur n for worsening or concerns jthabet Not available 07/31/2023 14:36:48 03/04/2024 [id number] To call or retur n for worsening or concerns [email or web address] Not available 03/04/2024 09:30:36 05/07/2024 [id number] elbow: exercises jthabet Not availabl e 05/07/2024 15:06:31 breast lumps (noncancerous): care instructions [email or web address] Not available 05/07/2024 15:06:31 To call or retur n for worsening or concerns jthabet Not available 05/07/2024 12:36:37 07/13/2024 [id number] hip flexor strain: rehab exercises jthabet Not [...] Abnormal Flag Note LastModifiedBy Organization Detail LastModifiedTime 04/04/2004/04/2023 COMPR EHENS MAY METAB OLIC PANL glucose 98 mg/dL (70-99 ) Not Available [facility] (Centralized Electronic Ordering - All Locations) Patient Can Go To The Location Of Their Choice, 04/04/2023 17:20:12 04/04/2004/04/2023 COMPR EHENS MAY METAB OLIC PANL BUN 20 mg/dL (8-23) Not Available [facility] (Centralized Electronic Ordering - All Locations) Patient Can Go To The Location Of Their Choice, 04/04/2023 17:20:12 04/04/2004/04/2023 COMPR EHENS MAY METAB OLIC PANL creatinine 0.9 mg/dL (0.5-1 .0) Not Available [facility] (Centralized Electronic Ordering - All Locations) Patient Can Go To The Location Of Their Choice, 04/04/2023 17:20:12 04/04/2004/04/2023 COMPR EHENS MAY METAB OLIC PANL sodium 144 mmol/ L (133-1 45) Not Available [facility] (Centralized Electronic Ordering - All Locations) Patient Can Go To The Location Of Their Choice, 04/04/2023 17:20:12 04/04/20 23 04/04/2023 COMPR EHENS MAY METAB OLIC PANL potassium 4.9 mmol/ L (3.6-5 .2) Not Available [facility] (Centralized Electronic Ordering - All Locations) Patient Can Go To The Location Of Their Choice, 04/04/2023 17:20:12 04/04/2004/04/2023 COMPR EHENS MAY METAB OLIC PANL chloride 103 mmol/ L (98-10 7) Not Available [facility] (Centralized Electronic Ordering - All Locations) Patient Can Go To The Location Of Their Choice, 04/04/2023 17:20:12 04/04/2004/04/2023 COMPR EHENS MAY METAB OLIC PANL bicarbonate 27 mmol/ L (22-29 ) Not Available [facility] (Centralized Electronic Ordering - All Locations) Patient Can Go To The Location Of Their Choice, 04/04/2023 17:20:12 04/04/2004/04/2023 COMPR EHENS MAY METAB OLIC PANL anion gap 14 (4-17) Not Available [facility] (Centralized Electronic Ordering - All Locations) Patient Can Go To The Location Of Their Choice, 04/04/2023 17:20:12 04/04/2004/04/2023 COMPR EHENS MAY METAB OLIC PANL albumin 4.9 gm/dL (3.4-4 .8) high Not Available [facility] (Centralized Electronic Ordering - All Locations) Patient Can Go To The Location Of Their Choice, 04/04/2023 17:20:12 04/04/2004/04/2023 COMPR EHENS MAY METAB OLIC PANL calcium 10.6 mg/dL (8.6-1 0.5) high Not Available [facility] (Centralized Electronic Ordering - All Locations) Patient Can Go To The Location Of Their Choice, 04/04/2023 17:20:12 04/04/2004/04/2023 COMPR EHENS MAY METAB OLIC PANL bilirubin,to tierra 0.6 mg/dL (0-1.2 ) Not Available [facility] (Centralized Electronic Ordering - All Locations) Patient Can Go To The Location Of Their Choice, 04/04/2023 17:20:12 04/04/20 23 04/04/2023 COMPR EHENS MAY METAB OLIC PANL total protein 7.2 gm/dL (6.2-8 .2) Not Available [facility] (Centralized Electronic Ordering - All Locations) Patient Can Go To The Location Of Their Choice, 04/04/2023 17:20:12 04/04/20 23 04/04/2023 COMPR EHENS MAY METAB OLIC PANL Ag ratio 2.1 Not Available [facility] (Centralized Electronic Ordering - All Locations) Patient Can Go To The Location Of Their Choice, 04/04/2023 17:20:12 04/04/20 23 04/04/2023 COMPR EHENS MAY METAB OLIC PANL AST 15 U/L (0-32) Not Available [facility] (Centralized Electronic Ordering - All Locations) Patient Can Go To The Location Of Their Choice, 04/04/2023 17:20:12 04/04/2004/04/2023 COMPR EHENS MAY METAB OLIC PANL alk phos 112 U/L (35-10 4) high Not Available [facility] (Centralized Electronic Ordering - All Locations) Patient Can Go To The Location Of Their Choice, 04/04/2023 17:20:12 04/04/2004/04/2023 COMPR EHENS MAY METAB OLIC PANL ALT 12 U/L (0-33) Not Available [facility] (Centralized Electronic Ordering - All Locations) Patient Can Go To The Location Of Their Choice, 04/04/2023 17:20:12 04/04/20 23 04/04/2023 COMPR EHENS [...] , age and sex. Not Available [facility] (Centralized Electronic Ordering - All Locations) Patient Can Go To The Location Of Their Choice, 04/04/2023 17:20:12 08/01/20 23 08/01/2023 COMPL ETE CBC WITH DIFF WBC 3.1 K/mm3 (4.0-1 1.0) low Not Available [facility] (Centralized Electronic Ordering - All Locations) Patient Can Go To The Location Of Their Choice, 08/01/2023 16:14:49 08/01/20 23 08/01/2023 COMPL ETE CBC WITH DIFF RBC 4.67 M/mm3 (4.20- 5.40) Not Available [facility] (Centralized Electronic Ordering - All Locations) Patient Can Go To The Location Of Their Choice, 08/01/2023 16:14:49 08/01/20 23 08/01/2023 COMPL ETE CBC WITH DIFF HGB 14.0 gm/dL (11.7- 15.5) Not Available [facility] (Centralized Electronic Ordering - All Locations) Patient Can Go To The Location Of Their Choice, 08/01/2023 16:14:49 08/01/20 23 08/01/2023 COMPL ETE CBC WITH DIFF HCT 42.7 % (35.7- 45.8) Not Available [facility] (Centralized Electronic Ordering - All Locations) Patient Can Go To The Location Of Their Choice, 08/01/2023 16:14:49 08/01/20 23 08/01/2023 COMPL ETE CBC WITH DIFF MCV 91.4 fL (80.0- 100.0) Not Available [facility] (Centralized Electronic Ordering - All Locations) Patient Can Go To The Location Of Their Choice, 08/01/2023 16:14:49 08/01/20 23 08/01/2023 COMPL ETE CBC WITH DIFF MCH 30.0 pg (27.0- 34.0) Not Available [facility] (Centralized Electronic Ordering - All Locations) Patient Can Go To The Location Of Their Choice, 08/01/2023 16:14:49 08/01/2008/01/2023 COMPL ETE CBC WITH DIFF MCHC 32.8 g/dL (33.0- 37.0) low Not Available [facility] (Centralized Electronic Ordering - All Locations) Patient Can Go To The Location Of Their Choice, 08/01/2023 16:14:49 08/01/20 23 08/01/2023 COMPL ETE CBC WITH DIFF plt 166 K/mm3 (150-4 60) Not Available [facility] (Centralized Electronic Ordering - All Locations) Patient Can Go To The Location Of Their Choice, 08/01/2023 16:14:49 08/01/20 23 08/01/2023 COMPL ETE CBC WITH DIFF RDW-SD 42.5 fL (<47.0 ) Not Available [facility] (Centralized Electronic Ordering - All Locations) Patient Can Go To The Location Of Their Choice, 08/01/2023 16:14:49 08/01/20 23 08/01/2023 COMPL ETE CBC WITH DIFF MPV 11.1 fL (9.4-1 2.4) Not Available [facility] (Centralized Electronic Ordering - All Locations) Patient Can Go To The Location Of Their Choice, 08/01/2023 16:14:49 08/01/2008/01/2023 COMPL ETE CBC WITH DIFF automated NRBC 0.0 #/100 _WBC' s Not Available [facility] (Centralized Electronic Ordering - All Locations) Patient Can Go To The Location Of Their Choice, 08/01/2023 16:14:49 08/01/20 23 08/01/2023 COMPL ETE CBC WITH DIFF abs. NRBC 0.0 K/mm3 Not Available [facility] (Centralized Electronic Ordering - All Locations) Patient Can Go To The Location Of Their Choice, 08/01/2023 16:14:49 08/01/2008/01/2023 COMPL ETE CBC WITH DIFF neut # 1.3 K/mm3 (1.3-7 .0) Not Available [facility] (Centralized Electronic Ordering - All Locations) Patient Can Go To The Location Of Their Choice, 08/01/2023 16:14:49 08/01/20 23 08/01/2023 COMPL ETE CBC WITH DIFF lymph # 1.2 K/mm3 (0.8-3 .1) Not Available [facility] (Centralized Electronic Ordering - All Locations) Patient Can Go To The Location Of Their Choice, 08/01/2023 16:14:49 08/01/20 23 08/01/2023 COMPL ETE CBC WITH DIFF mono# 0.5 K/mm3 (0.4-0 .9) Not Available [facility] (Centralized Electronic Ordering - All Locations) Patient Can Go To The Location Of Their Choice, 08/01/2023 16:14:49 08/01/2008/01/2023 COMPL ETE CBC WITH DIFF eo # 0.1 K/mm3 (0.0-0 .4) Not Available [facility] (Centralized Electronic Ordering - All Locations) Patient Can Go To The Location Of Their Choice, 08/01/2023 16:14:49 08/01/2008/01/2023 COMPL ETE CBC WITH DIFF baso # 0.0 K/mm3 (0.0-0 .1) Not Available [facility] (Centralized Electronic Ordering - All Locations) Patient Can Go To The Location Of Their Choice, 08/01/2023 16:14:49 08/01/2008/01/2023 COMPL ETE CBC WITH DIFF abs. imm gran 0.0 K/mm3 Not Available [facility] (Centralized [facility] Ordering - All Locations) Patient Can Go To The Location Of Their Choice, 08/01/2023 16:14:49 08/01/2008/01/2023 COMPL ETE CBC WITH DIFF neut 42.8 % (44-76 ) low Not Available [facility] (Centralized Electronic Ordering - All Locations) Patient Can Go To The Location Of Their Choice, 08/01/2023 16:14:49 08/01/2008/01/2023 COMPL ETE CBC WITH DIFF lymph 37.1 % (15-43 ) Not Available [facility] (Centralized Electronic Ordering - All Locations) Patient Can Go To The Location Of Their Choice, 08/01/2023 16:14:49 08/01/2008/01/2023 COMPL ETE CBC WITH DIFF monocyte 16.6 % (4.5-1 0.5) high Not Available [facility] (Centralized Electronic Ordering - All Locations) Patient Can Go To The Location Of Their Choice, 08/01/2023 16:14:49 08/01/2008/01/2023 COMPL ETE CBC WITH DIFF eo 2.2 % (0-6) Not Available [facility] (Centralized Electronic Ordering - All Locations) Patient Can Go To The Location Of Their Choice, 08/01/2023 16:14:49 08/01/20 23 08/01/2023 COMPL ETE CBC WITH DIFF baso 1.3 % (0-2) Not Available [facility] (Centralized Electronic Ordering - All Locations) Patient Can Go To The Location Of Their Choice, [id number] 08/01/2023 16:14:49 08/01/20 23 08/01/2023 COMPL ETE CBC WITH DIFF imm gran 0.0 % Not Available [facility] (Centralized Electronic Ordering - All Locations) Patient Can Go To The Location Of Their Choice, [id number] 08/01/2023 16:14:49 08/01/20 23 08/01/2023 SEDIM ENTAT ION RATE, AUTOM ATED sedimentatio n rate,automat ed 21 mm/HR (0-20) high Not Available [facility] (Centralized [facility] Ordering - All Locations) Patient Can Go To The Location Of Their Choice, [id number] 08/01/2023 17:06:17 08/01/2008/01/2023 HEMOG LOBIN A1C hemoglobin A1C 5.6 % [...] for devel oping diabe jazmine in the futur e. CAUTI ON: False ly low HbA1c resul ts [...] of Clini oskar and Appli ed [facility] and Seraa tam Volum e 43, Suppl ement 1 Not Available [facility] (Centralized Electronic Ordering - All Locations) Patient Can Go To The Location Of Their Choice, 08/01/2023 18:33:09 08/01/2008/01/2023 FREE T4 free T4 1.69 NG/dL (0.70- 1.80) Not Available [facility] (Centralized Electronic Ordering - All Locations) Patient Can Go To The Location Of Their Choice, 08/01/2023 18:56:21 08/01/2008/01/2023 TSH TSH 0.18 uIU/m L (0.4-4 .2) low Not Available [facility] (Centralized Electronic Ordering - All Locations) Patient Can Go To The Location Of Their Choice, 08/01/2023 18:56:23 08/01/20 23 08/01/2023 AMYLA SE amylase 43 U/L (28-10 0) Not Available [facility] (Centralized Electronic Ordering - All Locations) Patient Can Go To The Location Of Their Choice, 08/01/2023 19:08:23 08/01/20 23 08/01/2023 COMPR EHENS MAY METAB OLIC PANL glucose 106 mg/dL (70-99 ) high Not Available [facility] (Centralized Electronic Ordering - All Locations) Patient Can Go To The Location Of Their Choice, 08/01/2023 19:08:25 08/01/20 23 08/01/2023 COMPR EHENS MAY METAB OLIC PANL BUN 20 mg/dL (8-23) Not Available [facility] (Centralized Electronic Ordering - All Locations) Patient Can Go To The Location Of Their Choice, 08/01/2023 19:08:25 08/01/20 23 08/01/2023 COMPR EHENS MAY METAB OLIC PANL creatinine 0.9 mg/dL (0.5-1 .0) Not Available [facility] (Centralized Electronic Ordering - All Locations) Patient Can Go To The Location Of Their Choice, 08/01/2023 19:08:25 08/01/20 23 08/01/2023 COMPR EHENS MAY METAB OLIC PANL sodium 141 mmol/ L (133-1 45) Not Available [facility] (Centralized Electronic Ordering - All Locations) Patient Can Go To The Location Of Their Choice, [id number] 08/01/2023 19:08:25 08/01/20 23 08/01/2023 COMPR EHENS MAY METAB OLIC PANL potassium 4.7 mmol/ L (3.6-5 .2) Not Available [facility] (Centralized Electronic Ordering - All Locations) Patient Can Go To The Location Of Their Choice, 08/01/2023 19:08:25 08/01/20 23 08/01/2023 COMPR EHENS MAY METAB OLIC PANL chloride 102 mmol/ L (98-10 7) Not Available [facility] (Centralized Electronic Ordering - All Locations) Patient Can Go To The Location Of Their Choice, 08/01/2023 19:08:25 08/01/20 23 08/01/2023 COMPR EHENS MAY METAB OLIC PANL bicarbonate 28 mmol/ L (22-29 ) Not Available [facility] (Centralized Electronic Ordering - All Locations) Patient Can Go To The Location Of Their Choice, 08/01/2023 19:08:25 08/01/2008/01/2023 COMPR EHENS MAY METAB OLIC PANL anion gap 11 (4-17) Not Available [facility] (Centralized Electronic Ordering - All Locations) Patient Can Go To The Location Of Their Choice, 08/01/2023 19:08:25 08/01/2008/01/2023 COMPR EHENS MAY METAB OLIC PANL albumin 4.6 gm/dL (3.4-4 .8) Not Available [facility] (Centralized Electronic Ordering - All Locations) Patient Can Go To The Location Of Their Choice, 08/01/2023 19:08:25 08/01/20 23 08/01/2023 COMPR EHENS MAY METAB OLIC PANL calcium 10.4 mg/dL (8.6-1 0.5) Not Available [facility] (Centralized Electronic Ordering - All Locations) Patient Can Go To The Location Of Their Choice, 08/01/2023 19:08:25 08/01/20 23 08/01/2023 COMPR EHENS MAY METAB OLIC PANL bilirubin,to tierra 0.8 mg/dL (0-1.2 ) Not Available [facility] (Centralized Electronic Ordering - All Locations) Patient Can Go To The Location Of Their Choice, 08/01/2023 19:08:25 08/01/20 23 08/01/2023 COMPR EHENS MAY METAB OLIC PANL total protein 7.2 gm/dL (6.2-8 .2) Not Available [facility] (Centralized Electronic Ordering - All Locations) Patient Can Go To The Location Of Their Choice, 08/01/2023 19:08:25 08/01/20 23 08/01/2023 COMPR EHENS MAY METAB OLIC PANL Ag ratio 1.8 Not Available [facility] (Centralized Electronic Ordering - All Locations) Patient Can Go To The Location Of Their Choice, 08/01/2023 19:08:25 08/01/20 23 08/01/2023 COMPR EHENS MAY METAB OLIC PANL AST 18 U/L (0-32) Not Available [facility] (Centralized Electronic Ordering - All Locations) Patient Can Go To The Location Of Their Choice, 08/01/2023 19:08:25 08/01/20 23 08/01/2023 COMPR EHENS MAY METAB OLIC PANL alk phos 123 U/L (35-10 4) high Not Available [facility] (Centralized Electronic Ordering - All Locations) Patient Can Go To The Location Of Their Choice, 08/01/2023 19:08:25 08/01/20 23 08/01/2023 COMPR EHENS MAY METAB OLIC PANL ALT 15 U/L (0-33) Not Available [facility] (Centralized Electronic Ordering - All Locations) Patient Can Go To The Location Of Their Choice, 08/01/2023 19:08:25 08/01/20 23 08/01/2023 COMPR EHENS [...] , age and sex. Not Available [facility] (Centralized Electronic Ordering - All Locations) Patient Can Go To The Location Of Their Choice, [id number] 08/01/2023 19:08:25 08/01/2008/01/2023 C-AC CTIVE PROTE IN C-reactive protein <0.3 mg/dL (0-0.5 ) Not Available [facility] (Centralized Electronic Ordering - All Locations) Patient Can Go To The Location Of Their Choice, 08/01/2023 19:08:26 08/01/2008/01/2023 LIPAS E lipase 18 U/L (13-60 ) Not Available [facility] (Centralized Electronic Ordering - All Locations) Patient Can Go To The Location Of Their Choice, 08/01/2023 19:08:27 08/01/2008/01/2023 LIPID PANEL cholesterol, total 204 mg/dL (<200) high Not Available [facility] ([facility] Ordering - All Locations) Patient Can Go To The Location Of Their Choice, 08/01/2023 19:08:28 08/01/2008/01/2023 LIPID PANEL triglyceride 124 mg/dL (<150) Not Available [facility] ([facility] Order[facility] - All Locations) Patient Can Go To The Location Of Their Choice, 08/01/2023 19:08:28 08/01/2008/01/2023 LIPID PANEL HDL chol 51 mg/dL (>39) Not Available [facility] (Centralized Electronic Ordering - All Locations) Patient Can Go To The Location Of Their Choice, 08/01/2023 19:08:28 08/01/2008/01/2023 LIPID PANEL LDL cholesterol, calculated 128 mg/dL (0-130 ) Not Available [facility] (Centralized Electronic Ordering - All Locations) Patient Can Go To The Location Of Their Choice, 08/01/2023 19:08:28 08/01/2008/01/2023 LIPID PANEL non HDL cholesterol (calc) 153 mg/dL (<160) Not Available [facility] ([facility] Ordering - All Locations) Patient Can Go To The Location Of Their Choice, 08/01/2023 19:08:28 08/01/2008/01/2023 RHEUM ATOID FACTO R rheumatoid factor <10.0 IU/mL (<14) Not Available [facility] (Centralized [facility] Ordering - All Locations) Patient Can Go To The Location Of Their Choice, 08/01/2023 19:08:29 08/01/2008/02/2023 LYME AB W/REF SUKHDEEP lyme Ab w/reflex (neg) NEGAT MAY NO ANTIB DOLLY TO BORRE LLIA BURGD ORFER I DETEC HERNANDO. PATIE NTS IN EARLY STAGE S OF [...] oassa y syste m Not Available [facility] (Centralized Electronic Ordering - All Locations) Patient Can Go To The Location Of Their Choice, 08/02/2023 11:23:04 08/01/2008/02/2023 ANTI- NUCLE AR ANTIB DOLLY SCREE N anti-nuclear antibody screen NEGATI VE (NOTE ) Negat may <1:80 Borde rline 1:80 Posit may >1:80 ICAP nomen clatu re: AC-0 For more infor jaxson n about Hep-2 cell patte rns use ANApa ttern s.org , the offic ial websi te for the Inter natio nal Conse nsus on Antin uclea r Antib dolly (LUIGI) Patte rns (ICAP ). Test perfo rmed by [facility], [address], [place] [address] Not Available [facility] (Centralized Electronic Ordering - All Locations) Patient Can Go To The Location Of Their Choice, 08/02/2023 23:05:56 08/07/2008/07/2023 FREE T4 free T4 1.64 NG/dL (0.70- 1.80) Not Available [facility] (Centralized Electronic Ordering - All Locations) Patient Can Go To The Location Of Their Choice, 08/07/2023 17:21:19 08/07/20 23 08/07/2023 TSH TSH 0.13 uIU/m L (0.4-4 .2) low Not Available [facility] (Centralized Electronic Ordering - All Locations) Patient Can Go To The Location Of Their Choice, [id number] 08/07/2023 17:21:21 08/07/20 23 08/08/2023 H. PYLOR I UREA BREAT H TEST H. pylori urea breath test NEGATI VE Refer ence range : NEGAT MAY Test perfo rmed by [facility], [address] [place] [address] Not Available [facility] (Centralized Electronic Ordering - All Locations) Patient Can Go To The Location Of Their Choice, [id number] 08/08/2023 16:07:17 09/08/19 24 09/08/2023 FREE T4 free T4 1.64 NG/dL (0.70- 1.80) Not Available [facility] (Centralized Electronic Ordering - All Locations) Patient Can Go To The Location Of Their Choice, [id number] 09/08/2023 22:05:21 09/08/19 24 09/08/2023 TSH TSH 0.60 uIU/m L (0.4-4 .2) Not Available [facility] (Centralized Electronic Ordering - All Locations) Patient Can Go To The Location Of Their Choice, [id number] 09/08/2023 22:05:23 11/18/19 24 11/19/2023 CBC WITH DIFFE RENTI AL/PL ATELE T WBC 3.0 x10e3 /uL 3.4-10 .8 below low normal Not Available [facility] ([facility]) [address] [place], [address], 11/19/2023 08:08:45 11/18/1911/19/2023 CBC WITH DIFFE RENTI AL/PL ATELE T RBC 4.85 x10e6 /uL 3.77-5 .28 Not Available [facility] ([facility]) [address] [place], [address], 11/19/2023 08:08:45 11/18/1911/19/2023 CBC WITH DIFFE RENTI AL/PL ATELE T hemoglobin 14.4 g/dL 11.1-1 5.9 Not Available [facility] ([facility]) [address] [place], [address], 11/19/2023 08:08:45 11/18/19 24 11/19/2023 CBC WITH DIFFE RENTI AL/PL ATELE T hematocrit 44.4 % 34.0-4 6.6 Not Available [facility] ([facility]) [address] [facility], [place], [address], 11/19/2023 08:08:45 11/18/19 24 11/19/2023 CBC WITH DIFFE RENTI AL/PL ATELE T MCV 92 fL 79-97 Not Available [facility] ([facility]) [address] [facility], [place], [address], 11/19/2023 08:08:45 11/18/19 24 11/19/2023 CBC WITH DIFFE RENTI AL/PL ATELE T MCH 29.7 pg 26.6-3 3.0 Not Available [facility] ([facility]) [address] [place], [address], 11/19/2023 08:08:45 11/18/19 24 11/19/2023 CBC WITH DIFFE RENTI AL/PL ATELE T MCHC 32.4 g/dL 31.5-3 5.7 Not Available [facility] ([facility]) [address] [facility], [place], [address], 11/19/2023 08:08:45 11/18/19 24 11/19/2023 CBC WITH DIFFE RENTI AL/PL ATELE T RDW 13.7 % 11.7-1 5.4 Not Available [facility] ([facility]) [address] [place], [address], 11/19/2023 08:08:45 11/18/19 24 11/19/2023 CBC WITH DIFFE RENTI AL/PL ATELE T platelets 152 x10e3 /uL 150-45 0 Not Available [facility] ([facility]) [address] [place], [address], 11/19/2023 08:08:45 11/18/19 24 11/19/2023 CBC WITH DIFFE RENTI AL/PL ATELE T neutrophils 42 % not estab. Not Available [facility] ([facility]) [address] [facility], [place], [address], 11/19/2023 08:08:45 11/18/19 24 11/19/2023 CBC WITH DIFFE RENTI AL/PL ATELE T lymphs 44 % not estab. Not Available [facility] ([facility]) [address] [facility], [place], [address], 11/19/2023 08:08:45 11/18/19 24 11/19/2023 CBC WITH DIFFE RENTI AL/PL ATELE T monocytes 12 % not estab. Not Available [facility] ([facility]) [address] [facility], [place], [address], 11/19/2023 08:08:45 11/18/19 24 11/19/2023 CBC WITH DIFFE RENTI AL/PL ATELE T eos 1 % not estab. Not Available [facility] ([facility]) [address] [facility], [place], [address], 11/19/2023 08:08:45 11/18/19 24 11/19/2023 CBC WITH DIFFE RENTI AL/PL ATELE T basos 1 % not estab. Not Available [facility] ([facility]) [address] [facility], [place], [address], 11/19/2023 08:08:45 11/18/19 24 11/19/2023 CBC WITH DIFFE RENTI AL/PL ATELE T immature cells OUTSOLE MOLDER Not Available [facility] ([facility]) [address] [facility], [place], [address], 11/19/2023 08:08:45 11/18/19 24 11/19/2023 CBC WITH DIFFE RENTI AL/PL ATELE T neutrophils (absolute) 1.3 x10e3 /uL 1.4-7. 0 below low normal Not Available [facility] ([facility]) [address] [facility], [place], [address], 11/19/2023 08:08:45 11/18/19 24 11/19/2023 CBC WITH DIFFE RENTI AL/PL ATELE T lymphs (absolute) 1.3 x10e3 /uL 0.7-3. 1 Not Available [facility] ([facility]) [address] [facility], [place], [address], 11/19/2023 08:08:45 11/18/19 24 11/19/2023 CBC WITH DIFFE RENTI AL/PL ATELE T monocytes(ab solute) 0.4 x10e3 /uL 0.1-0. 9 Not Available [facility] ([facility]) [address] [facility], [place], [address], 11/19/2023 08:08:45 11/18/19 24 11/19/2023 CBC WITH DIFFE RENTI AL/PL ATELE T eos (absolute) 0.0 x10e3 /uL 0.0-0. 4 Not Available [facility] ([facility]) [address] [facility], [place], [address], 11/19/2023 08:08:45 11/18/19 24 11/19/2023 CBC WITH DIFFE RENTI AL/PL ATELE T baso (absolute) 0.0 x10e3 /uL 0.0-0. 2 Not Available [facility] ([facility]) [address] [facility], [place], [address], 11/19/2023 08:08:45 11/18/19 24 11/19/2023 CBC WITH DIFFE RENTI AL/PL ATELE T immature granulocytes 0 % not estab. Not Available [facility] ([facility]) [address] [facility], [place], [address], 11/19/2023 08:08:45 11/18/19 24 11/19/2023 CBC WITH DIFFE RENTI AL/PL ATELE T immature grans (abs) 0.0 x10e3 /uL 0.0-0. 1 Not Available [facility] ([facility]) [address] [facility], [place], [address], 11/19/2023 08:08:45 11/18/19 24 11/19/2023 CBC WITH DIFFE RENTI AL/PL ATELE T NRBC OUTSOLE MOLDER Not Available [facility] ([facility]) [address] [facility], [place], [address], 11/19/2023 08:08:45 11/18/19 24 11/19/2023 CBC WITH DIFFE RENTI AL/PL ATELE T hematology comments: OUTSOLE MOLDER Not Available [facility] ([facility]) [address] [facility], [place], [address], 11/19/2023 08:08:45 11/18/19 24 11/19/2023 COMP. METAB OLIC PANEL (14) glucose 99 mg/dL 70-99 Not Available [facility] ([facility]) [address] [facility], [place], [address], 11/19/2023 08:08:46 11/18/19 24 11/19/2023 COMP. METAB OLIC PANEL (14) BUN 19 mg/dL 8-27 Not Available [facility] ([facility]) [address] [facility], [place], [address], 11/19/2023 08:08:46 11/18/19 24 11/19/2023 COMP. METAB OLIC PANEL (14) creatinine 0.91 mg/dL 0.57-1 .00 Not Available [facility] ([facility]) [address] [facility], [place], [address], 11/19/2023 08:08:46 11/18/19 24 11/19/2023 COMP. METAB OLIC PANEL (14) eGFR 67 mL/mi n/1.7 3 >59 Not Available [facility] ([facility]) [address] [facility], [place], [address], 11/19/2023 08:08:46 11/18/19 24 11/19/2023 COMP. METAB OLIC PANEL (14) BUN/creatini ne ratio 21 12-28 Not Available [facility] ([facility]) [address] [facility], [place], [address], 11/19/2023 08:08:46 11/18/19 24 11/19/2023 COMP. METAB OLIC PANEL (14) sodium 141 mmol/ L 134-14 4 Not Available [facility] ([facility]) [address] [facility], [place], [address], 11/19/2023 08:08:46 11/18/19 24 11/19/2023 COMP. METAB OLIC PANEL (14) potassium 4.1 mmol/ L 3.5-5. 2 Not Available [facility] ([facility]) [address] [facility], [place], [address], 11/19/2023 08:08:46 11/18/19 24 11/19/2023 COMP. METAB OLIC PANEL (14) chloride 100 mmol/ L 96-106 Not Available [facility] ([facility]) [address] [facility], [place], [address], 11/19/2023 08:08:46 11/18/19 24 11/19/2023 COMP. METAB OLIC PANEL (14) anion gap 17.0 mmol/ L 10.0-1 8.0 Not Available [facility] ([facility]) [address] [facility], [place], [address], 11/19/2023 08:08:46 11/18/19 24 11/19/2023 COMP. METAB OLIC PANEL (14) carbon dioxide, total 24 mmol/ L 20-29 Not Available [facility] ([facility]) [address] [facility], [place], [address], 11/19/2023 08:08:46 11/18/19 24 11/19/2023 COMP. METAB OLIC PANEL (14) calcium 10.3 mg/dL 8.7-10 .3 Not Available [facility] ([facility]) [address] [facility], [place], [address], 11/19/2023 08:08:46 11/18/19 24 11/19/2023 COMP. METAB OLIC PANEL (14) protein, total 7.2 g/dL 6.0-8. 5 Not Available [facility] ([facility]) [address] [facility], [place], [address], 11/19/2023 08:08:46 11/18/19 24 11/19/2023 COMP. METAB OLIC PANEL (14) albumin 4.7 g/dL 3.8-4. 8 Not Available [facility] ([facility]) [address] [facility], [place], [address], 11/19/2023 08:08:46 11/18/19 24 11/19/2023 COMP. METAB OLIC PANEL (14) globulin, total 2.5 g/dL 1.5-4. 5 Not Available [facility] ([facility]) [address] [facility], [place], [address], 11/19/2023 08:08:46 11/18/19 24 11/19/2023 COMP. METAB OLIC PANEL (14) A/G ratio 1.9 1.2-2. 2 Not Available [facility] ([facility]) [address] [facility], [place], [address], 11/19/2023 08:08:46 11/18/19 24 11/19/2023 COMP. METAB OLIC PANEL (14) bilirubin, total 0.9 mg/dL 0.0-1. 2 Not Available [facility] ([facility]) [address] [facility], [place], [address], 11/19/2023 08:08:46 11/18/19 24 11/19/2023 COMP. METAB OLIC PANEL (14) alkaline phosphatase 109 IU/L 44-121 Not Available [facility] ([facility]) [address] [facility] [place], [address], 11/19/2023 08:08:46 11/18/19 24 11/19/2023 COMP. METAB OLIC PANEL (14) AST (SGOT) 21 IU/L 0-40 Not Available [facility] ([facility]) [address] [facility] [place], [address], 11/19/2023 08:08:46 11/18/19 24 11/19/2023 COMP. METAB OLIC PANEL (14) ALT (SGPT) 15 IU/L 0-32 Not Available [facility] ([facility]) [address] [place], [address], 11/19/2023 08:08:46 11/18/19 24 11/19/2023 THYRO XINE (T4) FREE, DIREC T T4,free(dire ct) 1.98 NG/dL 0.82-1 .77 above high normal Not Available [facility] ([facility]) [address] [place], [address], 11/19/2023 08:08:47 11/18/19 24 11/19/2023 TSH TSH 0.148 uIU/m L 0.450- 4.500 below low normal Not Available [facility] ([facility]) [address] [place], [address], 11/19/2023 08:08:47 11/18/19 24 11/19/2023 AMYLA SE amylase 48 U/L 31-110 Not Available [facility] ([facility]) [address] [place], [address], 11/19/2023 08:08:48 11/18/19 24 11/19/2023 LIPAS E lipase 36 U/L 14-85 Not Available [facility] ([facility]) [address] [place], [address], 11/19/2023 08:08:48 01/20/20 24 01/20/2024 CMP14 (REFL EX HGB A1C) glucose 94 mg/dL 70-99 Not Available [facility] ([facility]) [address] [place], [address], 01/21/2024 06:14:04 01/20/20 24 01/20/2024 CMP14 (REFL EX HGB A1C) BUN 20 mg/dL 8-27 Not Available [facility] ([facility]) [address] [place], [address], 01/21/2024 06:14:04 01/20/20 24 01/20/2024 CMP14 (REFL EX HGB A1C) creatinine 0.91 mg/dL 0.57-1 .00 Not Available [facility] ([facility]) [address] [place], [address], 01/21/2024 06:14:04 01/20/20 24 01/20/2024 CMP14 (REFL EX HGB A1C) eGFR 67 mL/mi n/1.7 3 >59 Not Available [facility] ([facility]) [address] [place], [address], 01/21/2024 06:14:04 01/20/20 24 01/20/2024 CMP14 (REFL EX HGB A1C) BUN/creatini ne ratio 22 12-28 Not Available [facility] ([facility]) [address] [place], [address], 01/21/2024 06:14:04 01/20/20 24 01/20/2024 CMP14 (REFL EX HGB A1C) sodium 141 mmol/ L 134-14 4 Not Available [facility] ([facility]) [address] [place], [address], 01/21/2024 06:14:04 01/20/20 24 01/20/2024 CMP14 (REFL EX HGB A1C) potassium 4.9 mmol/ L 3.5-5. 2 Not Available [facility] ([facility]) [address] [facility], [place], [address], 01/21/2024 06:14:04 01/20/20 24 01/20/2024 CMP14 (REFL EX HGB A1C) chloride 104 mmol/ L 96-106 Not Available [facility] ([facility]) [address] [place], [address], 01/21/2024 06:14:04 01/20/20 24 01/20/2024 CMP14 (REFL EX HGB A1C) carbon dioxide, total 26 mmol/ L 20-29 Not Available [facility] ([facility]) [address] [place], [address], 01/21/2024 06:14:04 01/20/20 24 01/20/2024 CMP14 (REFL EX HGB A1C) calcium 10.2 mg/dL 8.7-10 .3 Not Available [facility] ([facility]) [address] [place], [address], 01/21/2024 06:14:04 01/20/20 24 01/20/2024 CMP14 (REFL EX HGB A1C) protein, total 6.9 g/dL 6.0-8. 5 Not Available [facility] ([facility]) [address] [place], [address], 01/21/2024 06:14:04 01/20/20 24 01/20/2024 CMP14 (REFL EX HGB A1C) albumin 4.5 g/dL 3.8-4. 8 Not Available [facility] ([facility]) [address] [place], [address], 01/21/2024 06:14:04 01/20/20 24 01/20/2024 CMP14 (REFL EX HGB A1C) globulin, total 2.4 g/dL 1.5-4. 5 Not Available [facility] ([facility]) [address] [place], [address], 01/21/2024 06:14:04 01/20/20 24 01/20/2024 CMP14 (REFL EX HGB A1C) A/G ratio 1.9 Not Available [facility] ([facility]) [address] [place], [address], 01/21/2024 06:14:04 01/20/20 24 01/20/2024 CMP14 (REFL EX HGB A1C) bilirubin, total 0.7 mg/dL 0.0-1. 2 Not Available [facility] ([facility]) [address] [place], [address], 01/21/2024 06:14:04 01/20/20 24 01/20/2024 CMP14 (REFL EX HGB A1C) alkaline phosphatase 107 IU/L 44-121 Not Available [facility] ([facility]) [address] [place], [address], 01/21/2024 06:14:04 01/20/20 24 01/20/2024 CMP14 (REFL EX HGB A1C) AST (SGOT) 15 IU/L 0-40 Not Available [facility] ([facility]) [address] [place], [address], 01/21/2024 06:14:04 01/20/20 24 01/20/2024 CMP14 (REFL EX HGB A1C) ALT (SGPT) 12 IU/L 0-32 Not Available [facility] ([facility]) [address] [place], [address], 01/21/2024 06:14:04 01/20/20 24 01/21/2024 TSH+F REE T4 TSH 0.568 uIU/m L 0.450- 4.500 Not Available [facility] ([facility]) [address] [place], [address], 01/21/2024 06:14:05 01/20/20 24 01/21/2024 TSH+F REE T4 T4,free(dire ct) 1.62 NG/dL 0.82-1 .77 Not Available [facility] ([facility]) [address] [facility], [place], [address], 01/21/2024 06:14:05 01/20/20 24 01/21/2024 CBC WITH DIFFE RENTI AL/PL ATELE T WBC 3.0 x10e3 /uL 3.4-10 .8 below low normal Not Available [facility] ([facility]) [address] [place], [address], 01/21/2024 06:14:06 01/20/20 24 01/21/2024 CBC WITH DIFFE RENTI AL/PL ATELE T RBC 4.62 x10e6 /uL 3.77-5 .28 Not Available [facility] ([facility]) [address] [place], [address], 01/21/2024 06:14:06 01/20/20 24 01/21/2024 CBC WITH DIFFE RENTI AL/PL ATELE T hemoglobin 14.1 g/dL 11.1-1 5.9 Not Available [facility] ([facility]) [address] [place], [address], 01/21/2024 06:14:06 01/20/20 24 01/21/2024 CBC WITH DIFFE RENTI AL/PL ATELE T hematocrit 43.7 % 34.0-4 6.6 Not Available [facility] ([facility]) [address] [place], [address], 01/21/2024 06:14:06 01/20/20 24 01/21/2024 CBC WITH DIFFE RENTI AL/PL ATELE T MCV 95 fL 79-97 Not Available [facility] ([facility]) [address] [facility], [place], [address], 01/21/2024 06:14:06 01/20/20 24 01/21/2024 CBC WITH DIFFE RENTI AL/PL ATELE T MCH 30.5 pg 26.6-3 3.0 Not Available [facility] ([facility]) [address] [facility], [place], [address], 01/21/2024 06:14:06 01/20/20 24 01/21/2024 CBC WITH DIFFE RENTI AL/PL ATELE T MCHC 32.3 g/dL 31.5-3 5.7 Not Available [facility] ([facility]) [address] [facility], [place], [address], 01/21/2024 06:14:06 01/20/20 24 01/21/2024 CBC WITH DIFFE RENTI AL/PL ATELE T RDW 13.5 % 11.7-1 5.4 Not Available [facility] ([facility]) [address] [facility], [place], [address], 01/21/2024 06:14:06 01/20/20 24 01/21/2024 CBC WITH DIFFE RENTI AL/PL ATELE T platelets 146 x10e3 /uL 150-45 0 below low normal Not Available [facility] ([facility]) [address] [facility], [place], [address], 01/21/2024 06:14:06 01/20/20 24 01/21/2024 CBC WITH DIFFE RENTI AL/PL ATELE T neutrophils 40 % not estab. Not Available [facility] ([facility]) [address] [place], [address], 01/21/2024 06:14:06 01/20/20 24 01/21/2024 CBC WITH DIFFE RENTI AL/PL ATELE T lymphs 49 % not estab. Not Available [facility] ([facility]) [address] [facility], [place], [address], 01/21/2024 06:14:06 01/20/20 24 01/21/2024 CBC WITH DIFFE RENTI AL/PL ATELE T monocytes 9 % not estab. Not Available [facility] ([facility]) [address] [place], [address], 01/21/2024 06:14:06 01/20/20 24 01/21/2024 CBC WITH DIFFE RENTI AL/PL ATELE T eos 1 % not estab. Not Available [facility] ([facility]) [address] [place], [address], 01/21/2024 06:14:06 01/20/20 24 01/21/2024 CBC WITH DIFFE RENTI AL/PL ATELE T basos 1 % not estab. Not Available [facility] ([facility]) [address] [place], [address], 01/21/2024 06:14:06 01/20/20 24 01/21/2024 CBC WITH DIFFE RENTI AL/PL ATELE T immature cells OUTSOLE MOLDER Not Available [facility] ([facility]) [address] [place], [address], 01/21/2024 06:14:06 01/20/20 24 01/21/2024 CBC WITH DIFFE RENTI AL/PL ATELE T neutrophils (absolute) 1.2 x10e3 /uL 1.4-7. 0 below low normal Not Available [facility] ([facility]) [address] [place], [address], 01/21/2024 06:14:06 01/20/20 24 01/21/2024 CBC WITH DIFFE RENTI AL/PL ATELE T lymphs (absolute) 1.5 x10e3 /uL 0.7-3. 1 Not Available [facility] ([facility]) [address] [place], [address], 01/21/2024 06:14:06 01/20/20 24 01/21/2024 CBC WITH DIFFE RENTI AL/PL ATELE T monocytes(ab solute) 0.3 x10e3 /uL 0.1-0. 9 Not Available [facility] ([facility]) [address] [facility], [place], [address], 01/21/2024 06:14:06 01/20/20 24 01/21/2024 CBC WITH DIFFE RENTI AL/PL ATELE T eos (absolute) 0.0 x10e3 /uL 0.0-0. 4 Not Available [facility] ([facility]) [address] [facility], [place], [address], 01/21/2024 06:14:06 01/20/20 24 01/21/2024 CBC WITH DIFFE RENTI AL/PL ATELE T baso (absolute) 0.0 x10e3 /uL 0.0-0. 2 Not Available [facility] ([facility]) [address] [facility], [place], [address], 01/21/2024 06:14:06 01/20/20 24 01/21/2024 CBC WITH DIFFE RENTI AL/PL ATELE T immature granulocytes 0 % not estab. Not Available [facility] ([facility]) [address] [facility], [place], [address], 01/21/2024 06:14:06 01/20/20 24 01/21/2024 CBC WITH DIFFE RENTI AL/PL ATELE T immature grans (abs) 0.0 x10e3 /uL 0.0-0. 1 Not Available [facility] ([facility]) [address] [facility], [place], [address], 01/21/2024 06:14:06 01/20/20 24 01/21/2024 CBC WITH DIFFE RENTI AL/PL ATELE T NRBC OUTSOLE MOLDER Not Available [facility] ([facility]) [address] [facility], [place], [address], 01/21/2024 06:14:06 01/20/20 24 01/21/2024 CBC WITH DIFFE NANCY AL/PL ANH T hematology comments: OUTSOLE MOLDER Not Available [facility] ([facility]) [address] [facility], [place], [address], 01/21/2024 06:14:06 01/20/20 24 01/20/2024 LIPID PANEL cholesterol, total 212 mg/dL 100-19 9 above high normal Not Available [facility] ([facility]) [address] [place], [address], 01/21/2024 06:14:07 01/20/20 24 01/20/2024 LIPID PANEL triglyceride s 83 mg/dL 0-149 Not Available [facility] ([facility]) [address] [place], [address], 01/21/2024 06:14:07 01/20/20 24 01/20/2024 LIPID PANEL HDL cholesterol 55 mg/dL >39 Not Available [facility] ([facility]) [address] [place], [address], 01/21/2024 06:14:07 01/20/20 24 01/20/2024 LIPID PANEL VLDL cholesterol oskar 15 mg/dL 5-40 Not Available [facility] ([facility]) [address] [place], [address], 01/21/2024 06:14:07 01/20/20 24 01/20/2024 LIPID PANEL LDL chol calc ([facility]) 142 mg/dL 0-99 above high normal Not Available [facility] ([facility]) [address] [place], [address], 01/21/2024 06:14:07 01/20/20 24 01/20/2024 LIPID PANEL LDL calc comment: OUTSOLE MOLDER Not Available [facility] ([facility]) [address] [facility], [place], [address], 01/21/2024 06:14:07 01/20/2001/21/2024 HEMOG LOBIN A1C hemoglobin A1C 5.4 % 4.8-5. 6 Predi abete s: 5.7 - 6.4 Diabe jazmine: >6.4 Glyce cindy contr ol for adult s with diabe jazmine: <7.0 Not Available [facility] ([facility]) [address] [facility], [place], [address], 01/21/2024 06:14:08 01/20/20 24 01/21/2024 TRIIO DOTHY JOSE E (T3), FREE triiodothyro nine (T3), free 2.6 pg/mL 2.0-4. 4 Not Available [facility] ([facility]) [address] [facility], [place], [address], 01/21/2024 06:14:08 04/04/20 23 04/03/2023 US, pelvi s No observ ation record ed. [email or web address] [facility] [address] [place], [address], 04/07/2023 09:36:18 04/07/2004/07/2023 XR, shoul maurice, 2 [...] itis of the rotato r cuff. WSN: [id number] Orderi ng Physic kenny: Timbo Ortiz Dictat ed By: Lisa GRAY, Rush Singh Dictat ed Date/T tom: 4:25 pm Review ed By: Rush Gonzalez MD Signed By: Rush Gonzalez MD Signed Date/T tom: 4:25 pm Transc ribed By: ISAURA Transc ribed Date/T tom: 4:24 pm Patien t Class: Outpat ient [facility] (Outpt Imaging) [address] [place], [address], 04/08/2023 15:23:39 04/07/20 23 04/07/2023 XR, knee, 3 view Knee 3 Views [...] collat eral ligame nt injury . WSN: [id number] Orderi ng Physic kenny: Timbo Ortiz Dictat ed By: Rush Gonzalez MD Dictat ed Date/T tom: 4:26 pm Review ed By: Rush Gonzalez MD Signed By: Rush Gonzalez MD Signed Date/T tom: 4:26 pm Transc ribed By: ISAURA Transc ribed Date/T tom: 4:25 pm Patien t Class: Outpat ient [facility] (Outpt Imaging) [address] [place], [address], 04/08/2023 15:22:51 04/08/20 23 04/05/2023 XR, shoul maurice No observ ation record ed. [facility] [address] [place], [address], 04/08/2023 15:03:31 04/22/20 23 04/19/2023 MRI, knee, w/o contr ast [facility]- [facility] Access ion Number : [id number] Frankie koenig Name: Naomie Solitario ia l Record Number : [id number] Date of : 1949 Date of Exam: 2022 Referr ing Physic kenny: [facility] [address] [place] [address] Exam: MR Knee (C-) CPT 73651 - Right Room Descri ption: [place] GE Pion 3T Histor y: Pain in [...] is unrema rkable . Menisc i: The soft sugar cutter ior tibial attach ment of the medial menisc us appear s torn with marked ly diminu tive appear ance of the adjace nt soft sugar cutter ior third and medial extrus ion of [...] ess. Impres janet: 1. Tear of the soft sugar cutter ior tibial attach ment of the medial [...] ly Signed By: Catia Norwood ra, MD [facility] ([facility] [address], [place], [address], 04/23/2023 17:30:30 05/01/20 23 04/30/2023 MRI, arabella maurice, w/o contr ast No observ ation record ed. [facility] ([facility]) [address], [place], [address], 05/01/2023 14:56:50 06/20/20 23 06/20/2023 MAMMO , scree sharath, digit al, bilat [...] Lay letter mailed to frankie koenig WSN: [id number] Orderi ng Physic kenny: Timbo Mae Dictat ed By: Dangelo Del Rosario MD Dictat ed Date/T tom: 2:09 pm Review ed By: Dangelo Del Rosario MD Signed By: Dangelo Del Rosario MD Signed Date/T tom: 2:09 pm Transc ribed By: CSB Transc riptio n Date/T tom: 2:09 pm Birads : Frankie koenig Class: Outpat ient [facility] (Outpt Imaging) [address] [place], [address], 06/20/2023 14:17:04 07/22/20 23 07/14/2023 CT, chest , w/o contr ast No observ ation record ed. [email or web address] [facility] (Medical Records) [address] [place], [address], 07/22/2023 15:22:36 08/14/19 24 07/14/2023 CT, chest [...] (Negat may) Lay letter mailed to frankie t I have person ally review ed the images and I agree with this report . WSN: [id number] Orderi ng Physic kenny: Timbo Mae Dictat ed By: Juanita Ramirez DO Dictat ed Date/T tom: 12:03 p Review ed By: Jamie Heaton MD Signed By: Jamie Heaton MD Signed Date/T tom: 12:08 pm Transc ribed By: ISAURA Transc ribed Date/T tom: 11:44 am Patijose m t Class: Outpat ient [facility] (Outpt Imaging) [address] [place] [address], [address], 05/28/2024 12:19:12 05/28/20 24 05/28/2024 mm digit [...] (Negat may) Lay letter mailed to frankie t I have person ally review ed the images and I agree with this report . WSN: [id number] Orderi ng Physic kenny: Timbo Mae Dictat ed By: Juanita Ramirez DO ed Date/T tom: 12:03 pm Review ed By: Jamie Heaton MD Signed By: Jamie Heaton MD Signed Date/T tom: 12:08 pm Transc ribed By: ISAURA Transc riptio n Date/T tom: 11:44 am Birads : Patien t Class: Outpat ient jthabet [facility] (Outpt Imaging) [address] [place], [address], 05/28/2024 12:19:12 07/14/20 24 07/13/2024 XR, hip + pelvi s, bilat eral AP pelvis and bilate ral hips 5 views total dated [facility] er 2023. Compar romel films are from December 21, 2021 and y 2016. HISTOR Y: Pain. FINDIN GS: [...] in the right hip. Thank you for sujathai ng me to partic ipate in the care of this patien t. WSN: [id number] Orderi ng Physic kenny: Timbo Ortiz Dictat ed By: Jamie Heaton MD Dictat ed Date/T tom: 9:55 am Review ed By: Jamie Heaton MD Signed By: Jamie Heaton MD Signed Date/T tom: 9:55 am Transc ribed By: ISAURA Transc ribed Date/T tom: 9:55 am Patien t Class: Outpat ient ALEXIA [facility] (Outpt Imaging) [address] [place], [address], 07/14/2024 10:22:01 07/29/20 24 07/29/2024 US msk [...] uing as the partia lly-vi sualiz ed soft sugar cutter ior intero sseous nerve. 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 No olecra non bursal fluid collec tion is identi fied. The tricep s brachi i combin ed latera l and long head tendon , as well as the medial head tendon are intact at the olecra non insert ion. The olecra non demons trates normal soft sugar cutter ior contou r. IMPRES JAENT: 1. No elbow mass or fluid collec tion. 2. Incide ntal bifid ulnar nerve, otherw ise normal in appear ance. WSN: [id number] Orderi ng Physic kenny: Diana CHRISTIAN, Timbo Crocker Dictat ed By: Colin Jaquez MD Dictat ed Date/T tom: 4:06 pm Review ed By: Colin Jaquez MD Signed By: Colin Jaquez MD Signed Date/T tom: 4:06 pm Transc ribed By: ISAURA Transc ribed Date/T tom: 1:32 pm Patien t Class: Outpat ient [facility] (Outpt Imaging) [address] [place], [address], 07/29/2024 17:55:12 08/09/20 24 08/06/2024 CT, chest , w/ contr ast No observ ation record ed. [facility] (Medical Records) [address] [place], [address], 08/10/2024 09:10:43 10/06/19 25 09/27/2024 DEXA, axial skele ton Name:Henry MCALLISTER DISDEANNE Ceja Patijose m t ID: [id number] Age:74 years Sex:Fe male Ethnic ity:Wh ite Date of : 1949 Reason : M85.89 OTHER SPECIF IED DISORD ERS OF BONE DENSIT Y AND STRUCT URE MULTIP LE SITES; Clinic al Questi on(s): Other: Referr ing Provid er:Arsen CHRISTIAN Study: Dexa Bone Densit y (Axial ) Bone Densit y: Region BMD T-Scor e Z-Scor e Classi ficati on AP Spine 0.851 -1.8 0.6 Osteop enia TOTAL HIP 0.853 -0.7 1.0 Normal FEM NECK 0.813 -0.3 1.7 Normal 10-yea r Fractu re Risk: 1 FRAX(R ) Versio n 3.08. Fractu re probab ility calcul ated for an untrea hernando patien t. Fractu re probab ility may be lower if the patien t has receiv ed treatm ent. Major Osteop orotic Fractu re 8.0% Hip Fractu re 0.8% RATE OF CHANGE (SPINE ): BMD values have decrea sed4.0 % from previo us RATE OF CHANGE (TOTAL HIP): BMD values have increa sed 0.2% from previo us RATE OF CHANGE (FEMOR AL NECK): BMD values have increa sed 11.8% from previo us Impres janet: The patien t has osteop enia as determ ined by WHO criter ia. WSN: [id number] Orderi ng Physic kenny: Diana CHRISTIAN, Timbo Crocker Dictat ed By: Mariam Callahan MD Dictat ed Date/T tom: 3:46 pm Review ed By: Mariam Callahan MD Signed By: Mariam Callahan MD Signed Date/T tom: 3:46 pm Transc ribed By: ISAURA Transc ribed Date/T tom: 3:44 pm Patien t Class: Outpat ient [facility] (Outpt Imaging) [address] [place], [address], 10/08/2024 17:56:37 Result Notes None recorded. Problems Name Problem SNOMED Code Status Onset Date Resolution Date Notes Provider Name and Address Organization Details Recorded Time Abdomina l pain 95771776 Completed 201303/17/2014 RECORDED 02/02/20 14 8:32AM BY EDOUARD CLEMENTEATI ON/ADDEN FRANCIS [facility] [address], [facility] [place], [address] , [facility] 3 14:37:10 Acute sinusiti s 64627653 Completed 201103/17/2014 RECORDED 02/20/20 12 2:39PM BY MIRIAM HENDRIX MA, ANNOTATI ON/ADDEN DUM Not Available [facility] 4 12:45:23 Acute upper respirat ory infectio n of multiple sites Completed 201103/17/2014 RECORDED 02/20/20 12 2:41PM BY MIRIAM HENDRIX MA, ANNOTATI ON/ADDEN DUM Not Available [facility] 4 12:45:23 Patient status finding [id number] Completed 201103/17/2014 RECORDED 08/05/20 12 11:47AM BY MIRIAM HENDRIX MA, ANNOTATI ON/ADDEN DUM [facility] 7 12:[facility]17 Chest pain 67651354 Completed 201303/17/2014 STORY: NV RULED OUT / / CONT CURRENT RISK REDUCTIO N PLAN.; RECORDED 01/27/20 14 7:39AM BY HELEN GRAYSON I, ANNOTATI ON/ADDEN DUM Trini Ortiz, [facility] [address], [place], [address] , [facility] 2 09:23:46 Screenin g for malignan t neoplasm of breast Completed 201103/17/2014 RECORDED 02/20/20 12 2:38PM BY MIRIAM HENDRIX MA, ANNOTATI ON/ADDEN DUM Not Available [facility] 4 12:45:23 Disorder of breast 80474140 Completed 201103/17/2014 RECORDED 02/20/20 12 2:41PM BY MIRIAM HENDRIX MA, ANNOTATI ON/ADDEN DUM Not Available [facility] 4 12:45:23 Screenin g for malignan t neoplasm of cervix Completed 201103/17/2014 RECORDED 02/20/20 12 2:39PM BY MIRIAM HENDRIX MA, ANNOTATI ON/ADDEN DUM Not Available [facility] 4 12:45:23 Chronic sinusiti s 46603718 Completed 201103/17/2014 RECORDED 02/20/20 12 2:39PM BY MIRIAM HENDRIX MA, ANNOTATI ON/ADDEN DUM Not Available [facility] 4 12:45:24 Herpes simplex 27035038 Completed 201103/17/2014 RECORDED 07/23/20 12 10:39AM BY MIRIAM HENDRIX MA, ANNOTATI ON/ADDEN DUM Not Available [facility] 4 12:45:24 Cough 33272362 Completed 201103/17/2014 RECORDED 02/20/20 12 2:37PM BY MIRIAM HENDRIX MA, ANNOTATI ON/ADDEN DUM Trini Ortiz, [address], [place], [address] , [facility] 3 14:41:04 Divertic ulitis of colon 188701868 Active 2013 Not Available [facility] 3 09:20:30 Divertic ulitis of colon 920497020 Completed 201303/17/2014 RECORDED 02/02/20 14 8:32AM BY EDOUARD CLEMENTEATI ON/ADDEN DUM Yumiko fraser [facility] 7 12:54:25 Dysfunct ion of eustachi an tube 46058053 Completed 201303/17/2014 RECORDED 02/02/20 14 8:31AM BY EDOUARD CLEMENTEATI ON/ADDEN DUM Yumiko fraser [facility] 7 12:56:38 Dysphagi a 03772275 Completed 201103/17/2014 RECORDED 02/20/20 12 2:39PM BY MIRIAM HENDRIX MA, ANNOTATI ON/ADDEN DUM Not Available [facility] 4 12:45:24 Enthesop athy of knee 26439745 Completed 201103/17/2014 RECORDED 02/20/20 12 2:39PM BY MIRIAM HENDRIX MA, ANNOTATI ON/ADDEN DUM Not Available [facility] 4 12:45:24 Follow-u p encounte r Completed 201303/17/2014 RECORDED 01/27/20 14 7:39AM BY HELEN GRAYSON I, ANNOTATI ON/ADDEN DUM Not Available [facility] 4 12:45:24 Ill-defi inez disorder of eye Completed 201203/17/2014 RECORDED 06/14/20 13 11:23AM BY MIRIAM HENDRIX MA, ANNOTATI ON/ADDEN DUM Not Available [facility] 4 12:45:24 Influenz a vaccine needed 23824812559 06 Completed 200903/17/2014 RECORDED 08/14/19 10 1:37PM BY CONNIE HENRIQUEZ MD, OFFICE VISIT Not Available [facility] 4 12:45:24 Adult health examinat ion Completed 201203/17/2014 RECORDED 06/14/20 13 11:24AM BY MIRIAM HENDRIX MA, ANNOTATI ON/ADDEN DUM Not Available [facility] 4 12:45:24 Disorder of skin pigmenta tion 02801575 Completed 201103/17/2014 RECORDED 02/20/20 12 2:42PM BY MIRIAM HENDRIX MA, ANNOTATI ON/ADDEN DUM Not Available [facility] 4 12:45:24 Insomnia 427046099 Completed 201103/17/2014 RECORDED 02/20/20 12 2:38PM BY MIRIAM HENDRIX MA, ANNOTATI ON/ADDEN DUM [facility] [address], [place], [address] , [facility] 3 11:10:55 Laborato ry procedur e performe d 128850292 Completed 201203/17/2014 RECORDED 01/16/20 13 8:19AM BY VIVIEN AREVALO MA, ANNOTATI ON/ADDEN DUM Not Available [facility] 4 12:45:25 Low back pain 140813944 Completed 201303/17/2014 RECORDED 02/02/20 14 8:31AM BY HELEN GRAYSON I ANNOTATI ON/ADDEN DUM Yumiko Smith MA bria, [facility] 7 12:54:53 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 86429233 Completed 201303/17/2014 RECORDED 01/27/20 14 7:39AM BY HELEN GRAYSON I ANNOTATI ON/ADDEN DUM Yumiko Smith MA bria, [facility] 7 12:54:39 Mitral valve disorder 05975429 Completed 201103/17/2014 RECORDED 02/20/20 12 2:39PM BY MIRIAM HENDRIX MA, ANNOTATI ON/ADDEN DUM Yumiko Romerobraydon JESSENIA bria, [facility] 7 12:54:29 Neck pain 02075963 Completed 201103/17/2014 RECORDED 07/23/20 12 10:39AM BY MIRIAM HENDRIX MA, ANNOTATI ON/ADDEN DUM Not Available [facility] 4 12:45:25 Active or passive immuniza tion Completed 200703/17/2014 RECORDED 11/16/19 08 3:08PM BY CONNIE HENRIQUEZ MD, OFFICE VISIT Not Available [facility] 4 12:45:25 Administ ration of viral vaccine Completed 200803/17/2014 RECORDED 02/14/20 09 11:55AM BY ALEXANDRIA AREVALO, OFFICE VISIT Not Available [facility] 4 12:45:25 Administ ration of bacteria l and viral vaccine Completed 200703/17/2014 RECORDED 11/16/19 08 3:18PM BY CONNIE HENRIQUEZ MD, OFFICE VISIT Not Available [facility] 4 12:45:25 Degenera tive joint disease of hand 11834450 Completed 201103/17/2014 RECORDED 02/20/20 12 2:41PM BY MIRIAM HENDRIX MA, ANNOTATI ON/ADDEN DUM Not Available [facility] 4 12:45:25 Infectiv e otitis externa 87071422 Completed 201103/17/2014 RECORDED 02/20/20 12 2:36PM BY MIRIAM HENDRIX MA, EDOUARDATI ON/ADDEN DUM Not Available [facility] 4 12:45:26 Shoulder joint pain 494172500 Completed 201303/17/2014 RECORDED 02/02/20 14 8:31AM BY HELEN GRAYSON I ANNOTATI ON/ADDEN DUM Yumiko fraser, [facility] 7 12:54:49 Eruption 191416811 Completed 201103/17/2014 RECORDED 02/20/20 12 2:37PM BY MIRIAM HENDRIX MA, ANNOTATI ON/ADDEN DUM Not Available [facility] 4 12:45:26 Chronic rhinitis 27687750 Completed 201303/17/2014 RECORDED 01/27/20 14 10:30AM BY VIVIEN AREVALO MA, EDOUARDATI ON/ADDEN DUM Yumiko fraser, [facility] 7 12:56:09 Herpes zoster 4519005 Completed 201303/17/2014 RECORDED 01/27/20 14 7:39AM BY EDOUARD CLEMENTEATI ON/ADDEN DUM Not Available [facility] 4 12:45:26 Screenin g for malignan t neoplasm of colon Completed 201103/17/2014 RECORDED 02/20/20 12 2:36PM BY MIRIAM HENDRIX MA, NEDA ON/ADDEN DUM Not Available [facility] 4 12:45:26 Stress 42408186 Completed 201311/26/2016 [facility] 7 12:55:57 Spasm 96718667 Completed 201103/17/2014 RECORDED 07/23/20 12 10:38AM BY MIRIAM HENDRIX MA, NEDA ON/ADDEN DUM Not Available [facility] 4 12:45:26 Abdomina l pain 34791214 Completed 201303/18/2014 RECORDED 02/02/20 14 8:32AM BY HELEN GRAYSON I, ANNOTATI ON/ADDEN DUM Trini Ortiz, [facility] [address], [place], [address] , [facility] 3 14:37:10 Acute sinusiti s 73194391 Completed 201103/18/2014 RECORDED 02/20/20 12 2:39PM BY MIRIAM HENDRIX MA, ANNOTATI ON/ADDEN DUM Not Available [facility] 4 03:45:38 Acute upper respirat ory infectio n of multiple sites Completed 201103/18/2014 RECORDED 02/20/20 12 2:41PM BY MIRIAM HENDRIX MA, ANNOTATI ON/ADDEN DUM Not Available [facility] 4 03:45:38 Patient status finding [id number] Completed 201103/18/2014 RECORDED 08/05/20 12 11:47AM BY MIRIAM HENDRIX MA, ANNOTATI ON/ADDEN DUM Yumiko Smith MA [facility], [facility] 7 12:54:17 Chest pain 91206937 Completed 201303/18/2014 STORY: NV RULED OUT / / CONT CURRENT RISK REDUCTIO N PLAN.; RECORDED 01/27/20 14 7:39AM BY HELEN GRAYSON I ANNOTATI ON/ADDEN DUM [facility] [address], [place], [address] , [facility] 2 09:23:46 Screenin g for malignan t neoplasm of breast Completed 201103/18/2014 RECORDED 02/20/20 12 2:38PM BY MIRIAM HENDRIX MA, ANNOTATI ON/ADDEN DUM Not Available [facility] 4 03:45:38 Disorder of breast 23200686 Completed 201103/18/2014 RECORDED 02/20/20 12 2:41PM BY MIRIAM HENDRIX MA, ANNOTATI ON/ADDEN DUM Not Available [facility] 4 03:45:38 Screenin g for malignan t neoplasm of cervix Completed 201103/18/2014 RECORDED 02/20/20 12 2:39PM BY MIRIAM HENDRIX MA, ANNOTATI ON/ADDEN DUM Not Available [facility] 4 03:45:38 Chronic sinusiti s 44748535 Completed 201103/18/2014 RECORDED 02/20/20 12 2:39PM BY MIRIAM HENDRIX MA, ANNOTATI ON/ADDEN DUM Not Available [facility] 4 03:45:38 Herpes simplex 79699449 Completed 201103/18/2014 RECORDED 07/23/20 12 10:39AM BY MIRIAM HENDRIX MA, ANNOTATI ON/ADDEN DUM Not Available [facility] 4 03:45:38 Cough 22129784 Completed 201103/18/2014 RECORDED 02/20/20 12 2:37PM BY MIRIAM HENRDIX MA, ANNOTATI ON/ADDEN DUM Trini Ortiz, [facility] [address], [place], [address] , [facility] 3 14:41:04 Divertic ulitis of colon 726728479 Completed 201303/18/2014 RECORDED 02/02/20 14 8:32AM BY NEDA CLEMENTE ON/ADDEN DUM Yumiko fraser, [facility] 7 12:54:25 Dysfunct ion of eustachi an tube 98622871 Completed 201303/18/2014 RECORDED 02/02/20 14 8:31AM BY NEDA CLEMENTE ON/ADDEN DUM Yumiko fraser, [facility] 7 12:56:38 Dysphagi a 88734658 Completed 201103/18/2014 RECORDED 02/20/20 12 2:39PM BY MIRIAM HENDRIX MA, ANNOTATI ON/ADDEN DUM Not Available [facility] 4 03:45:38 Enthesop athy of knee 75768843 Completed 201103/18/2014 RECORDED 02/20/20 12 2:39PM BY MIRIAM HENDRIX MA, ANNOTATI ON/ADDEN DUM Not Available [facility] 4 03:45:38 Follow-u p encounte r Completed 201303/18/2014 RECORDED 01/27/20 14 7:39AM BY HELEN GRAYSON I, EDOUARDATI ON/ADDEN DUM Not Available [facility] 4 03:45:38 Ill-defi inez disorder of eye Completed 201203/18/2014 RECORDED 06/14/20 13 11:23AM BY MIRIAM HENDRIX MA, ANNOTATI ON/ADDEN DUM Not Available [facility] 4 03:45:38 Influenz a vaccine needed 60888585033 06 Completed 200903/18/2014 RECORDED 08/14/19 10 1:37PM BY CONNIE HENRIQUEZ MD, OFFICE VISIT Not Available [facility] 4 03:45:38 Adult health examinat ion Completed 201203/18/2014 RECORDED 06/14/20 13 11:24AM BY MIRIAM HENDRIX MA, ANNOTATI ON/ADDEN DUM Not Available [facility] 4 03:45:38 Disorder of skin pigmenta tion 38338474 Completed 201103/18/2014 RECORDED 02/20/20 12 2:42PM BY MIRIAM HENDRIX MA, ANNOTATI ON/ADDEN DUM Not Available [facility] 4 03:45:38 Insomnia 194217449 Completed 201103/18/2014 RECORDED 02/20/20 12 2:38PM BY MIRIAM HENDRIX MA, ANNOTATI ON/ADDEN DUM Trini Ortiz, [facility] [address], [place], [address] , [facility] 3 11:10:55 Laborato ry procedur e performe d 568339354 Completed 201203/18/2014 RECORDED 01/16/20 13 8:19AM BY VIVIEN AREVALO MA, ANNOTATI ON/ADDEN DUM Not Available [facility] 4 03:45:39 Low back pain 890856353 Completed 201303/18/2014 RECORDED 02/02/20 14 8:31AM BY HELEN GRAYSON I, ANNOTATI ON/ADDEN DUM Yumiko Smith MA null, [facility] 7 12:54:53 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 14469101 Completed 201303/18/2014 RECORDED 01/27/20 14 7:39AM BY HELEN GRAYSON I, ANNOTATI ON/ADDEN DUM Yumiko Smith MA null, [facility] 7 12:54:39 Mitral valve disorder 10732839 Completed 201103/18/2014 RECORDED 02/20/20 12 2:39PM BY MIRIAM HENDRIX MA, ANNOTATI ON/ADDEN DUM Yumiko Smith MA null, [facility] 7 12:54:29 Neck pain 04998794 Completed 201103/18/2014 RECORDED 07/23/20 12 10:39AM BY MIRIAM HENDRIX MA, ANNOTATI ON/ADDEN DUM Not Available [facility] 4 03:45:39 Active or passive immuniza tion Completed 200703/18/2014 RECORDED 11/16/19 08 3:08PM BY CONNIE HENRIQUEZ MD, OFFICE VISIT Not Available [facility] 4 03:45:39 Administ ration of viral vaccine Completed 200803/18/2014 RECORDED 02/14/20 09 11:55AM BY ALEXANDRIA AREVALO, OFFICE VISIT Not Available [facility] 4 03:45:39 Administ ration of bacteria l and viral vaccine Completed 200703/18/2014 RECORDED 11/16/19 08 3:18PM BY CONNIE HENRIQUEZ MD, OFFICE VISIT Not Available [facility] 4 03:45:39 Degenera tive joint disease of hand 09008031 Completed 201103/18/2014 RECORDED 02/20/20 12 2:41PM BY MIRIAM HENDRIX MA, ANNOTATI ON/ADDEN DUM Not Available [facility] 4 03:45:39 Infectiv e otitis externa 84254540 Completed 201103/18/2014 RECORDED 02/20/20 12 2:36PM BY MIRIAM HENDRIX MA, ANNOTATI ON/ADDEN DUM Not Available [facility] 4 03:45:39 Shoulder joint pain 252047873 Completed 201303/18/2014 RECORDED 02/02/20 14 8:31AM BY HELEN GRAYSON I, ANNOTATI ON/ADDEN DUM Yumiko fraser MA Located Within [facility] 7 12:54:49 Eruption 461072967 Completed 201103/18/2014 RECORDED 02/20/20 12 2:37PM BY MIRIAM HENDRIX MA, ANNOTATI ON/ADDEN DUM Not Available [facility] 4 03:45:39 Chronic rhinitis 39420806 Completed 201303/18/2014 RECORDED 01/27/20 14 10:30AM BY VIVIEN AREVALO MA, EDOUARDATI ON/ADDEN DUM Yumiko fraser [facility] 7 12:56:09 Herpes zoster 0243467 Completed 201303/18/2014 RECORDED 01/27/20 14 7:39AM BY EDOUARD CLEMENTEATI ON/ADDEN DUM Not Available [facility] 4 03:45:39 Screenin g for malignan t neoplasm of colon Completed 201103/18/2014 RECORDED 02/20/20 12 2:36PM BY MIRIAM HENDRIX MA, ANNOTATI ON/ADDEN DUM Not Available [facility] 4 03:45:39 Spasm 70629469 Completed 201103/18/2014 RECORDED 07/23/20 12 10:38AM BY MIRIAM HENDRIX MA, ANNOTATI ON/ADDEN DUM Not Available [facility] 4 03:45:39 Hyperlip idemia 51924027 Active Not Available [facility] 3 09:20:31 Anxiety 51601090 Active Not Available [facility] 3 09:20:30 Abdomina l pain 59572653 Completed 11/26/2016 Trini Ortiz, [facility] [address], [place], [address] , [facility] 3 14:37:10 Liver enzymes outside referenc e range 065925680 Completed 11/26/2016 Yumiko fraser, [facility] 7 12:54:35 Knee pain Completed 11/26/2016 Yumiko fraser, [facility] 8 14:02:45 Herpes labialis 5671174 Completed 11/26/2016 Yumiko fraser, [facility] 7 12:54:31 Seasonal allergic conjunct ivitis 318873483 Active Not Available [facility] 3 09:20:30 Carotid bruit 032453208 Active Not Available [facility] 3 09:20:30 Allergic conjunct ivitis 544724184 Completed 11/26/2016 Yumiko fraser, [facility] 7 12:58:12 Sciatica 09911377 Completed 11/26/2016 Yumiko fraser, [facility] 7 12:54:46 Knee pain Active 2017 Not Available [facility] 3 09:20:30 Major depressi on single episode, in partial remissio n 15310024 Active 2018 Not Available [facility] 3 09:20:31 Hyperten sive disorder 40055954 Completed 201601/13/2020 JESSENIA Gómez, [facility] 0 13:46:29 Total hysterec hector Active Not Available [facility] 3 09:20:30 COVID-19 154742495 Completed 202011/15/2020 Removal Reason: Problem marked historic al by user pmadden from the COVID-19 watch flag Jewel Gilbert PA-C [address], [place], [address] , [facility] 1 12:39:42 Total hysterec hector with removal of both tubes and ovaries Active around age 30 Not Available [facility] 3 09:20:31 Pain of right knee joint 36662655744 4100 Active 2021 Not Available [facility] 3 09:20:30 Neutrope ayesha 049202420 Active 2021 Not Available [facility] 3 09:20:30 Tear of meniscus of knee 475079594 Active 2021 Not Available [facility] 3 09:20:30 Pain in coccyx 26345823 Active 2021 Not Available [facility] 3 09:20:30 Pain of left hip joint 77661564667 9100 Active 2021 Not Available [facility] 3 09:20:30 Pain of left knee joint 72554360826 4107 Active 2021 Not Available [facility] 3 09:20:30 Hyperten janet monitori ng declined 224407971 Active 2021 acc[facility]heal th Not Available [facility] 3 09:20:31 Fracture of femoral condyle 182984061 Active 2021 Not Available [facility] 3 09:20:30 Nocturia 068265651 Active 2021 Not Available [facility] 3 09:20:30 Hearing loss 74582467 Active 2021 Not Available [facility] 3 09:20:30 Leukopen ia 73481993 Active 2021 Not Available [facility] 3 09:20:31 Thromboc ytopenic disorder 211497472 Active 2021 Not Available [facility] 3 09:20:30 Chest pain 30027980 Active 2021 STORY: NV RULED OUT / / CONT CURRENT RISK REDUCTIO N PLAN.; RECORDED 01/27/20 14 7:39AM BY HELEN GRAYSON I, ANNOTATI ON/ADDEN DUM Not Available [facility] 3 09:20:30 Serum creatini ne above referenc e range 971646334 Active 2021 Not Available [facility] 3 09:20:30 Pneumoni a 353755230 Active 2021 Not Available [facility] 3 09:20:30 Cough 67366938 Active 2022 RECORDED 02/20/20 12 2:37PM BY MIRIAM HENDRIX MA, ANNOTHALEY ON/ADDEN DUM Not Available [facility] 3 09:20:30 Edema of lower extremit y 690927829 Active 2022 Not Available [facility] 3 09:20:29 Serum thyroid stimulat ing hormone level outside referenc e range 381377113 Active 2022 Not Available [facility] 3 09:20:30 Edema 977128210 Active 2022 Not Available [facility] 3 09:20:30 Nausea 568744746 Active 2022 Not Available [facility] 3 09:20:30 Posterio r rhinorrh ea 19527288 Active 2022 Not Available [facility] 3 09:20:31 Chronic pneumoni a 16050965142 9104 Active 2022 Not Available [facility] 3 09:20:29 Pain of left shoulder joint 99733558595 260493 Active 2022 Not Available [facility] 3 09:20:30 Insomnia 398600687 Active 2022 RECORDED 02/20/20 12 2:38PM BY MIRIAM HENDRIX MA, ANNOTATI ON/ADDEN DUM Not Available [facility] 3 09:20:30 Muscle spasm of cervical muscle of neck 33787074912 4 Active 2022 Not Available [facility] 3 09:20:30 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 2022 Not Available [facility] 3 09:20:30 Urinary incontin ence 301148595 Active 2022 EDGAR James [address], [place], [address] , [facility] 3 14:32:14 Abdomina l pain 90739150 Active 2022 [facility]iz [facility] [address], [place], [address] , [facility] 3 14:37:10 Body mass index 30+ - obesity 467875627 Active 2022 [facility] [address], [place], [address] , [facility] 3 14:54:16 Excessiv e thirst 36942724 Active 2022 EDGAR James [address], [place], [address] , [facility] 3 14:57:02 Multiple joint pain 42816332 Active 2022 [facility] [address], [place], [address] , [facility] 3 14:59:45 Moderate persiste nt asthma 284336832 Active 2022 Trini Ortiz [facility] [address], [place], [address] , [facility] 3 15:04:00 Obesity 307673024 Active 2022 EDGAR James [address], [place], [address] , [facility] 3 14:47:34 Lump in upper outer quadrant of left breast 04827527413 4103 Active 2023 Trini Ortiz, [facility] [address] [facility] [address], [place], [address] , [facility] 4 15:01:52 Mass of joint of left elbow 89688666402 478163 Active 2023 Trini Ortiz, [facility] [address] [facility] [address], [place], [address] , [facility] 4 15:04:08 Bone density finding 966950055 Active 2023 Trini Ortiz, [facility] [address] [facility] [address], [place], [address] , [facility] 4 09:57:53 Inguinal pain 492221245 Active 2023 Trini Ortiz, [facility] [address] [facility] [address], [place], [address] , [facility] 4 10:10:41 Strain of muscle of right groin region 32349355846 294711 Active 2023 Trini Ortiz, [facility] [address] [facility] [address], [place], [address] , [facility] 4 10:11:20 Acute sinusiti s 12466911 Completed 201102/22/2014 RECORDED 02/20/20 12 2:39PM BY MIRIAM HENDRIX MA, NEDA ON/ADDEN DUM Not Available [facility] 4 14:27:37 Acute upper respirat ory infectio n of multiple sites Completed 201102/22/2014 RECORDED 02/20/20 12 2:41PM BY MIRIAM HENDRIX MA, ANNOTATI ON/ADDEN DUM Not Available [facility] 4 14:27:37 Allergic rhinitis 66634435 Completed 201311/26/2016 RECORDED 02/22/20 14 8:27AM BY RIMMA VARGAS, OFFICE VISIT Yumiko Smith MA null, [facility] 7 12:55:38 Anemia 123128971 Active 2013 Not Available [facility] 3 09:20:30 Patient status finding 143057412 Completed 201102/22/2014 RECORDED 08/05/20 12 11:47AM BY MIRIAM HENDRIX MA, ANNOTATI ON/ADDEN DUM Yumiko Smith MA null, [facility] 7 12:54:17 Chest pain 19214867 Completed 201202/22/2014 STORY: NV RULED OUT / / CONT CURRENT RISK REDUCTIO N PLAN.; RECORDED 01/16/20 13 8:19AM BY VIVIEN AREVALO MA, ANNOTATI ON/ADDEN DUM Trini Ortiz, [facility] [address], [facility] [place], [address] , [facility] 2 09:23:46 Screenin g for malignan t neoplasm of breast Completed 201102/22/2014 RECORDED 02/20/20 12 2:38PM BY MIRIAM HENDRIX MA, ANNOTATI ON/ADDEN DUM Not Available [facility] 4 14:27:37 Disorder of breast 11829526 Completed 201102/22/2014 RECORDED 02/20/20 12 2:41PM BY MIRIAM HENDRIX MA, ANNOTATI ON/ADDEN DUM Not Available [facility] 4 14:27:37 Cardiova scular system problem 249528678 Active 2013 Not Available [facility] 3 09:20:30 Screenin g for malignan t neoplasm of cervix Completed 201102/22/2014 RECORDED 02/20/20 12 2:39PM BY MIRIAM HENDRIX MA, ANNOTATI ON/ADDEN DUM Not Available [facility] 4 14:27:38 Brachial neuritis 67723452 Active 2013 Not Available [facility] 3 09:20:31 Chronic sinusiti s 01991617 Completed 201102/22/2014 RECORDED 02/20/20 12 2:39PM BY MIRIAM HENDRIX MA, ANNOTATI ON/ADDEN DUM Not Available [facility] 4 14:27:38 Herpes simplex 87424746 Completed 201102/22/2014 RECORDED 07/23/20 12 10:39AM BY MIRIAM HENDRIX MA, ANNOTATI ON/ADDEN DUM Not Available [facility] 4 14:27:38 Cough 40455624 Completed 201102/22/2014 RECORDED 02/20/20 12 2:37PM BY MIRIAM HENDRIX MA, ANNOTATI ON/ADDEN DUM Trini Ortiz, [facility] [address] [place] [address], [place], [address] , [facility] 3 14:41:04 Dysfunct ion of eustachi an tube 19949083 Active 2012 Not Available [facility] 3 09:20:31 Dysphagi a 27822722 Completed 201102/22/2014 RECORDED 02/20/20 12 2:39PM BY MIRIAM HENDRIX MA, ANNOTATI ON/ADDEN DUM Not Available [facility] 4 14:27:38 Enthesop athy of knee 53485361 Completed 201102/22/2014 RECORDED 02/20/20 12 2:39PM BY MIRIAM HENDRIX MA, ANNOTATI ON/ADDEN DUM Not Available [facility] 4 14:27:38 Ill-defi inez disorder of eye Completed 201202/22/2014 RECORDED 06/14/20 13 11:23AM BY MIRIAM HENDRIX MA, ANNOTATI ON/ADDEN DUM Not Available [facility] 4 14:27:38 Influenz a vaccine needed 32471125887 06 Completed 200902/22/2014 RECORDED 08/14/19 10 1:37PM BY CONNIE HENRIQUEZ MD, OFFICE VISIT Not Available [facility] 4 14:27:38 Adult health examinat ion Completed 201202/22/2014 RECORDED 06/14/20 13 11:24AM BY MIRIAM HENDRIX MA, ANNOTATI ON/ADDEN DUM Not Available [facility] 4 14:27:38 Gastroes ophageal reflux disease 416727037 Active 2013 Not Available [facility] 3 09:20:30 Follow-u p encounte r Completed 201102/22/2014 RECORDED 08/05/20 12 11:47AM BY MIRIAM HENDRIX MA, ANNOTATI ON/ADDEN DUM Not Available [facility] 4 14:27:38 Essentia l hyperten janet 06662534 Active 2013 Not Available [facility] 3 09:20:31 Thyrotox icosis 81519509 Active 2013 Not Available [facility] 3 09:20:31 Disorder of skin pigmenta tion 14108471 Completed 201102/22/2014 RECORDED 02/20/20 12 2:42PM BY MIRIAM HENDRIX MA, ANNOTATI ON/ADDEN DUM Not Available [facility] 4 14:27:39 Hypothyr oidism 21307003 Active 2016 Not Available [facility] 3 09:20:30 Insomnia 227271846 Completed 201102/22/2014 RECORDED 02/20/20 12 2:38PM BY MIRIAM HENDRIX MA, ANNOTATI ON/ADDEN DUM Trini Ortiz, [facility] [address] [facility] [address], [place], [address] , [facility] 3 11:10:55 Irritabl e bowel syndrome 69616294 Active 2013 Not Available [facility] 3 09:20:30 Laborato ry procedur e performe d 127924960 Completed 201202/22/2014 RECORDED 01/16/20 13 8:19AM BY VIVIEN AREVALO MA, ANNOTATI ON/ADDEN DUM Not Available [facility] 4 14:27:39 Low back pain 359115585 Completed 201211/26/2016 RECORDED 06/14/20 13 11:24AM BY MIRIAM HENDRIX MA, OFFICE VISIT Yumiko fraser, [facility] 7 12:54:53 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 14542143 Active 2012 Not Available [facility] 3 09:20:30 Mitral valve disorder 28402323 Completed 201102/22/2014 RECORDED 02/20/20 12 2:39PM BY MIRIAM HENDRIX MA, ANNOTATI ON/ADDEN DUM Yumiko fraser, [facility] 7 12:54:29 Mitral valve disorder 85729102 Active 2013 Not Available [facility] 3 09:20:30 Neck pain 87044344 Completed 201102/22/2014 RECORDED 07/23/20 12 10:39AM BY MIRIAM HENDRIX MA, ANNOTATI ON/ADDEN DUM Not Available [facility] 4 14:27:39 Active or passive immuniza tion Completed 200702/22/2014 RECORDED 11/16/19 08 3:08PM BY CONNIE HENRIQUEZ MD, OFFICE VISIT Not Available [facility] 4 14:27:39 Administ ration of viral vaccine Completed 200802/22/2014 RECORDED 02/14/20 09 11:55AM BY ALEXANDRIA AREVALO, OFFICE VISIT Not Available [facility] 4 14:27:39 Administ ration of bacteria l and viral vaccine Completed 200702/22/2014 RECORDED 11/16/19 08 3:18PM BY CONNIE HENRIQUEZ MD, OFFICE VISIT Not Available [facility] 4 14:27:40 Neutrope nathen disorder 534522857 Active 2013 Not Available [facility] 3 09:20:30 Patient status finding 741489061 Completed 201311/26/2016 RECORDED 02/22/20 14 8:39AM BY RIMMA VARGAS, OFFICE VISIT Yumiko fraser, [facility] 7 12:54:17 Degenera tive joint disease of hand 69362518 Completed 201102/22/2014 RECORDED 02/20/20 12 2:41PM BY MIRIAM HENDRIX MA, ANNOTATI ON/ADDEN DUM Not Available [facility] 4 14:27:40 Disorder of bone and articula r cartilag e 640847871 Active 2013 Not Available [facility] 3 09:20:30 Infectiv e otitis externa 82077823 Completed 201102/22/2014 RECORDED 02/20/20 12 2:36PM BY MIRIAM HENDRIX MA, ANNOTATI ON/ADDEN DUM Not Available [facility] 4 14:27:40 Shoulder joint pain 398588220 Completed 201211/26/2016 RECORDED 06/14/20 13 11:24AM BY MIRIAM HENDRIX MA, OFFICE VISIT Yumiko fraser, [facility] 7 12:54:49 Palpitat ions 27239077 Completed 201311/26/2016 Yumiko fraser [facility] 7 12:57:10 Eruption 271321915 Completed 201102/22/2014 RECORDED 02/20/20 12 2:37PM BY MIRIAM HENDRIX MA, ANNOTATI ON/ADDEN DUM Not Available [facility] 4 14:27:40 Chronic rhinitis 82220766 Completed 201211/26/2016 Yumiko fraser [facility] 7 12:56:09 Herpes zoster 4040287 Completed 201202/22/2014 RECORDED 01/16/20 13 8:19AM BY VIVIEN AREVALO MA, ANNOTATI ON/ADDEN DUM Not Available [facility] 4 14:27:40 Screenin g for malignan t neoplasm of colon Completed 201102/22/2014 RECORDED 02/20/20 12 2:36PM BY MIRIAM HENDRIX MA, ANNOTATI ON/ADDEN DUM Not Available [facility] 4 14:27:40 Spasm 58590025 Completed 201102/22/2014 RECORDED 07/23/20 12 10:38AM BY MIRIAM HENDRIX MA, ANNOTATI ON/ADDEN DUM Not Available [facility] 4 14:27:41 Vitamin D deficien cy 56137934 Active 2013 Not Available [facility] 3 09:20:30 Problem Notes None recorded. Procedures Surgical History Date Name Laterality Status Provider Name and Address Organization Details Recorded Time 08/30/19 25 Date of Last Colonoscopy completed Amanda Mistry [facility] 09/15/2024 10:25:36 08/30/19 25 Endoscopic us exam esoph completed Suzie Jaffe [facility] 09/21/2024 09:34:35 06/20/20 23 Most Recent Mammogram completed Suzie Jaffe [facility] 06/20/2023 14:17:00 12/06/19 23 Bronchoscopy completed Suzie Jaffe [facility] 12/11/2022 09:47:35 06/19/20 22 Mammogram screening completed Vivien singh MA [facility] 10/03/2022 09:31:00 02/26/20 22 repair of meniscus completed Connie Miller MA [facility] 04/02/2022 08:44:31 01/13/20 20 Six-Item Cognitive Test completed Vivien singh MA [facility] 01/13/2020 14:08:24 12/28/19 20 Endoscopic us exam esoph completed Qiana Vieyra [facility] 12/28/2019 10:57:24 12/28/19 20 balloon dilation of esophagus completed Vivien singh MA [facility] 01/13/2020 14:02:40 11/28/19 19 Mini-Cog Test completed Yumiko Luis RUELAS [facility] 11/27/2018 11:12:43 10/07/19 18 Mini-Cog Test completed Yumikosharla Smith [facility] 10/07/2017 13:56:19 04/11/20 17 Mammogram one breast completed Vivien singh MA [facility] 04/30/2017 16:04:21 05/23/20 16 Fall Risk Assessment completed Yumikosharla Smith [facility] 05/23/2016 13:03:08 05/23/20 16 Mini-Cog Test completed Yumikosharla Smith [facility] 05/23/2016 13:04:33 05/04/20 14 Colonoscopy completed Swapna Fofana [facility] 06/06/2016 11:19:39 04/21/20 12 Most Recent Bone Density completed Yumikosharla Smith [facility] 10/07/2017 14:02:13 Processing Lead Surgery completed [facility] 03/30/2015 08:46:47 Appendectomy completed [facility] 03/30/2015 08:46:47 Breast Biopsy completed [facility] 03/30/2015 08:46:47 Dilation and Curettage completed [facility] 03/30/2015 08:46:47 Tonsillectomy completed [facility] 03/30/2015 08:46:47 Endometrial Biopsy completed [facility] 03/30/2015 08:46:47 Neurosurgery completed [facility] 03/30/2015 08:46:47 Total hysterectomy completed Vivien singh MA [facility] 01/13/2020 13:47:09 Hysterectomy completed Vivien singh [facility] CT - [facility] 05/07/2024 14:35:12 Imaging Results Imaging Date Name Status LastModified by Grace skelton Details LastModified Time 04/03/2023 US, pelvis completed [email or web address] [facility] [address] [place], [address], 04/07/2023 09:36:18 04/07/2023 XR, shoulder, 2 or more view completed [facility] (Outpt Imaging) [address] [place] [address], [address], 04/08/2023 15:23:39 04/07/2023 XR, knee, 3 view completed [facility] (Outpt Imaging) [address] [place] [address], [address], 04/08/2023 15:22:51 04/05/2023 XR, shoulder completed [facility] [address] [place], [address], 04/08/2023 15:03:31 04/19/2023 MRI, knee, w/o contrast completed [facility] ([facility] [address] [place], [address], 04/23/2023 17:30:30 04/30/2023 MRI, shoulder, w/o contrast completed [facility] ([facility] [address] [place], [address], 05/01/2023 14:56:50 06/20/2023 MAMMO, screening, digital, bilateral completed [email or web address] [facility] (Outpt Imaging) [address] [place] [address], [address], 06/20/2023 14:17:04 07/14/2023 CT, chest, w/o contrast completed [address] (Medical Records) [address] [place], [address], 07/22/2023 15:22:36 07/14/2023 CT, chest, w/o contrast completed [facility] Information not available 08/14/2023 11:49:56 05/28/2024 US, breast, limited completed [facility] (Outpt Imaging) [address] [place], [address], 05/28/2024 12:19:12 05/28/2024 mm digital mammo bilateral completed [facility] (Outpt Imaging) [address] [place], [address], 05/28/2024 12:19:12 07/13/2024 XR, hip + pelvis, bilateral completed [facility] (Outpt Imaging) [address] [place], [address], 07/14/2024 10:22:01 07/29/2024 US msk extremity left completed [facility] (Outpt Imaging) [address] [place], [address], 07/29/2024 17:55:12 08/06/2024 CT, chest, w/ contrast completed [facility] (Medical Records) [address] [place], [address], 08/10/2024 09:10:43 09/27/2024 DEXA, axial skeleton completed [facility] (Outpt Imaging) [address] [place], [address], 10/08/2024 17:56:37 Procedure Notes None recorded. Medical Equipment None Reported. Allergies Allergen ID Allergen Name Allergen Category Reaction Reaction Severity Criticality Documentation Date Start Date Code Code System Note Provider Name and Address Organization Details Recorded Time 2330 honey bee venom medicatio n Not available Not available Not available 02/22/20142013 06169 7 RxNorm Yumiko fraser [facility] 7 12:53:58 32669 tetracycl ine medicatio n hives Not available Not available 01/13/20202021 54731 RxNorm JESSENIA Franklin, [facility] 2 14:23:43 57973 erythromy ivan medicatio n hives Not available Not available 02/15/20222021 4053 RxNorm JESSENIA Franklin, [facility] 2 14:23:43 75521 codeine medicatio n hives Not available Not available 07/31/20232021 2670 RxNorm Trini Ortiz, [facility] [address] [facility] [address], [facility] [address] 4 09:26:07 Medications Name Sig Start Date Stop Date Status Note LastModified by Organization Details LastModified Time estradiol 1 mg tabs 05/23 completed Not Available Not Available Not Available levothyro xine sodium 112 mcg tabs active Not Available Not Available Not Available afluria pf 9500-7919 .5 ml gracie 05/23 completed Not Available [...] n 0.3 %-dexamet hasone 0.1 % eye drops,[facility] 10/07 completed Not Available Not Available [...] Available Not Available Not Available Fluad Quad 4663-7580 (65yr up)(PF) 60 mcg (15 mcg x 4)/0.5mL IM syringe [facility]ARM[facility] ADMINIST IN[facility] 07/13 completed Not Available Not Available Not [...] Updated DateTime 3 170.18 cm 33.5 kg/m2 26715.7 7 g 80 /min 98 % 98 % 97.9 [degF] 133 mm[Hg] 79 mm[Hg] Donna Hutchins MA [facility] 3 10:42:14 Date Recorded Body height Body mass index (BMI) Body weight Oxygen saturation Oxygen saturation in Arterial blood by Pulse oximetry Heart rate Body temperature Systolic blood pressure Diastolic blood pressure Provider Name and Address Organization Details Last Updated DateTime 3 170.18 cm 34.3 kg/m2 11857.7 3 g 98 % 98 % 72 /min 97.7 [degF] 111 mm[Hg] 69 mm[Hg] Rimma Vargas MA [facility] 3 14:09:33 Date Recorded Body height Body mass index (BMI) Body weight Heart rate Oxygen saturation Oxygen saturation in Arterial blood by Pulse oximetry Body temperature Systolic blood pressure Diastolic blood pressure Provider Name and Address Organization Details Last Updated DateTime 4 170.18 cm 29.6 kg/m2 61838.9 6 g 60 /min 98 % 98 % 97.3 [degF] 124 mm[Hg] 83 mm[Hg] Brittnee Carlson MA [facility] 4 09:10:57 Date Recorded Body height Body mass index (BMI) Body weight Heart rate Oxygen saturation Oxygen saturation in Arterial blood by Pulse oximetry Body temperature Systolic blood pressure Diastolic blood pressure Provider Name and Address Organization Details Last Updated DateTime 4 170.18 cm 29.3 kg/m2 46753.7 7 g 75 /min 100 % 100 % 97.2 [degF] 155 mm[Hg] 75 mm[Hg] Vivien lao MA [facility] 4 14:43:29 Date Recorded Body height Body mass index (BMI) Body weight Heart rate Oxygen saturation Oxygen saturation in Arterial blood by Pulse oximetry Body temperature Systolic blood pressure Diastolic blood pressure Provider Name and Address Organization Details Last Updated DateTime 4 170.18 cm 28.7 kg/m2 16935.4 g 85 /min 97 % 97 % 97.4 [degF] 104 mm[Hg] 65 mm[Hg] Brittnee Carlson MA [facility] 4 09:43:12 Social History Question Answer Notes LastModified by Organizat ion Details LastModified Time Tobacco Smoking Status Never Smoker JESSENIA Espana, [facility] 03/21/2014 10:43:07 Do You Have An Advance [...] available 03/30/2015 Are You Currently Employed? Yes [email or web address] Information not available 03/21/2014 What Type Of Diet Are You Following? REGULAR Information not available 02/15/2021 Do You Or Have You Ever Used E-cigarettes Or Vape? 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 No [email or web address] Information not available 12/26/2020 What Was The Date Of Your Most Recent Tobacco Screening? 07/13/2024 [email or web address] Information not available 07/13/2024 How Many Children Do You Have? 1 Sanket [email or web address] Information not available 03/21/2014 Do You Use [...] How Much Tobacco Do You Smoke? No [email or web address] Information not available 03/21/2014 General Stress Level High Information not available 07/02/2022 Do You Use Any Illicit Or Recreational Drugs? No Information not available 07/02/2022 Do You Use Sunscreen Routinely? Yes [email or web address] Information not available 03/21/2014 How Many Years [...] you able to care for yourself? Yes [email or web address] Information not available 03/21/2014 What is your exercise level? Occasional Exercise bike Information not available 04/02/2022 Mental Status None recorded. Family History Relationship Description Onset Age of this Age Resolved Age Notes LastModified by Organization Details LastModified Time Mother Malignant neoplasm of skin [email or web address] Not available 10/2023 09:29:18 Father Heart disease [...] N Breast Cancer N mrsa exposure N Depression N COPD N Lung Disease N Hypothyroidism Y Developmental or Behavioral Disorders N Defects or [...] Disease N Pulmonary Embolism N Hypertension N Osteoporosis N Chicken Pox N Autism Spectrum Disorder (ASD) N Gynecological History Statement/Question Response STIs/STDs N HPV Vaccine N Age at Menarche 17 Current Control Method None Most Recent Mammogram 06/20/2023 Age at First Child 23 If Post Menopausal, Age at Menopause 30 Date of Last Colonoscopy 08/30/2024 Most Recent Bone Density 04/21/2012 Sexually Active? N Date of Last Pap Smear Sexual Problems? N Desired Control Method Hysterectom y Y Obstetrics History GPAL:G 0 P 0 0 0 0 Immunizations Vaccine Type Date Status Note Provider Nam e and Address Organization Details Recorded Time Influenza, split virus, trivalent, preservative 4 completed Not Available [facility] 07/01/2023 09:20:32 Pneumococcal conjugate PCV 13 5 completed Not Available [facility] 07/01/2023 09:20:32 Influenza, high-dose, trivalent, PF 7 completed Not Available [facility] 07/01/2023 09:20:32 pneumococcal polysaccharide PPV23 7 completed Not Available [facility] 07/01/2023 09:20:31 Pneumococcal conjugate PCV 13 9 completed Not Available [facility] 07/01/2023 09:20:32 Influenza, high-dose, trivalent, PF 9 completed Not Available [facility] 07/01/2023 09:20:32 zoster live 9 completed Not Available [facility] 07/01/2023 09:20:32 Tdap 3 completed Not Available [facility] 07/01/2023 09:20:31 Influenza, high-dose, trivalent, PF 6 completed Not Available [facility] 07/01/2023 09:20:32 zoster recombinant 0 completed JESSENIA Espana, [facility] 07/31/2023 14:12:32 Influenza, high-dose, trivalent, PF 0 completed JESSENIA Espana, [facility] 07/31/2023 14:12:32 zoster recombinant 0 completed Not Available [facility] 07/01/2023 09:20:31 Influenza, adjuvanted, quadrivalent, PF 0 completed Not Available [facility] 07/01/2023 09:20:31 Influenza, high-dose, quadrivalent, PF 1 completed Not Available [facility] 07/01/2023 09:20:31 Influenza, split virus, quadrivalent, PF 5 completed Not Available [facility] 07/01/2023 09:20:32 COVID-19, mRNA, LNP-S, PF, 30 mcg/0.3 mL dose 2 completed Not Available [facility] 07/01/2023 09:20:31 COVID-19, mRNA, LNP-S, PF, 30 mcg/0.3 mL dose 1 completed Not Available [facility] 07/01/2023 09:20:31 COVID-19, mRNA, LNP-S, PF, 30 mcg/0.3 mL dose 1 completed Not Available [facility] 07/01/2023 09:20:31 Influenza, split virus, trivalent, preservative 0 completed Not Available [facility] 07/01/2023 09:20:32 Influenza, high-dose, trivalent, PF 6 completed Not Available [facility] 07/01/2023 09:20:32 Tdap 8 completed Not Available [facility] 07/01/2023 09:20:31 Influenza, high-dose, trivalent, PF 8 completed Not Available [facility] 07/01/2023 09:20:32 Influenza, high-dose, quadrivalent, PF 2 completed Not Available [facility] 07/01/2023 09:20:31 Pneumococcal conjugate PCV20, polysaccharide [id number] conjugate, adjuvant, PF 2 completed Not Available [facility] 07/01/2023 09:20:31 Influenza, high-dose, quadrivalent, PF 3 completed JESSENIA Espana, [facility] 07/31/2023 14:12:32 COVID-19, mRNA, LNP-S, PF, jeremi-sucrose, 30 mcg/0.3 mL 3 completed JESSENIA Espana, [facility] 07/31/2023 14:12:32 RSV, recombinant, protein subunit RSVpreF, adjuvant reconstituted, 0.5 mL, PF 4 completed JESSENIA Springer, [facility] 07/13/2024 09:31:47 COVID-19, mRNA, LNP-S, PF, jeremi-sucrose, 30 mcg/0.3 mL 4 completed Brittnee Carlson MA null, [facility] 07/13/2024 09:31:47 Influenza, high-dose, trivalent, PF 4 completed Swapna Fofana null, [facility] 05/18/2024 08:54:12 pneumococcal polysaccharide PPV23 8 completed Not Available [facility] 07/01/2023 09:20:31 Tdap 8 completed Not Available [facility] 07/01/2023 09:20:31 Novel Ixvpjeevq-[id number], all formulations 0 completed Not Available [facility] 07/01/2023 09:20:31 Influenza, split virus, trivalent, preservative 1 completed Not Available [facility] 07/01/2023 09:20:32 Influenza, split virus, trivalent, preservative 2 completed Not Available [facility] 07/01/2023 09:20:32 Influenza, split virus, trivalent, preservative 3 completed Not Available [facility] 07/01/2023 09:20:32 pneumococcal polysaccharide PPV23 3 completed Not Available [facility] 07/01/2023 09:20:31 Past Encounters Encounter ID Performer Location Encounter Start Date Encounter Closed Date Diagnosis/Indication Diagnosis SNOMED-CT Code Diagnosis ICD10 Code Diagnosis Note [id number] [facility] [address] [facility] [place] [address] 11/16/2007 00:00:00 [id number] auto[facility] erce [address] [facility] [place] [address] 09/06/2008 00:00:00 [id number] auto[employer] erce [address] [facility] [place] [address] 12/09/2008 00:00:00 [id number] auto[employer] erce [address] [facility] [place] [address] 12/21/2008 00:00:00 [id number] [address] [address] [place] [address] 02/13/2009 00:00:00 [id number] [address] [place] [address] 07/21/2009 00:00:00 [id number] [address] [place] [address] 07/28/2009 00:00:00 [id number] auto[facility] erce [address] [place] [address] 08/14/2009 00:00:00 [id number] autoEComm erce [address] [facility] [address] [place] [address] 02/15/2010 00:00:00 [id number] auto[employer]Comm erce [address] [facility] [place] [address] 02/18/2011 00:00:00 [id number] autoEComm erce [address] [facility] [place] [address] 06/28/2011 00:00:00 [id number] autoEComm erce [address] [facility] [place] [address] 02/20/2012 00:00:00 [id number] autoEComm erce [address] [facility] [place] [address] 04/21/2012 00:00:00 [id number] autoEComm erce [address] [facility] [place] [address] 07/07/2012 00:00:00 [id number] autoEComm erce [address] [facility] [place] [address] 07/23/2012 00:00:00 [id number] [address]Comm erce [address] [place] [address] 08/05/2012 00:00:00 [id number] autoEComm erce [address] [facility] [place] [address] 11/03/2012 00:00:00 [id number] auto[facility]Comm erce [address] [place], [place] [address] 01/15/2013 00:00:00 [id number] auto[address] erce [address] [place] [address] 03/05/2013 00:00:00 [id number] autoEComm erce [address] [facility] [place] [address] 06/14/2013 00:00:00 [id number] autoEComm erce [address] [place] [place] [address] 01/26/2014 00:00:00 [id number] autoEComm erce [address] [facility] [place] [address] 02/01/2014 00:00:00 [id number] autoEComm erce [address] [facility] [place], [place] [address] 02/21/2014 00:00:00 [id number] Aspen Oc Main Office [address] [facility] [address] [place], [place] [address] 03/21/2014 10:06:16 03/21/2014 11:11:47 Adult health examination [id number] Hyperlipidemia 94597531 Essential hypertension 90040888 well controlled continue current medication Anxiety 69132808 doing w ell on sertraline , will continue Abdominal pain 80413588 Followed by GI Hypothyroidism 00945943 [id number] Main Office [address] [facility] [address] [place] [address] 03/30/2015 08:38:20 03/30/2015 09:44:48 Essential hypertension 18881849 Hypothyroidism 96162994 [facility] th examination 329111725 Carotid bruit 880099202 pt has had carotid doppler 2012/ no vascular dz. pt saw cardiology -Morrow Anxiety 04311078 SSRI he lps stablize mood/ low dose Allergic conjunctivitis 779265598 Sciatica 70745758 [id number] Connie royal Main Office [address] [facility] [address] [place] [address] 05/23/2016 12:48:24 05/23/2016 13:45:05 Adult health examination 162572306 Z00.00 Influenza vaccine needed 8992611822 106 Z23 Hypothyroidism 26949022 E03.9 Essential hypertension 97196611 I10 Major depr ession single episode, in partial remission 53832822 F32.4 Screening for malignant neoplasm of colon 506298723 Z12.11 [id number] Sol Ritchie Main Office [address] [address] [place] [address] 08/28/2016 08:41:07 08/28/2016 10:04:38 Bursitis of hip 14771447 M70.72 Unclear if etiology is only hip bursitis. Will check XRAys of the hip and lower back. Pt. has h/o cervi al radiculopa thy in the past. Lumbago with sciatica 20 4843274 M54.42 [id number] Connie royal Main Office [address] [address] [place] [address] 11/26/2016 12:38:56 11/26/2016 13:36:20 Hypothyroidism 56730684 E03.9 phone call may 242015. pt will do labs in aug 2016 Essential hypertension 26272255 I10 Major depr ession single episode, in partial remission 63939260 F32.4 cont meds Leukopenia 02952264 D72. 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 [id number] Connie royal Main Office [address] [address] [place] [address] 10/07/2017 13:42:39 10/07/2017 14:55:35 Adult health examination 577577018 Z00.00 Administra tion of viral vaccine 74547028 Z23 Knee pain 30929184 M25.5 69 Hypothyroidism 94801829 E03.9 phone call may 242015. pt will do labs in aug 2016 Major depr ession single episode, in partial remission 35465935 F32.4 cont meds [id number] Lion Caro MD Main Office [address] [address] [place] [address] 03/31/2018 08:20:51 03/31/2018 09:15:47 Hypothyroidism 61397987 E03.9 will recheck labs, refill med. Influenza vaccine needed 9777354523 106 Z23 Essential hypertension 21527101 I10 continue metoprolol as directed. 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 Tried NSAIDs and percocet w/o any relief of her pain. [id number] EDGAR James Main Office [address] [address] [place] [address] 11/27/2018 10:57:59 11/27/2018 11:39:19 Adult health examination 335065526 Z00.00 HM UTD, due for colo this year, she will call to schedule. Screening for malignant neoplasm of colon 526215739 Z12.11 Hypothyroidism 13469787 E03.9 will recheck labs, refill med. Hyperlipidemia 31167572 E78.5 Family his tory of diabetes mellitus 234119343 Z83.3 Fatigue 84148539 R53.83 [id number] Brittany Denis Main Office [address] [address] [place] [address] 04/16/2019 10:12:25 04/16/2019 11:02:12 Anxiety 91090859 F41.9 Will increase wellbutrin to 300mg daily, has not been on long enough to determine effectiven ess. recheck in 4-6 weeks. Essential hypertension 40434660 I10 continue metoprolol as directed. Excessive weight gain 22 1116908 R63.5 she is very concerned about this. recently started keto diet but does note they have been eating foods very high in fat- arreola, fatty red meats etc. she will adjust this to make it a more well balanced keto diet with good fats. Major depr ession single episode, in partial remission 74863978 F32.4 [id number] EDGAR James Main Office [address] [address] [place] [address] 06/17/2019 11:27:58 06/17/2019 12:05:06 Hyperlipidemia 42253623 E78.5 Anxiety 89685659 F41.9 Seems she has been alternatin g [...] no alcohol or dirving with med. Hypothyroidism 95080698 E03.9 will recheck labs, refill med. Leukopenia 15721317 D72. 819 [id number] EDGAR James Main Office [address] [facility] [address] [place] [address] 07/20/2019 10:12:39 07/20/2019 10:47:02 Major depression single episode, in partial remission 16250473 F32.4 will increase wellbutrin to 450mg daily, do not miss doses or stop med abruptly. f/u in 6 weeks for recheck. Insomnia 104336850 G47.0 0 lorazepam not helping, will trial amitriptyl ine at bedtime, no alcohol or driving with med. good sleep hygeine reviewed. f/u in 6 weeks for recheck [id number] EDGAR James Main Office [address] [facility] [address] [place] [address] 08/31/2019 09:47:25 08/31/2019 10:41:59 Insomnia 515922596 G47.00 amitriptyl ine working great for sleep. she is feeling much better. Anxiety 07940279 F41.9 Sx improved on 450mg. she feels better. will continue meds as directed. FU at in DECEMBER, prior if needed [id number] EDGAR James [facility] [address] [facility] [address] [place] [address] 01/13/2020 13:25:43 01/13/2020 14:26:28 Adult health examination 761024818 Z00.00 UTD, patient believe she had colo 2018. will request Essential hypertension 81384536 I10 continue metoprolol as directed. Hyperlipidemia 73211301 E78.5 Hypothyroidism 11646262 E03.9 Anxiety 57226011 F41.9 Sx improved on 450mg. she feels better. will continue meds as directed. FU at in DECEMBER, prior if needed Stricture of esophagus 80351556 K22.2 recent balloon dilatation in December, feeling much better. [id number] EDGAR James [facility] [address] [place] [address] 07/13/2020 08:53:26 07/13/2020 09:23:06 Hypothyroidism 48987676 E03.9 Essential hypertension 16993034 I10 continue metoprolol as directed. Vitamin D deficiency 347 97670 E55.9 Mixed hyperlipidemia 267 160778 E78.2 Anemia 256967933 D64.9 [id number] Jewel Gilbert PA-C Main Office [address] [place] [address] 11/15/2020 09:01:30 11/15/2020 13:25:00 COVID-19 290367500 U07.1 she rec'd monoclonal ab - rushing - feeling sig better lately x mild lingering cough (rec juliocesar dm prn - call if worse then consider prn tessalon) - will get covid shots in 7. she works from home - does not need rtwn Counseling 485473735 Z71 .9 Health advice, education or counseling done for COVID 19 [id number] EDGAR James Main Office [address] [place] [address] 12/26/2020 10:26:55 12/26/2020 11:22:39 Urinary tract infectious disease 09103355 N39.0 negative urine dip, will send for culture. Flank pain 002583662 R10 .9 bilateral but worse on left x 3-4 weeks. will check US Urinary incontinence 165 220427 R32 1-2 daily for the last month. this is new for her. will refer Hypothyroidism 72409221 E03.9 Hyperlipidemia 51007029 E78.5 [id number] EDGAR James Main Office [address] [address] [place] [address] 02/15/2021 08:53:19 02/15/2021 09:49:12 Adult health examination 819418835 Z00.00 TDap UTD, HM UTD, patient believe she had colo 2018. will request Anxiety 54647648 F41.9 Stable. Continue current medication s. Essential hypertension 61557913 I10 Stable. Continue current medication s. Hypothyroidism 69185156 E03.9 Stable. Continue current medication s.Will recheck TSH and adjust medication s as necessary. 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 Nocturia 246394471 R35.1 Managed by a uroGYN. See as scheduled. Hearing loss 09205606 H9 1.93 will refer to ENT Hyperlipidemia 36198608 E78.5 [id number] Donna Hutchins MA Main Office [address] [facility] 207 [facility] [place] [address] 09/28/2021 10:46:24 09/28/2021 11:37:51 Pre-surgery evaluation 102315670 Z01.818 1. Pre-Surgic al Evaluation /Surgical Clearance [...] exertional tolerance and overall procedure risk. Hypothyroidism 81873267 E03.9 Essential hypertension 48604682 I10 BP within JNC 8 guideline range.Cont with metoprolol Carotid bruit 304317716 R09.89 U/S on 2012 showed less than [...] are likely 2/2 to physical deconditio sharath. [id number] Trini Ortiz [facility] Main Office [address] [facility] [address] [place] [address] 11/15/2021 08:28:17 11/15/2021 09:21:13 Hypothyroidism 67672174 E03.9 Dose was decreased in Sep. labs rechecked with thai koenig, new dosing provided. Neutropenic disorder 303 615942 D70.9 saw hematology due to decreasing WBC, low platelet count. I had referred her in the past and heme reviewed her records and did not feel she needed to be seen at that time. She will be seeing them every 2 months, may possibly need bone marrow biopsy. Mitral valve disorder 11 441038 I05.8 stable Tear of me niscus of knee 616999724 S83.206D needs to have surgery but is waiting on cardiac clearance. She has a lot of pain, we discussed risk of diclofenac and blood dyscrasia, she will use the medication only as needed at her discretion . Will also rx topical diclofenac to use in between times as needed. Essential hypertension 67697180 I10 Stable. Continue current medication s. Hyperlipidemia 01978133 E78.5 Pre-surger y evaluation 132554491 Z01.818 01/22/2022: Patient is to have right [...] and is being followed by hem/onc in [place].Acc ording to Felice Nahomi-opera tive Risk Assessment , based on patient's age, creatinine , ASA class and surgical procedure, patient has a 0.7% risk of nahomi-opera tive myocardial infarction or cardiac arrest.no further work-up is necessary. [id number] Will Paredes MD [facility] [address] [place] [address] 02/15/2022 08:44:32 02/15/2022 16:00:44 COVID-19 459808112 U07.1 [id number] EDGAR James Main Office [address] [place] [address] 04/02/2022 08:27:00 04/02/2022 09:48:51 Adult health examination 621727327 Z00.00 TDAP UTD, HM UTD, patient believe she had colo 2018. will request Anxiety 34633710 F41.9 Stable. Continue current medication s. Major depr ession single episode, in partial remission 44250268 F32.4 PHQ9 score of 5.Continue current medication s. Essential hypertension 41431729 I10 Stable. Continue current medication s. Hypothyroidism 47408946 E03.9 Stable. Continue current medication s.Will recheck TSH and adjust medication s as necessary. Nocturia 062815837 R35.1 Managed by a uroGYN. See as scheduled. Hearing loss 11828797 H9 1.93 Saw ENT had ears checked then hearing test in the office and was normal but she is unsure if she was raising her hand at the right time Hyperlipidemia 82016589 E78.5 Leukopenia 21682054 D72. 819 Thrombocyt openic disorder 211815074 D69.6 Menopause present 118354 006 Z78.0 Chest pain 02309994 R07. 9 EKG no acute abnormalit y, recent extensive cardiac work-up- negative, suspect may be gerd related. Gastroesop hageal reflux disease 979785593 K21.9 trial omeprazole x 14 days- 1st thing in the morning on an empty stomach with full glass of water. [id number] Catracho Escalante MD Main Office [address] [place] [address] 06/14/2022 13:22:07 06/14/2022 13:57:27 Cough 31092581 R05.9 I had a discussion with Naomie [...] her knees I have ordered a BNP. [id number] EDGAR James Main Office [address] [facility] [address] [place] [address] 07/02/2022 14:03:28 07/02/2022 14:43:26 Pneumonia 764305908 J18.9 Sx improving but still has cough, feeling slightly winded and has chest and back pain. Will rx short burst of prednisone to help with pain and SOB. she is going on a cruise and would like script in case sx worsen. Tear of me niscus of knee 135601841 S83.206D had stem cell injection without much relief. She has bene havign laser therapy. is supposed to have PRP injections 07/22. then will re-start PT. [id number] EDGAR James Main Office [address] [facility] [address] [place] [address] 10/10/2022 13:51:37 10/10/2022 15:15:41 Essential hypertension 76353553 I10 Stable. Continue current medication s. Suspect Elevations were due to fluid overload, has normalized . Edema of l ower extremity 762621164 R60.0 Echo essentiall y normal, EF 60-65%, BNP 110, lasix x 1 dose and diuresed 10lbs. Will refill lasix but recommend she only take it if she has > 3lbs weight gain 1 day. Recheck kidney function. Hypothyroidism 34862554 E03.9 Stable. Continue current medication s.Will recheck TSH and adjust medication s as necessary. Hyperlipidemia 13769962 E78.5 Cough 92604261 R05.9 forceful, wheezy cough, improved but still very bothersome . Pneumonia 747311623 J18. 9 Had CXR that showed ? [...] for coughing- (robitussi n with codeine shortage) [id number] EDGAR James [facility] [address] [facility] 207 [facility] [place], [place] [address] 10/30/2022 14:24:09 10/30/2022 16:04:12 Pneumonia 800908142 J18.9 repeat CXR done this morning:In terval [...] use probiotics daily. History of SARS-CoV-2 29 09146584 73256946 Z86.16 Waiting on pulmonolog y appt, will start tx with flovent daily, albuterol as needed Essential hypertension 19289797 I10 Continue current medication s. Edema of l ower extremity 718867906 R60.0 Echo essentiall y normal, EF 60-65%, wearing compressio n stockings, has US scheduled in january Nausea 600036027 R11.0 [id number] EDGAR James [facility] [address] [place] [address] 11/06/2022 13:58:13 11/06/2022 16:17:11 Pneumonia 966300171 J18.9 Will extend cefpodoxim e by 3 days for a total of 10 days of abx. recommed she contact dr Jaffe again to notify him of no improvemen t and see what his suggestion s are. History of SARS-CoV-2 29 25404375 92608127 Z86.16 continue with flovent daily, albuterol as needed Essential hypertension 92034698 I10 Continue current medication s. BP has been normal, pulse is fine. Edema of l ower extremity 208014243 R60.0 Echo essentiall y normal, EF 60-65%, wearing compressio n stockings, has US scheduled in January, taking lasix more often, swelling is still there, burning in left ankle. Nausea 220919371 R11.0 Sx improved, not using ondansetro n unless sx worsen. Posterior rhinorrhea 758 45471 R09.82 add triamcinol one spray to see if it helps. [id number] EDGAR James Main Office [address] [facility] [place] [address] 04/04/2023 10:29:50 04/04/2023 11:27:11 Adult health examination 791628155 Z00.00 TDAP UTD, HM UTD, patient believe she had colo 2019. will request Anxiety 93852598 F41.9 Stable. Continue current medication s. Major depr ession single episode, in partial remission 34436113 F32.4 Essential hypertension 83140139 I10 Stable. Continue current medication s. Hypothyroidism 73452668 E03.9 Stable. Continue current medication s.Will recheck TSH and adjust medication s as necessary. Nocturia 551778497 R35.1 Managed by a uroGYN. Hearing loss 41933929 H9 1.93 Saw audiology, needs hearing aids- high pitched sounds are the problem. Hyperlipidemia 32988105 E78.5 Leukopenia 68634671 D72. 819 Thrombocyt openic disorder 644120842 D69.6 Chest pain 63699633 R07. 9 EKG no acute abnormalit y, recent extensive cardiac work-up- negative, suspect may be gerd related. Pain of le ft shoulder joint 7930342571 3723569 M25.512 Pain of ri ght knee joint 2139589281 34910 M25.561 Insomnia 110604542 G47.0 0 stopped amitriptyl ine due to weight problems. Will send a message re: sleep med.Has tried diazepam for sleep which has worked. Muscle spa sm of cervical muscle of neck 0674886366 04 M62.838 [id number] Trini Ortiz [facility] Main Office [address] [facility] [address] [place] [address] 07/31/2023 13:53:43 07/31/2023 15:22:41 Urinary incontinence 133778844 R32 has seen urogyn before but would like to be seen again. Hypothyroidism 73311974 E03.9 Will recheck TSH and adjust medication s as necessary. Leukopenia 45391786 D72. 819 Essential hypertension 76022833 I10 Stable. Continue current medication s. 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 jaffe, recent CT done. Cough 25310332 R05.9 forceful, wheezy cough, improved but still very bothersome . Body mass index 30+ - obesity 719439653 Z68.30 E66.9 Member is 18 years of [...] any other GLP-1 receptor agent. Excessive thirst 0120809 7 R63.1 excess thirst, lack of appetite, urinating a lot but not making it to BR. Multiple joint pain 3567 8005 M25.50 will check labs. Moderate p ersistent asthma 846065433 J45.40 symbicort was not helpful but i do believe he should be on a long acting/ steroid inhaler, will try advair BID, rinse mouth out after. Try for at least 30 days. [id number] [facility]ini Ortiz [facility] Main Office [address] [facility] 207 [facility] [place] [address] 03/04/2024 09:02:37 03/04/2024 09:34:29 Pulmonary Mycobacterium avium complex infection 316085566 A31.[address] Jaffe, Due for CT in gh dose azithro x 10 days, pred burst x 5 days.Re-st art arnuity inhaler and albuterol nebs, robitussin with codeine as needed.to ED for any severe resp distress. Essential hypertension 10569348 I10 Stable. Continue current medication s. Moderate p ersistent asthma 137649105 J45.40 restart nebs and arnuity inahler Cough 99833984 R05.9 forceful, wheezy cough, robitussin with codeine as needed [id number] EDGAR James Main Office [address] [facility] 207 [facility] [place] [place] [address] 05/07/2024 14:21:54 05/07/2024 15:09:53 Lump in upper outer quadrant of left breast [id number] N63.21 will check diagnostic mammo and US, right breast lump and axillary lumps have subsided but left breast and axilla are tender on exam. Mass of frank int of left elbow [id number] M25.822 M25.422 will check US, suspect lipoma as she has lost weight recently. [id number] EDGAR James Main Office [address] [facility] JESSENIA CUMMINGS [address] 07/13/2024 09:28:20 07/13/2024 10:17:14 Adult health examination [id number] Z00.00 Vaccines UTD, HM UTD, colo and endosocpy in august, mammo UTD, hysterecto my, no need for pap, bone density will schedule. Bone density finding [id number] M85.89 due for bone density, she will schedule. Anxiety 13864900 F41.9 Stable. Continue current medication s. Major depr ession single episode, in partial remission [id number] F32.4 Essential hypertension 23078142 I10 Stable. Continue current medication s. Hypothyroidism 97671612 E03.9 Stable. Continue current medication s. Nocturia 141443050 R35.1 Managed by uroGYN. Hearing loss 61243391 H9 1.93 Saw audiology, needs hearing aids- high pitched sounds are the problem. she currently cannot purchase them. Hyperlipidemia 58059245 E78.5 Leukopenia 67875106 D72. 819 hematology f/u- had bloodwork, waiting on results Thrombocyt openic disorder 271045937 D69.6 hematology f/u- had bloodwork, waiting on results Insomnia 880347439 G47.0 0 improving Strain of muscle of right groin region [id number] 1704004 S76.011A suspect hip flexor strain, may try heat/ ice, tylenol or iburpofen as needed, will check XR Inguinal pain 699117750 R10.2 suspect hip flexor strain, may try [...] ID Guarantor Name 04/04/2023 1 [place] [employer] Naomie A Disanti [id number] 5 [id number] Naomie A Disanti 04/04/2023 2 [place] [id number] Naomie A Disanti [id number] Noamie A Disanti 07/31/2023 1 [place] [employer] Naomie A Disanti [id number] 5 [id number] Naomie A Disanti 07/31/2023 2 [place] [id number] Naomie A Disanti [id number] Naomie A Disanti 03/04/2024 1 [place] [employer] Naomie A Disanti [id number] Naomie A Disanti 03/04/2024 2 [place] [id number] Naomie A Disanti [id number] Naomie A Disanti 05/07/2024 1 [place] [employer] Naomie A Disanti [id number] 5 [id number] Naomie A Disanti 05/07/2024 2 [place] [id number] Naomie A Disanti [id number] Naomie A Disanti 07/13/2024 1 [place] [employer] Naomie A Disanti [id number] 5 [id number] Naomie A Disanti 07/13/2024 2 [place] [id number] Naomie A Disanti [id number] Naomie A Disanti Notes Date Note Type [...] annual wellness exam. Ophthalmology: last visit 2021- normal.BONDERIZER: hysterectomy 40ys ago ; Mammogram- 06/18/21Colonoscopy: last colonoscopy in 2019- normal. EDGAR James [address] [facility] [address], [place], [address], [facility] 04/04/2023 12:38:24 07/31/2023 text/html Generic HPI TemplateReported bypatient.Notes:Presen ts in f/u chronic problemsSaw pulm 10 [...] kidney and liver issues. Not sleeping well. EDGAR James [address] [facility] [address], [place], [address], [facility] [place] 07/31/2023 16:18:44 03/04/2024 text/html Generic HPI TemplateReported bypatient.Notes:Presen ts with chills, cough, nausea and fatigue for the last 2 weeks, no fever, no headache, + sore throat, runny nose, no ear pain, no vomiting or diarrhea.Has tested negative for covid, hx MAC last saw Dr. Jaffe 4 months ago. Is scheduled for CT scan in July. She stopped inhaler last visit as she was doing great. On wegovy, compounded- paying OOP. Highest dose. Trini Ortiz, [facility] [address] [address], [place], [address], [facility] 03/04/2024 09:58:11 05/07/2024 text/html Generic HPI TemplateReported [...] recently 34lbs due to wegovy. Trini Ortiz, [facility] [address] [facility] [address], [place], [address], [facility] 05/07/2024 15:13:14 07/13/2024 text/html Medicare Annual Wellness [...] in the homeNotes:Had bloodwork for hematology in [place] 2 weeks ago but no results yet. [...] annual wellness exam. Ophthalmology: last visit 2021- normal.BONDERIZER: hysterectomy 40ys ago ; Mammogram- UTDColonoscopy: last colonoscopy in 2018- has appt coming up with endoscopy Trini Ortiz, [facility] [address] [facility] [address], [place], [address], [facility] 07/13/2024 11:24:25 OBGyn Episode No OBEpisode recorded.
--- OUTSIDE RECORDS SUMMARY | 2024-10-20 16:44 | XMS_ITS | Clinical Summary ---
Author Organization [facility] [address] [facility] Address [address] [place] [address] Phone Care Team Providers Care Palliative Nurse Name Role Phone Catracho Escalante MD Primary Care Provider [phone] Surgical History Surgery Date Site/Laterality Comments OTHER SURGICAL HISTORY PROCEDURE: MD TOTAL ABDOMINAL HYSTERECT W/WO RMVL TUBE OVARY OTHER SURGICAL HISTORY 1980 PROCEDURE: MD VAG HYST 250 GM/< W/RMVL TUBE&/OVARY Medical History Medical History Date Comments Thyrotoxicosis 02/21/2014 DX:Thyrotoxicosi s Hypothyroidism 09/07/2016 DX:Hypothyroidis m Vitamin D deficiency 02/21/2014 DX:Vitamin D deficiency Anemia 02/21/2014 DX:Anemia Neutropenic disorder (CMS/HCC) 02/21/2014 D X:Neutropenic disorder (HCC) Major depression single epis ode, in partial remission (CMS/HCC) 04/16/2019 DX:Major depression single episode, in partial remission ([facility]) Anxiety DX:Anxiety Seasonal allergic conjunctivitis DX:Seasonal allergic [...] drink = 0.6 oz pur e alcohol) Comments Unknown Sex and Gender Information Value Date Recorded Sex Assigned at Not on file Legal Sex Female 3:41 PM EST Gender Identity Not on file [...] Vaccines (1 of 2) 2000 Pneumococcal Vaccine: 50+ Years (2 of 2 - PCV) 06/27/2018 [...] patient's age to complete this topic Meningococcal B Vacine Aged Out No lo nger eligible based on patient's age to complete [...] Region Laterality Modality Endoscopy Historical Provider GI~PROCEDURE ORDERABLES F inal Result * External Colonoscopy Report (08/30/2024 4:46 PM EST) Anatomical Region Laterality Modality Endoscopy Historical Provider GI~PROCEDURE ORDERABLES F inal Result from Last 3 Months Insurance MEDICARE [facility] MEDEX Care Teams Palliative Nurse Relationship Specialty Start [place] [address] [place] [phone] PCP - General 10/24/21
== END 2024-10-20 15:45 | disposition home or self-care (01) ==
PROVIDERS: PCP Registered Nurse; Visit Provider Physician Assistant
DX: R07.9 Chest pain, unspecified (principal); R42 Dizziness and giddiness

== ENCOUNTER → 2024-10-20 14:09 | Outpatient (BNVA) | payer MEDICARE, SELFPAY | PROVIDERS: PCP Registered Nurse; Visit Provider Physician Assistant | DX: R07.9 Chest pain, unspecified (principal); R42 Dizziness and giddiness | CPT/HCPCS: 93005; 99212 ==